=== PATIENT | male | born 1960 | race Caucasian/White ===

== ENCOUNTER → 2017-12-31 10:28 | Outpatient (CLI) | payer MEDICARE, OTHER, SELFPAY ==
--- NOTE | 2017-12-31 10:36 | RAD_ITS ---
STUDY: X-RAY - LEFT FOOT CLINICAL: Male, 57 years old. Pain at the level of the metatarsal bones. TECHNIQUE: 3 view(s) of the foot. COMPARISON: None. FINDINGS: There is an enthesophyte involving the posterior superior calcaneus at the site of insertion of the Achilles tendon. Small plantar spur. Normal visualized subtalar, talonavicular, calcaneocuboid, tarsal and tarsometatarsal articulations. Findings suggestive of a healed fractures at the base of the third and fourth metatarsals. Normal metatarsophalangeal joint of the great toe. Normal tibial and fibular sesamoid bones. Normal interphalangeal joint of the great toe. Normal phalanges of the great toe. Normal second through fifth metatarsophalangeal joints. Normal interphalangeal joints and phalanges of the lesser toes. Soft tissue swelling. RAD/Foot min 3 Views IMPRESSION: Findings suggestive of healed fractures along the base of the third and fourth metatarsals. Mild soft tissue swelling. Electronically Signed: Rober Thomas MD at 12:50 EST Tel [phone], Service support ,
--- NOTE | 2017-12-31 10:44 | RAD_ITS ---
STUDY: X-RAY - LEFT FOOT CLINICAL: Male, 57 years old. Metatarsal pain. TECHNIQUE: 3 weight bearing view(s) of the foot. COMPARISON: December 31, 2017) 1027 hours).. FINDINGS: There is an enthesophyte involving the posterior superior calcaneus at the site of insertion of the Achilles tendon. The talus and tarsal bones are unremarkable. There is arthrosis of the visualized subtalar, talonavicular, calcaneocuboid, tarsal and tarsometatarsal articulations. Normal metatarsi. There is minimal degenerative arthrosis of the metatarsophalangeal joint of the hallux . Normal tibial and fibular sesamoid bones. Normal interphalangeal joint of the great toe. Normal phalanges of the great toe. Normal second through fifth metatarsophalangeal joints. Normal interphalangeal joints and phalanges of the lesser toes. The soft tissue structures are unremarkable. 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 Electronically Signed: Jam Lane DO at 11:21 EST Tel [phone], Service support ,
== END ==
PROVIDERS: Family Provider Family Medicine; PCP Family Medicine; Visit Provider Family Medicine
DX: M89.8X7 Other specified disorders of bone, ankle and foot (principal)
CPT/HCPCS: 73630

== ENCOUNTER → 2018-01-31 07:06 | Outpatient (CLI) | payer MEDICARE, OTHER, SELFPAY ==
--- NOTE | 2018-01-31 07:45 | MRI_ITS ---
STUDY: MRI LEFT MIDFOOT REASON FOR EXAM: Lateral left foot pain for 3 to 4 months, no specific injury. Evaluate for peroneal tendon tear. TECHNIQUE: Standardized fat and water weighted pulse sequences were obtained in all 3 orthogonal planes. COMPARISON: Radiographs 12/31/2017. FINDINGS: Normal talonavicular articulation. Normal calcaneocuboid articulation. There is arthrosis of the navicular-cuneiform articulations with chondral thinning and mild subchondral cystic change/bone edema (inversion recovery sagittal images 12-17). There is arthrosis of the intercuneiform articulations with chondral thinning and mild subchondral cystic change (T2 coronal series 8 image 33). Normal first tarsometatarsal articulation. Normal Lisfranc ligament. There is arthrosis of the second through fifth tarsometatarsal joints with chondral thinning and subchondral cystic change (inversion recovery sagittal images 15-22). There is no metatarsal stress fracture. Normal tibialis anterior tendon. Normal extensor hallucis longus tendon. Normal extensor digitorum longus tendons. There is tendinosis of the peroneus longus tendon plantar to the cuboid with tendon thickening (T2 coronal series 8 images 34-38) without discrete tendon tear. Normal peroneus brevis tendon and distal insertion. There is atrophy with partial fat replacement of the abductor digiti minimi muscle (T1 sagittal images 21-23). Normal visualized plantar fascia. There is mild edema in the dorsal subcutis adipose space. There is a small ganglion cyst dorsal to the second metatarsal base (T2 axial series 6 image 9) measuring 0.6 cm in length. MRI/Lower Ext/No Jt/w/o IMPRESSION: Tendinosis of the distal peroneus longus tendon without demonstrated peroneal tendon tear. 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 Atrophy of the abductor digiti minimi muscle. Small ganglion cyst dorsal to the second metatarsal base. Electronically Signed: Naren Mattson MD at 10:31 EST Tel , Service support ,
== END ==
PROVIDERS: Family Provider Family Medicine; PCP Family Medicine; Visit Provider Podiatrist
DX: S96.812A Strain of other specified muscles and tendons at ankle and foot level, left foot, initial encounter (principal)
CPT/HCPCS: 73718

== ENCOUNTER → 2018-03-22 09:13 | Outpatient (CLI) | payer MEDICARE, OTHER, SELFPAY ==
[2018-03-22 09:27] LABS: Bacteria 0 SEEN /hpf (None Seen); Mucous, Urine 0 SEEN /hpf (<or=2+); Red Blood Cells-Urine 0 SEEN /hpf (0-5); Squamous Epithelial Cells - UA 0 SEEN /hpf (0-5)
[2018-03-22 09:55] LABS: Color, Urine Yellow (Yellow); Glucose, Dipstick 1000 mg/dl (Normal); Ketone-Dipstick Negative (Negative); Leukocyte Esterase-Dipstick Negative /ul (Negative); Nitrite-Dipstick Negative (Negative); Occult Blood-Urine Negative /ul (Negative); Protein-Dipstick Negative (Negative); Urine Bilirubin Dipstick Negative (Negative); Urine Clarity Clear (Clear); Urine Urobilinogen Normal (Normal)
[2018-03-22 10:00] LABS: Absolute Lymphocyte Count 1.82 X10^3/ul (0.83-4.51); Absolute Neutrophil Count 4.8 X10^3/uL (2.0-7.7); Basophil# 0.04 X10^3/uL; Basophil% 0.5 % (0-1); Eosinophil# 0.21 X10^3/uL; Eosinophils% 2.8 % (0-5); Hematocrit 47.6 % (40-54); Hemoglobin 15.1 g/dl (13.0-16.5); Lymphocyte # 1.82 X10^3/ul (4.0); Lymphocyte % 23.9 % (19-41); Mean Corp Hgb Conc 31.7 g/gl (32-36); Mean Corpuscular Hgb 27.9 pg (27.0-32.0); Mean Platelet Vol. 10.5 fl (6.2-12.0); Monocyte# 0.72 X10^3/uL; Monocyte% 9.5 % (0-10); Neutrophil % 63.2 % (47-70); Platelet Count 252 K/mm3 (150-450); RBC Distribution Width CV 14.1 % (11.6-14.6); RBC Distribution Width SD 45.2 fl (35.1-43.9); Red Blood Count 5.41 M/mm3 (4.6-6.2); White Blood Count 7.6 K/mm3 (4.4-11.0)
[2018-03-22 10:02] LABS: Amphetamine Urine VISTA NEGATIVE (<1000 ng/mL); Barbiturate Urine VISTA NEGATIVE (< 200 ng/mL); Benzodiazepine Urine VISTA NEGATIVE (< 200 ng/mL); Cocaine Urine VISTA NEGATIVE (< 300 ng/mL); Ecstacy Urine VISTA NEGATIVE (< 500 ng/mL); Methadone Urine VISTA NEGATIVE (< 300 ng/mL); PCP Urine VISTA NEGATIVE (< 25 ng/mL); THC Urine VISTA NEGATIVE (< 50 ng/mL); Vista UDS pH Range 7
[2018-03-22 10:02] LABS: White Blood Cells 0-5 SEEN /hpf (0-5)
[2018-03-22 10:04] LABS: POSITIVE COUNT NO; POSITIVE DIFFERENTIAL NO; POSITIVE MORPHOLOGY NO
[2018-03-22 10:16] LABS: Microalbumin:Creatinine Ratio 7.7 mg/g CRE (<30 mg/g CRE)
[2018-03-22 10:28] LABS: AST(SGOT) 22 U/L (15-37); Alanine Aminotransfer ALT/SGPT 34 U/L (16-61); Albumin, Serum 3.5 g/dL (3.2-5.0); Alkaline Phosphatase 101 U/L (45-117); Anion Gap 3 (5-15); BUN 10 mg/dL (7-18); BUN/Creat Ratio 10.2 RATIO (10-20); Calcium,Total 8.3 mg/dL (8.5-10.1); Chloride 106 mmol/L (98-107); Creatinine, Serum 0.98 mg/dL (0.70-1.30); EST Glomerular Filtration Rate 83 mL/min (>60); Est Glom Filt Rate - Afr Amer 100 mL/min (>60); Globulin 3.6 g/dL (2.2-4.2); Glucose 140 mg/dL (74-106); Potassium 4.3 mmol/L (3.5-5.1); Protein, Total 7.1 g/dL (6.4-8.2); Sodium Level 140 mmol/L (136-145)
== END ==
PROVIDERS: Family Provider Family Medicine; PCP Family Medicine; Visit Provider Anesthesiology Pain Medicine
DX: F11.20 Opioid dependence, uncomplicated (principal); E11.49 Type 2 diabetes mellitus with other diabetic neurological complication; R39.15 Urgency of urination; J45.909 Unspecified asthma, uncomplicated
CPT/HCPCS: 80053; 80307; 81001; 82043; 82570; 83036; 84443; 85025

== ENCOUNTER 2018-07-22 08:14 | Day surgery (SDC) | payer MEDICARE, OTHER, SELFPAY ==
[2018-07-22 08:30] VITALS: BP 128/78; PULSE 66; RESP 16; TEMP 36.1; O2SAT 98; BMI 50.2
[2018-07-22 09:11] LABS: Bedside Glucose 109 mg/dL (70-110)
--- NOTE | 2018-07-22 09:51 | H&P.OPEN ---
Past Medical/Surgical History - Planned Operation Planned Operative Procedure/s: cscope open access Date of Operative Procedure: 07/22/18 Permit Signed: No S.O.S: No Is This Patient Having a Total Joint: No - Previous Hospitalizations/Surgeries HX Hospitalizations: Yes HX of Surgeries: LEFT SHOULDER 2013. KIDNEY STONES. GALLBLADDER. LEFT TOTAL KNEE. left rtc repair Any Problems With Anesthesia: Yes - SPINAL HEADACHE You/Your Family Experience Fever (Hyperthermia) With Anes: No Cholinesterase deficiency: No - Cardiovascular Hx Chest Pain within Last 2 months: No Hx of Irregular Heartbeat and/or Afib: No Hx Heart Attack: No Hx Congestive Heart Failure: No Hx Rheumatic Fever: No Hx Hypertension: Yes - ON MEDS BP CONTROLLED Hx Internal Defibrillator: No Hx Pacemaker: No Hx Cardiac Catheterization: No Hx Cardiac Surgery/Stents/Etc.: No Hx Stress Test: Yes - STRESS ECHO 2011 HX Edema: Yes - lower legs prn Hx Pain in Legs when Walking/Leg Cramps: Yes - PRN BILAT LEG PAIN - Respiratory Chronic Cough: No HX of Shortness of Breath: Yes - SOB WITH 2 FLights OF STAIRS Hoarseness: No Hx Chronic Obstructive Pulmonary Disease (COPD): Yes Hx Asthma: Yes - INHALERS Hx Emphysema: No Hx Sleep Apnea: No CPAP: No BIPAP: No Hx Oxygen Use at Home: No Hx Respiratory Tract Infection/Cold (presently): No - . Do You Snore Loudly (louder than talking or can be heard): Yes Do You Often Feel Tired/ Fatigued/ Sleepy Dring Daytime?: Yes Has Anyone Observed You Stop Breathing During Sleep?: No Result (for STOP score): Positive Hx Smoking: Yes - QUIT 30 YRS AGO Smoking Status: Former smoker - Gastrointestinal Hx Gastroesophageal Reflux: Yes Controlled With Meds: Yes Hx Gastrointestinal Disorders: No Hx Gastrointestinal Bleed: No Hx Ulcer: No Hx Hiatal Hernia: No Difficulty Chewing/Swallowing: No Recent Onset of Swallowing Problems: No Special diet followed at home: Yes - DIABETIC Hx Unplanned Weight Loss of 20#: No HX Unplanned Weight Gain of 20#: No - Neurological Hx Seizures: No HX Syncope/Blackout Spells/Unconsciousness: No Hx CVA/Stroke: No Hx Transient Ischemic Attacks (TIA): No Hx Multiple Sclerosis: No Hx Parkinson's Disease: No Hx Head/Neck Injury: Yes - DDD CERVICAL Hx Headaches: No Hx Back Injury/Pain: Yes - LOW BACK/DDD/NUMBNESS TINGLING TO RIGHT LEG Recent Onset of Speech Difficulty: No Restless Legs: Yes Does patient have nerve stimulator: No Patient instructed to have device shut off: No Rep notified?: No - Blood Disorder Hx Leukemia: No Bleeding Tendencies: No Hx Deep Vein Thrombosis: Yes - 5-6 YRS AGO AFTER 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 Insulin: No Thyroid Disease: No Hx Steroid Therapy: No - . - Psycho/Social Hx Substance Use: No Hx Alcohol Use: No Hx Anxiety: No Hx Depression: No Mental Illness: No Hx Dementia: No - Miscellaneous Hx Cancer: No Recent Exposure to Contagious Disease: No Active MRSA: No Hx of C-Diff: No Any Loose Teeth: No Allergies Penicillins Allergy (Verified 07/21/18 11:03) Shortness of breath - Discharge Is Pt Admitted From a Senior Living, or a [facility]: No Who Could Help: family Special Equipment Used at Home: cane prn After D/C, Where Do you Plan to Go: Return Home - Physical Exam General: Alert, Oriented x3, Cooperative Lungs: Normal air movement Cardiovascular: Regular rate, Regular Rhythm Abdomen: Soft, Non Tender, Non-Distended, Obese Vital Signs Temp Pulse Resp BP Pulse Ox 97 F L 66 16 128/78 H 98 07/22/18 08:30 07/22/18 08:30 07/22/18 08:30 07/22/18 08:30 07/22/18 08:30 Oxygen Delivery Method Room Air Weight: 370 lb 9.553 oz Body Mass Index (BMI) 50.2 POC Glucose 07/22/18 08:36 POC Glucose 109 Assessment/Plan 58-year-old male for screening colonoscopy 1. Patient reports he has never had a colonoscopy in the past. He has no family history of colon cancer. He has no abdominal pain or blood in his stool. 2. I explained endoscopy in detail to the patient. I explained the risks including but not limited to stroke or heart attack with anesthesia, perforation of the GI tract, bleeding, infection. I explained that any of these could necessitate further emergency surgery. The patient understands and all questions were answered sufficiently. The patient wishes to proceed with procedure. Miguel Casiano MD Pager: [facility] [address] [place] [address] [address] [place] [address] Office: Surgery Risks - Colonoscopy Risks Include but are not Limited To: Risks include but are not limited to: Bleeding, perforation requiring further surgery, inability to complete colonoscopy requiring barium enema.
[2018-07-22 10:16] VITALS: BP 112/59; BP 128/78; PULSE 70; RESP 12; TEMP 36.3; O2SAT 94
[2018-07-22 10:20] VITALS: BP 101/63; BP 128/78; PULSE 62; RESP 16; O2SAT 94
[2018-07-22 10:25] VITALS: BP 102/66; BP 128/78; PULSE 61; RESP 16; O2SAT 93
[2018-07-22 10:31] VITALS: BP 121/77; BP 128/78; PULSE 65; RESP 16; TEMP 36.4; O2SAT 94
--- NOTE | 2018-07-22 10:53 | PCM.OPRPT ---
Problem List (1) Screen for colon cancer Status: Acute Report of Operation Date of Procedure: 07/22/18 Pre-Operative Diagnosis: Screening colonoscopy Post-Operative Diagnosis: Poor prep Surgery/Procedure Performed:: Colonoscopy Specimen's removed: None Description of Procedure: The major risks and benefits associated with the procedure were explained to the patient in detail. The patient verbalized understanding and agreement with the same. The patient was brought to the endoscopy suite. After adequate sedation was achieved, the patient was placed in the left lateral decubitus position and a digital rectal exam was performed. This examination was within normal limits. A well-lubricated colonoscope was then inserted into the rectum and advanced under direct visualization to the level of the cecum. The bowel prep was poor. The cecum was identified by both visual and anatomic landmarks. A photograph was taken of the end of the cecum. The scope was then fully withdrawn while examining the color, texture, anatomy and integrity of the mucosa from the cecum to the anal canal. The colon contained a lot of fluid but also a lot of vegetable matter. The colon that was visible was able to be analyzed but the colon the head liquid covering it was unable to be suctioned due to the particulate food matter. I was not able to identify any large tumors but I was also unable to examine the dependent portion of the colon due to food. Over 6 minutes were taken to examine the colonic mucosa. Upon reaching the rectum the scope was retroflexed to examine the distal rectal vault. The scope was then straightened and was completely retrieved upon exiting the anal canal and the procedure was terminated. The patient was then transferred to the recovery room in stable condition. Recommendations for follow up: After discussing with the patient the patient did not understand the colonoscopy bowel prep instructions and was eating a regular diet up until last night. I will have the patient follow-up in the clinic to [id number] explain the bowel prep instructions and repeat schedule his colonoscopy.
[2018-07-22 11:00] VITALS: BP 128/78
== END 2018-07-22 11:00 | disposition home or self-care (01) ==
LOC: EN 08:14 → AC 08:15
PROVIDERS: Family Provider Family Medicine; PCP Family Medicine; Visit Provider Surgery
PROC: 0DJD8ZZ Inspection of Lower Intestinal Tract, Via Natural or Artificial Opening Endoscopic (ICD-10-PCS; CPT 45378; principal; 2018-07-22 09:10)
DX: Z12.11 Encounter for screening for malignant neoplasm of colon (principal); K21.9 Gastro-esophageal reflux disease without esophagitis; E11.9 Type 2 diabetes mellitus without complications; I10 Essential (primary) hypertension; J45.909 Unspecified asthma, uncomplicated; Z87.891 Personal history of nicotine dependence; Z86.718 Personal history of other venous thrombosis and embolism
CPT/HCPCS: G0121; 82962; J7120

== ENCOUNTER → 2019-04-20 13:59 | Outpatient (CLI) | payer MEDICARE, SELFPAY ==
--- NOTE | 2019-04-20 14:07 | RAD_ITS ---
STUDY: X-RAY - SACROILIAC JOINTS REASON FOR EXAM: Male, 58 years old. Sacral pain TECHNIQUE: 3 view(s) of the sacroiliac joints were obtained. COMPARISON: None. FINDINGS: Normal bilateral sacroiliac joints. Normal visualized sacral ala and sacrum. There is no demonstrated fracture. Normal visualized iliac bones. Normal visualized soft tissue structures. RAD/S-I Jts 3 or More Views IMPRESSION: Normal x-ray examination of the bilateral sacroiliac joints. Electronically Signed: Aroldo Gibson MD at 19:40 EDT , Service support ,
--- NOTE | 2019-04-20 14:07 | RAD_ITS ---
STUDY: X-RAY - LUMBAR SPINE REASON FOR EXAM: Male, 58 years old. Chronic lumbar pain TECHNIQUE: 5 view(s) of the lumbar spine were obtained. COMPARISON: None FINDINGS: Normal lumbar lordosis. There is no substantial scoliosis. 6 mm anterolisthesis of L5 on S1 related to bilateral pars defects. Otherwise normal alignment. There is multilevel endplate spondylosis of the lumbar vertebrae. Moderate narrowing of the L5-S1 disc. Mild loss of disc height at all other levels. Facet joint degenerative disease at L4-L5 and L5-S1. No compression fractures. The soft tissue structures are unremarkable. RAD/L/S Spine Min 4 Views IMPRESSION: No acute abnormality. Malalignment at L5-S1 and moderate degenerative disc disease related to bilateral L5 pars defects. Lesser degree of multilevel degenerative changes. Electronically Signed: Aroldo Gibson MD at 19:39 EDT , Service support ,
[2019-04-20 15:24] LABS: Absolute Lymphocyte Count 2.11 X10^3/ul (0.83-4.51); Absolute Neutrophil Count 4.6 X10^3/uL (2.0-7.7); Basophil# 0.02 X10^3/uL; Basophil% 0.3 % (0-1); Eosinophil# 0.21 X10^3/uL; Eosinophils% 2.7 % (0-5); Hemoglobin 14.3 g/dl (13.0-16.5); Lymphocyte # 2.11 X10^3/ul (4.0); Lymphocyte % 27.6 % (19-41); Mean Corp Hgb Conc 31.8 g/gl (32-36); Mean Corpuscular Hgb 27.8 pg (27.0-32.0); Mean Corpuscular Volume 87.4 fL (80-94); Mean Platelet Vol. 10.8 fl (6.2-12.0); Monocyte% 9.2 % (0-10); Neutrophil # 4.59 X10^3/uL (2.7-7.7); Neutrophil % 60.1 % (47-70); Platelet Count 228 K/mm3 (150-450); RBC Distribution Width CV 13.6 % (11.6-14.6); RBC Distribution Width SD 42.8 fl (35.1-43.9); Red Blood Count 5.15 M/mm3 (4.6-6.2); White Blood Count 7.6 K/mm3 (4.4-11.0)
[2019-04-20 15:33] LABS: POSITIVE COUNT NO; POSITIVE DIFFERENTIAL NO; POSITIVE MORPHOLOGY NO
[2019-04-20 15:36] LABS: AST(SGOT) 21 U/L (15-37); Alanine Aminotransfer ALT/SGPT 36 U/L (16-61); Albumin, Serum 3.5 g/dL (3.2-5.0); Alkaline Phosphatase 88 U/L (45-117); Anion Gap 4 (5-15); BUN 10 mg/dL (7-18); BUN/Creat Ratio 11.1 RATIO (10-20); Calcium,Total 8.7 mg/dL (8.5-10.1); Chloride 109 mmol/L (98-107); EST Glomerular Filtration Rate 91 mL/min (>60); Est Glom Filt Rate - Afr Amer 110 mL/min (>60); Globulin 3.5 g/dL (2.2-4.2); Glucose 102 mg/dL (74-106); Potassium 4.2 mmol/L (3.5-5.1); Sodium Level 144 mmol/L (136-145)
[2019-04-20 15:48] LABS: Hemoglobin A1c 7.3 % (4.2-6.3)
== END ==
PROVIDERS: Family Provider Family Medicine; PCP Family Medicine; Referring Provider Family Medicine; Visit Provider Family Medicine
DX: M53.3 Sacrococcygeal disorders, not elsewhere classified (principal); E11.49 Type 2 diabetes mellitus with other diabetic neurological complication; M54.5 Low back pain
CPT/HCPCS: 36415; 72110; 72202; 80053; 83036; 85025

== ENCOUNTER 2019-07-01 18:08 | Emergency (ER) | payer MEDICARE, SELFPAY ==
[2019-07-01 18:09] VITALS: BP 135/85; PULSE 74; RESP 20; TEMP 36.6; BMI 47.5
--- NOTE | 2019-07-01 18:39 | EKG12_ITS ---
Test Reason : DYSRYTHMIA Blood Pressure : / mmHG Vent. Rate : 064 BPM Atrial Rate : 064 BPM P-R Int : 190 ms QRS Dur : 156 ms QT Int : 472 ms P-R-T Axes : -14 -65 006 degrees QTc Int : 486 ms Normal sinus rhythm Left axis deviation Right bundle branch block Inferior infarct , age undetermined Abnormal ECG Confirmed by DALE MCRAE, JING ([id number]), editor managing newspaper WILLIE BLACKMON ([id number]) on 07/02/2019 1:13:12 PM Referred By: TAMMY Confirmed By:TORO HUNTER MD
--- NOTE | 2019-07-01 18:40 | CT_ITS ---
STUDY: CTA HEAD AND NECK WITH CONTRAST REASON FOR EXAM: Male, 59 years old. Neck pain. Left-sided weakness. Concern for dissection. Headache. RADIATION DOSAGE (If Supplied By Facility): CTDIvol = ( 30.41 ) mGy, DLP = ( 1692.68 ) mGycm TECHNIQUE: CT angiography was performed with a multi-detector CT scanner. Data acquisition was obtained from the skull base through the vertex following intravenous administration of 100ML IV Isovue 370. MIP images were reconstructed from the axial data set. Post-processing of the angiographic images was performed, with multiplanar reformation and 3D reconstruction. Individualized dose optimization techniques were used for this CT. COMPARISON: No relevant priors. FINDINGS: Normal bilateral petrous carotid arteries. Normal right cavernous carotid artery with a normal supraclinoid bifurcation. Normal left cavernous carotid artery with a normal supraclinoid bifurcation. There is hypoplastic development of the right A1 segment of the anterior cerebral arteries with an atretic but intact artery. Normal left A1 segments of the anterior cerebral artery. Normal intact anterior communicating artery (ACOM). Normal bilateral A2 segments of the anterior cerebral arteries. Normal right M1 and M2 segments of the middle cerebral arteries, with a normal M1 bifurcation. Normal left M1 and M2 segments of the middle cerebral arteries, with a normal M1 bifurcation. There is non-visualization of the right posterior communicating artery (PCOM). Normal left posterior communicating artery (PCOM). Normal bilateral vertebral arteries. Normal basilar artery with a normal basilar bifurcation. The visualized bilateral superior cerebellar (SCA) arteries are normal. Normal bilateral P1, P2 and visualized P3 segments of the posterior cerebral arteries. There is no demonstrated aneurysm of the [place] of [place]. There is no demonstrated abnormality of the visualized brain. AORTIC ARCH: Normal visualized aortic arch. Normal origins of the brachiocephalic, left common carotid, and left subclavian arteries. RIGHT CAROTID ARTERIES: Normal right common carotid artery (CCA). Normal right common carotid bulb. Normal origin of the right internal carotid (ICA) artery without a hemodynamically significant stenosis. There is atherosclerotic tortuous elongation of the cervical portion of the right internal carotid artery. Normal origin of the right external carotid artery (ECA). LEFT CAROTID ARTERIES: Normal left common carotid artery (CCA). There is mild atherosclerotic plaque formation with minimal narrowing of the left carotid bulb. Normal origin of the left internal carotid (ICA) artery without a hemodynamically significant stenosis. There is atherosclerotic tortuous elongation of the cervical portion of the left internal carotid artery. Normal origin of the left external carotid artery (ECA). VERTEBRAL ARTERIES: Normal bilateral vertebral arteries. Other: Degenerative changes of the cervical spine with left greater than right foraminal narrowing. Normal visualized brain structures. CT/CTA Head AND Neck W/ Contrast IMPRESSION: No aneurysm or occlusion. No focal dissection. There is slight atherosclerotic plaque. Cervical spondylosis. Electronically Signed: Sabino Nieto MD at 19:48 EDT , Service support ,
--- NOTE | 2019-07-01 18:46 | ED.VISSUMM ---
- ER Visit Summary Date of Service: 07/01/19 Chief Complaint: Normal onset of left neck pain approximately a week ago posteriorly at rest. History of Present Illness: The patient is a 59 M history of hypertension, diabetes, COPD and kidney stones. Patient is never had any neck surgery. Denies any recent neck trauma or neck manipulation. About a week ago he was at home watching TV got sudden onset of left posterior neck pain that is been constant and now he is developed some visual changes today and left-sided weakness. He said he never had any like this before. He is on no blood thinners. He denies any chest pain. Physical Examination: Older male currently no acute distress. Vital signs are stable. He is afebrile. His initial blood pressure is 135/83. He does not look septic or toxic. HEENT exam unremarkable. Neck his left posterior and lateral neck tenderness. Consistent muscle skeletal etiology. Trachea midline. No lymphadenopathy. Lungs clear to auscultation bilaterally. Heart regular rate and rhythm no murmur. Chest wall nontender. Abdomen soft nontender. Extremities 4-5 policy change clerk strength in left 5 out of 5 on the right. Left leg appears slightly weaker than the right with lifting and off the bed. Also weaker dorsi plantarflexion on the left compared to the right. Back left trapezius tenderness. No signs of trauma. Neurologically awake and alert. Left-sided weakness arm and leg NIH of 2. Test Results: Chest x-ray shows chronic changes and atelectasis no acute process read by myself the radiologist. CBC normal. Chemistries unremarkable gap of 4 normal creatinine. EKG sinus rhythm rate of 64 with old right bundle branch block. Old inferior AK but no acute process no change from prior EKG. CTA head neck showed no acute abnormality. No dissection. No bleed. No mass. No stroke. Emergency Department Course and Treatment: Patient has reproducible neck pain which could be musculoskeletal in etiology but I do not like the acute onset of the neck pain a week ago at rest and now all neurological symptoms such as visual change and left-sided weakness. Will be worked up for an acute carotid or other vascular dissection. Repeat exam at 2150 patient is doing well. I went over all test results with he and his family. His children are in the room. After speaking with them at length the patient length he has had chronic leg weakness that he has had evaluated by several different physicians. This is not new today. His policy change clerk strength is back to normal in the left hand and that was more primarily from his neck pain than an acute neurologic event. His repeat neurologic exam now is normal except for weakness in his left leg which family and patient state is chronic and not new. We discussed all his test results and they are comfortable with him being discharged home. The neck pain is consistent with musculoskeletal pain. And the leg weakness is chronic. Treatment Plan: Skelaxin as a muscle relaxant. Motrin for pain. Hot shower warm bath. Massage. Disposition: Discharge Impression: Acute left-sided posterior neck pain secondary to muscle spasm Chronic left leg weakness This note was generated with [employer] dictation software. It may contain incorrect words, spelling, and punctuation that were not noted in review of the chart prior to signing ED Disposition - Plan for ED Patient: Referrals: Mat Barrera MD [Primary Care Provider] -
[2019-07-01] MEDS: 0.9% Normal Saline 1,000 ML 1000 ML IV (18:49)
--- NOTE | 2019-07-01 18:55 | RAD_ITS ---
STUDY: X-RAY CHEST REASON FOR EXAM: Male, 59 years old. Headache TECHNIQUE: Single frontal view of the chest. COMPARISON: December 09, 2017 FINDINGS: The lungs are underexpanded with basilar atelectasis. There is no demonstrated pleural abnormality. There is mild cardiac enlargement. Normal mediastinum and elizabeth. Normal visualized pulmonary arteries. Normal visualized aortic arch and descending thoracic aorta. There are diffuse degenerative changes of the visualized thoracic spine. Normal visualized ribs, clavicles, and shoulders. There is no demonstrated abnormality of the visualized soft tissue structures of the upper abdomen. RAD/Chest 1 View (Portable) IMPRESSION: Lower lung atelectasis Electronically Signed: Sabino Nieto MD at 19:27 EDT , Service support ,
[2019-07-01 18:57] LABS: Absolute Lymphocyte Count 1.78 X10^3/uL (0.83-4.51); Absolute Neutrophil Count 5.9 X10^3/uL (2.0-7.7); Basophil# 0.02 X10^3/uL; Basophil% 0.2 % (0-1); Eosinophil# 0.12 X10^3/uL; Eosinophils% 1.4 % (0-5); Hematocrit 44.5 % (40-54); Hemoglobin 14.6 g/dL (13.0-16.5); Lymphocyte # 1.78 X10^3/ul (4.0); Lymphocyte % 20.7 % (19-41); Mean Corp Hgb Conc 32.8 g/dL (32-36); Mean Corpuscular Volume 88.3 fL (80-94); Mean Platelet Vol. 10.4 fl (6.2-12.0); Monocyte# 0.72 X10^3/uL; Monocyte% 8.4 % (0-10); NRBC Flagged by Analyzer 0 % (0-5); Neutrophil # 5.94 X10^3/uL (2.7-7.7); Neutrophil % 69.1 % (47-70); Platelet Count 221 K/mm3 (150-450); RBC Distribution Width CV 13.9 % (11.6-14.6); RBC Distribution Width SD 44.9 fl (35.1-43.9); Red Blood Count 5.04 M/mm3 (4.6-6.2); White Blood Count 8.6 K/mm3 (4.4-11.0)
[2019-07-01 19:13] LABS: Anion Gap 4 (5-15); BUN 9 mg/dL (7-18); BUN/Creat Ratio 11.4 RATIO (10-20); Chloride 112 mmol/L (98-107); Creatinine, Serum 0.79 mg/dL (0.70-1.30); EST Glomerular Filtration Rate 106 mL/min (>60); Est Glom Filt Rate - Afr Amer 128 mL/min (>60); Estimated Creatinine Clearance 104.58 ml/min; Glucose 75 mg/dL (74-106); Potassium 3.7 mmol/L (3.5-5.1); Sodium Level 142 mmol/L (136-145)
[2019-07-01 20:26] VITALS: BP 138/80; PULSE 64; RESP 18; O2SAT 98
--- NOTE | 2019-07-01 22:00 | ED.DEP ---
ED Disposition - Plan for ED Patient: Disposition: Home or Assisted Living Instructions: NECK SPASM, No Trauma Prescriptions: Metaxalone [Skelaxin] 800 mg PO TID #20 tab Prescription Printed Referrals: Mat Barrera MD [Primary Care Provider] - 3-5 Days if not improving Additional Instructions: Hot shower, warm baths and massage to left posterior neck muscle spasm. Skelaxin as a muscle relaxant. If it is too expensive when you go try to get it filled there is a generic version. Motrin for pain and inflammation. Follow-up with your doctor if not improving.
[2019-07-01] MEDS: Metaxalone 800 MG Tablet PO (22:16)
[2019-07-01 22:17] VITALS: BP 120/79; PULSE 60; RESP 18
== END 2019-07-01 22:18 | disposition home or self-care (01) ==
PROVIDERS: Emergency Provider Emergency Medicine; Family Provider Family Medicine; PCP Family Medicine
DX: M62.838 Other muscle spasm (principal); M54.2 Cervicalgia; I45.10 Unspecified right bundle-branch block; J98.11 Atelectasis; I10 Essential (primary) hypertension; E11.9 Type 2 diabetes mellitus without complications; J44.9 Chronic obstructive pulmonary disease, unspecified; Z87.442 Personal history of urinary calculi
CPT/HCPCS: 70496; 70498; 71045; 80048; 85025; 93005; 96360; 99285; J7030; Q9967; A4216

== ENCOUNTER → 2019-08-04 13:00 | Outpatient (CLI) | payer MEDICARE, SELFPAY ==
--- NOTE | 2019-08-04 13:01 | RAD_ITS ---
STUDY: X-RAY - CERVICAL SPINE REASON FOR EXAM: Male, 59 years old. Neck pain. TECHNIQUE: 6 view(s) of the cervical spine were obtained. COMPARISON: None FINDINGS: Generalized osteopenia. Normal anterior atlantoaxial articulation. Normal odontoid process. Normal cervical lordosis. Normal vertebral bodies and endplates. Intervertebral disc space narrowing at C4-5, C5-6 and C6-7 with osteophyte formation. Anterior bony neural foraminal encroachment at C4-5, C5-6 and C6-7 on the right and the left. Diffuse uncovertebral and facet sclerosis. The soft tissue structures are unremarkable. RAD/Cerv Spine 4 or 5 Views IMPRESSION: Osteopenia with moderate lower cervical spondylosis. Electronically Signed: Kamari Reina MD at 11:25 EDT , Service support ,
--- NOTE | 2019-08-04 13:01 | RAD_ITS ---
STUDY: X-RAY - RIGHT SHOULDER REASON FOR EXAM: Shoulder pain after heavy lifting 3 weeks ago. TECHNIQUE: 4 view(s) of the shoulder. COMPARISON: None. FINDINGS: Normal glenohumeral articulation. There is acromioclavicular arthrosis. There is a subacromial enthesophyte. There is mild cystic change of the greater tuberosity. The soft tissue structures are unremarkable. Normal visualized pulmonary apex. RAD/Shoulder min 2 Views IMPRESSION: Acromioclavicular arthrosis. Subacromial enthesophyte. Electronically Signed: Naren Mattson MD at 15:10 EDT Tel , Service support ,
== END ==
LOC: HPRAD 13:01
PROVIDERS: Family Provider Family Medicine; PCP Family Medicine; Referring Provider Orthopaedic Surgery; Visit Provider Orthopaedic Surgery
DX: M25.519 Pain in unspecified shoulder (principal); M54.2 Cervicalgia
CPT/HCPCS: 72050; 73030

== ENCOUNTER → 2019-08-19 16:33 | Outpatient (CLI) | payer MEDICARE, SELFPAY ==
[2019-08-04 13:07] VITALS: BMI 47.5
--- NOTE | 2019-08-19 16:36 | MRI_ITS ---
STUDY: MRI RIGHT SHOULDER REASON FOR EXAM: Right shoulder pain and limited range of motion. TECHNIQUE: Standardized fat and water weighted pulse sequences were obtained in all 3 orthogonal planes. COMPARISON: Radiographs 08/04/2019 and MRI images 07/24/2013. FINDINGS: There is supraspinatus tendinosis and a full thickness tear of the anterior supraspinatus tendon (T2 coronal images 12, 13) measuring approximately 1.4 x 1.1 cm (length x width). There is infraspinatus tendinosis (T2 coronal image 7) without discrete tendon tear. There is mild subscapularis tendinosis (proton density axial image 14) without discrete tendon tear. Normal teres minor tendon. There is mild atrophy with mild partial fat replacement of the supraspinatus and infraspinatus muscles (T2 sagittal images 16-19). Normal subscapularis muscle. Normal teres minor muscle. There is a small glenohumeral joint effusion. There is mild bone edema in the greater tuberosity. There is a suspected small SLAP lesion (proton density coronal images 10-12). There is mild tendinosis of the intracapsular long biceps tendon (T2 sagittal images 12-14). Normal capsulo- ligamentous complex. There is acromioclavicular arthrosis with hypertrophic changes (T2 sagittal images 14, 15). There is a Type III morphology (anterior hook) (T2 sagittal image 11), with a neutral orientation. There is a small volume of subacromial-subdeltoid bursal fluid. There is thickening of the coracoacromial ligament T2 sagittal image 11). Normal deltoid muscle. Normal trapezius muscle. MRI/Upper Ext Joint Only(Routine) IMPRESSION: Full-thickness tear and tendinosis of the supraspinatus tendon. Infraspinatus and subscapularis tendinosis. Mild atrophy of the supraspinatus and infraspinatus muscles. Suspected small SLAP lesion. Mild tendinosis of the long biceps tendon. Acromioclavicular arthrosis. Thickening of the coracoacromial ligament. Glenohumeral joint fluid communicating with the subacromial-subdeltoid bursa. Electronically Signed: Naren Mattson MD at 15:42 EDT Tel , Service support ,
== END ==
LOC: MRI 16:35
PROVIDERS: Family Provider Family Medicine; PCP Family Medicine; Referring Provider Orthopaedic Surgery; Visit Provider Orthopaedic Surgery
DX: M25.519 Pain in unspecified shoulder (principal)
CPT/HCPCS: 73221

== ENCOUNTER → 2019-09-24 09:54 | Outpatient (CLI) | payer MEDICARE, SELFPAY ==
[2019-09-22 12:52] VITALS: BMI 47.2
[2019-09-24 12:46] LABS: Hematocrit 42.6 % (40-54); Hemoglobin 13.9 g/dL (13.0-16.5); Mean Corp Hgb Conc 32.6 g/dL (32-36); Mean Corpuscular Hgb 28.1 pg (27.0-32.0); Mean Corpuscular Volume 86.2 fL (80-94); Mean Platelet Vol. 10.8 fl (6.2-12.0); Platelet Count 229 K/mm3 (150-450); RBC Distribution Width CV 13.2 % (11.6-14.6); RBC Distribution Width SD 41.5 fl (35.1-43.9); Red Blood Count 4.94 M/mm3 (4.6-6.2); White Blood Count 7.5 K/mm3 (4.4-11.0)
[2019-09-24 13:11] LABS: Microalbumin,Random Urine 10.9 mg/L (NO RANGE EST.); Microalbumin:Creatinine Ratio 5.9 mg/g CRE (<30 mg/g CRE)
[2019-09-24 13:22] LABS: AST(SGOT) 18 U/L (15-37); Alanine Aminotransfer ALT/SGPT 26 U/L (16-61); Albumin, Serum 3.5 g/dL (3.2-5.0); Alkaline Phosphatase 75 U/L (45-117); Anion Gap 5 (5-15); BUN 12 mg/dL (7-18); BUN/Creat Ratio 14.9 RATIO (10-20); Calcium,Total 8.5 mg/dL (8.5-10.1); Chloride 107 mmol/L (98-107); Cholesterol 115 mg/dL (200); Creatinine, Serum 0.81 mg/dL (0.70-1.30); EST Glomerular Filtration Rate 103 mL/min (>60); Est Glom Filt Rate - Afr Amer 125 mL/min (>60); Globulin 3.5 g/dL (2.2-4.2); Glucose 112 mg/dL (74-106); High Density Lipoprotein 45 mg/dL; Potassium 3.9 mmol/L (3.5-5.1); Prealbumin 15.7 mg/dL (20.0-40.0); Sodium Level 138 mmol/L (136-145); Triglycerides 53 mg/dL; Very Low Density Lipoprotein 11 mg/dL (5-40)
[2019-09-24 13:29] LABS: Hemoglobin A1c 6.3 % (4.2-6.3)
== END ==
LOC: MTLAB 10:00
PROVIDERS: Family Provider Family Medicine; PCP Family Medicine; Referring Provider Podiatrist; Visit Provider Podiatrist
DX: E11.622 Type 2 diabetes mellitus with other skin ulcer (principal); M54.5 Low back pain; E11.49 Type 2 diabetes mellitus with other diabetic neurological complication
CPT/HCPCS: 36415; 80053; 80061; 82043; 82570; 83036; 84134; 85027

== ENCOUNTER 2019-09-29 11:30 | Outpatient (RCR) | payer MEDICARE, SELFPAY ==
[2019-08-04 13:07] VITALS: BMI 47.5
[2019-09-22 10:36] VITALS: BP 136/75; PULSE 71; RESP 16; TEMP 37.2; BMI 47.2
--- NOTE | 2019-09-22 12:34 | HP.PCM_ITS ---
(1) Psoriasis Status: Chronic Current Visit: No Code(s): L40.9 - Psoriasis, unspecified (2) Asthma Status: Chronic Current Visit: No Code(s): J45.909 - Unspecified asthma, uncomplicated (3) Bronchitis Status: Chronic Current Visit: No Code(s): J40 - Bronchitis, not specified as acute or chronic (4) COPD (chronic obstructive pulmonary disease) Status: Chronic Current Visit: No Code(s): J44.9 - Chronic obstructive pulmonary disease, unspecified (5) Lumbar disc disease with radiculopathy Status: Chronic Current Visit: No Code(s): M51.16 - Intervertebral disc disorders with radiculopathy, lumbar region (6) Cervical disc disease Status: Chronic Current Visit: No Code(s): M50.90 - Cervical disc disorder, unspecified, unspecified cervical region (7) Leg swelling Status: Chronic Current Visit: Yes Code(s): M79.89 - Other specified soft tissue disorders (8) Leg edema Status: Chronic Current Visit: Yes Code(s): R60.0 - Localized edema (9) Chronic venous insufficiency Status: Chronic Current Visit: Yes Code(s): I87.2 - Venous insufficiency (chronic) (peripheral) (10) History of DVT (deep vein thrombosis) Status: Chronic Current Visit: Yes Code(s): Z86.718 - Personal history of other venous thrombosis and embolism (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 Current Visit: Yes Code(s): I87.009 - Postthrombotic syndrome without complications of unspecified extremity (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: Yes (13) 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 veins Status: Chronic Current Visit: Yes Code(s): L81.9 - Disorder of pigmentation, unspecified; I83.899 - Varicose veins of unspecified lower extremity with other complications (14) Diabetes mellitus Status: Chronic Current Visit: No Qualifiers: Diabetes mellitus type: type 2 Code(s): E11.9 - Type 2 diabetes mellitus without complications (15) Leg wound, right Status: Chronic Current Visit: Yes Qualifiers: Encounter type: initial encounter Qualified Code(s): S81.801A - Unspecified open wound, right lower leg, initial encounter Code(s): S81.801A - Unspecified open wound, right lower leg, initial encounter (16) Chronic ulcer of right leg Status: Chronic Current Visit: Yes Qualifiers: Non-pressure ulcer stage: with fat layer exposed Qualified Code(s): L97.912 - Non-pressure chronic ulcer of unspecified part of right lower leg with fat layer exposed Code(s): L97.919 - Non-pressure chronic ulcer of unspecified part of right lower leg with unspecified severity (17) Shoulder pain Status: Chronic Current Visit: No Qualifiers: Chronicity: chronic Code(s): M25.519 - Pain in unspecified shoulder (18) Neck pain Status: Chronic Current Visit: No Code(s): M54.2 - Cervicalgia (19) Sleep apnea Status: Chronic Current Visit: No Code(s): G47.30 - Sleep apnea, unspecified (20) Morbid obesity Status: Chronic Current Visit: No Code(s): E66.01 - Morbid (severe) obesity due to excess calories (21) Essential hypertension Status: Chronic Current Visit: No Code(s): I10 - Essential (primary) hypertension (22) BPH (benign prostatic hyperplasia) Status: Chronic Current Visit: No (23) Lipodermatosclerosis Status: Acute Current Visit: Yes Qualifiers: Laterality: bilateral Qualified Code(s): I83.11 - Varicose veins of right lower extremity with inflammation; I83.12 - Varicose veins of left lower extremity with inflammation Code(s): I83.10 - Varicose veins of unspecified lower extremity with inflammation History of Present Illness Date of Service: 09/22/19 Chief Complaint: Open wound and ulceration of the distal right lower extremity History of Wound: This is a 59-year-old male with multiple medical problems. The patient presents with a traumatic wound on the medial aspect of his right distal calf, and a more recent spontaneous ulceration of the right anterior tibial surface. Traumatic wound occurred approximately 6 weeks prior to his presentation, the result of trauma. More recently, a spontaneous ulceration occurred on the right anterior tibial surface. He presents with mild erythema near the site of the 2 adjacent open wounds/ulcerations. Hemosiderin staining in the gaiter areas bilaterally. Multiple varicosities are also noted in the lower extremity's bilaterally, as well as lopez phlebectatica at ankle level bilaterally. The patient has been using antibiotic ointment topically with respect to his to open sites, and Silvadene more recently. He is obese. He sleeps on a flat surface at night. He claims to be active. He has a history of left lower extremity deep vein thrombosis. 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 The patient denies a history of myocardial infarction, congestive heart failure, cerebrovascular accident, renal disease, hyperlipidemia, and thyroid disease. Surgical History: total knee arthroplasty - Left, - - Patient is undergone cholecystectomy in the past. He is undergone procedures for removal of kidney stones. He is also undergone left rotator cuff surgery. Allergies/Adverse Reactions: Allergies Penicillins Allergy (Verified 07/21/18 11:03) Shortness of breath Home Medications: Ambulatory Orders Medication Instructions Recorded Losartan Potassium [Cozaar] 100 mg PO DAILY 03/21/15 Montelukast [Singulair] 10 mg PO DAILY 03/21/15 metFORMIN HCl [Glucophage] 500 mg PO BID 03/21/15 Liraglutide [Victoza 3-Bernardino] 1.8 mg SQ DAILY 06/26/16 Potassium Chloride [K-Dur] 20 meq PO DAILY 06/26/16 Tamsulosin HCl [Flomax] 0.4 mg PO DAILY 06/26/16 Albuterol Inhaler [Ventolin Hfa 1 - 2 puff INHALATION Q4H PRN PRN 01/25/17 (SP)] Cod Liver Oil 1 ea PO DAILY 01/25/17 Ergocalciferol [Vitamin D] 50,000 unit PO QWEEK 01/25/17 Omeprazole [Prilosec] 20 mg PO QHS 01/25/17 Umeclidinium Brm/Vilanterol Tr 2 puff IH DAILY 12/09/17 [Anoro Ellipta 62.5-25 Mcg INH] Aspirin E.C. [Ecotrin] 81 mg PO DAILY@0800 07/21/18 oxycodone 10 mg tablet 10 mg PO TID PRN PRN #90 tab 08/04/19 Levocetirizine Dihydrochloride 5 mg PO DAILY 09/22/19 [Xyzal] - Family History Paternal - - Patient's father at the age of 84 with a history of dementia. Patient's mother at the age of 75 with a history of kidney disease. Social History: Patient is . He does not not work, having been declared disabled. He denies use of alcohol and tobacco products. Lives: Spouse/ Significant Other Smoking Status: Never smoker Tobacco Use: Non-smoker Alcohol: None Drugs: None Review of Systems Constitutional: Denies: Chills, Fever, Weight Change Eyes: Denies: Pain, Vision Change HEENT: Denies: Difficulty Hearing, Difficulty Swallowing, Sinus Congestion Cardiovascular: Denies: Chest Pain, Palpitations Respiratory: Denies: Cough, Shortness of Breath Gastrointestinal: Denies: Diarrhea, Nausea, Vomiting Genitourinary: Denies: Dysuria, Hematuria Endocrine: Denies: Heat/ Cold Intolerance, Polydipsia, Polyuria Hematologic/ Lymphatic: Denies: Easy Bruising, Easy Bleeding - Physical Exam Vital Signs Temp Pulse Resp BP 98.9 F 71 16 136/75 H 09/22/19 10:36 09/22/19 10:36 09/22/19 10:36 09/22/19 10:36 General: Alert, Oriented x3, Cooperative, No apparent distress, Well developed, Well nourished, - - Patient is morbidly obese HEENT: Atraumatic, PERRLA, EOMI, Normocephalic Oral: Moist Mucosa Neck: Supple, No JVD, Negative Carotid Bruits, Negative Hepatojugular Reflux, No Nodes, No Nuchal Rigidity, Trachea Midline Lungs: Clear to auscultation, Normal air movement, No rhonchi, No wheeze, No rales, Diminished Cardiovascular: Regular rate, Regular Rhythm, Normal S1, Normal S2, No murmurs Abdomen: Soft, Non Tender, Non-Distended, Obese Extremities: No clubbing, No cyanosis, No Calf Tenderness, - - Mild bilateral lower extremity swelling and edema is noted. Scattered varicosities are noted in the lower extremity's bilaterally. Lopez phlebectatica is noted at ankle level bilaterally. Hemosiderin staining and lipodermatosclerosis is noted in the gaiter areas bilaterally. An open wound is noted on the right medial calf, and an open ulceration is noted on the right anterior tibial surface. These 2 sites are adjacent to one another. Mild erythema is noted in the area of the wound/ulcer. Wound Measurements and Assessment WC - Nurse 1 - General Ulcer Measurement Start: 09/22/19 10:36 Freq: Status: Active Protocol: Activity Type Activity Date Activity User E-Sign Co-Sign Detail Recorded Client Recorded Date Recorded By Document 09/22/19 10:36 [id number] 09/22/19 10:47 ANUP 09/22/19 10:36 Wound Center Nurse 1 [Ulcer Assessment] 2-right anterior horne -Combined with other wound No -Current Size (cm) - Length 0.5 -Current Size (cm) - Width 0.5 -Current Size (cm) - Depth 0.1 -Total Square Cm 0.25 -Photo Taken Yes -Epithelialization None Present -Tunneling No -Undermining/Tunneling No -Circular Undermining No -Classification - Pressure Ulcer Unstageable -Exudate Amt None Present -Wound Margin Flat & Intact -Granulation Amt None Present (0 %) -Slough/Fibrin Yes -Necrosis Amt Large (67-100%) -Necrotic Tissue Type Adherent Slough -Structure Exposed N/A -Texture (Kami-wound Skin Appearance) Assessed, Localized Edema -Moisture (Kami-wound Skin Appearance Assessed,Dry/ ) Scaly -Color (Kami-wound Skin Appearance) Assessed, Erythema -Temperature (Kami-wound Skin No Abnormality Appearance) (Pt Warm) -Tenderness on Palpation (Kami-wound No Skin Appearance) -Ulcer Cleansing Rinsed/ Irrigated with Saline -Foul Odor after Cleansing No -Anesthetic Used 4% Lidocaine Solution 1-right medial leg -Combined with other wound No -Current Size (cm) - Length 0.8 -Current Size (cm) - Width 1.0 -Current Size (cm) - Depth 0.2 -Total Square Cm 0.80 -Photo Taken Yes -Epithelialization Small 1-33% -Tunneling No -Undermining/Tunneling No -Circular Undermining No -Classification - [place] Grading ( Grade 2 Diabetic Ulcer) -Exudate Amt Small -Exudate Type Serosanguineous -Wound Margin Flat & Intact -Granulation Amt Small (1-33%) -Granulation Quality [place] -Slough/Fibrin Yes -Necrosis Amt Medium (34-66%) -Necrotic Tissue Type Adherent Slough -Structure Exposed N/A -Texture (Kami-wound Skin Appearance) Assessed, Localized Edema -Moisture (Kami-wound Skin Appearance Assessed,Dry/ ) Scaly -Color (Kami-wound Skin Appearance) Assessed -Temperature (Kami-wound Skin No Abnormality Appearance) (Pt Warm) -Tenderness on Palpation (Kami-wound No Skin Appearance) -Ulcer Cleansing Rinsed/ Irrigated with Saline -Foul Odor after Cleansing No -Anesthetic Used 4% Lidocaine Solution [Edema Assessment] -Lower Limb Edema Present Yes -Right Calf (cm) 49.0 -Right Ankle (cm) 28.8 -Left Calf (cm) 47.0 -Left Ankle (cm) 29.0 WC - Nurse 2 - General Ulcer CM Notes Start: 09/22/19 10:36 Freq: Status: Active Protocol: Activity Type Activity Date Activity User E-Sign Co-Sign Detail Recorded Client Recorded Date Recorded By Document 09/22/19 11:36 AN [id number] 09/22/19 11:58 AN 09/22/19 11:36 Wound Center Nurse 2 [Procedure/Treatment] 2-right anterior horne -Time 11:40 -Correct Patient Yes -Correct Side, Site, Position Yes -Correct Procedure Yes -Procedure Performed Yes -Type of Procedure Debridement -Clinical Debridement Subcutaneous -Post Debridement Size (cm) - Length 0.6 -Post Debridement Size (cm) - Width 0.6 -Post Debridement Size (cm) - Depth 0.1 -Total Square Cm 0.36 -Wound/Ulcer Outcome Not Healed -Foul Odor after Cleansing No -Bioengineered Tissue No -Bleeding Controlled with Pressure -Offloading No -Treatment Response Procedure Tolerated Well 1-right medial leg -Time 11:40 -Correct Patient Yes -Correct Side, Site, Position Yes -Correct Procedure Yes -Procedure Performed Yes -Type of Procedure Debridement -Clinical Debridement Subcutaneous -Post Debridement Size (cm) - Length 0.9 -Post Debridement Size (cm) - Width 1.1 -Post Debridement Size (cm) - Depth 0.2 -Total Square Cm 0.99 -Wound/Ulcer Outcome Not Healed -Ulcer Cleansing Rinsed/ Irrigated with Saline -Foul Odor after Cleansing No -Bioengineered Tissue No -Bleeding Controlled with Pressure -Offloading No -Treatment Response Procedure Tolerated Well [See Physician Procedure note for Specifics] Pain Scale: 0-10 Numeric [Pain] -Is Patient Pain Free? Yes Musculoskeletal: No Muscle Wasting Neurological: Cranial nerves II-XII grossly intact, Neuro grossly intact Psych/Mental Status: Normal Affect, Appropriate, Alert and oriented to time, place, person, mood and affect Debridement Note Post-Debridement Measurements/Treatment WC - Nurse 2 - General Ulcer CM Notes Start: 09/22/19 10:36 Freq: Status: Active Protocol: Activity Type Activity Date Activity User E-Sign Co-Sign Detail Recorded Client Recorded Date Recorded By Document 09/22/19 11:36 AN [id number] 09/22/19 11:58 AN 09/22/19 11:36 Wound Center Nurse 2 2-right anterior horne -Time 11:40 -Correct Patient Yes -Correct Side, Site, Position Yes -Correct Procedure Yes -Procedure Performed Yes -Type of Procedure Debridement -Clinical Debridement Subcutaneous -Post Debridement Size (cm) - Length 0.6 -Post Debridement Size (cm) - Width 0.6 -Post Debridement Size (cm) - Depth 0.1 -Total Square Cm 0.36 -Wound/Ulcer Outcome Not Healed -Foul Odor after Cleansing No -Bioengineered Tissue No -Bleeding Controlled with Pressure -Offloading No -Treatment Response Procedure Tolerated Well 1-right medial leg -Time 11:40 -Correct Patient Yes -Correct Side, Site, Position Yes -Correct Procedure Yes -Procedure Performed Yes -Type of Procedure Debridement -Clinical Debridement Subcutaneous -Post Debridement Size (cm) - Length 0.9 -Post Debridement Size (cm) - Width 1.1 -Post Debridement Size (cm) - Depth 0.2 -Total Square Cm 0.99 -Wound/Ulcer Outcome Not Healed -Ulcer Cleansing Rinsed/ Irrigated with Saline -Foul Odor after Cleansing No -Bioengineered Tissue No -Bleeding Controlled with Pressure -Offloading No -Treatment Response Procedure Tolerated Well Pain Scale: 0-10 Numeric Is Patient Pain Free? Yes Laterality: Right - Calf Type of Debridement: Excisional debridement Anesthesia Used: 5% Lidocaine Gel Depth: Down to and including healthy tissue, in the subcutaneous layer Percentage of wound debrided: 100 Instrument Used: 5mm curette Tissue Removed: Bioburden and nonviable tissue Severity: Fat Layer Exposed Amount of bleeding with debridement: Mild Bleeding Controlled with: Compression and gauze Patient tolerated procedure well Swab cultures for both aerobic and anaerobic bacterial growth were obtained relative to the wound on the medial aspect of the right calf. 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 He presented with an adjacent wound and ulceration on the distal right lower extremity, which has been present for nearly 6 weeks. By physical examination and history, the patient appears to have long-standing chronic venous insufficiency, postphlebitic syndrome with inflammation, swelling, and edema in his lower extremities. He is also noted to suffer from diabetes mellitus, hypertension, chronic obstructive pulmonary disease, and morbid obesity. Plan: Conservative treatment measures are to be implemented. These measures have been discussed with the patient thoroughly. He is to elevate his lower extremities as much as possible. He is to continue sleeping on a flat mattress at night. Elevation is to be implemented even during daytime hours. His legs are to be elevated to heart level, or higher. Prolonged idle sitting has been discouraged. Activity has been encouraged. Weight loss has been recommended. Patient has voluntarily lost 48 pounds within the last 4 months. We are to implement compression initially by means of a 3M 2 layer compression wrap, which will be applied to each lower extremity twice weekly. We are to use Aquacel silver topically to the wound/ulceration on the right lower extremity. Aquacel silver will be replaced with every change of the compression wrap twice weekly. Swab cultures have been obtained, and results will be awaited for aerobic and anaerobic bacterial growth. We are to obtain a noninvasive lower extremity arterial study and a venous study of each lower extremity. Routine laboratory studies will be obtained, including a CBC, comprehensive metabolic profile, serum prealbumin, and hemoglobin A1c. Patient has been encouraged to consume a healthy and well-balanced diet. Optimization of the patient's blood sugars has been recommended, in collaboration with the patient's primary care physician has been advised. The patient weighs 348 pounds. He stands 6 feet 0 inches tall. His BMI is 47.2, which places him in a category 3 obesity category. Weight loss has been recommended, in collaboration with the patient's primary care physician has been advised. Influenza vaccine was not administered today. The patient is not a smoker.
[2019-09-22 12:52] VITALS: BMI 47.2
[2019-09-22 18:57] LABS: M R Staph aureus DNA By PCR POSITIVE (Negative); Probe Check PASS; Staph aureus DNA By PCR POSITIVE (Negative)
[2019-09-24 11:19] VITALS: BP 120/73; PULSE 59; RESP 16; TEMP 36.6; BMI 47.2
--- NOTE | 2019-09-29 07:57 | VDLE_ITS ---
Reason For Study: LE Edema RIGHT LEFT CFV is compressible, spontaneous, phasic, CFV is compressible, spontaneous, phasic, competent and demonstrates normal competent, and demonstrates normal augmentation. augmentation. FV is compressible, spontaneous, phasic, FV is compressible, spontaneous, phasic, competent and demonstrates normal competent and demonstrates normal augmentation. augmentation. POP V is compressible, spontaneous, phasic, POP V is compressible, spontaneous, phasic, competent and demonstrates normal competent and demonstrates normal augmentation. augmentation. T/P Trunk is compressible. T/P Trunk is compressible. PTV is compressible. PTV is compressible. RT PerV is compressible. LT PerV is compressible. SFJ is INCOMPETENT and measures 0.66 x 0.86 SFJ is competent and measures 0.62 x 0.66 cm. cm. GSV proximal thigh measures 0.63 x 0.68 cm. GSV proximal thigh measures 0.45 x 0.49 cm. GSV at knee measures 0.72 x 0.73 cm. GSV at knee measures 0.62 x 0.63 cm. GSV INCOMPETENT throughout for greater than GSV INCOMPETENT throughout for greater than 0.5 seconds. 0.5 seconds. ASV mid thigh is INCOMPETENT for greater than INCOMPETENT field technical assistant noted 14 cm above 0.5 seconds and measures 0.71 x 0.77 cm. medial malleolus. ASV mid calf is INCOMPETENT for greater than SSV at junction is INCOMPETENT for greater 0.5 seconds and measures 0.31 x 0.34 cm. than 0.5 seconds and measures 0.47 x 0.51 cm. SSV at junction is INCOMPETENT for greater Procedure than 0.5 seconds and measures 0.31 x 0.30 cm. Exam performed in department. A preliminary report was called and/or faxed to . Interpretation Summary Deep veins of the lower extremities are bilaterally patent and compressible segmentally. There is no evidence of deep vein thrombosis on either side. Valvular competence appears intact within the proximal deep venous systems bilaterally. The great saphenous veins appear bilaterally patent and compressible segmentally. The right sapheno-femoral junction is incompetent . The left sapheno- femoral junction is competent . Segmental valvular incompetence is noted within the great saphenous veins bilaterally. Small saphenous veins are patent and incompetent bilaterally. An incompetent field technical assistant vein is noted in the right calf, located 14 centimeters proximal to the right medial malleolus. Incompetent accessory saphenous veins are noted in the left lower extremity, located in the left mid-thigh and left mid-calf. Ordering Physician: Dominic Hernandez Referring Physician: Mat Barrera MD Performed By: Cintia Saenz RVT
--- NOTE | 2019-09-29 08:21 | ART_ITS ---
Reason For Study: LE Edema Procedure A bilateral lower extremity continuous wave Doppler with analog waveform analysis,segmental pressures,and ankle brachial indexes without exercise. Left Segmental Pressures Left brachial= 122mmHg. Left posterior tibial artery = 179mmHg. Left dorsalis pedis artery = 172mmHg. Left digit = 123 mmHg. The left dorsalis pedis waveforms are triphasic. The left posterior tibial artery waveforms are triphasic. Right Segmental Pressures Right brachial= 119mmHg. Right posterior tibial artery = 184mmHg. Right dorsalis pedis artery = 168mmHg. Right digit = 100 mmHg. The right dorsalis pedis waveforms are triphasic. The right posterior tibial artery waveforms are triphasic. Indices The right ankle brachial index by the dorsalis pedis is 1.38. The right ankle brachial index by the posterior tibial artery is 1.51. The right digital-brachial index is 0.82. The left ankle brachial index by the dorsalis pedis is 1.41. The left ankle brachial index by the posterior tibial artery is 1.47. The left digital-brachial index is 1.01. Interpretation Summary Triphasic Doppler waveforms are noted at ankle level bilaterally. Pulse-volume recordings appear satisfactory at all levels bilaterally. Resting ankle-brachial indices are supra-normal bilaterally. Digital-brachial indices are normal bilaterally. There is no evidence of significant arterial occlusive disease in the lower extremities bilaterally. There is evidence of arterial calcification at ankle level bilaterally. Ordering Physician: Dominic Hernandez Referring Physician: Mat Barrera MD Performed By: Cintia Saenz RVT
[2019-09-29 09:30] VITALS: BP 126/80; PULSE 67; RESP 16; TEMP 37.2; BMI 47.2
--- NOTE | 2019-09-29 10:14 | PCM.WC.HP ---
(1) Psoriasis Status: Chronic Current Visit: No Code(s): L40.9 - Psoriasis, unspecified (2) Asthma Status: Chronic Current Visit: No Code(s): J45.909 - Unspecified asthma, uncomplicated (3) Bronchitis Status: Chronic Current Visit: No Code(s): J40 - Bronchitis, not specified as acute or chronic (4) COPD (chronic obstructive pulmonary disease) Status: Chronic Current Visit: No Code(s): J44.9 - Chronic obstructive pulmonary disease, unspecified (5) Lumbar disc disease with radiculopathy Status: Chronic Current Visit: No Code(s): M51.16 - Intervertebral disc disorders with radiculopathy, lumbar region (6) Cervical disc disease Status: Chronic Current Visit: No Code(s): M50.90 - Cervical disc disorder, unspecified, unspecified cervical region (7) Leg swelling Status: Chronic Current Visit: Yes Code(s): M79.89 - Other specified soft tissue disorders (8) Leg edema Status: Chronic Current Visit: Yes Code(s): R60.0 - Localized edema (9) Chronic venous insufficiency Status: Chronic Current Visit: Yes Code(s): I87.2 - Venous insufficiency (chronic) (peripheral) (10) History of DVT (deep vein thrombosis) Status: Chronic Current Visit: Yes Code(s): Z86.718 - Personal history of other venous thrombosis and embolism (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 Current Visit: Yes Code(s): I87.009 - Postthrombotic syndrome without complications of unspecified extremity (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: Yes (13) 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 veins Status: Chronic Current Visit: Yes Code(s): L81.9 - Disorder of pigmentation, unspecified; I83.899 - Varicose veins of unspecified lower extremity with other complications (14) Diabetes mellitus Status: Chronic Current Visit: No Qualifiers: Diabetes mellitus type: type 2 Code(s): E11.9 - Type 2 diabetes mellitus without complications (15) Leg wound, right Status: Chronic Current Visit: Yes Qualifiers: Encounter type: subsequent encounter Qualified Code(s): S81.801D - Unspecified open wound, right lower leg, subsequent encounter Code(s): S81.801A - Unspecified open wound, right lower leg, initial encounter (16) Chronic ulcer of right leg Status: Chronic Current Visit: Yes Qualifiers: Non-pressure ulcer stage: with fat layer exposed Qualified Code(s): L97.912 - Non-pressure chronic ulcer of unspecified part of right lower leg with fat layer exposed Code(s): L97.919 - Non-pressure chronic ulcer of unspecified part of right lower leg with unspecified severity (17) Shoulder pain Status: Chronic Current Visit: No Qualifiers: Chronicity: chronic Code(s): M25.519 - Pain in unspecified shoulder (18) Neck pain Status: Chronic Current Visit: No Code(s): M54.2 - Cervicalgia (19) Sleep apnea Status: Chronic Current Visit: No Code(s): G47.30 - Sleep apnea, unspecified (20) Morbid obesity Status: Chronic Current Visit: No Code(s): E66.01 - Morbid (severe) obesity due to excess calories (21) Essential hypertension Status: Chronic Current Visit: No Code(s): I10 - Essential (primary) hypertension (22) BPH (benign prostatic hyperplasia) Status: Chronic Current Visit: No (23) Lipodermatosclerosis Status: Acute Current Visit: Yes Qualifiers: Laterality: bilateral Qualified Code(s): I83.11 - Varicose veins of right lower extremity with inflammation; I83.12 - Varicose veins of left lower extremity with inflammation Code(s): I83.10 - Varicose veins of unspecified lower extremity with inflammation History of Present Illness Date of Service: 09/29/19 Chief Complaint: Open wound and ulceration of the distal right lower extremity History of Wound: This is a 59-year-old male with multiple medical problems. The patient presents with a traumatic wound on the medial aspect of his right distal calf, and a more recent spontaneous ulceration of the right anterior tibial surface. Traumatic wound occurred approximately 6 weeks prior to his presentation, the result of trauma. More recently, a spontaneous ulceration occurred on the right anterior tibial surface. He presents with mild erythema near the site of the 2 adjacent open wounds/ulcerations. Hemosiderin staining in the gaiter areas bilaterally. Multiple varicosities are also noted in the lower extremity's bilaterally, as well as lopez phlebectatica at ankle level bilaterally. The patient has been using antibiotic ointment topically with respect to his to open sites, and Silvadene more recently. He is obese. He sleeps on a flat surface at night. He claims to be active. He has a history of left lower extremity deep vein thrombosis. 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 (Chronic) Diabetes mellitus (Chronic) Leg wound, right (Chronic) Chronic ulcer of right leg (Chronic) Shoulder pain (Chronic) Neck pain (Chronic) Spondylosis (Chronic) Sleep apnea (Chronic) Morbid obesity (Chronic) Essential hypertension (Chronic) BPH (benign prostatic hyperplasia) (Chronic) Surgical History: total knee arthroplasty Allergies/Adverse Reactions: Allergies Penicillins Allergy (Verified 09/22/19 12:50) Shortness of breath Home Medications: Ambulatory Orders Medication Instructions Recorded Losartan Potassium [Cozaar] 100 mg PO DAILY 03/21/15 Montelukast [Singulair] 10 mg PO DAILY 03/21/15 metFORMIN HCl [Glucophage] 500 mg PO BID 03/21/15 Liraglutide [Victoza 3-Bernardino] 1.8 mg SQ DAILY 06/26/16 Potassium Chloride [K-Dur] 20 meq PO DAILY 06/26/16 Tamsulosin HCl [Flomax] 0.4 mg PO DAILY 06/26/16 Albuterol Inhaler [Ventolin Hfa 1 - 2 puff INHALATION Q4H PRN PRN 01/25/17 (SP)] Cod Liver Oil 1 ea PO DAILY 01/25/17 Ergocalciferol [Vitamin D] 50,000 unit PO QWEEK 01/25/17 Omeprazole [Prilosec] 20 mg PO QHS 01/25/17 Umeclidinium Brm/Vilanterol Tr 2 puff IH DAILY 12/09/17 [Anoro Ellipta 62.5-25 Mcg INH] Aspirin E.C. [Ecotrin] 81 mg PO DAILY@0800 07/21/18 oxycodone 10 mg tablet 10 mg PO TID PRN PRN #90 tab 08/04/19 Levocetirizine Dihydrochloride 5 mg PO DAILY 09/22/19 [Xyzal] - Family History Paternal - - Patient's father at the age of 84 with a history of dementia. Patient's mother at the age of 75 with a history of kidney disease. Lives: Spouse/ Significant Other Smoking Status: Never smoker Tobacco Use: Non-smoker Alcohol: None Drugs: None Review of Systems Constitutional: Denies: Chills, Fever, Weight Change Eyes: Denies: Pain, Vision Change HEENT: Denies: Difficulty Hearing, Difficulty Swallowing, Sinus Congestion Cardiovascular: Denies: Chest Pain, Palpitations Respiratory: Denies: Cough, Shortness of Breath Gastrointestinal: Denies: Diarrhea, Nausea, Vomiting Genitourinary: Denies: Dysuria, Hematuria Endocrine: Denies: Heat/ Cold Intolerance, Polydipsia, Polyuria Hematologic/ Lymphatic: Denies: Easy Bruising, Easy Bleeding - Physical Exam Vital Signs Temp Pulse Resp BP 98.9 F 67 16 126/80 H 09/29/19 09:30 09/29/19 09:30 09/29/19 09:30 09/29/19 09:30 General: Alert, Oriented x3, Cooperative, No apparent distress, Well developed, Well nourished HEENT: Atraumatic, PERRLA, EOMI, Normocephalic Oral: Moist Mucosa Neck: No JVD Lungs: Normal air movement Abdomen: Non-Distended, Obese Extremities: No clubbing, No cyanosis, No Calf Tenderness, - - Slight swelling and edema persist in the patient's lower extremities. Swelling and edema appears to be improved. There are also chronic changes of hemosiderin staining and lipodermatosclerosis bilaterally in the gaiter areas of the lower extremities. The ulcerations on the right anterior tibial surface persists, but appears smaller in size. There is no sign of infection or cellulitis. Wound Measurements and Assessment WC - Nurse 1 - General Ulcer Measurement Start: 09/22/19 10:36 Freq: Status: Active Protocol: Activity Type Activity Date Activity User E-Sign Co-Sign Detail Recorded Client Recorded Date Recorded By Document 09/29/19 09:30 MI [id number] 09/29/19 09:37 MI 09/29/19 09:30 Wound Center Nurse 1 [Ulcer Assessment] 2-right anterior horne -Combined with other wound No -Current Size (cm) - Length 0.3 -Current Size (cm) - Width 0.4 -Current Size (cm) - Depth 0.2 -Total Square Cm 0.12 -Photo Taken No -Epithelialization Small 1-33% -Tunneling No -Undermining/Tunneling No -Circular Undermining No -Exudate Amt Small -Exudate Type Serosanguineous -Wound Margin Distinct, Outline Attached -Granulation Amt None Present (0 %) -Slough/Fibrin Yes -Necrosis Amt Large (67-100%) -Necrotic Tissue Type Adherent Slough -Texture (Kami-wound Skin Appearance) Assessed, Scarring -Moisture (Kami-wound Skin Appearance Assessed,Dry/ ) Scaly -Color (Kami-wound Skin Appearance) Assessed, Erythema, Hemosiderin Staining -Temperature (Kami-wound Skin No Abnormality Appearance) (Pt Warm) -Tenderness on Palpation (Kami-wound Yes Skin Appearance) -Ulcer Cleansing Rinsed/ Irrigated with Saline -Foul Odor after Cleansing No -Anesthetic Used 4% Lidocaine Solution 1-right medial leg -Combined with other wound No -Current Size (cm) - Length 0.7 -Current Size (cm) - Width 1 -Current Size (cm) - Depth 0.1 -Total Square Cm 0.7 -Photo Taken No -Epithelialization Small 1-33% -Tunneling No -Undermining/Tunneling No -Circular Undermining No -Exudate Amt Small -Exudate Type Serosanguineous -Wound Margin Distinct, Outline Attached -Granulation Amt Medium (34-66%) -Granulation Quality Red -Slough/Fibrin Yes -Necrosis Amt Medium (34-66%) -Necrotic Tissue Type Adherent Slough -Texture (Kami-wound Skin Appearance) Assessed, Scarring -Moisture (Kami-wound Skin Appearance Assessed,Dry/ ) Scaly -Color (Kami-wound Skin Appearance) Assessed, Erythema, Hemosiderin Staining -Temperature (Kami-wound Skin No Abnormality Appearance) (Pt Warm) -Tenderness on Palpation (Kami-wound Yes Skin Appearance) -Ulcer Cleansing Rinsed/ Irrigated with Saline -Anesthetic Used 4% Lidocaine Solution [Edema Assessment] -Lower Limb Edema Present Yes -Right Calf (cm) 45 -Right Ankle (cm) 27.5 -Left Calf (cm) 45 -Left Ankle (cm) 28.5 WC - Nurse 2 - General Ulcer CM Notes Start: 09/22/19 10:36 Freq: Status: Active Protocol: Activity Type Activity Date Activity User E-Sign Co-Sign Detail Recorded Client Recorded Date Recorded By Document 09/29/19 09:42 CS [id number] 09/29/19 10:02 CS 09/29/19 09:42 Wound Center Nurse 2 [Procedure/Treatment] 2-right anterior horne -Time 09:44 -Correct Patient Yes -Correct Side, Site, Position Yes -Correct Procedure Yes -Procedure Performed Yes -Type of Procedure Debridement -Clinical Debridement Subcutaneous -Post Debridement Size (cm) - Length 0.3 -Post Debridement Size (cm) - Width 0.4 -Post Debridement Size (cm) - Depth 0.2 -Total Square Cm 0.12 -Wound/Ulcer Outcome Not Healed -Ulcer Cleansing Not Cleansed -Foul Odor after Cleansing No -Bioengineered Tissue No -Bleeding Controlled with NA -Offloading No -Treatment Response Procedure Tolerated Well 1-right medial leg -Time 09:44 -Correct Patient Yes -Correct Side, Site, Position Yes -Correct Procedure Yes -Procedure Performed Yes -Type of Procedure Debridement -Clinical Debridement Subcutaneous -Post Debridement Size (cm) - Length 0.7 -Post Debridement Size (cm) - Width 1 -Post Debridement Size (cm) - Depth 0.1 -Total Square Cm 0.7 -Wound/Ulcer Outcome Not Healed -Ulcer Cleansing Not Cleansed -Foul Odor after Cleansing No -Bioengineered Tissue No -Bleeding Controlled with NA -Offloading No -Treatment Response Procedure Tolerated Well [See Physician Procedure note for Specifics] Pain Scale: 0-10 Numeric [Pain] -Is Patient Pain Free? Yes Musculoskeletal: No Muscle Wasting Neurological: Cranial nerves II-XII grossly intact, Neuro grossly intact Psych/Mental Status: Normal Affect, Appropriate, Alert and oriented to time, place, person, mood and affect Debridement Note Post-Debridement Measurements/Treatment WC - Nurse 2 - General Ulcer CM Notes Start: 09/22/19 10:36 Freq: Status: Active Protocol: Activity Type Activity Date Activity User E-Sign Co-Sign Detail Recorded Client Recorded Date Recorded By Document 09/22/19 11:36 AN [id number] 09/22/19 11:58 AN Document 09/29/19 09:42 [id number] 09/29/19 10:02 CS 09/22/19 09/29/19 11:36 09:42 Wound Center Nurse 2 2-right anterior horne -Time 11:40 09:44 -Correct Patient Yes Yes -Correct Side, Site, Position Yes Yes -Correct Procedure Yes Yes -Procedure Performed Yes Yes -Type of Procedure Debridement Debridement -Clinical Debridement Subcutaneous Subcutaneous -Post Debridement Size (cm) - Length 0.6 0.3 -Post Debridement Size (cm) - Width 0.6 0.4 -Post Debridement Size (cm) - Depth 0.1 0.2 -Total Square Cm 0.36 0.12 -Wound/Ulcer Outcome Not Healed Not Healed -Ulcer Cleansing Not Cleansed -Foul Odor after Cleansing No No -Bioengineered Tissue No No -Bleeding Controlled with Pressure NA -Offloading No No -Treatment Response Procedure Procedure Tolerated Well Tolerated Well 1-right medial leg -Time 11:40 09:44 -Correct Patient Yes Yes -Correct Side, Site, Position Yes Yes -Correct Procedure Yes Yes -Procedure Performed Yes Yes -Type of Procedure Debridement Debridement -Clinical Debridement Subcutaneous Subcutaneous -Post Debridement Size (cm) - Length 0.9 0.7 -Post Debridement Size (cm) - Width 1.1 1 -Post Debridement Size (cm) - Depth 0.2 0.1 -Total Square Cm 0.99 0.7 -Wound/Ulcer Outcome Not Healed Not Healed -Ulcer Cleansing Rinsed/ Not Cleansed Irrigated with Saline -Foul Odor after Cleansing No No -Bioengineered Tissue No No -Bleeding Controlled with Pressure NA -Offloading No No -Treatment Response Procedure Procedure Tolerated Well Tolerated Well Pain Scale: 0-10 Numeric Is Patient Pain Free? Yes Yes Laterality: Right - Anterior tibial surface Type of Debridement: Excisional debridement Anesthesia Used: 5% Lidocaine Gel Depth: Down to and including healthy tissue, in the subcutaneous layer Percentage of wound debrided: 100 Instrument Used: 5mm curette Tissue Removed: Bioburden and nonviable tissue Severity: Fat Layer Exposed Amount of bleeding with debridement: Mild Bleeding Controlled with: Compression and gauze Patient tolerated procedure well Assessment/Plan Active Problems Leg swelling (Chronic) Leg edema (Chronic) Chronic venous insufficiency (Chronic) History of DVT (deep vein thrombosis) (Chronic) 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 He presented with an adjacent wound and ulceration on the distal right lower extremity, which has been present for nearly 6 weeks. By physical examination and history, the patient appears to have long-standing chronic venous insufficiency, postphlebitic syndrome with inflammation, swelling, and edema in his lower extremities. He is also noted to suffer from diabetes mellitus, hypertension, chronic obstructive pulmonary disease, and morbid obesity. A noninvasive lower extremity arterial study was performed earlier today, and reveals triphasic waveforms at ankle level bilaterally, and no evidence of significant arterial occlusive disease. Lab work obtained last week is as follows: White blood count 7.5, hemoglobin 13.9, hematocrit 42.6, platelets 229,000, sodium 138, potassium 3.9, chloride 107, BUN 12, creatinine 0.81, glucose 112, hemoglobin A1c 6.3, calcium 8.5. The patient's recent cultures were positive for methicillin-resistant staph aureus, and the patient has been placed on Bactrim double strength twice daily for 7 days. Plan: Conservative treatment measures are to be continued. These measures have been discussed with the patient thoroughly. He is to elevate his lower extremities as much as possible. He is to continue sleeping on a flat mattress at night. Elevation is to be implemented even during daytime hours. His legs are to be elevated to heart level, or higher. Prolonged idle sitting has been discouraged. Activity has been encouraged. Weight loss has been recommended. Patient has voluntarily lost 48 pounds within the last 4 months. We are to continue compression initially by means of a 3M 2 layer compression wrap, which will be applied to each lower extremity twice weekly. We are to use Aquacel silver topically to the wound/ulceration on the right lower extremity. Aquacel silver will be replaced with every change of the compression wrap twice weekly. Swab cultures have been obtained, and results indicate the presence of MRSA, and the patient has been started on Bactrim double strength twice daily for 7 days. Patient has been encouraged to consume a healthy and well-balanced diet. Optimization of the patient's blood sugars has been recommended, in collaboration with the patient's primary care physician has been advised. The patient weighs 348 pounds. He stands 6 feet 0 inches tall. His BMI is 47.2, which places him in a category 3 obesity category. Weight loss has been recommended, in collaboration with the patient's primary care physician has been advised. Influenza vaccine was not administered today. The patient is not a smoker.
== END 2019-10-01 23:59 ==
LOC: WC 11:30
PROVIDERS: Family Provider Family Medicine; PCP Family Medicine; Referring Provider Surgery; Visit Provider Surgery
DX: I83.212 Varicose veins of right lower extremity with both ulcer of calf and inflammation (principal); L97.212 Non-pressure chronic ulcer of right calf with fat layer exposed; E11.622 Type 2 diabetes mellitus with other skin ulcer; E11.51 Type 2 diabetes mellitus with diabetic peripheral angiopathy without gangrene; R60.0 Localized edema; L40.9 Psoriasis, unspecified; J44.9 Chronic obstructive pulmonary disease, unspecified; M51.16 Intervertebral disc disorders with radiculopathy, lumbar region; M50.90 Cervical disc disorder, unspecified, unspecified cervical region; M79.89 Other specified soft tissue disorders; Z86.718 Personal history of other venous thrombosis and embolism; E66.01 Morbid (severe) obesity due to excess calories; Z68.42 Body mass index [BMI] 45.0-49.9, adult; Z71.3 Dietary counseling and surveillance; I10 Essential (primary) hypertension; I83.12 Varicose veins of left lower extremity with inflammation; N40.0 Benign prostatic hyperplasia without lower urinary tract symptoms; B95.62 Methicillin resistant Staphylococcus aureus infection as the cause of diseases classified elsewhere
CPT/HCPCS: 11042; 29581; 87070; 87075; 87077; 87186; 87205; 87640; 93923; 93970; 99212; 99213; G0463

== ENCOUNTER 2019-10-27 10:00 | Outpatient (RCR) | payer MEDICARE, SELFPAY ==
[2019-10-02 01:28] VITALS: BP 126/80; PULSE 67; RESP 16; TEMP 37.2
[2019-10-02 12:19] VITALS: BP 149/83; PULSE 68; RESP 16; TEMP 37.1; BMI 47.2
[2019-10-06 10:33] VITALS: BP 125/88; PULSE 61; RESP 18; TEMP 36.3; BMI 47.2
--- NOTE | 2019-10-06 10:56 | HP.PCM_ITS ---
(1) Screen for colon cancer Status: Inactive Current Visit: No Code(s): Z12.11 - Encounter for screening for malignant neoplasm of colon (2) Psoriasis Status: Chronic Current Visit: No Code(s): L40.9 - Psoriasis, unspecified (3) Asthma Status: Chronic Current Visit: No Code(s): J45.909 - Unspecified asthma, uncomplicated (4) Bronchitis Status: Chronic Current Visit: No Code(s): J40 - Bronchitis, not specified as acute or chronic (5) COPD (chronic obstructive pulmonary disease) Status: Chronic Current Visit: No Code(s): J44.9 - Chronic obstructive pulmonary disease, unspecified (6) Lumbar disc disease with radiculopathy Status: Chronic Current Visit: No Code(s): M51.16 - Intervertebral disc disorders with radiculopathy, lumbar region (7) Cervical disc disease Status: Chronic Current Visit: No Code(s): M50.90 - Cervical disc disorder, unspecified, unspecified cervical region (8) Leg swelling Status: Chronic Current Visit: Yes Code(s): M79.89 - Other specified soft tissue disorders (9) Leg edema Status: Chronic Current Visit: Yes Code(s): R60.0 - Localized edema (10) Chronic venous insufficiency Status: Chronic Current Visit: Yes Code(s): I87.2 - Venous insufficiency (chronic) (peripheral) (11) History of DVT (deep vein thrombosis) Status: Chronic Current Visit: Yes Code(s): Z86.718 - Personal history of other venous thrombosis and embolism (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 Current Visit: Yes Code(s): I87.009 - Postthrombotic syndrome without complications of unspecified extremity (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 Current Visit: Yes (14) 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 veins Status: Chronic Current Visit: Yes Code(s): L81.9 - Disorder of pigmentation, unspecified; I83.899 - Varicose veins of unspecified lower extremity with other complications (15) Diabetes mellitus Status: Chronic Current Visit: No Qualifiers: Diabetes mellitus type: type 2 Code(s): E11.9 - Type 2 diabetes mellitus without complications (16) Leg wound, right Status: Chronic Current Visit: Yes Qualifiers: Encounter type: subsequent encounter Code(s): S81.801A - Unspecified open wound, right lower leg, initial encounter (17) Chronic ulcer of right leg Status: Chronic Current Visit: Yes Qualifiers: Non-pressure ulcer stage: with fat layer exposed Code(s): L97.919 - Non-pressure chronic ulcer of unspecified part of right lower leg with unspecified severity (18) Lipodermatosclerosis Status: Chronic Current Visit: Yes Qualifiers: Laterality: bilateral Code(s): I83.10 - Varicose veins of unspecified lower extremity with inflammation (19) Shoulder pain Status: Chronic Current Visit: No Code(s): M25.519 - Pain in unspecified shoulder (20) Neck pain Status: Chronic Current Visit: No Code(s): M54.2 - Cervicalgia (21) Spondylosis Status: Chronic Current Visit: No Code(s): M47.9 - Spondylosis, unspecified (22) Sleep apnea Status: Chronic Current Visit: No Code(s): G47.30 - Sleep apnea, unspecified (23) Morbid obesity Status: Chronic Current Visit: Yes Code(s): E66.01 - Morbid (severe) obesity due to excess calories (24) Essential hypertension Status: Chronic Current Visit: No Code(s): I10 - Essential (primary) hypertension (25) BPH (benign prostatic hyperplasia) Status: Chronic Current Visit: No History of Present Illness Date of Service: 10/06/19 Chief Complaint: Open wound and ulceration of the distal right lower extremity History of Wound: This is a 59-year-old male with multiple medical problems. The patient presented with a traumatic wound on the medial aspect of his right distal calf, and a more recent spontaneous ulceration of the right anterior tibial surface. Traumatic wound occurred approximately 6 weeks prior to his presentation, the result of trauma. More recently, a spontaneous ulceration occurred on the right anterior tibial surface. He presents with mild erythema near the site of the 2 adjacent open wounds/ulcerations. Hemosiderin staining in the gaiter areas bilaterally. Multiple varicosities are also noted in the lower extremity's bilaterally, as well as lopez phlebectatica at ankle level bilaterally. The patient has been using antibiotic ointment topically with respect to his to open sites, and Silvadene more recently. He is obese. He sleeps on a flat surface at night. He claims to be active. He has a history of left lower extremity deep vein thrombosis. 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 (Chronic) Diabetes mellitus (Chronic) Leg wound, right (Chronic) Chronic ulcer of right leg (Chronic) Lipodermatosclerosis (Chronic) Shoulder pain (Chronic) Neck pain (Chronic) Spondylosis (Chronic) Sleep apnea (Chronic) Morbid obesity (Chronic) Essential hypertension (Chronic) BPH (benign prostatic hyperplasia) (Chronic) Surgical History: total knee arthroplasty Allergies/Adverse Reactions: Allergies Penicillins Allergy (Verified 09/22/19 12:50) Shortness of breath sulfamethoxazole [From Bactrim] Allergy (Verified 10/02/19 12:21) Rash trimethoprim [From Bactrim] Allergy (Verified 10/02/19 12:21) Rash Home Medications: Ambulatory Orders Medication Instructions Recorded Losartan Potassium [Cozaar] 100 mg PO DAILY 03/21/15 Montelukast [Singulair] 10 mg PO DAILY 03/21/15 metFORMIN HCl [Glucophage] 500 mg PO BID 03/21/15 Liraglutide [Victoza 3-Bernardino] 1.8 mg SQ DAILY 06/26/16 Potassium Chloride [K-Dur] 20 meq PO DAILY 06/26/16 Tamsulosin HCl [Flomax] 0.4 mg PO DAILY 06/26/16 Albuterol Inhaler [Ventolin Hfa 1 - 2 puff INHALATION Q4H PRN PRN 01/25/17 (SP)] Cod Liver Oil 1 ea PO DAILY 01/25/17 Ergocalciferol [Vitamin D] 50,000 unit PO QWEEK 01/25/17 Omeprazole [Prilosec] 20 mg PO QHS 01/25/17 Umeclidinium Brm/Vilanterol Tr 2 puff IH DAILY 12/09/17 [Anoro Ellipta 62.5-25 Mcg INH] Aspirin E.C. [Ecotrin] 81 mg PO DAILY@0800 07/21/18 oxycodone 10 mg tablet 10 mg PO TID PRN PRN #90 tab 08/04/19 Levocetirizine Dihydrochloride 5 mg PO DAILY 09/22/19 [Xyzal] - Family History Paternal - - Patient's father at the age of 84 with a history of dementia. Patient's mother at the age of 75 with a history of kidney disease. Smoking Status: Never smoker Tobacco Use: Non-smoker Review of Systems Constitutional: Denies: Chills, Fever, Weight Change Eyes: Denies: Pain, Vision Change HEENT: Denies: Difficulty Hearing, Difficulty Swallowing, Sinus Congestion Cardiovascular: Denies: Chest Pain, Palpitations Respiratory: Denies: Cough, Shortness of Breath Gastrointestinal: Denies: Diarrhea, Nausea, Vomiting Genitourinary: Denies: Dysuria, Hematuria Endocrine: Denies: Heat/ Cold Intolerance, Polydipsia, Polyuria Hematologic/ Lymphatic: Denies: Easy Bruising, Easy Bleeding - Physical Exam Vital Signs Temp Pulse Resp BP 97.3 F L 61 18 125/88 H 10/06/19 10:33 10/06/19 10:33 10/06/19 10:33 10/06/19 10:33 General: Alert, Oriented x3, Cooperative, No apparent distress, Well developed, Well nourished HEENT: Atraumatic, PERRLA, EOMI, Normocephalic Oral: Moist Mucosa Neck: No JVD Lungs: Normal air movement Abdomen: Non-Distended Extremities: No clubbing, No cyanosis, No Calf Tenderness, - - There is slight s welling and edema in the lower extremities bilaterally. However, it appears to be improving. Chronic skin changes persist, including hyperpigmentation and lipodermatosclerosis in the gaiter areas bilaterally. The wound on the right medial calf and the ulceration of the right anterior tibial surface persists, but each has decreased significantly in size. There is no sign of infection or cellulitis. Dimensions are documented elsewhere. There is a small amount of bioburden at the site of the right medial calf wound. Wound Measurements and Assessment WC - Nurse 1 - General Ulcer Measurement Start: 10/02/19 12:17 Freq: Status: Active Protocol: Activity Type Activity Date Activity User E-Sign Co-Sign Detail Recorded Client Recorded Date Recorded By Document 10/06/19 10:33 RB [id number] 10/06/19 10:39 RB 10/06/19 10:33 Wound Center Nurse 1 [Ulcer Assessment] 2-right anterior horne -Combined with other wound No -Current Size (cm) - Length 0.1 -Current Size (cm) - Width 0.1 -Current Size (cm) - Depth 0.1 -Total Square Cm 0.01 -Tunneling No -Undermining/Tunneling No -Circular Undermining No -Exudate Amt None Present -Wound Margin Distinct, Outline Attached -Granulation Amt Medium (34-66%) -Granulation Quality [place] -Slough/Fibrin Yes -Necrosis Amt Small (1-33%) -Necrotic Tissue Type Adherent Slough -Structure Exposed N/A -Texture (Kami-wound Skin Appearance) Assessed -Moisture (Kami-wound Skin Appearance Assessed ) -Color (Kami-wound Skin Appearance) Assessed -Temperature (Kami-wound Skin No Abnormality Appearance) (Pt Warm) -Tenderness on Palpation (Kami-wound No Skin Appearance) -Ulcer Cleansing Wound Cleanser -Foul Odor after Cleansing No -Anesthetic Used 5% Lidocaine Gel 1-right medial leg -Combined with other wound No -Current Size (cm) - Length 0.8 -Current Size (cm) - Width 0.6 -Current Size (cm) - Depth 0.1 -Total Square Cm 0.48 -Tunneling No -Undermining/Tunneling No -Circular Undermining No -Exudate Amt Small -Exudate Type Serosanguineous -Wound Margin Flat & Intact -Granulation Amt Small (1-33%) -Granulation Quality [place] -Slough/Fibrin Yes -Necrosis Amt Medium (34-66%) -Necrotic Tissue Type Adherent Slough -Structure Exposed N/A -Texture (Kami-wound Skin Appearance) Assessed -Moisture (Kami-wound Skin Appearance Assessed,Dry/ ) Scaly -Color (Kami-wound Skin Appearance) Assessed -Temperature (Kami-wound Skin No Abnormality Appearance) (Pt Warm) -Tenderness on Palpation (Kami-wound No Skin Appearance) -Ulcer Cleansing Wound Cleanser -Foul Odor after Cleansing No -Anesthetic Used 5% Lidocaine Gel [Edema Assessment] -Lower Limb Edema Present Yes -Right Calf (cm) 49 -Right Ankle (cm) 28.5 WC - Nurse 2 - General Ulcer CM Notes Start: 10/02/19 12:17 Freq: Status: Active Protocol: Activity Type Activity Date Activity User E-Sign Co-Sign Detail Recorded Client Recorded Date Recorded By Document 10/06/19 10:50 ANUP [id number] 10/06/19 10:54 ANUP 10/06/19 10:50 Wound Center Nurse 2 [Procedure/Treatment] 2-right anterior horne -Time 10:51 -Correct Patient Yes -Correct Side, Site, Position Yes -Correct Procedure Yes -Procedure Performed Yes -Type of Procedure Debridement -Clinical Debridement Subcutaneous -Post Debridement Size (cm) - Length 0.1 -Post Debridement Size (cm) - Width 0.1 -Post Debridement Size (cm) - Depth 0.1 -Total Square Cm 0.01 -Wound/Ulcer Outcome Not Healed -Bleeding Controlled with Pressure -Offloading No -Treatment Response Procedure Tolerated Well 1-right medial leg -Time 10:51 -Correct Patient Yes -Correct Side, Site, Position Yes -Correct Procedure Yes -Procedure Performed Yes -Type of Procedure Debridement -Clinical Debridement Subcutaneous -Post Debridement Size (cm) - Length 1.0 -Post Debridement Size (cm) - Width 0.7 -Post Debridement Size (cm) - Depth 0.2 -Total Square Cm 0.70 -Wound/Ulcer Outcome Not Healed -Ulcer Cleansing Rinsed/ Irrigated with Saline -Foul Odor after Cleansing No -Bioengineered Tissue No -Bleeding Controlled with Pressure -Offloading No -Treatment Response Procedure Tolerated Well [See Physician Procedure note for Specifics] Pain Scale: 0-10 Numeric [Pain] -Is Patient Pain Free? Yes Musculoskeletal: No Muscle Wasting Neurological: Cranial nerves II-XII grossly intact, Neuro grossly intact Psych/Mental Status: Normal Affect, Appropriate, Alert and oriented to time, place, person, mood and affect Debridement Note Post-Debridement Measurements/Treatment WC - Nurse 2 - General Ulcer CM Notes Start: 10/02/19 12:17 Freq: Status: Active Protocol: Activity Type Activity Date Activity User E-Sign Co-Sign Detail Recorded Client Recorded Date Recorded By Document 10/06/19 10:50 ANUP [id number] 10/06/19 10:54 ANUP 10/06/19 10:50 Wound Center Nurse 2 2-right anterior horne -Time 10:51 -Correct Patient Yes -Correct Side, Site, Position Yes -Correct Procedure Yes -Procedure Performed Yes -Type of Procedure Debridement -Clinical Debridement Subcutaneous -Post Debridement Size (cm) - Length 0.1 -Post Debridement Size (cm) - Width 0.1 -Post Debridement Size (cm) - Depth 0.1 -Total Square Cm 0.01 -Wound/Ulcer Outcome Not Healed -Bleeding Controlled with Pressure -Offloading No -Treatment Response Procedure Tolerated Well 1-right medial leg -Time 10:51 -Correct Patient Yes -Correct Side, Site, Position Yes -Correct Procedure Yes -Procedure Performed Yes -Type of Procedure Debridement -Clinical Debridement Subcutaneous -Post Debridement Size (cm) - Length 1.0 -Post Debridement Size (cm) - Width 0.7 -Post Debridement Size (cm) - Depth 0.2 -Total Square Cm 0.70 -Wound/Ulcer Outcome Not Healed -Ulcer Cleansing Rinsed/ Irrigated with Saline -Foul Odor after Cleansing No -Bioengineered Tissue No -Bleeding Controlled with Pressure -Offloading No -Treatment Response Procedure Tolerated Well Pain Scale: 0-10 Numeric Is Patient Pain Free? Yes Laterality: Right - Medial calf wound Type of Debridement: Excisional debridement Anesthesia Used: 5% Lidocaine Gel Depth: Down to and including healthy tissue, in the subcutaneous layer Percentage of wound debrided: 100 Instrument Used: 3mm curette Tissue Removed: Bioburden and nonviable tissue Severity: Fat Layer Exposed Amount of bleeding with debridement: Mild Bleeding Controlled with: Compression and gauze Patient tolerated procedure well Assessment/Plan Active Problems Leg swelling (Chronic) Leg edema (Chronic) Chronic venous insufficiency (Chronic) History of DVT (deep vein thrombosis) (Chronic) 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 He presented with an adjacent wound and ulceration on the distal right lower extremity, which has been present for nearly 6 weeks. By physical examination and history, the patient appears to have long-standing chronic venous insufficiency, postphlebitic syndrome with inflammation, swelling, and edema in his lower extremities. He is also noted to suffer from diabetes mellitus, hypertension, chronic obstructive pulmonary disease, and morbid obesity. A noninvasive lower extremity arterial study was performed, and reveals triphasic waveforms at ankle level bilaterally, and no evidence of significant arterial occlusive disease. Venous duplex examination was also recently performed, revealing incompetence of the great saphenous veins bilaterally. Small saphenous veins are also bilaterally incompetent. An incompetent electronic pagination system operator vein is located in the right calf, located 14 cm proximal to the right medial malleolus. An incompetent left accessory saphenous vein is also noted. Lab work obtained recently is as follows: White blood count 7.5, hemoglobin 13.9, hematocrit 42.6, platelets 229,000, sodium 138, potassium 3.9, chloride 107, BUN 12, creatinine 0.81, glucose 112, hemoglobin A1c 6.3, calcium 8.5. The patient's recent cultures were positive for methicillin-resistant staph aureus, and the patient was placed on Bactrim double strength twice daily for 7 days. However, after 5 days, the patient developed what appeared to be an allergic reaction, and Bactrim was stopped before completing its course. The patient is now thought to possibly be allergic to Bactrim, or 1 of its co mponents. Plan: Conservative treatment measures are to be continued. These measures have been discussed with the patient thoroughly. He is to elevate his lower extremities as much as possible. He is to continue sleeping on a flat mattress at night. Elevation is to be implemented even during daytime hours. His legs are to be elevated to heart level, or higher. Prolonged idle sitting has been discouraged. Activity has been encouraged. Weight loss has been recommended. Patient has voluntarily lost 48 pounds within the last 4 months. We are to continue compression initially by means of a 3M 2 layer compression wrap, which will be applied to each lower extremity twice weekly. We are to use Aquacel silver topically to the wound/ulceration on the right lower extremity. Aquacel silver will be replaced with every change of the compression wrap twice weekly. Patient has been encouraged to consume a healthy and well-balanced diet. Optimization of the patient's blood sugars has been recommended, in collaboration with the patient's primary care physician has been advised. The patient weighs 348 pounds. He stands 6 feet 0 inches tall. His BMI is 47.2, wh ich places him in a category 3 obesity category. Weight loss has been recommended, in collaboration with the patient's primary care physician has been advised. Influenza vaccine was not administered today. The patient is not a smoker.
[2019-10-09 10:42] VITALS: BP 142/78; PULSE 64; RESP 16; TEMP 37.2; BMI 47.2
[2019-10-13 09:34] VITALS: BP 154/83; PULSE 66; RESP 16; TEMP 36.2; BMI 47.2
--- NOTE | 2019-10-13 10:27 | HP.PCM_ITS ---
(1) Psoriasis Status: Chronic Current Visit: No Code(s): L40.9 - Psoriasis, unspecified (2) Asthma Status: Chronic Current Visit: No Code(s): J45.909 - Unspecified asthma, uncomplicated (3) Bronchitis Status: Chronic Current Visit: No Code(s): J40 - Bronchitis, not specified as acute or chronic (4) COPD (chronic obstructive pulmonary disease) Status: Chronic Current Visit: No Code(s): J44.9 - Chronic obstructive pulmonary disease, unspecified (5) Lumbar disc disease with radiculopathy Status: Chronic Current Visit: No Code(s): M51.16 - Intervertebral disc disorders with radiculopathy, lumbar region (6) Cervical disc disease Status: Chronic Current Visit: No Code(s): M50.90 - Cervical disc disorder, unspecified, unspecified cervical region (7) Leg swelling Status: Chronic Current Visit: Yes Code(s): M79.89 - Other specified soft tissue disorders (8) Leg edema Status: Chronic Current Visit: Yes Code(s): R60.0 - Localized edema (9) Chronic venous insufficiency Status: Chronic Current Visit: Yes Code(s): I87.2 - Venous insufficiency (chronic) (peripheral) (10) History of DVT (deep vein thrombosis) Status: Chronic Current Visit: Yes Code(s): Z86.718 - Personal history of other venous thrombosis and embolism (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 Current Visit: Yes Code(s): I87.009 - Postthrombotic syndrome without complications of unspecified extremity (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: Yes (13) 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 veins Status: Chronic Current Visit: Yes Code(s): L81.9 - Disorder of pigmentation, unspecified; I83.899 - Varicose veins of unspecified lower extremity with other complications (14) Diabetes mellitus Status: Chronic Current Visit: No Qualifiers: Diabetes mellitus type: type 2 Code(s): E11.9 - Type 2 diabetes mellitus without complications (15) Leg wound, right Status: Chronic Current Visit: Yes Qualifiers: Encounter type: subsequent encounter Code(s): S81.801A - Unspecified open wound, right lower leg, initial encounter (16) Chronic ulcer of right leg Status: Chronic Current Visit: Yes Qualifiers: Non-pressure ulcer stage: with fat layer exposed Code(s): L97.919 - Non-pressure chronic ulcer of unspecified part of right lower leg with unspecified severity (17) Lipodermatosclerosis Status: Chronic Current Visit: Yes Qualifiers: Laterality: bilateral Code(s): I83.10 - Varicose veins of unspecified lower extremity with inflammation (18) Shoulder pain Status: Chronic Current Visit: No Code(s): M25.519 - Pain in unspecified shoulder (19) Neck pain Status: Chronic Current Visit: No Code(s): M54.2 - Cervicalgia (20) Spondylosis Status: Chronic Current Visit: No Code(s): M47.9 - Spondylosis, unspecified (21) Sleep apnea Status: Chronic Current Visit: No Code(s): G47.30 - Sleep apnea, unspecified (22) Morbid obesity Status: Chronic Current Visit: Yes Code(s): E66.01 - Morbid (severe) obesity due to excess calories (23) Essential hypertension Status: Chronic Current Visit: No Code(s): I10 - Essential (primary) hypertension (24) BPH (benign prostatic hyperplasia) Status: Chronic Current Visit: No History of Present Illness Date of Service: 10/13/19 Chief Complaint: Open wound and ulceration of the distal right lower extremity History of Wound: This is a 59-year-old male with multiple medical problems. The patient presented with a traumatic wound on the medial aspect of his right distal calf, and a more recent spontaneous ulceration of the right anterior tibial surface. Traumatic wound occurred approximately 6 weeks prior to his presentation, the result of trauma. More recently, a spontaneous ulceration occurred on the right anterior tibial surface. He presents with mild erythema near the site of the 2 adjacent open wounds/ulcerations. Hemosiderin staining in the gaiter areas bilaterally. Multiple varicosities are also noted in the lower extremity's bilaterally, as well as lopez phlebectatica at ankle level bilaterally. The patient has been using antibiotic ointment topically with respect to his to open sites, and Silvadene more recently. He is obese. He sleeps on a flat surface at night. He claims to be active. He has a history of left lower extremity deep vein thrombosis. 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 (Chronic) Diabetes mellitus (Chronic) Leg wound, right (Chronic) Chronic ulcer of right leg (Chronic) Lipodermatosclerosis (Chronic) Shoulder pain (Chronic) Neck pain (Chronic) Spondylosis (Chronic) Sleep apnea (Chronic) Morbid obesity (Chronic) Essential hypertension (Chronic) BPH (benign prostatic hyperplasia) (Chronic) Surgical History: total knee arthroplasty Allergies/Adverse Reactions: Allergies Penicillins Allergy (Verified 09/22/19 12:50) Shortness of breath sulfamethoxazole [From Bactrim] Allergy (Verified 10/02/19 12:21) Rash trimethoprim [From Bactrim] Allergy (Verified 10/02/19 12:21) Rash Home Medications: Ambulatory Orders Medication Instructions Recorded Losartan Potassium [Cozaar] 100 mg PO DAILY 03/21/15 Montelukast [Singulair] 10 mg PO DAILY 03/21/15 metFORMIN HCl [Glucophage] 500 mg PO BID 03/21/15 Liraglutide [Victoza 3-Bernardino] 1.8 mg SQ DAILY 06/26/16 Potassium Chloride [K-Dur] 20 meq PO DAILY 06/26/16 Tamsulosin HCl [Flomax] 0.4 mg PO DAILY 06/26/16 Albuterol Inhaler [Ventolin Hfa 1 - 2 puff INHALATION Q4H PRN PRN 01/25/17 (SP)] Cod Liver Oil 1 ea PO DAILY 01/25/17 Ergocalciferol [Vitamin D] 50,000 unit PO QWEEK 01/25/17 Omeprazole [Prilosec] 20 mg PO QHS 01/25/17 Umeclidinium Brm/Vilanterol Tr 2 puff IH DAILY 12/09/17 [Anoro Ellipta 62.5-25 Mcg INH] Aspirin E.C. [Ecotrin] 81 mg PO DAILY@0800 07/21/18 oxycodone 10 mg tablet 10 mg PO TID PRN PRN #90 tab 08/04/19 Levocetirizine Dihydrochloride 5 mg PO DAILY 09/22/19 [Xyzal] - Family History Paternal - - Patient's father at the age of 84 with a history of dementia. Patient's mother at the age of 75 with a history of kidney disease. Smoking Status: Never smoker Tobacco Use: Non-smoker Review of Systems Constitutional: Denies: Chills, Fever, Weight Change Eyes: Denies: Pain, Vision Change HEENT: Denies: Difficulty Hearing, Difficulty Swallowing, Sinus Congestion Cardiovascular: Denies: Chest Pain, Palpitations Respiratory: Denies: Cough, Shortness of Breath Gastrointestinal: Denies: Diarrhea, Nausea, Vomiting Genitourinary: Denies: Dysuria, Hematuria Endocrine: Denies: Heat/ Cold Intolerance, Polydipsia, Polyuria Hematologic/ Lymphatic: Denies: Easy Bruising, Easy Bleeding - Physical Exam Vital Signs Temp Pulse Resp BP 97.1 F L 66 16 154/83 H 10/13/19 09:34 10/13/19 09:34 10/13/19 09:34 10/13/19 09:34 General: Alert, Oriented x3, Cooperative, No apparent distress, Well developed, Well nourished HEENT: Atraumatic, PERRLA, EOMI, Normocephalic Oral: Moist Mucosa Neck: No JVD Lungs: Normal air movement Abdomen: Non-Distended Extremities: No clubbing, No cyanosis, No Calf Tenderness, - - Slight swelling and edema persist in the patient's lower extremities. Chronic venous changes are noted bilaterally. These changes include lipodermatosclerosis and hyperpigmentation bilaterally in the gaiter areas. Lopez phlebectatica is noted at ankle level bilaterally. Multiple large varicosities are noted in the lower extremities bilaterally. The ulceration on the right medial calf persists, though is smaller in size. There is a mild amount of bioburden. There is no sign of infection or cellulitis. Dimensions are documented elsewhere. It appears as though the ulceration is decreasing in size. Wound Measurements and Assessment WC - Nurse 1 - General Ulcer Measurement Start: 10/02/19 12:17 Freq: Status: Active Protocol: Activity Type Activity Date Activity User E-Sign Co-Sign Detail Recorded Client Recorded Date Recorded By Document 10/13/19 09:34 [facility] [id number] 10/13/19 09:38 [facility] 10/13/19 09:34 Wound Center Nurse 1 [Ulcer Assessment] 2-right anterior horne -Combined with other wound No -Current Size (cm) - Length 0.1 -Current Size (cm) - Width 0.1 -Current Size (cm) - Depth 0.1 -Total Square Cm 0.01 -Epithelialization Large 67-100% -Tunneling No -Undermining/Tunneling No -Circular Undermining No -Exudate Amt None Present -Necrosis Amt Small (1-33%) -Necrotic Tissue Type Adherent Slough -Texture (Kami-wound Skin Appearance) Assessed, Scarring -Moisture (Kami-wound Skin Appearance Assessed,Dry/ ) Scaly -Color (Kami-wound Skin Appearance) Assessed -Temperature (Kami-wound Skin No Abnormality Appearance) (Pt Warm) -Tenderness on Palpation (Kami-wound No Skin Appearance) -Ulcer Cleansing Rinsed/ Irrigated with Saline -Foul Odor after Cleansing No -Anesthetic Used 5% Lidocaine Gel 1-right medial leg -Combined with other wound No -Current Size (cm) - Length 0.8 -Current Size (cm) - Width 0.6 -Current Size (cm) - Depth 0.1 -Total Square Cm 0.48 -Photo Taken No -Epithelialization Small 1-33% -Tunneling No -Undermining/Tunneling No -Circular Undermining No -Exudate Amt None Present -Wound Margin Distinct, Outline Attached -Granulation Amt Small (1-33%) -Granulation Quality Red -Slough/Fibrin Yes -Necrosis Amt Medium (34-66%) -Necrotic Tissue Type Adherent Slough -Texture (Kami-wound Skin Appearance) Assessed, Scarring -Moisture (Kami-wound Skin Appearance Assessed,Dry/ ) Scaly -Color (Kami-wound Skin Appearance) Assessed, Hemosiderin Staining -Temperature (Kami-wound Skin No Abnormality Appearance) (Pt Warm) -Tenderness on Palpation (Kami-wound No Skin Appearance) -Ulcer Cleansing Rinsed/ Irrigated with Saline -Foul Odor after Cleansing No -Anesthetic Used 5% Lidocaine Gel [Edema Assessment] -Lower Limb Edema Present Yes -Right Calf (cm) 45.6 -Right Ankle (cm) 28.7 -Left Calf (cm) 45.5 -Left Ankle (cm) 28 WC - Nurse 2 - General Ulcer CM Notes Start: 10/02/19 12:17 Freq: Status: Active Protocol: Activity Type Activity Date Activity User E-Sign Co-Sign Detail Recorded Client Recorded Date Recorded By Document 10/13/19 10:14 [id number] 10/13/19 10:26 10/13/19 10:14 Wound Center Nurse 2 [Procedure/Treatment] 2-right anterior horne -Time 10:16 -Correct Patient Yes -Correct Side, Site, Position Yes -Correct Procedure Yes -Procedure Performed Yes -Type of Procedure Debridement -Clinical Debridement Subcutaneous -Post Debridement Size (cm) - Length 0.4 -Post Debridement Size (cm) - Width 0.4 -Post Debridement Size (cm) - Depth 0.1 -Total Square Cm 0.16 -Wound/Ulcer Outcome Not Healed -Ulcer Cleansing Not Cleansed -Foul Odor after Cleansing No -Bioengineered Tissue No -Bleeding Controlled with Pressure -Offloading No -Treatment Response Procedure Tolerated Well 1-right medial leg -Time 10:20 -Correct Patient Yes -Correct Side, Site, Position Yes -Correct Procedure Yes -Procedure Performed No -Post Debridement Size (cm) - Length 0 -Post Debridement Size (cm) - Width 0 -Post Debridement Size (cm) - Depth 0 -Total Square Cm 0 -Wound/Ulcer Outcome Healed- Epithelialized [See Physician Procedure note for Specifics] Pain Scale: 0-10 Numeric [Pain] -Is Patient Pain Free? Yes Musculoskeletal: No Muscle Wasting Neurological: Cranial nerves II-XII grossly intact, Neuro grossly intact Psych/Mental Status: Normal Affect, Appropriate, Alert and oriented to time, place, person, mood and affect Debridement Note Post-Debridement Measurements/Treatment WC - Nurse 2 - General Ulcer CM Notes Start: 10/02/19 12:17 Freq: Status: Active Protocol: Activity Type Activity Date Activity User E-Sign Co-Sign Detail Recorded Client Recorded Date Recorded By Document 10/06/19 10:50 ANUP [id number] 10/06/19 10:54 ANUP Document 10/13/19 10:14 [id number] 10/13/19 10:26 10/06/19 10/13/19 10:50 10:14 Wound Center Nurse 2 2-right anterior horne -Time 10:51 10:16 -Correct Patient Yes Yes -Correct Side, Site, Position Yes Yes -Correct Procedure Yes Yes -Procedure Performed Yes Yes -Type of Procedure Debridement Debridement -Clinical Debridement Subcutaneous Subcutaneous -Post Debridement Size (cm) - Length 0.1 0.4 -Post Debridement Size (cm) - Width 0.1 0.4 -Post Debridement Size (cm) - Depth 0.1 0.1 -Total Square Cm 0.01 0.16 -Wound/Ulcer Outcome Not Healed Not Healed -Ulcer Cleansing Not Cleansed -Foul Odor after Cleansing No -Bioengineered Tissue No -Bleeding Controlled with Pressure Pressure -Offloading No No -Treatment Response Procedure Procedure Tolerated Well Tolerated Well 1-right medial leg -Time 10:51 10:20 -Correct Patient Yes Yes -Correct Side, Site, Position Yes Yes -Correct Procedure Yes Yes -Procedure Performed Yes No -Type of Procedure Debridement -Clinical Debridement Subcutaneous -Post Debridement Size (cm) - Length 1.0 0 -Post Debridement Size (cm) - Width 0.7 0 -Post Debridement Size (cm) - Depth 0.2 0 -Total Square Cm 0.70 0 -Wound/Ulcer Outcome Not Healed Healed- Epithelialized -Ulcer Cleansing Rinsed/ Irrigated with Saline -Foul Odor after Cleansing No -Bioengineered Tissue No -Bleeding Controlled with Pressure -Offloading No -Treatment Response Procedure Tolerated Well Pain Scale: 0-10 Numeric Is Patient Pain Free? Yes Yes Laterality: Right - Medial calf Type of Debridement: Excisional debridement Anesthesia Used: 5% Lidocaine Gel Depth: Down to and including healthy tissue, in the subcutaneous layer Percentage of wound debrided: 100 Instrument Used: 5mm curette Tissue Removed: [place] and nonviable tissue Severity: Fat Layer Exposed Amount of bleeding with debridement: Mild Bleeding Controlled with: Compression and gauze Patient tolerated procedure well Assessment/Plan Active Problems Leg swelling (Chronic) Leg edema (Chronic) Chronic venous insufficiency (Chronic) History of DVT (deep vein thrombosis) (Chronic) 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 He presented with an adjacent wound and ulceration on the distal right lower extremity, which had been present for nearly 6 weeks. By physical examination and history, the patient appears to have long-standing chronic venous insufficiency, postphlebitic syndrome with inflammation, swelling, and edema in his lower extremities. He is also noted to suffer from diabetes mellitus, hypertension, chronic obstructive pulmonary disease, and morbid obesity. A noninvasive lower extremity arterial study was performed, and reveals triphasic waveforms at ankle level bilaterally, and no evidence of significant arterial occlusive disease. Venous duplex examination was also recently performed, revealing incompetence of the great saphenous veins bilaterally. Small saphenous veins are also bilaterally incompetent. An incompetent sanitary landfill operator vein is located in the right calf, located 14 cm proximal to the right medial malleolus. An incompetent left accessory saphenous vein is also noted. Lab work obtained recently is as follows: White blood count 7.5, hemoglobin 13.9, hematocrit 42.6, platelets 229,000, sodium 138, potassium 3.9, chloride 107, BUN 12, creatinine 0.81, glucose 112, hemoglobin A1c 6.3, calcium 8.5. The patient's recent cultures were positive for methicillin-resistant staph aureus, and the patient was placed on Bactrim double strength twice daily for 7 days. However, after 5 days, the patient developed what appeared to be an allergic reaction, and Bactrim was stopped before completing its course. The patient is now thought to possibly be allergic to Bactrim, or 1 of its components. Plan: Conservative treatment measures are to be continued. These measures have been discussed with the patient thoroughly. He is to elevate his lower extremities as much as possible. He is to continue sleeping on a flat mattress at night. Elevation is to be implemented even during daytime hours. His legs are to be elevated to heart level, or higher. Prolonged idle sitting has been discouraged. Activity has been encouraged. Weight loss has been recommended. Patient has voluntarily lost 48 pounds within the last 4 months. We are to continue compression initially by means of a 3M 2 layer compression wrap, which will be applied to each lower extremity twice weekly. We are to use Aquacel silver topically to the ulceration on the right lower extremity. Aquacel silver will be replaced with every change of the compression wrap twice weekly. Patient has been encouraged to consume a healthy and well-balanced diet. Optimization of the patient's blood sugars has been recommended, in collaboration with the patient's primary care physician has been advised. We have discussed the option of transitioning to the use of graduated compression stockings of at least 20 to 30 mmHg compression, or Velcro compression garment (CircAid's). There is likely that these will be prescribed at the patient's next visit. The patient is to return in 1 week for reevaluation. We have also discussed the role of endovenous ablation of the incompetent superficial veins in the lower extremities. The indications and risks of endovenous laser ablation have been discussed with the patient in detail. The procedure has been described and discussed in detail. This is likely to be an intervention that will benefit the patient, and will be considered in further detail at subsequent visits. For now, we will continue with conservative treatment measures. The patient weighs 348 pounds. He stands 6 feet 0 inches tall. His BMI is 47.2, w [facility] places him in a category 3 obesity category. Weight loss has been recommended, in collaboration with the patient's primary care physician has been advised. Influenza vaccine was not administered today. The patient is not a smoker.
[2019-10-16 13:03] VITALS: BP 127/62; PULSE 61; RESP 18; TEMP 37.3; BMI 47.2
[2019-10-20 09:43] VITALS: BP 130/76; PULSE 67; RESP 18; TEMP 37.2; BMI 47.2
--- NOTE | 2019-10-20 09:57 | HP.PCM_ITS ---
(1) Psoriasis Status: Chronic Current Visit: No Code(s): L40.9 - Psoriasis, unspecified (2) Asthma Status: Chronic Current Visit: No Code(s): J45.909 - Unspecified asthma, uncomplicated (3) Bronchitis Status: Chronic Current Visit: No Code(s): J40 - Bronchitis, not specified as acute or chronic (4) COPD (chronic obstructive pulmonary disease) Status: Chronic Current Visit: No Code(s): J44.9 - Chronic obstructive pulmonary disease, unspecified (5) Lumbar disc disease with radiculopathy Status: Chronic Current Visit: No Code(s): M51.16 - Intervertebral disc disorders with radiculopathy, lumbar region (6) Cervical disc disease Status: Chronic Current Visit: No Code(s): M50.90 - Cervical disc disorder, unspecified, unspecified cervical region (7) Leg swelling Status: Chronic Current Visit: Yes Code(s): M79.89 - Other specified soft tissue disorders (8) Leg edema Status: Chronic Current Visit: Yes Code(s): R60.0 - Localized edema (9) Chronic venous insufficiency Status: Chronic Current Visit: Yes Code(s): I87.2 - Venous insufficiency (chronic) (peripheral) (10) History of DVT (deep vein thrombosis) Status: Chronic Current Visit: Yes Code(s): Z86.718 - Personal history of other venous thrombosis and embolism (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 Current Visit: Yes Code(s): I87.009 - Postthrombotic syndrome without complications of unspecified extremity (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: Yes (13) 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 veins Status: Chronic Current Visit: Yes Code(s): L81.9 - Disorder of pigmentation, unspecified; I83.899 - Varicose veins of unspecified lower extremity with other complications (14) Diabetes mellitus Status: Chronic Current Visit: No Qualifiers: Diabetes mellitus type: type 2 Code(s): E11.9 - Type 2 diabetes mellitus without complications (15) Leg wound, right Status: Chronic Current Visit: Yes Qualifiers: Encounter type: subsequent encounter Code(s): S81.801A - Unspecified open wound, right lower leg, initial encounter (16) Chronic ulcer of right leg Status: Chronic Current Visit: Yes Qualifiers: Non-pressure ulcer stage: with fat layer exposed Code(s): L97.919 - Non-pressure chronic ulcer of unspecified part of right lower leg with unspecified severity (17) Lipodermatosclerosis Status: Chronic Current Visit: Yes Qualifiers: Laterality: bilateral Code(s): I83.10 - Varicose veins of unspecified lower extremity with inflammation (18) Shoulder pain Status: Chronic Current Visit: No Code(s): M25.519 - Pain in unspecified shoulder (19) Neck pain Status: Chronic Current Visit: No Code(s): M54.2 - Cervicalgia (20) Spondylosis Status: Chronic Current Visit: No Code(s): M47.9 - Spondylosis, unspecified (21) Sleep apnea Status: Chronic Current Visit: No Code(s): G47.30 - Sleep apnea, unspecified (22) Morbid obesity Status: Chronic Current Visit: Yes Code(s): E66.01 - Morbid (severe) obesity due to excess calories (23) Essential hypertension Status: Chronic Current Visit: No Code(s): I10 - Essential (primary) hypertension (24) BPH (benign prostatic hyperplasia) Status: Chronic Current Visit: No (25) Varicose veins with ulcer and inflammation Status: Chronic Current Visit: Yes Code(s): I83.209 - Varicose veins of unspecified lower extremity with both ulcer of unspecified site and inflammation; L97.909 - Non-pressure chronic ulcer of unspecified part of unspecified lower leg with unspecified severity (26) Venous hypertension, chronic, with ulcer and inflammation Status: Chronic Current Visit: Yes Qualifiers: Laterality: right Qualified Code(s): I87.331 - Chronic venous hypertension (idiopathic) with ulcer and inflammation of right lower extremity; L97.919 - Non-pressure chronic ulcer of unspecified part of right lower leg with unspecified severity Code(s): I87.339 - Chronic venous hypertension (idiopathic) with ulcer and inflammation of unspecified lower extremity; L97.909 - Non-pressure chronic ulcer of unspecified part of unspecified lower leg with unspecified severity History of Present Illness Date of Service: 10/20/19 Chief Complaint: Open wound and ulceration of the distal right lower extremity History of Wound: This is a 59-year-old male with multiple medical problems. The patient presented with a traumatic wound on the medial aspect of his right distal calf, and a more recent spontaneous ulceration of the right anterior tibial surface. Traumatic wound occurred approximately 6 weeks prior to his presentation, the result of trauma. More recently, a spontaneous ulceration occurred on the right anterior tibial surface. He presents with mild erythema near the site of the 2 adjacent open wounds/ulcerations. Hemosiderin staining in the gaiter areas bilaterally. Multiple varicosities are also noted in the lower extremity's bilaterally, as well as lopez phlebectatica at ankle level bilaterally. The patient has been using antibiotic ointment topically with respect to his to open sites, and Silvadene more recently. He is obese. He sleeps on a flat surface at night. He claims to be active. He has a history of left lower extremity deep vein thrombosis. 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 (Chronic) Diabetes mellitus (Chronic) Leg wound, right (Chronic) Chronic ulcer of right leg (Chronic) Lipodermatosclerosis (Chronic) Varicose veins with ulcer and inflammation (Chronic) Venous hypertension, chronic, with ulcer and inflammation (Chronic) Shoulder pain (Chronic) Neck pain (Chronic) Spondylosis (Chronic) Sleep apnea (Chronic) Morbid obesity (Chronic) Essential hypertension (Chronic) BPH (benign prostatic hyperplasia) (Chronic) Surgical History: total knee arthroplasty Allergies/Adverse Reactions: Allergies Penicillins Allergy (Verified 09/22/19 12:50) Shortness of breath sulfamethoxazole [From Bactrim] Allergy (Verified 10/02/19 12:21) Rash trimethoprim [From Bactrim] Allergy (Verified 10/02/19 12:21) Rash Home Medications: Ambulatory Orders Medication Instructions Recorded Losartan Potassium [Cozaar] 100 mg PO DAILY 03/21/15 Montelukast [Singulair] 10 mg PO DAILY 03/21/15 metFORMIN HCl [Glucophage] 500 mg PO BID 03/21/15 Liraglutide [Victoza 3-Bernardino] 1.8 mg SQ DAILY 06/26/16 Potassium Chloride [K-Dur] 20 meq PO DAILY 06/26/16 Tamsulosin HCl [Flomax] 0.4 mg PO DAILY 06/26/16 Albuterol Inhaler [Ventolin Hfa 1 - 2 puff INHALATION Q4H PRN PRN 01/25/17 (SP)] Cod Liver Oil 1 ea PO DAILY 01/25/17 Ergocalciferol [Vitamin D] 50,000 unit PO QWEEK 01/25/17 Omeprazole [Prilosec] 20 mg PO QHS 01/25/17 Umeclidinium Brm/Vilanterol Tr 2 puff IH DAILY 12/09/17 [Anoro Ellipta 62.5-25 Mcg INH] Aspirin E.C. [Ecotrin] 81 mg PO DAILY@0800 07/21/18 oxycodone 10 mg tablet 10 mg PO TID PRN PRN #90 tab 08/04/19 Levocetirizine Dihydrochloride 5 mg PO DAILY 09/22/19 [Xyzal] - Family History Paternal - - Patient's father at the age of 84 with a history of dementia. Patient's mother at the age of 75 with a history of kidney disease. Smoking Status: Never smoker Tobacco Use: Non-smoker Review of Systems Constitutional: Denies: Chills, Fever, Weight Change Eyes: Denies: Pain, Vision Change HEENT: Denies: Difficulty Hearing, Difficulty Swallowing, Sinus Congestion Cardiovascular: Denies: Chest Pain, Palpitations Respiratory: Denies: Cough, Shortness of Breath Gastrointestinal: Denies: Diarrhea, Nausea, Vomiting Genitourinary: Denies: Dysuria, Hematuria Endocrine: Denies: Heat/ Cold Intolerance, Polydipsia, Polyuria Hematologic/ Lymphatic: Denies: Easy Bruising, Easy Bleeding - Physical Exam Vital Signs Temp Pulse Resp BP 98.9 F 67 18 130/76 H 10/20/19 09:43 10/20/19 09:43 10/20/19 09:43 10/20/19 09:43 General: Alert, Oriented x3, Cooperative, No apparent distress, Well developed, Well nourished HEENT: Atraumatic, PERRLA, EOMI, Normocephalic Oral: Moist Mucosa Neck: No JVD Lungs: Normal air movement Abdomen: Non-Distended Extremities: No clubbing, No cyanosis, No Calf Tenderness, - - Slight swelling and edema persist in the patient's lower extremities. Chronic venous changes persist as well. These include hyperpigmentation and lipodermatosclerosis bilaterally in the gaiter areas. There are multiple large varicose veins bilaterally. An ulcer persists on the right anterior tibial surface, though smaller in size than noted previously. Of infection or cellulitis. Dimensions are documented elsewhere. There is a moderate amount of bioburden. Wound Measurements and Assessment WC - Nurse 1 - General Ulcer Measurement Start: 10/02/19 12:17 Freq: Status: Active Protocol: Activity Type Activity Date Activity User E-Sign Co-Sign Detail Recorded Client Recorded Date Recorded By Document 10/20/19 09:43 ANUP [id number] 10/20/19 09:46 ANUP 10/20/19 09:43 Wound Center Nurse 1 [Ulcer Assessment] 2-right anterior horne -Combined with other wound No -Current Size (cm) - Length 0 -Current Size (cm) - Width 0 -Current Size (cm) - Depth 0 -Total Square Cm 0 -Photo Taken Yes -Epithelialization Large 67-100% 1-right medial leg -Combined with other wound No -Current Size (cm) - Length 0.8 -Current Size (cm) - Width 0.6 -Current Size (cm) - Depth 0.1 -Total Square Cm 0.48 -Photo Taken No -Epithelialization Medium 34-66% -Tunneling No -Undermining/Tunneling No -Circular Undermining No -Exudate Amt Medium -Exudate Type Serosanguineous -Wound Margin Flat & Intact -Granulation Amt Medium (34-66%) -Granulation Quality Red -Slough/Fibrin Yes -Necrosis Amt Medium (34-66%) -Necrotic Tissue Type Adherent Slough -Structure Exposed N/A -Texture (Kami-wound Skin Appearance) Assessed, Localized Edema -Moisture (Kami-wound Skin Appearance Assessed,Dry/ ) Scaly -Color (Kami-wound Skin Appearance) Assessed, Hemosiderin Staining -Temperature (Kami-wound Skin No Abnormality Appearance) (Pt Warm) -Tenderness on Palpation (Kami-wound No Skin Appearance) -Ulcer Cleansing Rinsed/ Irrigated with Saline -Foul Odor after Cleansing No -Anesthetic Used 5% Lidocaine Gel [Edema Assessment] -Lower Limb Edema Present Yes -Right Calf (cm) 46 -Right Ankle (cm) 28.4 -Left Calf (cm) 46.5 -Left Ankle (cm) 28.5 Musculoskeletal: No Muscle Wasting Neurological: Cranial nerves II-XII grossly intact, Neuro grossly intact Psych/Mental Status: Normal Affect, Appropriate, Alert and oriented to time, place, person, mood and affect Debridement Note Post-Debridement Measurements/Treatment WC - Nurse 2 - General Ulcer CM Notes Start: 10/02/19 12:17 Freq: Status: Active Protocol: Activity Type Activity Date Activity User E-Sign Co-Sign Detail Recorded Client Recorded Date Recorded By Document 10/06/19 10:50 ANUP [id number] 10/06/19 10:54 ANUP Document 10/13/19 10:14 [id number] 10/13/19 10:26 10/06/19 10/13/19 10:50 10:14 Wound Center Nurse 2 2-right anterior horne -Time 10:51 10:16 -Correct Patient Yes Yes -Correct Side, Site, Position Yes Yes -Correct Procedure Yes Yes -Procedure Performed Yes Yes -Type of Procedure Debridement Debridement -Clinical Debridement Subcutaneous Subcutaneous -Post Debridement Size (cm) - Length 0.1 0.4 -Post Debridement Size (cm) - Width 0.1 0.4 -Post Debridement Size (cm) - Depth 0.1 0.1 -Total Square Cm 0.01 0.16 -Wound/Ulcer Outcome Not Healed Not Healed -Ulcer Cleansing Not Cleansed -Foul Odor after Cleansing No -Bioengineered Tissue No -Bleeding Controlled with Pressure Pressure -Offloading No No -Treatment Response Procedure Procedure Tolerated Well Tolerated Well 1-right medial leg -Time 10:51 10:20 -Correct Patient Yes Yes -Correct Side, Site, Position Yes Yes -Correct Procedure Yes Yes -Procedure Performed Yes No -Type of Procedure Debridement -Clinical Debridement Subcutaneous -Post Debridement Size (cm) - Length 1.0 0 -Post Debridement Size (cm) - Width 0.7 0 -Post Debridement Size (cm) - Depth 0.2 0 -Total Square Cm 0.70 0 -Wound/Ulcer Outcome Not Healed Healed- Epithelialized -Ulcer Cleansing Rinsed/ Irrigated with Saline -Foul Odor after Cleansing No -Bioengineered Tissue No -Bleeding Controlled with Pressure -Offloading No -Treatment Response Procedure Tolerated Well Pain Scale: 0-10 Numeric Is Patient Pain Free? Yes Yes Laterality: Right - Anterior tibial surface Type of Debridement: Excisional debridement Anesthesia Used: 5% Lidocaine Gel Depth: Down to and including healthy tissue, in the subcutaneous layer Percentage of wound debrided: 100 Instrument Used: 5mm curette Tissue Removed: Bioburden and nonviable tissue Severity: Fat Layer Exposed Amount of bleeding with debridement: Mild Bleeding Controlled with: Compression and gauze Patient tolerated procedure well Assessment/Plan Active Problems Leg swelling (Chronic) Leg edema (Chronic) Chronic venous insufficiency (Chronic) History of DVT (deep vein thrombosis) (Chronic) 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 He presented with an adjacent wound and ulceration on the distal right lower extremity, which had been present for nearly 6 weeks. By physical examination and history, the patient appears to have long-standing chronic venous insufficiency, postphlebitic syndrome with inflammation, swelling, and edema in his lower extremities. He is also noted to suffer from diabetes mellitus, hypertension, chronic obstructive pulmonary disease, and morbid obesity. A noninvasive lower extremity arterial study was performed, and reveals triphasic waveforms at ankle level bilaterally, and no evidence of significant arterial occlusive disease. Venous duplex examination was also recently performed, revealing incompetence of the great saphenous veins bilaterally. Small saphenous veins are also bilaterally incompetent. An incompetent chemistry associate vein is located in the right calf, located 14 cm proximal to the right medial malleolus. An incompetent left accessory saphenous vein is also noted. Lab work obtained recently is as follows: White blood count 7.5, hemoglobin 13.9, hematocrit 42.6, platelets 229,000, sodium 138, potassium 3.9, chloride 107, BUN 12, creatinine 0.81, glucose 112, hemoglobin A1c 6.3, calcium 8.5. The patient's recent cultures were positive for methicillin-resistant staph aureus, and the patient was placed on Bactrim double strength twice daily for 7 days. However, after 5 days, the patient developed what appeared to be an allergic reaction, and Bactrim was stopped before completing its course. The patient is now thought to possibly be allergic to Bactrim, or 1 of its components. Plan: Conservative treatment measures are to be continued. These measures have been discussed with the patient thoroughly. He is to elevate his lower extremities as much as possible. He is to continue sleeping on a flat mattress at night. Elevation is to be implemented even during daytime hours. His legs are to be elevated to heart level, or higher. Prolonged idle sitting has been discouraged. Activity has been encouraged. Weight loss has been recommended. Patient has voluntarily lost 48 pounds within the last 4 months. We are to continue compression initially by means of a 3M 2 layer compression wrap, which will be applied to each lower extremity twice weekly. We are to use Aquacel silver topically to the ulceration on the right lower extremity. Aquacel silver will be replaced with every change of the compression wrap twice weekly. Patient has been encouraged to consume a healthy and well-balanced diet. Optimization of the patient's blood sugars has been recommended, in collaboration with the patient's primary care physician has been advised. We have discussed the option of transitioning to the use of graduated compression stockings of at least 20 to 30 mmHg compression, or Velcro compression garment (CircAid's). Patient prefers CircAid's, which are to be prescribed and efforts made to obtain. The patient is to return in 1 week for reevaluation. We have also discussed the role of endovenous ablation of the incompetent superficial veins in the lower extremities. The indications and risks of endovenous laser ablation have been discussed with the patient in detail. The procedure has been described and discussed in detail. This is likely to be an intervention that will benefit the patient, and will be considered in further detail at subsequent visits. For now, we will continue with conservative treatment measures. The patient also mentions that he is anticipating left shoulder surgery in the near future, which is awaiting complete healing of his lower extremity wound. The patient weighs 348 pounds. He stands 6 feet 0 inches tall. His BMI is 47.2, which places him in a category 3 obesity category. Weight loss has been recommended, in collaboration with the patient's primary care physician has been advised. Influenza vaccine was not administered today. The patient is not a smoker.
[2019-10-27 10:02] VITALS: BP 142/82; PULSE 82; RESP 18; TEMP 36.6; BMI 47.2
== END 2019-10-31 23:59 ==
LOC: WC 10:00
PROVIDERS: Family Provider Family Medicine; PCP Family Medicine; Referring Provider Surgery; Visit Provider Surgery
DX: I83.212 Varicose veins of right lower extremity with both ulcer of calf and inflammation (principal); L97.212 Non-pressure chronic ulcer of right calf with fat layer exposed; E11.622 Type 2 diabetes mellitus with other skin ulcer; L40.9 Psoriasis, unspecified; J44.9 Chronic obstructive pulmonary disease, unspecified; M51.16 Intervertebral disc disorders with radiculopathy, lumbar region; M50.90 Cervical disc disorder, unspecified, unspecified cervical region; M79.89 Other specified soft tissue disorders; R60.0 Localized edema; E66.01 Morbid (severe) obesity due to excess calories; I10 Essential (primary) hypertension; N40.0 Benign prostatic hyperplasia without lower urinary tract symptoms; Z86.718 Personal history of other venous thrombosis and embolism; Z79.899 Other long term (current) drug therapy; Z79.84 Long term (current) use of oral hypoglycemic drugs; Z79.82 Long term (current) use of aspirin; Z68.42 Body mass index [BMI] 45.0-49.9, adult
CPT/HCPCS: 11042; 29581; 99212; 99213; G0463

== ENCOUNTER 2019-11-17 09:30 | Outpatient (RCR) | payer MEDICARE, SELFPAY ==
[2019-11-01 01:03] VITALS: BP 142/82; PULSE 82; RESP 18; TEMP 36.6
[2019-11-02 13:13] VITALS: BP 138/77; PULSE 72; RESP 20; TEMP 36.4; BMI 47.2
--- NOTE | 2019-11-02 13:52 | HP.PCM_ITS ---
(1) Psoriasis Status: Chronic Current Visit: No Code(s): L40.9 - Psoriasis, unspecified (2) Asthma Status: Chronic Current Visit: No Code(s): J45.909 - Unspecified asthma, uncomplicated (3) COPD (chronic obstructive pulmonary disease) Status: Chronic Current Visit: No Code(s): J44.9 - Chronic obstructive pulmonary disease, unspecified (4) Lumbar disc disease with radiculopathy Status: Chronic Current Visit: No Code(s): M51.16 - Intervertebral disc disorders with radiculopathy, lumbar region (5) Cervical disc disease Status: Chronic Current Visit: No Code(s): M50.90 - Cervical disc disorder, unspecified, unspecified cervical region (6) Leg swelling Status: Chronic Current Visit: Yes Code(s): M79.89 - Other specified soft tissue disorders (7) Leg edema Status: Chronic Current Visit: Yes Code(s): R60.0 - Localized edema (8) Chronic venous insufficiency Status: Chronic Current Visit: Yes Code(s): I87.2 - Venous insufficiency (chronic) (peripheral) (9) History of DVT (deep vein thrombosis) Status: Chronic Current Visit: Yes Code(s): Z86.718 - Personal history of other venous thrombosis and embolism (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 Current Visit: Yes Code(s): I87.009 - Postthrombotic syndrome without complications of unspecified extremity (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 Current Visit: Yes (12) 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 veins Status: Chronic Current Visit: Yes Code(s): L81.9 - Disorder of pigme ntation, unspecified; I83.899 - Varicose veins of unspecified lower extremity with other complications (13) Diabetes mellitus Status: Chronic Current Visit: No Code(s): E11.9 - Type 2 diabetes mellitus without complications (14) Leg wound, right Status: Chronic Current Visit: Yes Qualifiers: Encounter type: subsequent encounter Code(s): S81.801A - Unspecified open wound, right lower leg, initial encounter (15) Chronic ulcer of right leg Status: Chronic Current Visit: Yes Qualifiers: Non-pressure ulcer stage: with fat layer exposed Code(s): L97.919 - Non-pressure chronic ulcer of unspecified part of right lower leg with unspecified severity (16) Lipodermatosclerosis Status: Chronic Current Visit: Yes Qualifiers: Laterality: bilateral Code(s): I83.10 - Varicose veins of unspecified lower extremity with inflammation (17) Varicose veins with ulcer and inflammation Status: Chronic Current Visit: Yes Code(s): I83.209 - Varicose veins of unspecified lower extremity with both ulcer of unspecified site and inflammation; L97.909 - Non-pressure chronic ulcer of unspecified part of unspecified lower leg with unspecified severity (18) Venous hypertension, chronic, with ulcer and inflammation Status: Chronic Current Visit: Yes Qualifiers: Laterality: right Code(s): I87.339 - Chronic venous hypertension (idiopathic) with ulcer and inflammation of unspecified lower extremity; L97.909 - Non-pressure chronic ulcer of unspecified part of unspecified lower leg with unspecified severity (19) Shoulder pain Status: Chronic Current Visit: Yes Code(s): M25.519 - Pain in unspecified shoulder (20) Sleep apnea Status: Chronic Current Visit: No Code(s): G47.30 - Sleep apnea, unspecified (21) Morbid obesity Status: Chronic Current Visit: Yes Code(s): E66.01 - Morbid (severe) obesity due to excess calories (22) Essential hypertension Status: Chronic Current Visit: No Code(s): I10 - Essential (primary) hypertension (23) BPH (benign prostatic hyperplasia) Status: Chronic Current Visit: No History of Present Illness Date of Service: 11/02/19 Chief Complaint: Open wound and ulceration of the distal right lower extremity History of Wound: This is a 59-year-old male with multiple medical problems. The patient presented with a traumatic wound on the medial aspect of his right distal calf, and a more recent spontaneous ulceration of the right anterior tibial surface. Traumatic wound occurred approximately 6 weeks prior to his presentation, the result of trauma. More recently, a spontaneous ulceration occurred on the right anterior tibial surface. He presents with mild erythema near the site of the 2 adjacent open wounds/ulcerations. Hemosiderin staining in the gaiter areas bilaterally. Multiple varicosities are also noted in the lower extremity's bilaterally, as well as lopez phlebectatica at ankle level bilaterally. The patient has been using antibiotic ointment topically with respect to his to open sites, and Silvadene more recently. He is obese. He sleeps on a flat surface at night. He claims to be active. He has a history of left lower extremity deep vein thrombosis. 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 (Chronic) Diabetes mellitus (Chronic) Leg wound, right (Chronic) Chronic ulcer of right leg (Chronic) Lipodermatosclerosis (Chronic) Varicose veins with ulcer and inflammation (Chronic) Venous hypertension, chronic, with ulcer and inflammation (Chronic) Shoulder pain (Chronic) Neck pain (Chronic) Spondylosis (Chronic) Sleep apnea (Chronic) Morbid obesity (Chronic) Essential hypertension (Chronic) BPH (benign prostatic hyperplasia) (Chronic) Surgical History: total knee arthroplasty Allergies/Adverse Reactions: Allergies Penicillins Allergy (Verified 09/22/19 12:50) Shortness of breath sulfamethoxazole [From Bactrim] Allergy (Verified 10/02/19 12:21) Rash trimethoprim [From Bactrim] Allergy (Verified 10/02/19 12:21) Rash Home Medications: Ambulatory Orders Medication Instructions Recorded Losartan Potassium [Cozaar] 100 mg PO DAILY 03/21/15 Montelukast [Singulair] 10 mg PO DAILY 03/21/15 metFORMIN HCl [Glucophage] 500 mg PO BID 03/21/15 Liraglutide [Victoza 3-Bernardino] 1.8 mg SQ DAILY 06/26/16 Potassium Chloride [K-Dur] 20 meq PO DAILY 06/26/16 Tamsulosin HCl [Flomax] 0.4 mg PO DAILY 06/26/16 Albuterol Inhaler [Ventolin Hfa 1 - 2 puff INHALATION Q4H PRN PRN 01/25/17 (SP)] Cod Liver Oil 1 ea PO DAILY 01/25/17 Ergocalciferol [Vitamin D] 50,000 unit PO QWEEK 01/25/17 Omeprazole [Prilosec] 20 mg PO QHS 01/25/17 Umeclidinium Brm/Vilanterol Tr 2 puff IH DAILY 12/09/17 [Anoro Ellipta 62.5-25 Mcg INH] Aspirin E.C. [Ecotrin] 81 mg PO DAILY@0800 07/21/18 oxycodone 10 mg tablet 10 mg PO TID PRN PRN #90 tab 08/04/19 Levocetirizine Dihydrochloride 5 mg PO DAILY 09/22/19 [Xyzal] - Family History Paternal - - Patient's father at the age of 84 with a history of dementia. Patient's mother at the age of 75 with a history of kidney disease. Smoking Status: Never smoker Tobacco Use: Non-smoker Review of Systems Constitutional: Denies: Chills, Fever, Weight Change Eyes: Denies: Pain, Vision Change HEENT: Denies: Difficulty Hearing, Difficulty Swallowing, Sinus Congestion Cardiovascular: Denies: Chest Pain, Palpitations Respiratory: Denies: Cough, Shortness of Breath Gastrointestinal: Denies: Diarrhea, Nausea, Vomiting Genitourinary: Denies: Dysuria, Hematuria Endocrine: Denies: Heat/ Cold Intolerance, Polydipsia, Polyuria Hematologic/ Lymphatic: Denies: Easy Bruising, Easy Bleeding - Physical Exam Vital Signs Temp Pulse Resp BP 97.5 F L 72 20 H 138/77 H 11/02/19 13:13 11/02/19 13:13 11/02/19 13:13 11/02/19 13:13 General: Alert, Oriented x3, Cooperative, No apparent distress, Well developed, Well nourished, - - The patient is morbidly obese. HEENT: Atraumatic, PERRLA, EOMI, Normocephalic Oral: Moist Mucosa Neck: No JVD Lungs: Normal air movement Abdomen: Soft, Non Tender, Non-Distended, Obese Extremities: No clubbing, No cyanosis, No Calf Tenderness, - - Bilateral lower extremity swelling and edema is noted. It is moderate in nature. The wounds of the right lower extremity are now completely healed and epithelialized. There are no open wounds or ulcerations on either lower extremity. There are chronic venous changes noted bilaterally. These include coronal sleep ectatic at ankle level bilaterally, bilateral lipodermatosclerosis, bilateral hyperpigmentation in the medial gaiter areas, and scattered varicosities bilaterally, some of which are rather large in size. Lower extremity circumferences are documented elsewhere. Skin: No breakdown Wound Measurements and Assessment WC - Nurse 1 - General Ulcer Measurement Start: 11/02/19 13:13 Freq: Status: Active Protocol: Activity Type Activity Date Activity User E-Sign Co-Sign Detail Recorded Client Recorded Date Recorded By Document 11/02/19 13:13 DL [id number] 11/02/19 13:18 DL 11/02/19 13:13 Wound Center Nurse 1 [Ulcer Assessment] 2-right anterior horne -Current Size (cm) - Length 0 -Current Size (cm) - Width 0 -Current Size (cm) - Depth 0 -Total Square Cm 0 -Photo Taken Yes -Exudate Amt None Present -Wound Margin Flat & Intact -Granulation Amt Large (67-100%) -Granulation Quality [place] -Necrosis Amt None Present (0 %) -Structure Exposed N/A -Texture (Kami-wound Skin Appearance) Scarring -Moisture (Kami-wound Skin Appearance Dry/Scaly ) -Color (Kami-wound Skin Appearance) Hemosiderin Staining -Temperature (Kami-wound Skin No Abnormality Appearance) (Pt Warm) -Tenderness on Palpation (Kami-wound No Skin Appearance) -Ulcer Cleansing Rinsed/ Irrigated with Saline -Foul Odor after Cleansing No [Edema Assessment] -Right Calf (cm) 48.6 -Right Ankle (cm) 30.5 -Left Calf (cm) 48 -Left Ankle (cm) 29.4 Musculoskeletal: No Muscle Wasting Neurological: Cranial nerves II-XII grossly intact, Neuro grossly intact Psych/Mental Status: Normal Affect, Appropriate, Alert and oriented to time, place, person, mood and affect Debridement Note No debridement was completed today - There are no open wounds or ulcerations Assessment/Plan Active Problems Leg swelling (Chronic) Leg edema (Chronic) Chronic venous insufficiency (Chronic) History of DVT (deep vein thrombosis) (Chronic) 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 He presented with an adjacent wound and ulceration on the distal right lower extremity, which had been present for nearly 6 weeks. By physical examination and history, the patient appears to have long-standing chronic venous insufficiency, postphlebitic syndrome with inflammation, swelling, and edema in his lower extremities. He is also noted to suffer from diabetes mellitus, hypertension, chronic obstructive pulmonary disease, and morbid obesity. A noninvasive lower extremity arterial study was performed, and reveals triphasic waveforms at ankle level bilaterally, and no evidence of significant arterial occlusive disease. Venous duplex examination was also recently performed, revealing incompetence of the great saphenous veins bilaterally. Small saphenous veins are also bilaterally incompetent. An incompetent or first assist registered nurse vein is located in the right calf, located 14 cm proximal to the right medial malleolus. An incompetent left accessory saphenous vein is also noted. Lab work obtained recently is as follows: White blood count 7.5, hemoglobin 13.9, hematocrit 42.6, platelets 229,000, sodium 138, potassium 3.9, chloride 107, BUN 12, creatinine 0.81, glucose 112, hemoglobin A1c 6.3, calcium 8.5. The patient's recent cultures were positive for methicillin-resistant staph aureus, and the patient was placed on Bactrim double strength twice daily for 7 days. However, after 5 days, the patient developed what appeared to be an allergic reaction, and Bactrim was stopped before completing its course. The patient is now thought to possibly be allergic to Bactrim, or 1 of its components. Plan: The wound/ulcer in the right lower extremity are now completely healed. Conservative treatment measures are to be continued. These measures have been discussed with the patient thoroughly. He is to elevate his lower extremities as much as possible. He is to continue sleeping on a flat mattress at night. Elevation is to be implemented even during daytime hours. His legs are to be elevated to heart level, or higher. Prolonged idle sitting has been discouraged. Activity has been encouraged. Weight loss has been recommended. Patient has voluntarily lost 48 pounds within the last 4 months. We are to continue compression by means of a 3M 2 layer compression wrap, which will be applied to each lower extremity twice weekly. Moisturizing skin lotion is to be applied to the skin with each application of his 3M 2 layer compression wraps. Patient has been encouraged to consume a healthy and well-balanced diet. Optimization of the patient's blood sugars has been recommended, in c ollaboration with the patient's primary care physician has been advised. We have discussed the option of transitioning to the use of Velcro compression garments (CircAid's). Efforts are underway to obtain the CircAid compression garments through a DME provider, and it is anticipated that these will be received within the next week or so. Once obtained, they are to be warranted bilaterally on a daily basis. The patient is to return in 2 weeks for reevaluation. We have also discussed the role of endovenous ablation of the incompetent superficial veins in the lower extremities. The indications and risks of endovenous laser ablation have been discussed with the patient in detail. The procedure has been described and discussed in detail. This is likely to be an intervention that will benefit the patient, and will be considered in further detail at subsequent visits. For now, we will continue with conservative treatment measures. The patient also mentions that he is anticipating shoulder surgery in the near future, which has awaited complete healing of his lower extremity wound. It is anticipated that the patient will undergo his shoulder surgery in the near future. The patient weighs 348 pounds. He stands 6 feet 0 inches tall. His BMI is 47.2, which places him in a category 3 obesity category. Weight loss has been recommended, in collaboration with the patient's primary care physician has been advised. Influenza vaccine was not administered today. The patient is not a smoker.
[2019-11-06 09:48] VITALS: BP 134/96; PULSE 69; RESP 16; TEMP 36.7; BMI 47.2
[2019-11-10 09:46] VITALS: BP 143/79; PULSE 70; RESP 16; TEMP 36.8; BMI 47.2
[2019-11-17 09:45] VITALS: BP 137/57; PULSE 68; RESP 20; TEMP 36.4; BMI 47.2
--- NOTE | 2019-11-17 10:09 | PCM.WC.HP ---
(1) Psoriasis Status: Chronic Current Visit: No Code(s): L40.9 - Psoriasis, unspecified (2) Asthma Status: Chronic Current Visit: No Code(s): J45.909 - Unspecified asthma, uncomplicated (3) COPD (chronic obstructive pulmonary disease) Status: Chronic Current Visit: No Code(s): J44.9 - Chronic obstructive pulmonary disease, unspecified (4) Lumbar disc disease with radiculopathy Status: Chronic Current Visit: No Code(s): M51.16 - Intervertebral disc disorders with radiculopathy, lumbar region (5) Cervical disc disease Status: Chronic Current Visit: No Code(s): M50.90 - Cervical disc disorder, unspecified, unspecified cervical region (6) Leg swelling Status: Chronic Current Visit: Yes Code(s): M79.89 - Other specified soft tissue disorders (7) Leg edema Status: Chronic Current Visit: Yes Code(s): R60.0 - Localized edema (8) Chronic venous insufficiency Status: Chronic Current Visit: Yes Code(s): I87.2 - Venous insufficiency (chronic) (peripheral) (9) History of DVT (deep vein thrombosis) Status: Chronic Current Visit: Yes Code(s): Z86.718 - Personal history of other venous thrombosis and embolism (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 Current Visit: Yes Code(s): I87.009 - Postthrombotic syndrome without complications of unspecified extremity (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 Current Visit: Yes (12) 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 veins Status: Chronic Current Visit: Yes Code(s): L81.9 - Disorder of pigmentation, unspecified; I83.899 - Varicose veins of unspecified lower extremity with other complications (13) Diabetes mellitus Status: Chronic Current Visit: No Code(s): E11.9 - Type 2 diabetes mellitus without complications (14) Leg wound, right Status: Chronic Current Visit: Yes Qualifiers: Encounter type: subsequent encounter Code(s): S81.801A - Unspecified open wound, right lower leg, initial encounter (15) Chronic ulcer of right leg Status: Chronic Current Visit: Yes Qualifiers: Non-pressure ulcer stage: with fat layer exposed Code(s): L97.919 - Non-pressure chronic ulcer of unspecified part of right lower leg with unspecified severity (16) Lipodermatosclerosis Status: Chronic Current Visit: Yes Qualifiers: Laterality: bilateral Code(s): I83.10 - Varicose veins of unspecified lower extremity with inflammation (17) Varicose veins with ulcer and inflammation Status: Chronic Current Visit: Yes Code(s): I83.209 - Varicose veins of unspecified lower extremity with both ulcer of unspecified site and inflammation; L97.909 - Non-pressure chronic ulcer of unspecified part of unspecified lower leg with unspecified severity (18) Venous hypertension, chronic, with ulcer and inflammation Status: Chronic Current Visit: Yes Qualifiers: Laterality: right Code(s): I87.339 - Chronic venous hypertension (idiopathic) with ulcer and inflammation of unspecified lower extremity; L97.909 - Non-pressure chronic ulcer of unspecified part of unspecified lower leg with unspecified severity (19) Shoulder pain Status: Chronic Current Visit: Yes Code(s): M25.519 - Pain in unspecified shoulder (20) Sleep apnea Status: Chronic Current Visit: No Code(s): G47.30 - Sleep apnea, unspecified (21) Morbid obesity Status: Chronic Current Visit: Yes Code(s): E66.01 - Morbid (severe) obesity due to excess calories (22) Essential hypertension Status: Chronic Current Visit: No Code(s): I10 - Essential (primary) hypertension (23) BPH (benign prostatic hyperplasia) Status: Chronic Current Visit: No History of Present Illness Date of Service: 11/17/19 Chief Complaint: Open wound and ulceration of the distal right lower extremity History of Wound: This is a 59-year-old male with multiple medical problems. The patient presented with a traumatic wound on the medial aspect of his right distal calf, and a more recent spontaneous ulceration of the right anterior tibial surface. Traumatic wound occurred approximately 6 weeks prior to his presentation, the result of trauma. More recently, a spontaneous ulceration occurred on the right anterior tibial surface. He presents with mild erythema near the site of the 2 adjacent open wounds/ulcerations. Hemosiderin staining in the gaiter areas bilaterally. Multiple varicosities are also noted in the lower extremity's bilaterally, as well as lopez phlebectatica at ankle level bilaterally. The patient has been using antibiotic ointment topically with respect to his to open sites, and Silvadene more recently. He is obese. He sleeps on a flat surface at night. He claims to be active. He has a history of left lower extremity deep vein thrombosis. 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 (Chronic) Diabetes mellitus (Chronic) Leg wound, right (Chronic) Chronic ulcer of right leg (Chronic) Lipodermatosclerosis (Chronic) Varicose veins with ulcer and inflammation (Chronic) Venous hypertension, chronic, with ulcer and inflammation (Chronic) Shoulder pain (Chronic) Neck pain (Chronic) Spondylosis (Chronic) Sleep apnea (Chronic) Morbid obesity (Chronic) Essential hypertension (Chronic) BPH (benign prostatic hyperplasia) (Chronic) Surgical History: total knee arthroplasty Allergies/Adverse Reactions: Allergies Penicillins Allergy (Verified 09/22/19 12:50) Shortness of breath sulfamethoxazole [From Bactrim] Allergy (Verified 10/02/19 12:21) Rash trimethoprim [From Bactrim] Allergy (Verified 10/02/19 12:21) Rash Home Medications: Ambulatory Orders Medication Instructions Recorded Losartan Potassium [Cozaar] 100 mg PO DAILY 03/21/15 Montelukast [Singulair] 10 mg PO DAILY 03/21/15 metFORMIN HCl [Glucophage] 500 mg PO BID 03/21/15 Liraglutide [Victoza 3-Bernardino] 1.8 mg SQ DAILY 06/26/16 Potassium Chloride [K-Dur] 20 meq PO DAILY 06/26/16 Tamsulosin HCl [Flomax] 0.4 mg PO DAILY 06/26/16 Albuterol Inhaler [Ventolin Hfa 1 - 2 puff INHALATION Q4H PRN PRN 01/25/17 (SP)] Cod Liver Oil 1 ea PO DAILY 01/25/17 Ergocalciferol [Vitamin D] 50,000 unit PO QWEEK 01/25/17 Omeprazole [Prilosec] 20 mg PO QHS 01/25/17 Umeclidinium Brm/Vilanterol Tr 2 puff IH DAILY 12/09/17 [Anoro Ellipta 62.5-25 Mcg INH] Aspirin E.C. [Ecotrin] 81 mg PO DAILY@0800 07/21/18 oxycodone 10 mg tablet 10 mg PO TID PRN PRN #90 tab 08/04/19 Levocetirizine Dihydrochloride 5 mg PO DAILY 09/22/19 [Xyzal] - Family History Paternal - - Patient's father at the age of 84 with a history of dementia. Patient's mother at the age of 75 with a history of kidney disease. Smoking Status: Never smoker Tobacco Use: Non-smoker Review of Systems Constitutional: Denies: Chills, Fever, Weight Change Eyes: Denies: Pain, Vision Change HEENT: Denies: Difficulty Hearing, Difficulty Swallowing, Sinus Congestion Cardiovascular: Denies: Chest Pain, Palpitations Respiratory: Denies: Cough, Shortness of Breath Gastrointestinal: Denies: Diarrhea, Nausea, Vomiting Genitourinary: Denies: Dysuria, Hematuria Endocrine: Denies: Heat/ Cold Intolerance, Polydipsia, Polyuria Hematologic/ Lymphatic: Denies: Easy Bruising, Easy Bleeding - Physical Exam Vital Signs Temp Pulse Resp BP 97.5 F L 68 20 H 137/57 H 11/17/19 09:45 11/17/19 09:45 11/17/19 09:45 11/17/19 09:45 General: Alert, Oriented x3, Cooperative, No apparent distress, Well developed, Well nourished, - - Patient is morbidly obese HEENT: Atraumatic, PERRLA, EOMI, Normocephalic Oral: Moist Mucosa Neck: No JVD Lungs: Normal air movement Abdomen: Non-Distended, Obese Extremities: No clubbing, No cyanosis, No Calf Tenderness, - - Mild swelling and edema persist in the lower extremities bilaterally. There are no open wounds or ulcerations in either lower extremity. There are chronic venous changes in both lower extremities, including hyperpigmentation, lipodermatosclerosis, and scattered varicosities of various sizes. Lopez phlebectatica at ankle level bilaterally. Circumference measurements are documented elsewhere. Wound Measurements and Assessment WC - Nurse 1 - General Ulcer Measurement Start: 11/02/19 13:13 Freq: Status: Active Protocol: Activity Type Activity Date Activity User E-Sign Co-Sign Detail Recorded Client Recorded Date Recorded By Document 11/17/19 09:45 DL [id number] 11/17/19 09:50 DL 11/17/19 09:45 Wound Center Nurse 1 [Edema Assessment] -Right Calf (cm) 46.5 -Right Ankle (cm) 29 -Left Calf (cm) 46 -Left Ankle (cm) 28 Musculoskeletal: No Muscle Wasting Neurological: Cranial nerves II-XII grossly intact, Neuro grossly intact Psych/Mental Status: Normal Affect, Appropriate, Alert and oriented to time, place, person, mood and affect Debridement Note Post-Debridement Measurements/Treatment WC - Nurse 2 - General Ulcer CM Notes Start: 11/02/19 13:13 Freq: Status: Active Protocol: Activity Type Activity Date Activity User E-Sign Co-Sign Detail Recorded Client Recorded Date Recorded By Document 11/02/19 13:47 DV [id number] 11/02/19 13:52 DV 11/02/19 13:47 Wound Center Nurse 2 2-right anterior horne -Time 13:49 -Correct Patient Yes -Correct Side, Site, Position Yes -Correct Procedure No -Procedure Performed No -Post Debridement Size (cm) - Length 0 -Post Debridement Size (cm) - Width 0 -Post Debridement Size (cm) - Depth 0 -Total Square Cm 0 -Wound/Ulcer Outcome Healed- Epithelialized Pain Scale: 0-10 Numeric Is Patient Pain Free? Yes No debridement was completed today - There are no open wounds or ulcerations. 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 He presented with an adjacent wound and ulceration on the distal right lower extremity, which had been present for nearly 6 weeks. By physical examination and history, the patient appears to have long-standing chronic venous insufficiency, postphlebitic syndrome with inflammation, swelling, and edema in his lower extremities. He is also noted to suffer from diabetes mellitus, hypertension, chronic obstructive pulmonary disease, and morbid obesity. A noninvasive lower extremity arterial study was performed, and reveals triphasic waveforms at ankle level bilaterally, and no evidence of significant arterial occlusive disease. Venous duplex examination was also recently performed, revealing incompetence of the great saphenous veins bilaterally. Small saphenous veins are also bilaterally incompetent. An incompetent certified juvenile probation officer vein is located in the right calf, located 14 cm proximal to the right medial malleolus. An incompetent left accessory saphenous vein is also noted. Lab work obtained recently is as follows: White blood count 7.5, hemoglobin 13.9, hematocrit 42.6, platelets 229,000, sodium 138, potassium 3.9, chloride 107, BUN 12, creatinine 0.81, glucose 112, hemoglobin A1c 6.3, calcium 8.5. The patient's cultures were positive for methicillin-resistant staph aureus, and the patient was placed on Bactrim double strength twice daily for 7 days. However, after 5 days, the patient developed what appeared to be an allergic reaction, and Bactrim was stopped before completing its course. The patient is now thought to possibly be allergic to Bactrim, or 1 of its components. He has, however gone on to respond to conservative treatment measures, and has subsequently healed the ulcerations located on the right lower extremity. Plan: The wounds/ulcers in the right lower extremity are now completely healed. Conservative treatment measures are to be continued. These measures have been discussed with the patient thoroughly. He is to elevate his lower extremities as much as possible. He is to continue sleeping on a flat mattress at night. Elevation is to be implemented even during daytime hours. His legs are to be elevated to heart level, or higher. Prolonged idle sitting has been discouraged. Activity has been encouraged. Weight loss has been recommended. Patient has voluntarily lost 48 pounds within the last several months. Compression is to be continued as well, and we have provided the patient the appropriate resources for Velcro CircAid compression garments for his lower extremities. However, over the course of several weeks, the patient has failed to make the appropriate efforts to procure these compression garments. He has done well with 3M 2 layer compression wraps which have been applied twice weekly. At this juncture, with ulcerations/wounds completely healed, and swelling and edema in the lower extremities reasonably well controlled, we are to discharge the patient. All appropriate arrangements have been made for the patient to procure his CircAid Velcro garments, and the patient understands these are to be worn on a daily basis. However, despite our pleas to him to obtain these garments, he has not yet done so. Upon discharge, he is to be wrapped with SurePress, with instructions as to the appropriate means of applying the SurePress wraps on a daily basis. He is also provided with a prescription for graduated compression stockings, knee-high length, of 20 to 30 mmHg compression. Upon discharge, he is urged to continue implementing all recommended conservative treatment measures, including compression to his lower extremities on a daily basis. The means by which this is achieved is at the patient's discretion, the patient having been given prescriptions and resources to obtain either graduated compression stockings, or CircAid Velcro garments. The patient will be discharged, and is to follow-up henceforth in January 2020 as an outpatient, for reevaluation and consideration as to the possible role for endothermal venous ablation as a definitive measure in treating the patient's chronic and longstanding venous disease. Patient has been advised to provide documentation at that time that he has obtained the CircAid compression garments or graduated compression stockings, and has been wearing them as advised. Patient has been encouraged to consume a healthy and well-balanced diet. Optimization of the patient's blood sugars has been recommended, in collaboration with the patient's primary care physician has been advised. We have discussed the role of endovenous ablation of the incompetent superficial veins in the lower extremities. The indications and risks of endovenous laser ablation have been discussed with the patient in detail. The procedure has been described and discussed in detail. This is likely to be an intervention that will benefit the patient, and will be considered in further detail at the patient's subsequent visits. The patient also mentions that he is anticipating shoulder surgery in the near future, which has awaited complete healing of his lower extremity wound. It is anticipated that the patient will undergo his shoulder surgery in the near future. The patient weighs 348 pounds. He stands 6 feet 0 inches tall. His BMI is 47.2, which places him in a category 3 obesity category. Weight loss has been recommended, in collaboration with the patient's primary care physician has been advised. Influenza vaccine was not administered today. The patient is not a smoker.
== END 2019-12-01 23:59 ==
LOC: WC 09:30
PROVIDERS: Family Provider Family Medicine; PCP Family Medicine; Referring Provider Surgery; Visit Provider Surgery
DX: I83.212 Varicose veins of right lower extremity with both ulcer of calf and inflammation (principal); L97.212 Non-pressure chronic ulcer of right calf with fat layer exposed; L40.9 Psoriasis, unspecified; J44.9 Chronic obstructive pulmonary disease, unspecified; M51.16 Intervertebral disc disorders with radiculopathy, lumbar region; M50.90 Cervical disc disorder, unspecified, unspecified cervical region; M79.89 Other specified soft tissue disorders; R60.0 Localized edema; E66.01 Morbid (severe) obesity due to excess calories; I10 Essential (primary) hypertension; N40.0 Benign prostatic hyperplasia without lower urinary tract symptoms; G47.30 Sleep apnea, unspecified; Z86.718 Personal history of other venous thrombosis and embolism; Z79.899 Other long term (current) drug therapy; Z79.84 Long term (current) use of oral hypoglycemic drugs; Z68.42 Body mass index [BMI] 45.0-49.9, adult; Z71.3 Dietary counseling and surveillance; Z79.82 Long term (current) use of aspirin; G89.29 Other chronic pain
CPT/HCPCS: 29581; 99212; 99213; G0463

== ENCOUNTER → 2020-06-13 13:51 | Outpatient (CLI) | payer MEDICARE, SELFPAY ==
--- NOTE | 2020-06-13 13:55 | RAD_ITS ---
STUDY: X-RAY - ABDOMEN/PELVIS REASON FOR EXAM: Male, 60 years old. Painless gross hematuria. TECHNIQUE: 3 COMPARISON: None. FINDINGS: Normal visualized lung bases. There is a nonspecific bowel gas pattern. Air seen in the colon as well as in mildly dilated small bowel loops scattered in the mid abdomen. There is no demonstrated free abdominal air. The visualized liver, spleen and kidneys are grossly normal in size and morphology. Normal soft tissue structures. There are diffuse degenerative changes of the visualized lumbar spine. RAD/Abdomen Single View IMPRESSION: Nonspecific bowel gas pattern. There is no obvious obstruction. Electronically Signed: Jam Lane DO at 23:53 EDT Tel [phone], Service support ,
[2020-06-13 15:19] LABS: Absolute Lymphocyte Count 1.89 X10^3/uL (0.83-4.51); Absolute Neutrophil Count 4.7 X10^3/uL (2.0-7.7); Basophil# 0.04 X10^3/uL; Basophil% 0.5 % (0-1); Eosinophil# 0.25 X10^3/uL; Eosinophils% 3.3 % (0-5); Hematocrit 44.1 % (40-54); Hemoglobin 13.9 g/dL (13.0-16.5); Lymphocyte # 1.89 X10^3/ul (4.0); Lymphocyte % 24.8 % (19-41); Mean Corp Hgb Conc 31.5 g/dL (32-36); Mean Corpuscular Hgb 28.3 pg (27.0-32.0); Mean Corpuscular Volume 89.8 fL (80-94); Mean Platelet Vol. 10.4 fl (6.2-12.0); Monocyte# 0.74 X10^3/uL; Monocyte% 9.7 % (0-10); NRBC Flagged by Analyzer 0 % (0-5); Neutrophil # 4.67 X10^3/uL (2.7-7.7); Neutrophil % 61.4 % (47-70); Platelet Count 208 K/mm3 (150-450); RBC Distribution Width CV 12.9 % (11.6-14.6); RBC Distribution Width SD 42.2 fl (35.1-43.9); Red Blood Count 4.91 M/mm3 (4.6-6.2); White Blood Count 7.6 K/mm3 (4.4-11.0)
[2020-06-13 15:38] LABS: Anion Gap 7 (5-15); BUN 13 mg/dL (7-18); BUN/Creat Ratio 13.4 RATIO (10-20); Calcium,Total 8.7 mg/dL (8.5-10.1); Chloride 102 mmol/L (98-107); Creatinine, Serum 0.97 mg/dL (0.70-1.30); EST Glomerular Filtration Rate 83 mL/min (>60); Est Glom Filt Rate - Afr Amer 101 mL/min (>60); Glucose 224 mg/dL (74-106); Sodium Level 138 mmol/L (136-145)
[2020-06-13 15:47] LABS: Bacteria 0 SEEN /hpf (None Seen); Mucous, Urine 0 SEEN /hpf (<or=2+); Red Blood Cells-Urine 0 SEEN /hpf (0-5); White Blood Cells 0 SEEN /hpf (0-5)
[2020-06-13 18:26] LABS: Color, Urine Amber (Yellow); Glucose, Dipstick 50 mg/dl (Normal); Ketone-Dipstick Negative (Negative); Leukocyte Esterase-Dipstick Negative /ul (Negative); Nitrite-Dipstick Negative (Negative); Occult Blood-Urine Negative /ul (Negative); Protein-Dipstick Negative (Negative); Urine Bilirubin Dipstick Negative (Negative); Urine Clarity Sl. Cloudy (Clear); Urine Urobilinogen Normal (Normal)
[2020-06-13 18:32] LABS: Squamous Epithelial Cells - UA 0-5 SEEN /hpf (0-5)
== END ==
PROVIDERS: PCP Family Medicine; Referring Provider Family Medicine; Visit Provider Family Medicine
DX: R31.0 Gross hematuria (principal)
CPT/HCPCS: 36415; 74018; 80048; 81001; 85025; 87077; 87086; 87088

== ENCOUNTER → 2021-01-30 15:56 | Outpatient (CLI) | payer MEDICARE, SELFPAY ==
[2021-01-30 17:51] LABS: Absolute Lymphocyte Count 2.28 X10^3/uL (0.83-4.51); Basophil# 0.04 X10^3/uL; Basophil% 0.5 % (0-1); Eosinophil# 0.18 X10^3/uL; Eosinophils% 2.2 % (0-5); Hematocrit 40.7 % (40-54); Hemoglobin 14.1 g/dL (13.0-16.5); Lymphocyte # 2.28 X10^3/ul (4.0); Mean Corp Hgb Conc 34.6 g/dL (32-36); Mean Corpuscular Hgb 31.8 pg (27.0-32.0); Mean Corpuscular Volume 91.7 fL (80-94); Mean Platelet Vol. 11.4 fl (6.2-12.0); Monocyte# 0.65 X10^3/uL; NRBC Flagged by Analyzer 0 % (0-5); Neutrophil # 4.95 X10^3/uL (2.7-7.7); Neutrophil % 60.8 % (47-70); Platelet Count 170 K/mm3 (150-450); RBC Distribution Width CV 14.6 % (11.6-14.6); RBC Distribution Width SD 43.7 fl (35.1-43.9); Red Blood Count 4.44 M/mm3 (4.6-6.2); White Blood Count 8.1 K/mm3 (4.4-11.0)
[2021-01-30 18:20] LABS: ALB/GLOB Ratio 1.2 RATIO (0.9-2.4); AST(SGOT) 23 U/L (15-37); Alanine Aminotransfer ALT/SGPT 38 U/L (16-61); Albumin, Serum 3.7 g/dL (3.2-5.0); Alkaline Phosphatase 134 U/L (45-117); Anion Gap 9 (5-15); BUN 13 mg/dL (7-18); BUN/Creat Ratio 13.8 RATIO (10-20); Calcium,Total 8.9 mg/dL (8.5-10.1); Chloride 100 mmol/L (98-107); Creatinine, Serum 0.94 mg/dL (0.70-1.30); EST Glomerular Filtration Rate 86 mL/min (>60); Est Glom Filt Rate - Afr Amer 105 mL/min (>60); Glucose 348 mg/dL (74-106); Potassium 4.2 mmol/L (3.5-5.1); Protein, Total 6.7 g/dL (6.4-8.2); Sodium Level 137 mmol/L (136-145)
== END ==
LOC: MFPLAB 15:59
PROVIDERS: PCP Family Medicine; Referring Provider Family Medicine; Visit Provider Family Medicine
DX: E11.49 Type 2 diabetes mellitus with other diabetic neurological complication (principal); I73.9 Peripheral vascular disease, unspecified
CPT/HCPCS: 36415; 80053; 85025

== ENCOUNTER 2021-02-21 09:23 | Outpatient (RCR) | payer MEDICARE, SELFPAY ==
--- NOTE | 2021-02-21 14:53 | HP.OTEVAL ---
Patient's Visit Information BRY HERRERA Jr. is a 60 year old M, referred to Occupational Therapy by Dr. Mat Barrera MD, with a diagnosis of PVD with skin changes, mild lymphedema. Date of Evaluation: 02/21/21 Occupational Therapist: Mariam Calvo, SHENR/Jose Rafael, CHT - Subjective This 60 year old male was seen for OT eval with dx of PVD with skin changes and mild lymphedema. pt has been struggling with getting compression socks on due to the arthritis pain in his wrist and his hands. pt would like to get zipper closure compression socks to help control his LE swelling. - Pain BLE 2 Pain Intensity Range: 0, 4 - Lymphedema (Circumferential Measure) Mid-foot: right 37cm left 27cm Ankle: right 31 left 31 Lower calf: right 36 left 36 Largest calf: right 50 left 49 Below knee: right 44 left 44 - Lower Limb Functional Index Lower Extremity Functional Score: 35 - Goals Demonstrate adequate knowledge of self-massage by 2nd week: Yes Demonstrate adequate knowledge skin care/prec by 2nd week: Yes Demonstrate adequate knowledge therapeutic exercises by d/c: Yes Select approp compression garment w/donning/care/wear by d/c: Yes Voice need to replace compression garment every 4-6mo by dc: Yes - Rehabilitation General Assessment: pt demo with a need of custom compression garments 20-30mmHg with zippers to increase ind. with donning/doffing of compression socks. This pt has been seen in past and demo understanding of skin care and need of compression socks- pts last custom pair was about 7 years ago. Therapist ed. pt need to have compression socks replaced every 4-6 months. Pt demo understanding. Information for order was faxed to [facility] as [facility] is not a DME provider. pt demo understanding Rehabilitation Potential: Good - Visit Plan TEXT: Thank you for the opportunity to evaluate your patient. For Medicare and Medicare HMO plans, please review the plan of care and approve it. It will need to be FAXED BACK to us at [phone] for Medicare purposes. Please let me know if there are questions or concerns regarding this plan of care. Physician Signature: Date:
== END 2021-02-21 19:00 | disposition home or self-care (01) ==
LOC: OT 09:23
PROVIDERS: PCP Family Medicine; Referring Provider Family Medicine; Visit Provider Family Medicine
DX: I73.9 Peripheral vascular disease, unspecified (principal)
CPT/HCPCS: 97166

== ENCOUNTER 2021-08-07 13:42 | Emergency (ER) | payer MEDICARE, SELFPAY ==
[2021-08-07 13:42] VITALS: BP 153/91; PULSE 82; RESP 18; TEMP 36.4; O2SAT 92; BMI 52.6
--- NOTE | 2021-08-07 14:15 | ED.RN ---
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
== END 2021-08-07 14:10 ==
LOC: ED 14:20
PROVIDERS: PCP Family Medicine
DX: S49.90XA Unspecified injury of shoulder and upper arm, unspecified arm, initial encounter (principal)

== ENCOUNTER → 2021-08-28 08:04 | Outpatient (CLI) | payer MEDICARE, SELFPAY ==
--- NOTE | 2021-08-28 08:11 | MRI_ITS ---
STUDY: MRI RIGHT SHOULDER REASON FOR EXAM: Right shoulder pain for about 4 years status post right shoulder injury. TECHNIQUE: Standardized fat and water weighted pulse sequences were obtained in all 3 orthogonal planes. COMPARISON: Radiographs 08/14/2021 and MRI images 08/19/2019. FINDINGS: There is increase in size of the full-thickness tear of the supraspinatus tendon (T2 coronal images 14-17) measuring approximately 2.8 x 2.0 cm (length x width). There is mild infraspinatus tendinosis (T2 sagittal image 11) without discrete tendon tear. There is mild subscapularis tendinosis (T2 axial images 12-14) without discrete tendon tear. Normal teres minor tendon. There is mild atrophy with mild partial fat replacement of the supraspinatus muscle (T2 axial image 7). There is mild atrophy with mild partial fat replacement of the infraspinatus muscle (T2 sagittal images 19-22). Normal subscapularis muscle. Normal teres minor muscle. There is a small glenohumeral joint effusion. Normal humeral head and visualized proximal humerus. There is a tear of the long biceps tendon with an empty bicipital groove (proton-density axial images 11-19). There is degeneration of the superior labrum (proton-density coronal images 11-13). Normal capsulo- ligamentous complex. There is acromioclavicular arthrosis with hypertrophic changes (T2 sagittal image 19). There is a Type III morphology (anterior hook), with a mild posterior downsloping orientation. There is subacromial-subdeltoid bursal fluid. There is thickening of the coracoacromial ligament (T2 sagittal image 14). Normal deltoid muscle. Normal trapezius muscle. MRI/Upper Ext Joint Only(Routine) IMPRESSION: Full-thickness tear of the supraspinatus tendon, increased in size since the prior study. Mild infraspinatus and subscapularis tendinosis. Mild atrophy of the supraspinatus and infraspinatus muscles. Tear of the long biceps tendon. Degeneration of the superior labrum. Acromioclavicular arthrosis. Thickening of the coracoacromial ligament. Glenohumeral joint fluid communicating with the subacromial-subdeltoid bursa. Electronically Signed: Naren Mattson MD at 10:16 EDT Tel , Service support ,
== END ==
PROVIDERS: PCP Family Medicine; Referring Provider Physician Assistant; Visit Provider Physician Assistant
DX: M75.101 Unspecified rotator cuff tear or rupture of right shoulder, not specified as traumatic (principal)
CPT/HCPCS: 73221

== ENCOUNTER 2022-01-05 10:50 | Outpatient (CLI) | payer MEDICARE, SELFPAY ==
[2022-01-05 12:17] LABS: Absolute Lymphocyte Count 1.86 X10^3/uL (0.83-4.51); Basophil# 0.03 X10^3/uL; Basophil% 0.4 % (0-1); Eosinophil# 0.17 X10^3/uL; Eosinophils% 2.2 % (0-5); Hematocrit 43.5 % (40-54); Hemoglobin 13.3 g/dL (13.0-16.5); Lymphocyte # 1.86 X10^3/ul (0.83-4.51); Lymphocyte % 24.2 % (19-41); Mean Corp Hgb Conc 30.6 g/dL (32-36); Mean Corpuscular Hgb 27.4 pg (27.0-32.0); Mean Corpuscular Volume 89.5 fL (80-94); Monocyte# 0.58 X10^3/uL; Monocyte% 7.5 % (0-10); NRBC Flagged by Analyzer 0 % (0-5); Neutrophil # 5.02 X10^3/uL (2.7-7.7); Neutrophil % 65.3 % (47-70); Platelet Count 213 K/mm3 (150-450); RBC Distribution Width CV 12.9 % (11.6-14.6); RBC Distribution Width SD 42.4 fl (35.1-43.9); Red Blood Count 4.86 M/mm3 (4.6-6.2); White Blood Count 7.7 K/mm3 (4.4-11.0)
[2022-01-05 12:32] LABS: Hemoglobin A1c 9.5 % (3.8-5.6)
[2022-01-05 12:44] LABS: AST(SGOT) 16 U/L (15-37); Alanine Aminotransfer ALT/SGPT 32 U/L (16-61); Albumin, Serum 3.5 g/dL (3.2-5.0); Alkaline Phosphatase 100 U/L (45-117); Anion Gap 4 (5-15); BUN 12 mg/dL (7-18); BUN/Creat Ratio 14.9 RATIO (10-20); Calcium,Total 8.6 mg/dL (8.5-10.1); Chloride 105 mmol/L (98-107); Cholesterol 85 mg/dL (200); Creatinine, Serum 0.81 mg/dL (0.70-1.30); EST Glomerular Filtration Rate 102 mL/min (>60); Est Glom Filt Rate - Afr Amer 124 mL/min (>60); Globulin 3.4 g/dL (2.2-4.2); Glucose 264 mg/dL (74-106); High Density Lipoprotein 47 mg/dL; Potassium 4.1 mmol/L (3.5-5.1); Protein, Total 6.9 g/dL (6.4-8.2); Sodium Level 137 mmol/L (136-145); Thyroid Stim Hormone (TSH) 1.99 uIU/mL (0.358-3.74); Triglycerides 65 mg/dL; Very Low Density Lipoprotein 13 mg/dL (5-40)
[2022-01-05 12:45] LABS: Microalbumin:Creatinine Ratio 17.6 mg/g CRE (<30 mg/g CRE)
== END 2022-01-05 23:59 | disposition short-term general hospital (02) ==
LOC: MFPLAB 10:51
PROVIDERS: PCP Family Medicine; Referring Provider Family Medicine; Visit Provider Family Medicine
DX: E11.49 Type 2 diabetes mellitus with other diabetic neurological complication (principal); G62.9 Polyneuropathy, unspecified; M54.50 Low back pain, unspecified
CPT/HCPCS: 36415; 80053; 80061; 82043; 82570; 83036; 84443; 85025

== ENCOUNTER 2022-02-15 17:25 | Outpatient (CLI) | payer MEDICARE, SELFPAY ==
[2022-02-15 17:44] LABS: Absolute Lymphocyte Count 2.06 X10^3/uL (0.83-4.51); Basophil# 0.03 X10^3/uL; Basophil% 0.4 % (0-1); Eosinophil# 0.16 X10^3/uL; Hematocrit 41.4 % (40-54); Hemoglobin 13.1 g/dL (13.0-16.5); Lymphocyte # 2.06 X10^3/ul (0.83-4.51); Lymphocyte % 25.9 % (19-41); Mean Corp Hgb Conc 31.6 g/dL (32-36); Mean Corpuscular Hgb 27.3 pg (27.0-32.0); Mean Corpuscular Volume 86.4 fL (80-94); Mean Platelet Vol. 10.3 fl (6.2-12.0); Monocyte# 0.71 X10^3/uL; Monocyte% 8.9 % (0-10); NRBC Flagged by Analyzer 0 % (0-5); Neutrophil # 4.97 X10^3/uL (2.7-7.7); Neutrophil % 62.5 % (47-70); Platelet Count 223 K/mm3 (150-450); RBC Distribution Width CV 13.2 % (11.6-14.6); RBC Distribution Width SD 41.3 fl (35.1-43.9); Red Blood Count 4.79 M/mm3 (4.6-6.2)
[2022-02-15 19:18] LABS: ALB/GLOB Ratio 1.1 RATIO (0.9-2.4); AST(SGOT) 23 U/L (15-37); Alanine Aminotransfer ALT/SGPT 37 U/L (16-61); Albumin, Serum 3.7 g/dL (3.2-5.0); Alkaline Phosphatase 93 U/L (45-117); Anion Gap 3 (5-15); BUN 10 mg/dL (7-18); BUN/Creat Ratio 12.6 RATIO (10-20); Calcium,Total 8.8 mg/dL (8.5-10.1); Chloride 105 mmol/L (98-107); EST Glomerular Filtration Rate 104 mL/min (>60); Est Glom Filt Rate - Afr Amer 126 mL/min (>60); Globulin 3.5 g/dL (2.2-4.2); Glucose 135 mg/dL (74-106); Potassium 4.2 mmol/L (3.5-5.1); Protein, Total 7.2 g/dL (6.4-8.2); Sodium Level 138 mmol/L (136-145)
== END 2022-02-15 23:59 | disposition home or self-care (01) ==
PROVIDERS: PCP Family Medicine; Visit Provider Family Medicine
DX: R10.9 Unspecified abdominal pain (principal)
CPT/HCPCS: 36415; 80053; 85025

== ENCOUNTER 2022-03-06 15:32 | Outpatient (CLI) | payer MEDICARE, SELFPAY ==
--- NOTE | 2022-03-06 15:43 | CT_ITS ---
STUDY: CT ABDOMEN AND PELVIS WITHOUT CONTRAST REASON FOR EXAM: Male, 61 years old. Right Flank Pain RADIATION DOSAGE (If Supplied By Facility): CTDIvol = ( 34.45 ) mGy, DLP = ( 1850.67 ) mGycm TECHNIQUE: Transaxial images were obtained from the dome of the diaphragm to the symphysis pubis without oral contrast, and without intravenous contrast. Sagittal and coronal images were reconstructed. Individualized dose optimization techniques were used for this CT. COMPARISON: None. FINDINGS: The visualized lung bases are unremarkable. The visualized portions of the heart are within normal limits. Normal liver. Normal spleen. Normal pancreas. Normal bilateral adrenal glands. 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 Normal visualized stomach. Normal small intestine. Normal colon. The appendix is not well visualized. Normal abdominal aorta. Normal inferior vena cava. Normal retroperitoneum. Normal urinary bladder. Normal abdominal wall. Normal osseous structures. 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 Electronically Signed: Paul Fan MD at 6:26 EDT ,
== END 2022-03-06 23:59 | disposition home or self-care (01) ==
LOC: CT 15:33
PROVIDERS: PCP Family Medicine; Visit Provider Family Medicine
DX: Q63.1 Lobulated, fused and horseshoe kidney (principal)
CPT/HCPCS: 74176

== ENCOUNTER → 2023-02-08 | Outpatient (CLI) | payer MEDICARE, SELFPAY ==
[2023-02-08 17:55] LABS: Absolute Neutrophil Count 4.3 X10^3/uL (2.0-7.7); Basophil# 0.04 X10^3/uL; Basophil% 0.5 % (0-1); Eosinophil# 0.15 X10^3/uL; Hemoglobin 13.7 g/dL (13.0-16.5); Lymphocyte % 29.6 % (19-41); Mean Corp Hgb Conc 31.1 g/dL (32-36); Mean Corpuscular Volume 86.8 fL (80-94); Mean Platelet Vol. 11.3 fl (6.2-12.0); Monocyte# 0.68 X10^3/uL; Monocyte% 9.2 % (0-10); NRBC Flagged by Analyzer 0 % (0-5); Neutrophil # 4.32 X10^3/uL (2.7-7.7); Neutrophil % 58.3 % (47-70); Platelet Count 230 K/mm3 (150-450); RBC Distribution Width CV 13.5 % (11.6-14.6); RBC Distribution Width SD 42.2 fl (35.1-43.9); Red Blood Count 5.07 M/mm3 (4.6-6.2); White Blood Count 7.4 K/mm3 (4.4-11.0)
[2023-02-08 18:07] LABS: Microalbumin,Random Urine 11.5 mg/L (NO RANGE EST.); Microalbumin:Creatinine Ratio 9.8 mg/g CRE (<30 mg/g CRE)
[2023-02-08 18:10] LABS: ALB/GLOB Ratio 1.1 RATIO (0.9-2.4); AST(SGOT) 23 U/L (15-37); Alanine Aminotransfer ALT/SGPT 33 U/L (16-61); Albumin, Serum 3.8 g/dL (3.2-5.0); Alkaline Phosphatase 95 U/L (45-117); Anion Gap 4 (5-15); BUN 10 mg/dL (7-18); BUN/Creat Ratio 11.8 RATIO (10-20); Calcium,Total 9.6 mg/dL (8.5-10.1); Chloride 103 mmol/L (98-107); Creatinine, Serum 0.85 mg/dL (0.70-1.30); EST Glomerular Filtration Rate 97 mL/min (>60); Est Glom Filt Rate - Afr Amer 117 mL/min (>60); Globulin 3.4 g/dL (2.2-4.2); Glucose 188 mg/dL (74-106); Hemoglobin A1c 10.2 % (3.8-5.6); Potassium 4.1 mmol/L (3.5-5.1); Protein, Total 7.2 g/dL (6.4-8.2); Sodium Level 139 mmol/L (136-145)
[2023-02-08 18:19] LABS: Amphetamine Urine VISTA NEGATIVE (<1000 ng/mL); Barbiturate Urine VISTA NEGATIVE (< 200 ng/mL); Benzodiazepine Urine VISTA NEGATIVE (< 200 ng/mL); Cocaine Urine VISTA NEGATIVE (< 300 ng/mL); Ecstacy Urine VISTA NEGATIVE (< 500 ng/mL); Methadone Urine VISTA NEGATIVE (< 300 ng/mL); PCP Urine VISTA NEGATIVE (< 25 ng/mL); THC Urine VISTA NEGATIVE (< 50 ng/mL); Vista UDS pH Range 5
== END | disposition home or self-care (01) ==
LOC: MTLAB 16:10
PROVIDERS: PCP Family Medicine; Referring Provider Family Medicine; Visit Provider Family Medicine
DX: G89.4 Chronic pain syndrome (principal); E11.49 Type 2 diabetes mellitus with other diabetic neurological complication; J45.909 Unspecified asthma, uncomplicated
CPT/HCPCS: 36415; 80053; 80307; 82043; 82570; 83036; 85025

== ENCOUNTER → 2023-07-03 | Outpatient (CLI) | payer MEDICARE, SELFPAY | END | disposition home or self-care (01) | PROVIDERS: PCP Family Medicine; Referring Provider Family Medicine; Visit Provider Family Medicine | DX: R31.9 Hematuria, unspecified (principal) | CPT/HCPCS: 87086 ==

== ENCOUNTER → 2023-07-22 | Outpatient (CLI) | payer MEDICARE, SELFPAY ==
--- NOTE | 2023-07-22 07:38 | CT_ITS ---
EXAM: CT ABDOMEN AND PELVIS WITHOUT AND WITH INTRAVENOUS CONTRAST CLINICAL INDICATION: acute flank pain TECHNIQUE: Helically acquired images were obtained of the abdomen and pelvis without and with intravenous contrast. This CT exam was performed using one or more of the following dose reduction techniques: automated exposure control, adjustment of the mA and/or kV according to patient size, and/or use of iterative reconstruction technique. CONTRAST: IV 100mL Isovue-300 COMPARISON: CT Abdomen Pelvis dated 03/06/2022 FINDINGS: LOWER THORAX: Normal. Lung bases are clear. No cardiomegaly. No pericardial effusion. ABDOMEN: LIVER: Normal. Homogeneous. No focal mass. GALLBLADDER AND BILE DUCTS: Gallbladder is absent. PANCREAS: Normal. No focal cystic or solid mass. SPLEEN: Normal. Normal size without focal cystic or solid mass. ADRENALS: Normal. No nodules. 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 There is mild pyelocaliectasis noted bilaterally. However, the ureters are normal in caliber and without evidence of ureteral stone. 3 cm left renal cyst. STOMACH AND BOWEL: Diverticulosis of the colon noted without evidence of acute diverticulitis. PELVIS: APPENDIX: Appendix is visualized and normal in appearance. BLADDER: Normal. REPRODUCTIVE: Unremarkable as visualized. No mass. ABDOMEN and PELVIS: INTRAPERITONEAL SPACE: Normal. No ascites or other fluid collection. No free air. BONES/JOINTS: No suspicious lytic or blastic abnormality. SOFT TISSUES: Normal. No discrete abdominal or pelvic wall hernia. VASCULATURE: Normal. Abdominal aorta is non-dilated. LYMPH NODES: Normal. No enlarged lymph nodes. CT/CT Abd/Pelvis W/WO Contrast IMPRESSION: 1. Horseshoe kidney demonstrating mild pyelocaliectasis with normal appearing ureters. 2. Bilateral nephrolithiasis. 3. Diverticulosis coli. Electronically Signed: Otis Chanel MD at 10:50 EDT ,
[2023-07-22 08:02] LABS: CREATININE FINGERSTICK < 0.9 mg/dL (0.70-1.30); EGFR FINGERSTICK > 60.0000 mL/min (>60)
== END | disposition home or self-care (01) ==
PROVIDERS: PCP Family Medicine; Referring Provider Family Medicine; Visit Provider Family Medicine
DX: R10.9 Unspecified abdominal pain (principal)
CPT/HCPCS: 74178; Q9967

== ENCOUNTER → 2023-09-27 | Outpatient (CLI) | payer MEDICARE, SELFPAY ==
--- NOTE | 2023-09-27 11:20 | RAD_ITS ---
STUDY: X-RAY - ABDOMEN/PELVIS REASON FOR EXAM: Male, 63 years old. KIDNEY STONES TECHNIQUE: Single AP view of the abdomen / pelvis. COMPARISON: None. FINDINGS: Normal visualized lung bases. There is an unremarkable bowel gas pattern. The visualized liver, spleen and kidneys are grossly normal in size and morphology. 8 mm calcific opacity overlying the lower pole left kidney may represent left renal stone. No definite ureteral stone. Normal soft tissue structures. Normal visualized osseous structures. RAD/Abdomen Single View IMPRESSION: Suspect left renal stone. No definite ureteral stone. Electronically Signed: Liang Newton MD at 18:27 EDT ,
[2023-09-27 16:07] LABS: PSA,Total- Diagnostic 0.61 ng/mL (0.0-4.0)
== END | disposition home or self-care (01) ==
LOC: MTLAB 11:16
PROVIDERS: PCP Family Medicine; Referring Provider Urology; Visit Provider Urology
DX: N20.0 Calculus of kidney (principal); R35.1 Nocturia
CPT/HCPCS: 36415; 74018; 84153

== ENCOUNTER → 2023-10-01 | Outpatient (CLI) | payer MEDICARE, SELFPAY ==
[2023-10-01 15:29] LABS: Absolute Lymphocyte Count 1.94 X10^3/uL (0.83-4.51); Absolute Neutrophil Count 5.5 X10^3/uL (2.0-7.7); Basophil# 0.03 X10^3/uL; Basophil% 0.4 % (0-1); Eosinophil# 0.17 X10^3/uL; Eosinophils% 2.1 % (0-5); Hematocrit 45.4 % (40-54); Hemoglobin 14.2 g/dL (13.0-16.5); Lymphocyte # 1.94 X10^3/ul (0.83-4.51); Lymphocyte % 23.7 % (19-41); Mean Corp Hgb Conc 31.3 g/dL (32-36); Mean Corpuscular Hgb 26.9 pg (27.0-32.0); Mean Platelet Vol. 11.3 fl (6.2-12.0); Monocyte# 0.57 X10^3/uL; NRBC Flagged by Analyzer 0 % (0-5); Neutrophil # 5.47 X10^3/uL (2.7-7.7); Neutrophil % 66.6 % (47-70); Platelet Count 216 K/mm3 (150-450); RBC Distribution Width CV 13.5 % (11.6-14.6); RBC Distribution Width SD 42.3 fl (35.1-43.9); Red Blood Count 5.28 M/mm3 (4.6-6.2); White Blood Count 8.2 K/mm3 (4.4-11.0)
[2023-10-01 15:43] LABS: AST(SGOT) 17 U/L (15-37); Alanine Aminotransfer ALT/SGPT 32 U/L (16-61); Albumin, Serum 3.6 g/dL (3.2-5.0); Alkaline Phosphatase 100 U/L (45-117); Anion Gap 2 (5-15); BUN 10 mg/dL (7-18); BUN/Creat Ratio 12.2 RATIO (10-20); Calcium,Total 8.9 mg/dL (8.5-10.1); Chloride 108 mmol/L (98-107); Creatinine, Serum 0.82 mg/dL (0.70-1.30); EST Glomerular Filtration Rate 100 mL/min (>60); Est Glom Filt Rate - Afr Amer 121 mL/min (>60); Globulin 3.7 g/dL (2.2-4.2); Glucose 177 mg/dL (74-106); Protein, Total 7.3 g/dL (6.4-8.2); Sodium Level 137 mmol/L (136-145)
[2023-10-01 15:59] LABS: Hemoglobin A1c 7.9 % (3.8-5.6)
[2023-10-01 16:05] LABS: Microalbumin,Random Urine 5.9 mg/L (NO RANGE EST.); Microalbumin:Creatinine Ratio 18.5 mg/g CRE (<30 mg/g CRE)
== END | disposition home or self-care (01) ==
LOC: MTLAB 12:38
PROVIDERS: PCP Family Medicine; Referring Provider Family Medicine; Visit Provider Family Medicine
DX: J45.901 Unspecified asthma with (acute) exacerbation (principal); E11.49 Type 2 diabetes mellitus with other diabetic neurological complication
CPT/HCPCS: 36415; 80053; 82043; 82570; 83036; 85025

== ENCOUNTER 2023-10-15 07:06 | Day surgery (SDC) | payer MEDICARE, SELFPAY ==
[2023-10-15] VITALS (7 sets, daily range): BP systolic 131–176; BP diastolic 71–92; PULSE 61–80; RESP 16–18; TEMP 36.3–36.8; O2SAT 93–97; BMI 50.8
[2023-10-15] MEDS: Lactated Ringers 1,000 ML 15 ML IV (07:25)
[2023-10-15 07:45] LABS: Bedside Glucose 167 mg/dL (74-106)
--- NOTE | 2023-10-15 08:00 | COLBX_PTH ---
PATIENT: BRY HERRERA Jr. LOC: EN U#:[id number] AGE/SX: 63/M ROOM: RE10/15/[address]: Dr. Miguel Casiano MD : 1960 BED: DIS: 10/15/2023 SPEC #: [id number] RECD: 10/15/23 11:11 STATUS: FRANCIS REErik #: [id number] JORGE: 10/15/23 08:[address]: Miguel Casiano DEPT: SURGICAL PATHOLOGY RECD BY: Iliana Comer ENTERED: 10/15/23 12:53 SP TYPE: COLON BX OTHR DR: Dr. Mat Barrera MD Tissues: Descending colon Procedures: Surgery Specimen Level IV HEADER OPERATION: Colonoscopy, polypectomy PRE-OP DIAGNOSIS: Screening TISSUE SUBMITTED: Descending polyp MICROSCOPIC DIAGNOSIS Descending colon polyp, biopsy: Inflammatory polyp. AM:ron 10/16/2023 MICROSCOPIC DESCRIPTION Slides are reviewed. GROSS DESCRIPTION Received in fixative is one container labeled with the patient's name and designated descending colon polyp. The specimen consists of one irregular fragment of light scott soft tissue that measures 0.5 x 0.5 x 0.2 cm. The specimen is totally submitted in one cassette. / AM:ron 10/15/2023 TC:5 CPT: 16847
--- NOTE | 2023-10-15 08:00 | HP.PCM_ITS ---
History and Physical Date of Admission: 10/15/23 Intake Vital Signs 08/07/2113:42 09/09/2309:28 Height 6 ft 6 ft Weight: 394 lb 4 oz BMI 53.4 BP 134/83 H Blood Pressure Location Rt brachial Position Sitting Respiration 18 Intake Visit Reasons: COLONOSCOPY Chief Complaint: c-scope Senior Trainer Required: No Is patient in pain?: No Allergies levocetirizine [From Xyzal] Allergy (Verified 09/09/23 09:29) extreme fatiguePenicillins Allergy (Verified 09/09/23 09:29) Shortness of breathsulfamethoxazole [From Bactrim] Allergy (Verified 09/09/23 09:29) Rashtrimethoprim [From Bactrim] Allergy (Verified 09/09/23 09:29) Rash Medications metformin 500 mg tablet 500 mg PO BID 03/21/15 [History Confirmed 12/31/19] montelukast 10 mg tablet 10 mg PO DAILY 03/21/15 [History Confirmed 09/09/23] tamsulosin 0.4 mg capsule 0.4 mg PO DAILY 06/26/16 [History Confirmed 09/09/23] albuterol sulfate 90 mcg/actuation aerosol inhaler 1 - 2 puff inhalation Q4H PRN PRN Asthma 01/25/17 [History Confirmed 09/09/23] cod liver oil 1 ea PO DAILY 01/25/17 [History Confirmed 09/09/23] ergocalciferol (vitamin D2) 1,250 mcg (50,000 unit) capsule 50,000 unit PO QWEEK 01/25/17 [History Confirmed 09/09/23] umeclidinium 62.5 mcg-vilanterol 25 mcg/actuation powdr for inhalation 2 puff IH DAILY 12/09/17 [History Confirmed 09/09/23] aspirin 81 mg tablet,delayed release 81 mg PO DAILY@0800 07/21/18 [History Confirmed 12/31/19] oxycodone 10 mg tablet 10 mg PO TID PRN PRN Pain/Inflammation #90 tabs 08/04/19 [History Confirmed 09/09/23] fluticasone propionate 50 mcg/actuation nasal spray,suspension 2 spray intranasal DAILY 12/30/19 [History Confirmed 09/09/23] insulin aspart (niacinamide)(U-100) 100 unit/mL(3 mL) subcutaneous pen (Fiasp FlexTouch U-100 Insulin) 8 unit subcut 09/09/23 [History Confirmed 09/09/23] insulin glargine U-300 conc 300 unit/mL (1.5 mL) subcutaneous pen (Toujeo SoloStar U-300 Insulin) unit subcut 09/09/23 [History Confirmed 09/09/23] losartan 100 mg tablet (Cozaar) 100 mg PO DAILY 09/09/23 [History Confirmed 09/09/23] potassium citrate 10 mEq (1,080 mg) tablet,extended release meq PO 09/09/23 [History Confirmed 09/09/23] rosuvastatin 10 mg tablet mg PO 09/09/23 [History Confirmed 09/09/23] PFSH Medical History (Updated 09/09/23 @ 09:27 by Karen Garcia) Asthma Bronchitis Cervical disc disease Chronic ulcer of right leg Chronic venous insufficiency COPD (chronic obstructive pulmonary disease) Lopez phlebectatica Diabetes mellitus 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 veins History of DVT (deep vein thrombosis) History of nephrolithotomy with removal of calculi Leg edema Leg swelling Leg wound, right Lipodermatosclerosis Lumbar disc disease with radiculopathy Post-phlebitic syndrome Psoriasis Right rotator cuff tear Right shoulder injury Screen for colon cancer Varicose veins with ulcer and inflammation Venous hypertension, chronic, with ulcer and inflammation Surgical History (Updated 09/09/23 @ 09:27 by Karen Garcia) S/P knee surgery S/P laparoscopic cholecystectomy Family History (Updated 09/09/23 @ 09:28 by Karen Garcia) Father Cancer bladder DiabetesMother Hypertension Kidney disease Social History (Updated 09/09/23 @ 09:28 by Karen Garcia) Smoking Status: Former smoker alcohol intake: never HPI HPI HPI: The patient is a 63-year-old male here for screening colonoscopy. He had attempted colonoscopy in 2018 but he had a lot of vegetable matter and stool in his colon and was recommended to repeat in 1 year but never did. Currently he is denying any abdominal pain or blood in the stool. ROS General General: Yes fatigue; No weight change, appetite, colon cancer, breast cancer or weakness HEENT HEENT: No difficulty swallowing, eye injury, eye surgery, swollen glands or hoarseness Endo Endocrine: Yes diabetes mellitus; No thyroid disease, thyroid cancer, Hair loss, heat intolerance or cold intolerance Skin Skin: No rash or changing moles Breast Breast: No left breast lump, right breast lump, nipple discharge, breast pain, abnormal mammogram, abnormal US or breast enlargement Musc Musculoskeletal: Yes back problems and arthritis; No rheumatoid arthritis, gout or joint pain Cardio Cardiovascular: Yes high blood pressure; No murmur, pacemaker, heart disease, atrial fibrillation, heart attack, heart stent, palpitations, shortness of breat with exertion or chest pain Psych Psychiatric: No depression, anxiety or hearing voices Resp Respiratory: No shortness of breath, No sleep apnea, No cough, Yes COPD, Yes asthma, No emphysema and No wheezing Gastro Gastrointestinal: No abdominal pain, No nausea or vomiting, No diarrhea, No constipation, No blood in stool, No acid reflux, No hemorrhoids, No ulcers, No gallbladder problem and No black,tarry stools Doug Hematologic: Yes blood thinners, No blood disorders, No bleeding, No anemia and No blood clots Neuro Neurologic: No system reviewed and no additional complaints, except as documented, No as per HPI, No abnormal gait, No abnormal hearing, No abnormal movements, No abnormal speech, No behavioral changes, No burning sensations, No confusion, No convulsions, No disequilibrium, No dizziness, No localized weakn ess, No frequent falls, No headache(s), No lack of coordination, No loss of vision, No memory loss, No numbness, No other visual disturbances, No radicular pain, No restless legs, No sensory deficit, No syncope, No tingling, No tremor(s), No weakness and No other Exam Const General: cooperative Orientation: alert and oriented x3 HENMT Head: normal to inspection Neck Neck: normal visual inspection and full ROM Chest Chest palpation & inspection: normal inspection of the chest Resp Effort & Inspection: normal respiratory effort Auscultation: clear to auscultation bilaterally Cardio Rate: regular rate Rhythm: regular rhythm GI Inspection: non-distended Palpation: soft and nontender Skin General: no rashes or lesions noted Neuro General: patient alert and patient oriented x3 Extrem General: full ROM Psych Appearance: grossly normal Mental Status: mental status grossly normal Assessment and Plan Assessment and Plan (1) Screen for colon cancer: Status: Inactive Plan: The patient had attempted colonoscopy in 2018 and was recommended to repeat but never came back. He is here to repeat colonoscopy for screening purposes. I explained endoscopy in detail to the patient. I explained the risks including but not limited to stroke or heart attack with anesthesia, perforation of the GI tract, bleeding, infection. I explained that any of these could necessitate further emergency surgery. The patient understands and all questions were answered sufficiently. The patient wishes to proceed with procedure. Miguel Casiano MD Pager: [facility] [address] [place] [address] [address] [place] [address] Office: I have examined the patient and the H&P has been reviewed. There are no clinical changes since date of exam.
--- NOTE | 2023-10-15 08:31 | OP.COLON_ITS ---
Patient Name: Trever Zaragoza Procedure Date: 10/15/2023 8:01 AM Date of : 1960 Age: 63 Procedure: Colonoscopy Indications: Screening for colorectal malignant neoplasm Providers: Miguel Casiano MD Medicines: Monitored Anesthesia Care Patient Profile: This is a 63 year old male. Refer to note in patient chart for documentation of history and physical. Last Colonoscopy: none. The patient's first colonoscopy is today. Complications: No immediate complications. Procedure: Pre-Anesthesia Assessment: - Prior to the procedure, a History and Physical was performed, and patient medications and allergies were reviewed. The patient's tolerance of previous anesthesia was also reviewed. The risks and benefits of the procedure and the sedation options and risks were discussed with the patient. All questions were answered, and informed consent was obtained. Prior Anticoagulants: The patient has taken no anticoagulant or antiplatelet agents. After reviewing the risks and benefits, the patient was deemed in satisfactory condition to undergo the procedure. After I obtained informed consent, the scope was passed under direct vision. Throughout the procedure, the patient's blood pressure, pulse, and oxygen saturations were monitored continuously. The Colonoscope was introduced through the anus and advanced to the cecum, identified by appendiceal orifice and ileocecal valve. The colonoscopy was performed without difficulty. The patient tolerated the procedure well. The quality of the bowel preparation was good. The ileocecal valve, appendiceal orifice, and rectum were photographed. Scope In: 8:13:19 AM Scope Withdrawal Time 0 hours 7 minutes 34 seconds Scope Out: 8:24:25 AM Total Procedure Duration Time 0 hours 11 minutes 6 seconds Findings: A small polyp was found in the descending colon. The polyp was removed with a hot snare. Resection and retrieval were complete. The exam was otherwise without abnormality on direct and retroflexion views. Impression: - One small polyp in the descending colon, removed with a hot snare. Resected and retrieved. - The examination was otherwise normal on direct and retroflexion views. Recommendation: - Discharge patient to home. - Resume previous diet. - Continue present medications. - Await pathology results. - Repeat colonoscopy in 5 years for surveillance based on pathology results. Procedure Code(s): --- Professional --- 49745, Colonoscopy, flexible; with removal of tumor(s), polyp(s), or other lesion(s) by snare technique Diagnosis Code(s): --- Professional --- Z12.11, Encounter for screening for malignant neoplasm of colon D12.4, Benign neoplasm of descending colon CPT copyright 2021 [employer]. All rights reserved. The codes documented in this report are preliminary and upon tape coater review may be revised to meet current compliance requirements. Miguel Casiano MD 10/15/2023 8:31:32 AM This report has been signed electronically. Number of Addenda: 0 Note Initiated On: 10/15/2023 8:01 AM
--- NOTE | 2023-10-15 08:32 | OP.CCLET_ITS ---
10/15/2023 Mat Barrera [address] [place] [address] Re : Colonoscopy procedure for Trever Zaragoza Dear Dr. Barrera This procedure was performed on Sunday, October 15, 2023. My impressions and recommendations are as follows: Impressions : - One small polyp in the descending colon, removed with a hot snare. Resected and retrieved. - The examination was otherwise normal on direct and retroflexion views. Recommendations : - Discharge patient to home. - Resume previous diet. - Continue present medications. - Await pathology results. - Repeat colonoscopy in 5 years for surveillance based on pathology results. My findings are described in the full procedure note, which is enclosed. If I can be of further assistance, please feel free to contact me at Doctor phone number(s): , Work: . Sincerely, Miguel Casiano MD 10/15/2023 8:31:32 AM This report has been signed electronically.
== END 2023-10-15 09:05 | disposition home or self-care (01) ==
LOC: EN 07:06 → AC 07:08
PROVIDERS: PCP Family Medicine; Referring Provider Family Medicine; Visit Provider Surgery
PROC: 0DJD8ZZ Inspection of Lower Intestinal Tract, Via Natural or Artificial Opening Endoscopic (ICD-10-PCS; CPT 45378; principal; 2023-10-15 07:55)
DX: Z12.11 Encounter for screening for malignant neoplasm of colon (principal); J44.9 Chronic obstructive pulmonary disease, unspecified; E11.9 Type 2 diabetes mellitus without complications; Z79.4 Long term (current) use of insulin; Z87.891 Personal history of nicotine dependence; K63.5 Polyp of colon; Z79.899 Other long term (current) drug therapy; Z79.82 Long term (current) use of aspirin; Z79.51 Long term (current) use of inhaled steroids; Z90.49 Acquired absence of other specified parts of digestive tract
CPT/HCPCS: 45385; 82962; 88305; J7120; J2405

== ENCOUNTER → 2024-03-12 | Outpatient (CLI) | payer MEDICARE, SELFPAY ==
[2024-03-12 12:07] LABS: Absolute Lymphocyte Count 1.79 X10^3/uL (0.83-4.51); Absolute Neutrophil Count 5.2 X10^3/uL (2.0-7.7); Basophil# 0.03 X10^3/uL; Basophil% 0.4 % (0-1); Eosinophil# 0.22 X10^3/uL; Eosinophils% 2.8 % (0-5); Hematocrit 43.2 % (40-54); Hemoglobin 13.6 g/dL (13.0-16.5); Lymphocyte # 1.79 X10^3/ul (0.83-4.51); Lymphocyte % 23.1 % (19-41); Mean Corp Hgb Conc 31.5 g/dL (32-36); Mean Corpuscular Hgb 27.8 pg (27.0-32.0); Mean Corpuscular Volume 88.3 fL (80-94); Monocyte# 0.56 X10^3/uL; Monocyte% 7.2 % (0-10); NRBC Flagged by Analyzer 0 % (0-5); Neutrophil # 5.15 X10^3/uL (2.7-7.7); Neutrophil % 66.4 % (47-70); Platelet Count 218 K/mm3 (150-450); RBC Distribution Width CV 13.2 % (11.6-14.6); RBC Distribution Width SD 42.6 fl (35.1-43.9); Red Blood Count 4.89 M/mm3 (4.6-6.2); White Blood Count 7.8 K/mm3 (4.4-11.0)
[2024-03-12 12:34] LABS: AST(SGOT) 20 U/L (15-37); Alanine Aminotransfer ALT/SGPT 26 U/L (16-61); Albumin, Serum 3.5 g/dL (3.2-5.0); Alkaline Phosphatase 81 U/L (45-117); Anion Gap 3 (5-15); BUN 14 mg/dL (7-18); BUN/Creat Ratio 16.9 RATIO (10-20); Calcium,Total 8.8 mg/dL (8.5-10.1); Chloride 106 mmol/L (98-107); Creatinine, Serum 0.83 mg/dL (0.70-1.30); EST Glomerular Filtration Rate 99 mL/min (>60); Est Glom Filt Rate - Afr Amer 120 mL/min (>60); Globulin 3.4 g/dL (2.2-4.2); Glucose 154 mg/dL (74-106); Potassium 3.8 mmol/L (3.5-5.1); Protein, Total 6.9 g/dL (6.4-8.2); Sodium Level 138 mmol/L (136-145)
[2024-03-12 14:57] LABS: Amphetamine Urine VISTA NEGATIVE (<1000 ng/mL); Barbiturate Urine VISTA NEGATIVE (< 200 ng/mL); Benzodiazepine Urine VISTA NEGATIVE (< 200 ng/mL); Cocaine Urine VISTA NEGATIVE (< 300 ng/mL); Ecstacy Urine VISTA NEGATIVE (< 500 ng/mL); Methadone Urine VISTA NEGATIVE (< 300 ng/mL); PCP Urine VISTA NEGATIVE (< 25 ng/mL); THC Urine VISTA NEGATIVE (< 50 ng/mL); Vista UDS pH Range 6
== END | disposition home or self-care (01) ==
LOC: MFPLAB 10:31
PROVIDERS: PCP Family Medicine; Visit Provider Family Medicine
DX: M54.50 Low back pain, unspecified (principal)
CPT/HCPCS: 36415; 80053; 80307; 85025

== ENCOUNTER 2024-05-27 22:40 | Inpatient (IN) | payer MEDICARE, SELFPAY ==
[2024-05-27 22:41] VITALS: BP 123/72; PULSE 97; RESP 22; TEMP 35.8; O2SAT 96; BMI 51.0
[2024-05-27 22:46] VITALS: BP 123/72; PULSE 96; RESP 22; TEMP 35.8; O2SAT 96
--- NOTE | 2024-05-27 22:59 | EDS_ITS ---
HPI History of Present Illness Chief Complaint: Cellulitis Informant: patient Onset/Context/Timing Onset: Yesterday Narrative Narrative: Patient present secondary to cellulitis. He noted some redness and a wound over his right lower horne yesterday. He was seen by his PCP and placed on Keflex. He also received an injection in the office but he does not know what that was. Patient presents stating the redness has gotten worse in his leg has become more painful. He has not noted a fever at home. 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 Lipodermatosclerosis Chronic ulcer of right leg Leg wound, right Diabetes mellitus 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 veins Lopez phlebectatica Post-phlebitic syndrome History of DVT (deep vein thrombosis) Chronic venous insufficiency Leg edema Leg swelling Cervical disc disease Lumbar disc disease with radiculopathy COPD (chronic obstructive pulmonary disease) Bronchitis Asthma Psoriasis Screen for colon cancer Home Medications ?Medication ?Instructions ?Recorded ?Last Taken ?Type montelukast 10 mg tablet 10 mg PO QHS 03/21/15 Unknown History tamsulosin 0.4 mg capsule 0.8 mg PO DAILY 06/26/16 Unknown History albuterol sulfate 90 mcg/actuation 1 - 2 puff inhalation Q4H PRN PRN 01/25/17 Unknown History aerosol inhaler Asthma cod liver oil 1 ea PO DAILY 01/25/17 Unknown History ergocalciferol (vitamin D2) 1,250 50,000 unit PO MO 01/25/17 05/25/24 History mcg (50,000 unit) capsule umeclidinium 62.5 mcg-vilanterol 2 puff IH DAILY 12/09/17 Unknown History 25 mcg/actuation powdr for inhalation aspirin 81 mg tablet,delayed 81 mg PO DAILY@0800 07/21/18 10/13/23 History release oxycodone 10 mg tablet 10 mg PO TID PRN PRN 08/04/19 Unknown History Pain/Inflammation #90 tabs losartan 100 mg tablet (Cozaar) 100 mg PO DAILY 09/09/23 Unknown History potassium citrate 10 mEq (1,080 10 meq PO DAILY 09/09/23 Unknown History mg) tablet,extended release rosuvastatin 10 mg tablet 10 mg PO QHS 09/09/23 Unknown History ascorbate calcium (vitamin C) 500 500 mg PO DAILY 01/01/24 Unknown History mg tablet budesonide-formoterol HFA 160 2 inh inhalation BID 01/01/24 Unknown History mcg-4.5 mcg/actuation aerosol inhaler (Symbicort) duloxetine 30 mg capsule,delayed 30 mg PO DAILY 01/01/24 Unknown History release esomeprazole magnesium 40 mg 40 mg PO DAILY 01/01/24 Unknown History capsule,delayed release (Nexium) fexofenadine 180 mg tablet 180 mg PO DAILY 01/01/24 Unknown History (Allergy Relief (fexofenadine)) furosemide 40 mg tablet 20 mg PO DAILY 01/01/24 Unknown History hydroxyzine HCl 50 mg tablet See Rx Instructions PO Q8H PRN 01/01/24 Unknown History insulin aspart 10 unit subcut USEASDIRECTD 01/01/24 Unknown History (niacinamide)(U-100) 100 unit/mL(3 mL) subcutaneous pen (Fiasp FlexTouch U-100 Insulin) insulin glargine U-300 conc 300 31 unit subcut DAILY 01/01/24 Unknown History unit/mL (1.5 mL) subcutaneous pen (Toujeo SoloStar U-300 Insulin) ketoconazole 2 % topical cream applic topical 01/01/24 Unknown History levocetirizine 5 mg tablet 5 mg PO DAILY 01/01/24 Unknown History metformin 500 mg tablet 1,000 mg PO BID 01/01/24 Unknown History nortriptyline 25 mg capsule 25 mg PO QHS 01/01/24 Unknown History tirzepatide 2.5 mg/0.5 mL 2.5 mg subcut FR 05/27/24 Unknown History subcutaneous pen injector (Mounjaro) Allergy/AdvReac Type Severity Reaction Status Date / Time levocetirizine (From Xyzal) Allergy extreme Verified 05/27/24 22:41 fatigue Penicillins Allergy Shortness Verified 05/27/24 22:41 of breath sulfamethoxazole (From Allergy Rash Verified 05/27/24 22:41 Bactrim) trimethoprim (From Bactrim) Allergy Rash Verified 05/27/24 22:41 Family History Father Cancer bladder Diabetes Mother Hypertension Kidney disease Surgical History S/P knee surgery S/P laparoscopic cholecystectomy Social History Smoking Status: Former smoker alcohol intake: never ROS ROS ED Constitutional Constitutional ED: Denies chills or fever(s) Eyes Eyes: Denies discharge from eye(s) ENT ENT ED: Denies discharge from eye(s), rhinorrhea or sore throat Cardiovascular Cardiovascular: Denies chest pain Respiratory/Chest Respiratory/Chest: Denies cough or dyspnea Gastrointestinal Gastrointestinal: Denies abdominal pain, nausea or vomiting Musculoskeletal Musculoskeletal: Reports extremity pain; Denies back pain Integumentary Reports rash; Denies Abrasions Neurologic Neurologic: Denies headache(s) or weakness Psychiatric Psychiatric: Denies anxiety or depression Allergic/Immunologic Allergic/Immunologic ED: Denies lip swelling or urticaria EXAM Physical Exam Const Vital Signs: 05/27/24 22:41 05/27/24 22:46 05/27/24 23:50 Temperature 96.4 F L 96.4 F L 98.3 F Temperature Source Temporal Temporal Oral Pulse Rate 97 96 106 H Respiratory Rate 22 H 22 H 18 Blood Pressure 123/72 H 123/72 H 105/79 Blood Pressure Mean 89 89 87 Pulse Ox 96 96 91 Oxygen Delivery Method Room Air Room Air Room Air Oxygen Flow Rate (L/min) 05/28/24 00:00 Temperature 98.2 F Temperature Source Oral Pulse Rate 117 H Respiratory Rate 22 H Blood Pressure 112/64 Blood Pressure Mean 80 Pulse Ox 93 Oxygen Delivery Method Nasal Cannula Oxygen Flow Rate (L/min) 2 Positive obese Nutritional Appearance: obese HEENT Reports moist mucous membranes Eyes EOMs intact bilaterally Chest Wall inspection of chest normal and palpation of chest normal Resp normal respiratory effort and clear to auscultation bilaterally Cardio regular rate and regular rhythm GI non-tender Palpation: soft Extremity Extremity Narrative: Chronic venous skin changes to the lower portion of the right lower leg with an open wound over the right horne. He has overlying and surrounding cellulitis up to the knee. Neuro oriented x3 and no sensory deficits noted Motor Exam: strength 5/5 throughout Psych mental status grossly normal Skin no rashes or lesions noted MDM MDM MDM Narrative Medical decision making narrative: IV line established. Blood cultures drawn. Labwork obtained to evaluate for leukocytosis, anemia, and electrolyte derangement. Venous ultrasound of the right lower extremity obtained to evaluate for potential DVT as patient does have a history of DVT and is not currently on anticoagulation. History & Record Review Discussion w/independent historian: Patient Lab Data Attestation: I reviewed the patient's lab results. Labs: Laboratory Results - last 24 hr 05/27/24 23:45 WBC 7.5 RBC 5.00 Hgb 13.5 Hct 42.8 MCV 85.6 MCH 27.0 MCHC 31.5 L RDW Std Deviation 41.4 RDW Coeff of Eloise 13.3 Plt Count 222 MPV 10.5 Immature Gran % (Auto) 1.100 H Neut % (Auto) 61.8 Lymph % (Auto) 24.1 Long % (Auto) 10.8 H Eos % (Auto) 1.9 Baso % (Auto) 0.3 Absolute Neuts (auto) 4.7 Absolute Lymphs (auto) 1.81 Nucleated RBC % 0 Sodium 139 Potassium 3.4 L Chloride 105 Carbon Dioxide 29.0 Anion Gap 5 BUN 15 Creatinine 1.07 Estim Creat Clear Calc 110.27 Est GFR (MDRD) Af Amer 89 Est GFR (MDRD) Non-Af 74 BUN/Creatinine Ratio 14.0 Glucose 68 L Calcium 9.2 Radiography Diagnostic Testing: Clinical Impression(s) from Imaging Studies Venous Duplex 05/27/24 23:01 IMPRESSION: Negative for DVT. Electronically Signed: Devin Vyas MD at 0:41 EDT , Treatment and Re-Evaluation :: Venous ultrasound of the right lower extremity reveals no evidence of DVT. Varicosities are noted medially. CBC reveals a white count of 7.5 with 61% neutrophils. Hemoglobin is 13.5. Chemistry studies significant for potassium of 3.4. Renal function unremarkable. Glucose is 68. On repeat evaluation patient is on library monitor. Nursing staff noted that his heart rate was irregular. He appears to be in A-fib with rates in the 90s to 120s. EKG is obtained and does confirm atrial fibrillation with a ventricular rate of 97 bpm. Patient denies any known history of A-fib. Right bundle shirley block is noted. Patient's O2 sats dropping into the mid 80s while he was sitting at rest. When I went into the room to talk with him he would go back up into the low 90s. He was placed on 2 L nasal cannula. Portable chest x-ray was obtained and per my interpretation reveals chronic changes with no evidence of infiltrate. Patient has been on Keflex and despite this has worsening cellulitis. He has an allergy to Bactrim and penicillins. I will give him a dose of vancomycin at this time. I will speak with hospitalist regarding admission. Discharge Plan Triage Chief Complaint: Cellulitis ED Provider: Anjelica Quiñones Dx/Rx/DC Orders Clinical Impression: Cellulitis, New onset a-fib Prescriptions: No Action oxycodone 10 mg tablet 10 mg PO TID PRN PRN (Reason: Pain/Inflammation) Qty: 90 Patient Comments: TAKE 1 TABLET EVERY 8 HOURS NEEDED FOR PAIN potassium citrate 10 mEq (1,080 mg) tablet extended release 10 meq PO DAILY Patient Comments: TAKE 1 TABLET BY MOUTH DAILY to prevent kidney stones and two TABLETS DAILY if taking extra water pill losartan [Cozaar] 100 mg tablet 100 mg PO DAILY rosuvastatin 10 mg tablet 10 mg PO QHS Patient Comments: TAKE 1 TABLET BY MOUTH DAILY Fiasp FlexTouch U-100 Insulin 100 unit/mL (3 mL) insulin pen 10 unit subcut USEASDIRECTD Patient Comments: inject 10 units SUBCUTANEOUSLY with each meal and 2 (TWO) units with snack; max daily dose (20 units) insulin glargine U-300 conc [Toujeo SoloStar U-300 Insulin] 300 unit/mL (1.5 mL) insulin pen 31 unit subcut DAILY Patient Comments: INJECT 24 units under the skin daily budesonide-formoterol [Symbicort] 160-4.5 mcg/actuation HFA aerosol inhaler 2 inh inhalation BID furosemide 40 mg tablet 20 mg PO DAILY Patient Comments: TAKE 1/2 (ONE-HALF) OF A TABLET BY MOUTH with lunch DAILY hydroxyzine HCl 50 mg tablet See Rx Instructions PO Q8H PRN Rx Instructions: 1/2 - 2 tab orally every 8 hours PRN; fexofenadine [Allergy Relief (fexofenadine)] 180 mg tablet 180 mg PO DAILY nortriptyline 25 mg capsule 25 mg PO QHS Rx Instructions: 1-2 caps QHS esomeprazole magnesium [Nexium] 40 mg capsule,delayed release(DR/EC) 40 mg PO DAILY ascorbate calcium (vitamin C) 500 mg tablet 500 mg PO DAILY ketoconazole 2 % cream topical Patient Comments: apply cream between toes and soles of feet twice daily as directed duloxetine 30 mg capsule,delayed release(DR/EC) 30 mg PO DAILY levocetirizine 5 mg tablet 5 mg PO DAILY Patient Comments: TAKE 1 TABLET BY MOUTH EVERY DAY for allergies or FOR ASTHMA from allergies montelukast 10 MG tablet 10 mg PO QHS metformin 500 mg tablet 1,000 mg PO BID tamsulosin 0.4 MG capsule 0.8 mg PO DAILY umeclidinium-vilanterol 1 EACH blister with device 2 puff IH DAILY Patient Comments: INHALE 2 PUFFS BY MOUTH EVERY DAY aspirin 81 MG tablet 81 mg PO DAILY@0800 Mounjaro 2.5 mg/0.5 mL pen injector 2.5 mg subcut FR albuterol sulfate 1 INHALER inhaler 1 - 2 puff inhalation Q4H PRN PRN (Reason: Asthma) cod liver oil 1 EACH capsule 1 ea PO DAILY ergocalciferol (vitamin D2) 50,000 UNIT capsule 50,000 unit PO MO Primary Care Provider: Mat Barrera Referrals: Mat Barrera MD [Primary Care Provider] - Print Language: [place] Disposition Disposition: Acute Care Hospital [facility]
--- NOTE | 2024-05-27 23:01 | US_ITS ---
EXAM: US DUPLEX RIGHT LOWER EXTREMITY VEINS CLINICAL INDICATION: RT LEG PAIN / REDNESS TECHNIQUE: Real-time duplex ultrasound scan of the right lower extremity veins integrating B-mode two-dimensional vascular structure, Doppler spectral analysis, color flow Doppler imaging and compression. COMPARISON: No relevant prior studies available. FINDINGS: DEEP VEINS: Unremarkable. No DVT in the visualized right common femoral, femoral, popliteal, posterior tibial or peroneal veins. The veins demonstrate normal color flow, are normally compressible, with normal phasic flow and/or augmentation response. The left common femoral vein was also evaluated and is patent, with normal Doppler flow. SUPERFICIAL VEINS: Unremarkable. No thrombus in the visualized great saphenous vein. Patent varicosities are incidentally noted within the medial aspect of the right leg. SOFT TISSUES: No acute findings. No popliteal cyst. US/Venous Duplex Imag/Limited/Uni IMPRESSION: Negative for DVT. Electronically Signed: Devin Vyas MD at 0:41 EDT ,
[2024-05-27] MEDS: Morphine 4 MG/ML Syringe IV (23:47)
[2024-05-27] MEDS: Ondansetron 4 MG/2 ML Vial IV (23:48)
[2024-05-27] MEDS: 0.9% Normal Saline (1000mL) 1,000 ML 150 ML IV (23:48)
[2024-05-27 23:50] VITALS: BP 105/79; PULSE 106; RESP 18; TEMP 36.8; O2SAT 91
[2024-05-28] VITALS (16 sets, daily range): BP systolic 96–120; BP diastolic 64–81; PULSE 77–117; RESP 12–22; TEMP 36.1–37.2; O2SAT 93–100; BMI 50.9
--- NOTE | 2024-05-28 00:29 | RAD_ITS ---
EXAM: XR CHEST, 1 VIEW CLINICAL INDICATION: SOB TECHNIQUE: Frontal view of the chest. COMPARISON: Previous chest radiographs of 07/01/2019 and 12/09/2017. FINDINGS: LUNGS AND PLEURAL SPACES: Interval development of discoid atelectasis within the left mid to upper lung. No patchy airspace disease. No interstitial thickening. No pneumothorax. No effusion. HEART: Heart size remains within normal limits with normal pulmonary vasculature. MEDIASTINUM: Thoracic aorta remains minimally elongated. No mediastinal widening. BONES/JOINTS: Thoracic degenerative spurring. No acute fracture. SOFT TISSUES: Unremarkable. RAD/Chest 1 View (Portable) IMPRESSION: Interval development of discoid atelectasis within the left mid to upper lung. Otherwise stable. No pneumonia or pulmonary edema. Electronically Signed: eDvin Vyas MD at 1:15 EDT ,
--- NOTE | 2024-05-28 00:29 | EKG12_ITS ---
Test Reason : DYSRHYTHMIA Blood Pressure : / mmHG Vent. Rate : 097 BPM Atrial Rate : 000 BPM P-R Int : 000 ms QRS Dur : 156 ms QT Int : 390 ms P-R-T Axes : 000 -76 005 degrees QTc Int : 495 ms Atrial fibrillation Left axis deviation Right bundle branch block Inferior infarct , age undetermined Abnormal ECG Confirmed by Matthew Mckeon ([id number]), business editor WILLIE BLACKMON ([id number]) on 05/30/2024 7:39:12 AM Referred By: Confirmed By:Matthew Mckeon
[2024-05-28 00:41] LABS: Absolute Lymphocyte Count 1.81 X10^3/uL (0.83-4.51); Absolute Neutrophil Count 4.7 X10^3/uL (2.0-7.7); Basophil# 0.02 X10^3/uL; Basophil% 0.3 % (0-1); Eosinophil# 0.14 X10^3/uL; Eosinophils% 1.9 % (0-5); Hematocrit 42.8 % (40-54); Hemoglobin 13.5 g/dL (13.0-16.5); Lymphocyte # 1.81 X10^3/ul (0.83-4.51); Lymphocyte % 24.1 % (19-41); Mean Corp Hgb Conc 31.5 g/dL (32-36); Mean Corpuscular Volume 85.6 fL (80-94); Mean Platelet Vol. 10.5 fl (6.2-12.0); Monocyte# 0.81 X10^3/uL; Monocyte% 10.8 % (0-10); NRBC Flagged by Analyzer 0 % (0-5); Neutrophil # 4.66 X10^3/uL (2.7-7.7); Neutrophil % 61.8 % (47-70); Platelet Count 222 K/mm3 (150-450); RBC Distribution Width CV 13.3 % (11.6-14.6); RBC Distribution Width SD 41.4 fl (35.1-43.9); White Blood Count 7.5 K/mm3 (4.4-11.0)
[2024-05-28 00:43] LABS: Anion Gap 5 (5-15); BUN 15 mg/dL (7-18); Calcium,Total 9.2 mg/dL (8.5-10.1); Chloride 105 mmol/L (98-107); Creatinine, Serum 1.07 mg/dL (0.70-1.30); EST Glomerular Filtration Rate 74 mL/min (>60); Est Glom Filt Rate - Afr Amer 89 mL/min (>60); Estimated Creatinine Clearance 110.27 ml/min; Glucose 68 mg/dL (74-106); Potassium 3.4 mmol/L (3.5-5.1); Sodium Level 139 mmol/L (136-145)
--- NOTE | 2024-05-28 01:28 | PCM.HP.STD ---
HPI - General General Date of Admission: 05/28/24 Date of Service: 05/28/24 Chief Complaint: Worsening RLE wound/erythema despite recent PCP abx start. HPI Narrative The patient is a 64 y/o M w/ PMHx: SALBADOR on CPAP, HTN, HLD, Morbid Obesity, Asthma/COPD, Former tobacco use, GERD, BPH, Allergic rhinitis, Anxiety and Depression, Diabetes mellitus type II, PVD/chronic venous stasis who presents to the [facility] ED on 05/28/24 with history of wound over his right lower horne which occurred on 05/06/2024 following unfortunately hitting his leg on the edge of his bed on the metal which originally was stable and slowly healing however he notes that the week prior to current presentation he did go camping and unfortunately did not cover his wound with onset over the last 2 days periwound erythema, mild purulent drainage with PCP evaluation and initiation on Keflex in addition to unclear injection in the office however the redness has worsened and his legs become more painful with no fevers or chills but given this presentation and underlying diabetic history prompted ED evaluation. He denies any palpitations, chest pain or dyspnea. He denies any recent URI type symptoms. He currently notes the discomfort to his distal right lower extremity 5 out of 10 in severity, aching throbbing causing him to constantly move his leg in the ED as he notes he cannot get comfortable. He notes the leg around this region does feel generally swollen. Workup in the ED included T96.7, heart rate 97, BP 123/72, respiratory rate 22, 96% on room air with most recent repeat vitals T98.2, heart rate 117, BP 112/64, respiratory rate 22, 93% on 2 L nasal cannula, CBC with WBC 7.5, hemoglobin 13.5, platelets 222 with increased immature granulocytes, BMP with potassium 3.4, glucose 68 otherwise not marked appearing, right lower extremity DVT ultrasound negative, EKG with atrial fibrillation rate controlled with right bundle branch block. In the ED patient administered maintenance IV fluids, morphine 4 mg IV x 1, Zofran 4 mg IV x 1 as well as IV vancomycin. [facility] Medical History (Updated 05/28/24 @ 01:[address] Padmini Alfaro MD) SALBADOR on CPAP Wears glasses History of steroid therapy Arthritis DVT (deep venous thrombosis) High cholesterol GERD (gastroesophageal reflux disease) Former smoker Shortness of breath on exertion Leg cramps History of edema History of stress test History of nephrolithotomy with removal of calculi Right rotator cuff tear Right shoulder injury Venous hypertension, chronic, with ulcer and inflammation Varicose veins with ulcer and inflammation Lipodermatosclerosis Chronic ulcer of right leg Leg wound, right Diabetes mellitus 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 veins Lopez phlebectatica Post-phlebitic syndrome History of DVT (deep vein thrombosis) Chronic venous insufficiency Leg edema Leg swelling Cervical disc disease Lumbar disc disease with radiculopathy COPD (chronic obstructive pulmonary disease) Bronchitis Asthma Psoriasis Screen for colon cancer Home Medications ?Medication ?Instructions ?Recorded ?Last Taken ?Type montelukast 10 mg tablet 10 mg PO QHS 03/21/15 Unknown History tamsulosin 0.4 mg capsule 0.8 mg PO DAILY 06/26/16 Unknown History albuterol sulfate 90 mcg/actuation 1 - 2 puff inhalation Q4H PRN PRN 01/25/17 Unknown History aerosol inhaler Asthma cod liver oil 1 ea PO DAILY 01/25/17 Unknown History ergocalciferol (vitamin D2) 1,250 50,000 unit PO MO 01/25/17 05/25/24 History mcg (50,000 unit) capsule umeclidinium 62.5 mcg-vilanterol 2 puff IH DAILY 12/09/17 Unknown History 25 mcg/actuation powdr for inhalation aspirin 81 mg tablet,delayed 81 mg PO DAILY@0800 07/21/18 10/13/23 History release oxycodone 10 mg tablet 10 mg PO TID PRN PRN 08/04/19 Unknown History Pain/Inflammation #90 tabs losartan 100 mg tablet (Cozaar) 100 mg PO DAILY 09/09/23 Unknown History potassium citrate 10 mEq (1,080 10 meq PO DAILY 09/09/23 Unknown History mg) tablet,extended release rosuvastatin 10 mg tablet 10 mg PO QHS 09/09/23 Unknown History ascorbate calcium (vitamin C) 500 500 mg PO DAILY 01/01/24 Unknown History mg tablet budesonide-formoterol HFA 160 2 inh inhalation BID 01/01/24 Unknown History mcg-4.5 mcg/actuation aerosol inhaler (Symbicort) duloxetine 30 mg capsule,delayed 30 mg PO DAILY 01/01/24 Unknown History release esomeprazole magnesium 40 mg 40 mg PO DAILY 01/01/24 Unknown History capsule,delayed release (Nexium) fexofenadine 180 mg tablet 180 mg PO DAILY 01/01/24 Unknown History (Allergy Relief (fexofenadine)) furosemide 40 mg tablet 20 mg PO DAILY 01/01/24 Unknown History hydroxyzine HCl 50 mg tablet See Rx Instructions PO Q8H PRN 01/01/24 Unknown History insulin aspart 10 unit subcut USEASDIRECTD 01/01/24 Unknown History (niacinamide)(U-100) 100 unit/mL(3 mL) subcutaneous pen (Fiasp FlexTouch U-100 Insulin) insulin glargine U-300 conc 300 31 unit subcut DAILY 01/01/24 Unknown History unit/mL (1.5 mL) subcutaneous pen (Toujeo SoloStar U-300 Insulin) ketoconazole 2 % topical cream applic topical 01/01/24 Unknown History levocetirizine 5 mg tablet 5 mg PO DAILY 01/01/24 Unknown History metformin 500 mg tablet 1,000 mg PO BID 01/01/24 Unknown History nortriptyline 25 mg capsule 25 mg PO QHS 01/01/24 Unknown History tirzepatide 2.5 mg/0.5 mL 2.5 mg subcut FR 05/27/24 Unknown History subcutaneous pen injector (Mounjaro) Allergy/AdvReac Type Severity Reaction Status Date / Time levocetirizine (From Xyzal) Allergy extreme Verified 05/27/24 22:41 fatigue Penicillins Allergy Shortness Verified 05/27/24 22:41 of breath sulfamethoxazole (From Allergy Rash Verified 05/27/24 22:41 Bactrim) trimethoprim (From Bactrim) Allergy Rash Verified 05/27/24 22:41 Family History Father Cancer bladder Diabetes Mother Hypertension Kidney disease Surgical History S/P knee surgery S/P laparoscopic cholecystectomy Social History household members: spouse Smoking Status: Former smoker alcohol intake: never substance use type: does not use ROS ROS Narrative Admission Review of Systems: CONSTITUTIONAL: No weight loss, fever, chills, + weakness or fatigue. HEENT: Eyes: No visual loss, blurred vision, double vision or yellow sclerae. Ears, Nose, Throat: No hearing loss, sneezing, congestion, runny nose or sore throat. SKIN: + Bilateral lower extremity chronic venous stasis skin changes as well as recent right lower extremity wound, worsened. CARDIOVASCULAR: No chest pain, chest pressure or chest discomfort, palpitations, edema, orthopnea, syncopal events. RESPIRATORY: No shortness of breath, cough or sputum, wheezing, hemoptysis. GASTROINTESTINAL: No anorexia, nausea, vomiting or diarrhea, abdominal pain, melena, BRBPR. GENITOURINARY: No dysuria, frequency, urgency or retention. NEUROLOGICAL: No headache, dizziness, syncope, paralysis, ataxia, numbness or tingling in the extremities, focal weakness, change in bowel or bladder control, seizure. MUSCULOSKELETAL: + muscle, back pain, joint pain or stiffness. HEMATOLOGIC: No anemia, bleeding or bruising. LYMPHATICS: No enlarged nodes. No history of splenectomy. PSYCHIATRIC: + History of anxiety and depression. ENDOCRINOLOGIC: No reports of sweating, cold or heat intolerance. No polyuria or polydipsia. ALLERGIES: + History of asthma and allergic rhinitis. Vital Signs Vital Signs Vital Signs: 05/27/24 22:41 05/27/24 22:46 05/27/24 23:50 Temperature 96.4 F L 96.4 F L 98.3 F Temperature Source Temporal Temporal Oral Pulse Rate 97 96 106 H Respiratory Rate 22 H 22 H 18 Blood Pressure 123/72 H 123/72 H 105/79 Blood Pressure Mean 89 89 87 Pulse Ox 96 96 91 Oxygen Delivery Method Room Air Room Air Room Air Oxygen Flow Rate (L/min) 05/28/24 00:00 Temperature 98.2 F Temperature Source Oral Pulse Rate 117 H Respiratory Rate 22 H Blood Pressure 112/64 Blood Pressure Mean 80 Pulse Ox 93 Oxygen Delivery Method Nasal Cannula Oxygen Flow Rate (L/min) 2 Weight Weight: 376 lb 1.6 oz Body Mass Index (BMI) 51.0 Physical Exam Narrative Physical Examination: General: Awake, alert, oriented x 3 and cooperative, seated upright in bed in no apparent distress. Skin: Normal color, normal turgor, no icterus, no cyanosis except noted bilateral lower extremity significant venous stasis skin changes, right lower extremity with medial mid anterior horne wound with serosanguineous drainage with periwound erythema, increased warmth to the region as well as swelling. HEENT: AT/NC, EOMI, PERRLA, mildly dry; however, very thickened neck makes evaluation difficult MM, no carotid bruits or JVD noted. Lungs: Diminished, greater bilateral bases, proper effort, no rales, ronchi or wheezing. Heart: Irregular irregular; no gallop, rub audible. Abdomen: Soft, morbidly obese, NTTP, distant normal BS, difficult to appreciate distention and HSM given habitus. Extremities: No cyanosis, no clubbing, see skin. Neurological: Patient awake, alert, oriented as noted, cognitive function intact; pupils equally reactive to light and accommodation, cranial nerves grossly normal, moving all 4 extremities, no focal deficits, strength moderately globally decreased secondary to acute presentation. Psychiatric: Affect appears fatigued, mildly uncomfortable, frequently moving right lower extremity secondary to discomfort, no acute evidence of depressive or anxiety feelings but does have underlying history. Results Lab / Micro Data 05/27/24 23:45 05/27/24 23:45 Labs: Laboratory Results - last 24 hr 05/27/24 23:45: WBC 7.5, RBC 5.00, Hgb 13.5, Hct 42.8, MCV 85.6, MCH 27.0, MCHC 31.5 L, RDW Std Deviation 41.4, RDW Coeff of Eloise 13.3, Plt Count 222, MPV 10.5, Immature Gran % (Auto) 1.100 H, Neut % (Auto) 61.8, Lymph % (Auto) 24.1, [place] % (Auto) 10.8 H, Eos % (Auto) 1.9, Baso % (Auto) 0.3, Absolute Neuts (auto) 4.7, Absolute Lymphs (auto) 1.81, Nucleated RBC % 0, Sodium 139, Potassium 3.4 L, Chloride 105, Carbon Dioxide 29.0, Anion Gap 5, BUN 15, Creatinine 1.07, Estim Creat Clear Calc 110.27, Est GFR (MDRD) Af Amer 89, Est GFR (MDRD) Non-Af 74, BUN/Creatinine Ratio 14.0, Glucose 68 L, Calcium 9.2 Imaging Radiology Impression Venous Duplex 05/27/24 23:01 IMPRESSION: Negative for DVT. Electronically Signed: Devin Vyas MD at 0:41 EDT , Chest X-Ray 05/28/24 00:29 IMPRESSION: Interval development of discoid atelectasis within the left mid to upper lung. Otherwise stable. No pneumonia or pulmonary edema. Electronically Signed: Devin Vyas MD at 1:15 EDT , Assessment & Plan Assessment/Plan (1) Cellulitis: PLAN: Plan The patient is a 64 y/o M w/ PMHx: SALBADOR on CPAP, HTN, HLD, Morbid Obesity, Asthma/COPD, Former tobacco use, GERD, BPH, Allergic rhinitis, Anxiety and Depression, Diabetes mellitus type II, PVD/chronic venous stasis who presents to the [facility] ED on 05/28/24 with history of wound over his right lower horne which occurred on 05/06/2024 following unfortunately hitting his leg on the edge of his bed on the metal which originally was stable and slowly healing however he notes that the week prior to current presentation he did go camping and unfortunately did not cover his wound with onset over the last 2 days periwound erythema, mild purulent drainage with PCP evaluation and initiation on Keflex in addition to unclear injection in the office however the redness has worsened and his legs become more painful with no fevers or chills but given this presentation and underlying diabetic history prompted ED evaluation. #1. RL Extremity Cellulitis, failed outpatient antibiotic therapy complicated by underlying significant bilateral lower extremity chronic venous stasis disease: Will admit to [facility], maintain on IV vancomycin pending Wound Cx, will obtain Wound MRSA PCR, plan repeat CBC in AM, continue affected extremity elevation above heart when seated and in bed, monitor erythema outline with VS checks. DVT ultrasound obtained in the ED with no evidence of any acute DVT present. Wound RN consulted. #2. New Onset paroxysmal atrial fibrillation: EKG in ED w/ atrial fibrillation with rate in the 90s in the emergency room. Will maintain on telemetry, obtain cardiac enzyme serial set, obtain magnesium level, obtain ECHO, obtain TSH level. CHADs scoring appropriate for anticoagulation initiation with start of Eliquis upon floor transition. Will add moderate dose metoprolol and continue to monitor. #3. Diabetes mellitus type II with hyperglycemia: Certainly could be in part secondary to acute presentation with infection as noted, will however in the interim hold oral home regimen, given presentation glucose 68 will temporarily hold home long-acting glargine regimen and continue to closely monitor in addition to holding short acting scheduled, maintained on ADA diet, accu checks w/ ISS only at moderate dose, hemoglobin A1c requested, nutrition consultation for education and teaching. If repeat blood sugar assessments continue to demonstrate hyperglycemia we will add dextrose to patient IV fluids. #4. Hypoxia, suspected likely underlying hypoventilation syndrome as well as SALBADOR: In the ED patient with mild hypoxia, chest x-ray with no overt findings, no recent respiratory symptoms, does have underlying asthma and COPD with plan to ATC budesonide therapy as well as as needed albuterol, will continue oxygen supplementation with wean as tolerated to room air until transition floor with CPAP nightly initiated. #5. Hypokalemia: Admission K+ 3.4, magnesium level requested, supplementation given, repeat level in AM. #6. Mild acute renal insufficiency: Likely secondary to acute presentation as noted above, admission BUN/creatinine 15/1.07, GFR 74, baseline creatinine primarily 0.8 and GFR usually greater than 80. Who presents to the [facility] ED on #7. Chronic COPD asthma/ with allergic rhinitis: Will maintain on oxygen with wean as tolerated to room air, temporally hold home inhalers in the interim transition to ATC budesonide therapy, PRN albuterol, HOB, IS parameters. Will continue patient home levocetirizine as well as montelukast home regimen. #8. Hypertension: Continue home regimen including Lasix, losartan, PRN hydralazine. #9. Hyperlipidemia: We will continue patient on statin therapy. #10. Morbid Obesity: Weight loss and lifestyle changes encouraged, nutrition consulted. #11. Allergic rhinitis: We will continue patient on fexofenadine hydrochloride #12. Anxiety and depression: We will continue patient home duloxetine, nortriptyline and as needed hydroxyzine home regimen. #13. History VTE: Patient with previous history, not currently chronically anticoagulated upon presentation. #14. Former tobacco use: Encourage continued tobacco cessation. #15. GERD: We will continue patient home PPI. #16. BPH: We will continue patient home Flomax regimen. #17. SALBADOR: CPAP nightly. #18. DVT prophylaxis: As noted above given new onset A-fib with high Chan scoring will initiate Eliquis therapy. #19. CODE status: Patient HCPOA is his daughter initial and secondary he notes and living will is currently in place. Discussed CODE status at length including difference between FULL code, DNR-CCA and DNR-CC status. Following discussions about the differences in these status, requested Full Code. Charges/Coding Visit Charges Inpatient E&M: 61556 Init Hosp L3
[2024-05-28] MEDS: Vancomycin HCl 2,000 MG in 0.9% Normal Saline (500mL Bag) 500 ML 250 MG IV (01:51)
[2024-05-28 02:02] LABS: Magnesium 1.9 mg/dL (1.6-2.6)
--- NOTE | 2024-05-28 02:46 | ECHOCS_ITS ---
Reason For Study: ATRIAL FIBRILLATION/FLUTTER Procedure This was a 2D Doppler, Color Flow transthoracic echocardiogram. The study was technically difficult. Due to body habitus, COPD. Contrast injection was performed. Left Ventricle Normal LV size. Diastolic function is indeterminate. The estimated ejection fraction is 55 %. Right Ventricle Normal RV size. Normal systolic function. Atria There is severe biatrial dilatation. Mitral Valve The mitral valve is structurally normal. No prolapse or stenosis seen. Trivial mitral valve insufficiency. Tricuspid Valve Normal tricuspid valve. Unable to estimate RV systolic pressure due to insufficient tricuspid regurgitant envelope. Aortic Valve The aortic valve is not well visualized in the short axis view. There is no aortic stenosis. Pulmonic Valve The pulmonic valve is not well visualized. Great Vessels Normal aortic root. Pericardium/Pleural No pericardial effusion. Medication Diluted definity 4.0ml given slow IV push to enhance endocardial definition. MMode/2D Measurements & Calculations LVIDd: 5.4 cm IVSd: 1.1 cm Ao root diam: 3.9 cm LVIDs: 3.7 cm LVPWd: 1.1 cm FS: 31.0 % LAV(MOD-bp): 96.7 ml LVAd ap4: 30.5 cm2 SV(MOD-sp4): 56.4 ml LAV(MOD-bp) Indexed: 34.7 ml/m2 LVLd ap4: 8.3 cm LAV(MOD-sp2): 96.7 ml EDV(MOD-sp4): 92.5 ml LAV(MOD-sp4): 96.1 ml EDV(sp4-el): 94.8 ml LVAs ap4: 17.6 cm2 LVLs ap4: 7.3 cm ESV(MOD-sp4): 36.1 ml ESV(sp4-el): 36.3 ml EF(MOD-sp4): 61.0 % EF(sp4-el): 61.7 % SV(sp4-el): 58.5 ml LA A4 area: 28.6 cm2 LA dimension(2D): 4.9 cm TAPSE: 2.1 cm Doppler Measurements & Calculations MV E max christiano: 91.1 cm/sec Lat Peak E' Christiano: 16.7 cm/sec Med Peak E' Christiano: 15.5 cm/sec E/E' lat: 5.5 E/E' med: 5.9 Ao V2 max: 140.0 cm/sec LV V1 max: 76.2 cm/sec PA V2 max: 69.8 cm/sec Ao max P.8 mmHg LV V1 max P.3 mmHg PA V2 mean: 55.7 cm/sec Ao V2 mean: 113.7 cm/sec LV V1 mean P.5 mmHg Ao mean P.4 mmHg LV V1 mean: 59.1 cm/sec Ao V2 VTI: 28.1 cm LV V1 VTI: 16.3 cm AV (velocity ratio): 0.58 ECHO/Echo Complete W/ Contrast Interpretation Summary The estimated ejection fraction is 55 %. Diastolic function is indeterminate. There is severe biatrial dilatation. The study was technically difficult. Contrast injection was performed. Ordering Physician: Padmini Alfaro Referring Physician: Mat Barrera Performed By: Leila Sotelo, ERIN, RVT
[2024-05-28] MEDS: Metoprolol Tartrate 25 MG Tablet PO ×2 (03:31→21:56)
[2024-05-28] MEDS: 0.9% Normal Saline (1000mL) 1,000 ML 100 ML IV (03:31)
[2024-05-28] MEDS: Potassium Chloride Oral Tablet 20 MEQ 40 MEQ PO (03:31)
[2024-05-28 03:34] LABS: Bedside Glucose 64 mg/dL (74-106)
--- NOTE | 2024-05-28 03:39 | PCM.RX.CS ---
Consult Antibiotic Management Pharmacy has been consulted to manage selected antibiotic: Vancomycin Type of Intervention Type of Consult: New start Labs Labs: Sodium 139 mmol/L (136-145) 05/27/24 23:45 Potassium 3.4 mmol/L (3.5-5.1) L 05/27/24 23:45 Chloride 105 mmol/L (98-107) 05/27/24 23:45 Carbon Dioxide 29.0 mmol/L (21.0-32.0) 05/27/24 23:45 Anion Gap 5 (5-15) 05/27/24 23:45 BUN 15 mg/dL (7-18) 05/27/24 23:45 Creatinine 1.07 mg/dL (0.70-1.30) 05/27/24 23:45 Est GFR (MDRD) Af Amer 89 mL/min (>60) 05/27/24 23:45 Est GFR (MDRD) Non-Af 74 mL/min (>60) 05/27/24 23:45 BUN/Creatinine Ratio 14.0 RATIO (10-20) 05/27/24 23:45 Glucose 68 mg/dL (74-106) L 05/27/24 23:45 Dosing Weight Weight used for dosin.6 kg Estimated Creatinine Clearance Estimated Creatinine Clearance: 110.3 Goal Trough Goal Trough: 10-15 mcg/mL Pharmacy Plan for Drug Dosing Pharmacy Plan for Drug Dosing: Pharmacy Service will continue to monitor and adjust dosing as required. 2000MG IN ER, 1750 Q12H AND FOLLOW UP TROUGH PRIOR TO 4TH DOSE Follow-Up Labs Follow-Up Labs: Trough: Vancomycin Date/Time Labs Ordered Labs to be done on [date and time ordered]: 05/29 @ 3157
[2024-05-28 03:49] LABS: Absolute Lymphocyte Count 2.02 X10^3/uL (0.83-4.51); Absolute Neutrophil Count 4.8 X10^3/uL (2.0-7.7); Basophil# 0.03 X10^3/uL; Basophil% 0.4 % (0-1); Eosinophil# 0.13 X10^3/uL; Eosinophils% 1.7 % (0-5); Hematocrit 40.9 % (40-54); Hemoglobin 12.8 g/dL (13.0-16.5); Lymphocyte # 2.02 X10^3/ul (0.83-4.51); Lymphocyte % 25.9 % (19-41); Mean Corp Hgb Conc 31.3 g/dL (32-36); Mean Corpuscular Hgb 27.4 pg (27.0-32.0); Mean Corpuscular Volume 87.4 fL (80-94); Mean Platelet Vol. 10.3 fl (6.2-12.0); Monocyte# 0.77 X10^3/uL; Monocyte% 9.9 % (0-10); NRBC Flagged by Analyzer 0 % (0-5); Neutrophil # 4.84 X10^3/uL (2.7-7.7); Neutrophil % 61.8 % (47-70); Platelet Count 199 K/mm3 (150-450); RBC Distribution Width CV 13.4 % (11.6-14.6); RBC Distribution Width SD 43.2 fl (35.1-43.9); Red Blood Count 4.68 M/mm3 (4.6-6.2); White Blood Count 7.8 K/mm3 (4.4-11.0)
[2024-05-28] MEDS: oxyCODONE 5 MG Tablet 10 MG PO ×2 (04:00→18:36)
[2024-05-28] MEDS: APIXABAN 5 MG TABLET PO ×3 (04:01→21:56)
[2024-05-28 04:12] LABS: Troponin-I HS 6 pg/mL (3.0-78.0)
[2024-05-28 04:29] LABS: AST(SGOT) 26 U/L (15-37); Alanine Aminotransfer ALT/SGPT 26 U/L (16-61); Albumin, Serum 3.2 g/dL (3.2-5.0); Alkaline Phosphatase 63 U/L (45-117); Anion Gap 7 (5-15); BUN 16 mg/dL (7-18); BUN/Creat Ratio 17.7 RATIO (10-20); Calcium,Total 8.5 mg/dL (8.5-10.1); Chloride 107 mmol/L (98-107); Cholesterol 75 mg/dL (200); EST Glomerular Filtration Rate 89 mL/min (>60); Est Glom Filt Rate - Afr Amer 108 mL/min (>60); Estimated Creatinine Clearance 130.97 ml/min; Globulin 3.3 g/dL (2.2-4.2); Glucose 79 mg/dL (74-106); High Density Lipoprotein 36 mg/dL; Potassium 3.7 mmol/L (3.5-5.1); Protein, Total 6.5 g/dL (6.4-8.2); Sodium Level 140 mmol/L (136-145); Thyroid Stim Hormone (TSH) 2.68 uIU/mL (0.358-3.74); Triglycerides 52 mg/dL; Very Low Density Lipoprotein 10 mg/dL (5-40)
[2024-05-28 04:31] LABS: Bedside Glucose 82 mg/dL (74-106)
[2024-05-28 06:42] LABS: Bedside Glucose 106 mg/dL (74-106)
[2024-05-28 06:50] LABS: Troponin-I HS 6 pg/mL (3.0-78.0)
[2024-05-28] MEDS: Budesonide Respules 0.5 MG/2 ML AMPUL.NEB. INHALATION ×2 (07:17→21:17)
--- NOTE | 2024-05-28 07:51 | PN.HOSP_ITS ---
Reason for Visit Reason for Visit: Diagnoses Cellulitis, unspecified (05/28/24) Subjective Subjective Still with pain and swelling in his right lower extremity. Objective Data Objective Data Vital Signs: Vital Signs Temp Pulse Resp BP Pulse Ox O2 Del Method O2 Flow Rate 36.7 C 85 18 116/75 97 Room Air 2 05/28/24 02:46 05/28/24 07:17 05/28/24 07:17 05/28/24 03:31 05/28/24 07:17 05/28/24 07:17 05/28/24 01:00 FiO2 40 05/28/24 04:39 Oxygen Flow Rate (L/min) 2 Oxygen Delivery Method Room Air Weight: 170.324 kg Body Mass Index (BMI) 50.9 Intake & Output: Intake and Output for Last 24 Hours 05/26/24 05/27/24 05/28/24 23:59 23:59 23:59 Intake Total 1097.5 / 1097.5 Balance 1097.5 / 1097.5 Lab / Micro Data 05/28/24 03:38 05/28/24 03:38 Labs: Laboratory Results - last 24 hr 05/27/24 23:45: WBC 7.5, RBC 5.00, Hgb 13.5, Hct 42.8, MCV 85.6, MCH 27.0, MCHC 31.5 L, RDW Std Deviation 41.4, RDW Coeff of Eloise 13.3, Plt Count 222, MPV 10.5, Immature Gran % (Auto) 1.100 H, Neut % (Auto) 61.8, Lymph % (Auto) 24.1, [place]rell % (Auto) 10.8 H, Eos % (Auto) 1.9, Baso % (Auto) 0.3, Absolute Neuts (auto) 4.7, Absolute Lymphs (auto) 1.81, Nucleated RBC % 0, Sodium 139, Potassium 3.4 L, Chloride 105, Carbon Dioxide 29.0, Anion Gap 5, BUN 15, Creatinine 1.07, Estim Creat Clear Calc 110.27, Est GFR (MDRD) Af Amer 89, Est GFR (MDRD) Non-Af 74, BUN/Creatinine Ratio 14.0, Glucose 68 L, Calcium 9.2, Magnesium 1.9 05/28/24 03:16: POC Glucose 64 L 05/28/24 03:38: WBC 7.8, RBC 4.68, Hgb 12.8 L, Hct 40.9, MCV 87.4, MCH 27.4, M CHC 31.3 L, RDW Std Deviation 43.2, RDW Coeff of Eloise 13.4, Plt Count 199, MPV 10.3, Immature Gran % (Auto) 0.300, Neut % (Auto) 61.8, Lymph % (Auto) 25.9, Terrell % (Auto) 9.9, Eos % (Auto) 1.7, Baso % (Auto) 0.4, Absolute Neuts (auto) 4.8, Absolute Lymphs (auto) 2.02, Nucleated RBC % 0, Sodium 140, Potassium 3.7, Chloride 107, Carbon Dioxide 26.0, Anion Gap 7, BUN 16, Creatinine 0.90, Estim Creat Clear Calc 130.97, Est GFR (MDRD) Af Amer 108, Est GFR (MDRD) Non-Af 89, BUN/Creatinine Ratio 17.7, Glucose 79, Calcium 8.5, Total Bilirubin 1.10 H, AST 26, ALT 26, Alkaline Phosphatase 63, Troponin I High Sens 6, Total Protein 6.5, Albumin 3.2, Globulin 3.3, Albumin/Globulin Ratio 1.0, Triglycerides 52, Cholesterol 75, LDL Cholesterol 29, VLDL Cholesterol 10, HDL Cholesterol 36 L, TSH 2.68 05/28/24 04:05: POC Glucose 82 05/28/24 06:18: Troponin I High Sens 6 05/28/24 06:19: POC Glucose 106 Radiography Diagnostic Testing: Radiology Impression Venous Duplex 05/27/24 23:01 IMPRESSION: Negative for DVT. Electronically Signed: Devin Vyas MD at 0:41 EDT , Chest X-Ray 05/28/24 00:29 IMPRESSION: Interval development of discoid atelectasis within the left mid to upper lung. Otherwise stable. No pneumonia or pulmonary edema. Electronically Signed: Devin Vyas MD at 1:15 EDT , Physical Exam Const alert Resp normal respiratory effort and no retractions Extremity Extremity Narrative: Right lower extremity was bandaged and wrapped, took that down and patient had a superficial lesion on his right anterior horne. Diffuse erythema but slightly withdrawn within the lines of demarcation. Is diffusely tender and swollen. No crepitus noted. Assessment & Plan Assessment/Plan (1) Cellulitis: PLAN: Plan RLE Cellulitis * failed outpatient antibiotic therapy complicated by underlying significant bilateral lower extremity chronic venous stasis disease * Abx with IV vancomycin * Positive Staph aureus PCR and MRSA PCR. * Wound RN consulted. New Onset paroxysmal atrial fibrillation: * EKG in ED w/ atrial fibrillation with rate in the 90s in the emergency room. * TSH within normal limits. Echocardiogram with an EF of 55%. Severe biatrial dilation. * Follow-up with cardiology as outpatient. Diabetes mellitus type II * low glucose. glargine and metformin held for now. SSI Chronic conditions: * Chronic COPD asthma/ with allergic rhinitis: continue patient home levocetirizine as well as montelukast home regimen. * Hypertension: Continue home regimen including Lasix, losartan, PRN hydralazine. * Hyperlipidemia: We will continue patient on statin therapy. * Obesity Class III: complicates care and recovery * Anxiety and depression: We will continue patient home duloxetine, nortriptyline and as needed hydroxyzine * History VTE: Patient with previous history, not currently chronically anticoagulated upon presentation. * GERD: We will continue patient home PPI. * BPH: tamsulosin * SALBADOR: CPAP nightly. VTE prophylaxis: enoxaparin. CODE status: full Charges/Coding Procedures Hospitalists Procedures: Other Procedure - See Report (Nonbillable rounding as patient was admitted after midnight.)
[2024-05-28 08:34] LABS: Hemoglobin A1c 6.9 % (3.8-5.6)
[2024-05-28] MEDS: Pantoprazole Sodium 40 MG Tablet PO (09:15)
[2024-05-28] MEDS: Acetaminophen 325 MG Tablet 650 MG PO (09:15)
[2024-05-28] MEDS: Furosemide 20 MG Tablet PO (09:16)
[2024-05-28] MEDS: Aspirin E.C. 81 MG Tablet PO (09:16)
[2024-05-28] MEDS: Loratadine 10 MG Tablet PO (09:16)
[2024-05-28] MEDS: Tamsulosin HCl 0.4 MG Capsule 0.8 MG PO (09:16)
[2024-05-28] MEDS: Ascorbic Acid 500 MG Tablet PO (09:16)
[2024-05-28 09:49] LABS: Troponin-I HS 5 pg/mL (3.0-78.0)
--- NOTE | 2024-05-28 11:10 | CASEMGMT ---
RN CM Face to Face with patient for initial transition planning/care coordination assessment. RN CM introduced self and role at [facility]. Patient lying in bed, alert and oriented. Patient willing to participate in assessment and is able to answer all questions appropriately. Care providers, pharmacy, and demographics verified. PCP: Bruce Specialists: none Preferred Pharmacy: [facility] Insurance: [employer] [facility] Prescription Benefit: yes Living Will/HPOA: none LNOK: Living Arrangements: Patient lives with in a single story home with ramp to enter. Patient is independent at home. Transportation: self, DME/HHC: Shower chair, raised toilet, cane, walker, nebulizer, pulse ox, glucometer at home. No previous HHC or SNF. Will monitor for home oxygen at discharge, prefers [employer] Patient wishes to discharge home, denies need for home health at this time. Patient states he has no further needs or concerns at this time. CM to follow for discharge planning needs that may arise. Disposition Plan: Patient to discharge home with family support and follow-up plans in place. Will monitor for home oxygen. Cintia BERG, RN, CM
[2024-05-28 12:06] LABS: Bedside Glucose 109 mg/dL (74-106)
[2024-05-28] MEDS: Vancomycin HCl 1,750 MG in 0.9% Normal Saline (500mL Bag) 500 ML 250 MG IV (14:02)
--- NOTE | 2024-05-28 14:45 | WOUNDNOTE ---
wound photo: right lower leg
[2024-05-28 17:19] LABS: Bedside Glucose 80 mg/dL (74-106)
[2024-05-28] MEDS: Montelukast 10 MG Tablet PO (21:56)
[2024-05-28] MEDS: Nortriptyline 25 MG Capsule PO (21:56)
[2024-05-28] MEDS: Atorvastatin Calcium 20 MG Tablet PO (21:56)
[2024-05-28 23:01] LABS: Bedside Glucose 113 mg/dL (74-106)
[2024-05-29] VITALS (9 sets, daily range): BP systolic 110–129; BP diastolic 71–84; PULSE 81–95; RESP 16–18; TEMP 36.1–36.8; O2SAT 92–99; BMI 52.3
[2024-05-29] MEDS: Vancomycin HCl 1,750 MG in 0.9% Normal Saline (500mL Bag) 500 ML 250 MG IV ×2 (03:48→15:57)
[2024-05-29] MEDS: oxyCODONE 5 MG Tablet 10 MG PO ×3 (03:52→22:56)
--- NOTE | 2024-05-29 05:20 | CPS ---
Pt does not wear bipap at home, he's not used to it and unable to sleep with it on.
[2024-05-29 05:29] LABS: Absolute Lymphocyte Count 1.85 X10^3/uL (0.83-4.51); Absolute Neutrophil Count 4.4 X10^3/uL (2.0-7.7); Basophil# 0.02 X10^3/uL; Basophil% 0.3 % (0-1); Eosinophil# 0.16 X10^3/uL; Eosinophils% 2.3 % (0-5); Hematocrit 40.2 % (40-54); Hemoglobin 12.3 g/dL (13.0-16.5); Lymphocyte # 1.85 X10^3/ul (0.83-4.51); Lymphocyte % 26.1 % (19-41); Mean Corp Hgb Conc 30.6 g/dL (32-36); Mean Corpuscular Hgb 26.7 pg (27.0-32.0); Mean Corpuscular Volume 87.4 fL (80-94); Mean Platelet Vol. 10.2 fl (6.2-12.0); Monocyte# 0.64 X10^3/uL; NRBC Flagged by Analyzer 0 % (0-5); Platelet Count 225 K/mm3 (150-450); RBC Distribution Width CV 13.3 % (11.6-14.6); RBC Distribution Width SD 42.7 fl (35.1-43.9); White Blood Count 7.1 K/mm3 (4.4-11.0)
[2024-05-29 06:09] LABS: Anion Gap 6 (5-15); BUN 13 mg/dL (7-18); BUN/Creat Ratio 15.6 RATIO (10-20); Calcium,Total 8.4 mg/dL (8.5-10.1); Chloride 104 mmol/L (98-107); Creatinine, Serum 0.83 mg/dL (0.70-1.30); EST Glomerular Filtration Rate 98 mL/min (>60); Est Glom Filt Rate - Afr Amer 119 mL/min (>60); Estimated Creatinine Clearance 142.02 ml/min; Glucose 113 mg/dL (74-106); Potassium 3.9 mmol/L (3.5-5.1); Sodium Level 137 mmol/L (136-145)
[2024-05-29 06:43] LABS: Bedside Glucose 101 mg/dL (74-106)
[2024-05-29] MEDS: Budesonide Respules 0.5 MG/2 ML AMPUL.NEB. INHALATION ×2 (07:39→22:03)
--- NOTE | 2024-05-29 07:56 | PN.HOSP_ITS ---
Reason for Visit Reason for Visit: Diagnoses Cellulitis, unspecified (05/28/24) Subjective Subjective Still with pain and redness in RLE. Objective Data Objective Data Vital Signs: Vital Signs Temp Pulse Resp BP Pulse Ox O2 Del Method O2 Flow Rate 36.6 C 95 18 116/75 95 Room Air 2 05/29/24 07:38 05/29/24 07:38 05/29/24 07:38 05/29/24 07:38 05/29/24 07:38 05/29/24 07:38 05/29/24 07:33 FiO2 40 05/28/24 04:39 Oxygen Flow Rate (L/min) 2 Oxygen Delivery Method Room Air Weight: 175.359 kg Body Mass Index (BMI) 52.3 Intake & Output: Intake and Output for Last 24 Hours 05/27/24 05/28/24 05/29/24 23:59 23:59 23:59 Intake Total 3472.5 / 3972.5 1035 / 1035 Balance 3472.5 / 3972.5 1035 / 1035 Lab / Micro Data 05/29/24 04:40 05/29/24 04:40 Labs: Laboratory Results - last 24 hr 05/28/24 03:38: Hemoglobin A1c 6.9 H 05/28/24 09:16: Troponin I High Sens 5 05/28/24 11:31: POC Glucose 109 H 05/28/24 16:48: POC Glucose 80 05/28/24 21:54: POC Glucose 113 H 05/29/24 04:40: WBC 7.1, RBC 4.60, Hgb 12.3 L, Hct 40.2, MCV 87.4, MCH 26.7 L, M CHC 30.6 L, RDW Std Deviation 42.7, RDW Coeff of Eloise 13.3, Plt Count 225, MPV 10.2, Immature Gran % (Auto) 0.300, Neut % (Auto) 62.0, Lymph % (Auto) 26.1, [place] % (Auto) 9.0, Eos % (Auto) 2.3, Baso % (Auto) 0.3, Absolute Neuts (auto) 4.4, Absolute Lymphs (auto) 1.85, Nucleated RBC % 0, Sodium 137, Potassium 3.9, Chloride 104, Carbon Dioxide 27.0, Anion Gap 6, BUN 13, Creatinine 0.83, Estim Creat Clear Calc 142.02, Est GFR (MDRD) Af Amer 119, Est GFR (MDRD) Non-Af 98, BUN/Creatinine Ratio 15.6, Glucose 113 H, Calcium 8.4 L 05/29/24 06:24: POC Glucose 101 Micro: Microbiology 05/28/24 03:02 Wound - Leg, Right Gram Stain - Final Radiography Diagnostic Testing: Radiology Impression Echocardiogram 05/28/24 02:46 Interpretation Summary The estimated ejection fraction is 55 %. Diastolic function is indeterminate. There is severe biatrial dilatation. The study was technically difficult. Contrast injection was performed. Ordering Physician: Padmini Alfaro Referring Physician: Mat Barrera Performed By: Leila Sotelo, ERIN, RVT Physical Exam Const alert and no apparent distress HEENT head/scalp atraumatic and moist oral mucous membranes Resp normal respiratory effort and no retractions Cardio regular rate Extremity Extremity Narrative: lymphedematous changes to LE. Improving erythema of RLE. Neuro Sensorium / Orientation: awake and alert Assessment & Plan Assessment/Plan (1) Cellulitis: PLAN: Plan RLE Cellulitis * failed outpatient antibiotic therapy complicated by underlying significant bilateral lower extremity chronic venous stasis disease * Abx with IV vancomycin * Correction: Staph aureus PCR and MRSA PCR not positive, but pending. * Wound RN consulted. New Onset paroxysmal atrial fibrillation: * EKG in ED w/ atrial fibrillation with rate in the 90s in the emergency room. * TSH within normal limits. Echocardiogram with an EF of 55%. Severe biatrial dilation. * Follow-up with cardiology as outpatient. Diabetes mellitus type II * low glucose. glargine and metformin held for now. SSI Chronic conditions: * Chronic COPD asthma/ with allergic rhinitis: continue patient home levocetirizine as well as montelukast home regimen. * Hypertension: Continue home regimen including Lasix, losartan, PRN hydralazine. * Hyperlipidemia: We will continue patient on statin therapy. * Obesity Class III: complicates care and recovery * Anxiety and depression: We will continue patient home duloxetine, nortriptyline and as needed hydroxyzine * History VTE: Patient with previous history, not currently chronically anticoagulated upon presentation. * GERD: We will continue patient home PPI. * BPH: tamsulosin * SALBADOR: CPAP nightly. VTE prophylaxis: enoxaparin. CODE status: full Charges/Coding Visit Charges Inpatient E&M: 91906 Subs Hosp L2
[2024-05-29] MEDS: Aspirin E.C. 81 MG Tablet PO (09:07)
[2024-05-29] MEDS: Pantoprazole Sodium 40 MG Tablet PO (09:07)
[2024-05-29] MEDS: POTASSIUM CITRATE 10 MEQ TABLET.ER PO (09:07)
[2024-05-29] MEDS: Tamsulosin HCl 0.4 MG Capsule 0.8 MG PO (09:07)
[2024-05-29] MEDS: APIXABAN 5 MG TABLET PO ×2 (09:07→21:21)
[2024-05-29] MEDS: Metoprolol Tartrate 25 MG Tablet PO ×2 (09:07→21:21)
[2024-05-29] MEDS: Furosemide 20 MG Tablet PO (09:07)
[2024-05-29] MEDS: Ascorbic Acid 500 MG Tablet PO (09:07)
[2024-05-29] MEDS: Losartan Potassium 100 MG Tablet PO (09:07)
[2024-05-29] MEDS: Loratadine 10 MG Tablet PO (09:08)
[2024-05-29 11:33] LABS: Bedside Glucose 110 mg/dL (74-106)
[2024-05-29 14:31] LABS: Vancomycin, Trough Level 11.6 ug/mL (5.0-15.0)
--- NOTE | 2024-05-29 14:52 | PCM.RX.CS ---
Consult Antibiotic Management Pharmacy has been consulted to manage selected antibiotic: Vancomycin Type of Intervention Type of Consult: Follow-up Suspected Infection Suspected Infection: Skin/Soft tissue Prior Doses of Antibiotics Prior Doses of Antibiotics Received/Current Regimen: current dose is 1750mg IV q12h Labs Labs: Sodium 137 mmol/L (136-145) 05/29/24 04:40 Potassium 3.9 mmol/L (3.5-5.1) 05/29/24 04:40 Chloride 104 mmol/L (98-107) 05/29/24 04:40 Carbon Dioxide 27.0 mmol/L (21.0-32.0) 05/29/24 04:40 Anion Gap 6 (5-15) 05/29/24 04:40 BUN 13 mg/dL (7-18) 05/29/24 04:40 Creatinine 0.83 mg/dL (0.70-1.30) 05/29/24 04:40 Est GFR (MDRD) Af Amer 119 mL/min (>60) 05/29/24 04:40 Est GFR (MDRD) Non-Af 98 mL/min (>60) 05/29/24 04:40 BUN/Creatinine Ratio 15.6 RATIO (10-20) 05/29/24 04:40 Glucose 113 mg/dL (74-106) H 05/29/24 04:40 Vancomycin Trough 11.6 ug/mL (5.0-15.0) 05/29/24 13:30 Microbiology Microbiology: Microbiology 05/28/24 03:02 Wound - Leg, Right Gram Stain - Final 05/28/24 03:02 Wound - Leg, Right Wound Culture - Preliminary Gram positive organism Gram negative janet Dosing Weight Weight used for dosin kg Estimated Creatinine Clearance Estimated Creatinine Clearance: >100ml/min Goal Trough Goal Trough: 10-15 mcg/mL Pharmacy Plan for Drug Dosing Pharmacy Plan for Drug Dosing: The vanc trough drawn at 13:30 today (approx 10 hrs post-dose) was 11.6. It most likely would have been slightly lower if drawn closer to the desired 11.5 hr claudine but still within goal range so will leave dose as is for now. Will check another trough in 2 days per protocol. Pharmacy Service will continue to monitor and adjust dosing as required. Follow-Up Labs Follow-Up Labs: Trough: Vancomycin Date/Time Labs Ordered Labs to be done on [date and time ordered]: 6/30/24 13:30
[2024-05-29 16:25] LABS: Bedside Glucose 127 mg/dL (74-106)
[2024-05-29] MEDS: Atorvastatin Calcium 20 MG Tablet PO (21:21)
[2024-05-29] MEDS: Nortriptyline 25 MG Capsule PO (21:22)
[2024-05-29] MEDS: Montelukast 10 MG Tablet PO (21:23)
[2024-05-29 22:09] LABS: Bedside Glucose 113 mg/dL (74-106)
[2024-05-30] VITALS (9 sets, daily range): BP systolic 109–121; BP diastolic 66–86; PULSE 78–90; RESP 18; TEMP 36.4–36.9; O2SAT 92–96; BMI 51.9
[2024-05-30] MEDS: Vancomycin HCl 1,750 MG in 0.9% Normal Saline (500mL Bag) 500 ML 250 MG IV ×2 (01:35→14:06)
[2024-05-30 06:56] LABS: Anion Gap 2 (5-15); BUN 10 mg/dL (7-18); BUN/Creat Ratio 11.3 RATIO (10-20); Calcium,Total 8.6 mg/dL (8.5-10.1); Chloride 106 mmol/L (98-107); Creatinine, Serum 0.89 mg/dL (0.70-1.30); EST Glomerular Filtration Rate 91 mL/min (>60); Est Glom Filt Rate - Afr Amer 110 mL/min (>60); Estimated Creatinine Clearance 134.05 ml/min; Glucose 105 mg/dL (74-106); Potassium 3.6 mmol/L (3.5-5.1); Sodium Level 138 mmol/L (136-145)
[2024-05-30 07:03] LABS: Bedside Glucose 95 mg/dL (74-106)
[2024-05-30] MEDS: Aspirin E.C. 81 MG Tablet PO (08:03)
--- NOTE | 2024-05-30 08:10 | PN.HOSP_ITS ---
Reason for Visit Reason for Visit: Diagnoses Cellulitis, unspecified (05/28/24) Subjective Subjective Still with pain in RLE. Objective Data Objective Data Vital Signs: Vital Signs Temp Pulse Resp BP Pulse Ox O2 Del Method O2 Flow Rate 36.6 C 85 18 109/66 95 Room Air 2 05/30/24 03:08 05/30/24 03:08 05/30/24 03:08 05/30/24 03:08 05/30/24 07:47 05/30/24 07:47 05/29/24 15:02 FiO2 40 05/28/24 04:39 Oxygen Flow Rate (L/min) 2 Oxygen Delivery Method Room Air Weight: 173.8 kg Body Mass Index (BMI) 51.9 Intake & Output: Intake and Output for Last 24 Hours 05/28/24 05/29/24 05/30/24 23:59 23:59 23:59 Intake Total 3472.5 / 3972.5 2530 / 2530 535 / 535 Balance 3472.5 / 3972.5 2530 / 2530 535 / 535 Lab / Micro Data 05/29/24 04:40 05/30/24 05:56 Labs: Laboratory Results - last 24 hr 05/29/24 11:09: POC Glucose 110 H 05/29/24 13:30: Vancomycin Trough 11.6 05/29/24 16:06: POC Glucose 127 H 05/29/24 21:19: POC Glucose 113 H 05/30/24 05:56: Sodium 138, Potassium 3.6, Chloride 106, Carbon Dioxide 30.0, A nion Gap 2 L, BUN 10, Creatinine 0.89, Estim Creat Clear Calc 134.05, Est GFR (MDRD) Af Amer 110, Est GFR (MDRD) Non-Af 91, BUN/Creatinine Ratio 11.3, Glucose 105, Calcium 8.6 05/30/24 06:43: POC Glucose 95 Micro: Microbiology 05/28/24 03:02 Wound - Leg, Right Gram Stain - Final 05/28/24 03:02 Wound - Leg, Right Wound Culture - Preliminary Gram positive organism Gram negative janet Physical Exam Const alert and no apparent distress Extremity Extremity Narrative: resolving erythema in RLE. still TTP. Assessment & Plan Assessment/Plan (1) Cellulitis: PLAN: Plan RLE Cellulitis * failed outpatient antibiotic therapy complicated by underlying significant bilateral lower extremity chronic venous stasis disease * Abx with IV vancomycin * Correction: Staph aureus PCR and MRSA PCR not positive, but pending. Discussed microbiology, appears to be diphtheroids as well as coag negative staph but also concerning for Pseudomonas based on the smell. Further identification and sensitivity should be performed and completed by the . * Wound RN consulted. New Onset paroxysmal atrial fibrillation: * EKG in ED w/ atrial fibrillation with rate in the 90s in the emergency room. * TSH within normal limits. Echocardiogram with an EF of 55%. Severe biatrial dilation. * Follow-up with cardiology as outpatient. Diabetes mellitus type II * low glucose. glargine and metformin held for now. SSI Chronic conditions: * Chronic COPD asthma/ with allergic rhinitis: continue patient home levocetirizine as well as montelukast home regimen. * Hypertension: Continue home regimen including Lasix, losartan, PRN hydralazine. * Hyperlipidemia: We will continue patient on statin therapy. * Obesity Class III: complicates care and recovery * Anxiety and depression: We will continue patient home duloxetine, nortriptyline and as needed hydroxyzine * History VTE: Patient with previous history, not currently chronically anticoagulated upon presentation. * GERD: We will continue patient home PPI. * BPH: tamsulosin * SALBADOR: CPAP nightly. VTE prophylaxis: enoxaparin. CODE status: full Disposition: Pending final culture results. If all comes back sensitive to oral medications, would anticipate being able to be discharged on the . Greater than 35 minutes of which greater than 50% of time was constipation and bedside, discussing the improvements of his cellulitis. Also discussing with microbiology and the developing culture results. Charges/Coding Visit Charges Inpatient E&M: 60055 Subs Hosp L2
[2024-05-30] MEDS: Loratadine 10 MG Tablet PO (08:54)
[2024-05-30] MEDS: Losartan Potassium 100 MG Tablet PO (08:54)
[2024-05-30] MEDS: Ascorbic Acid 500 MG Tablet PO (08:54)
[2024-05-30] MEDS: Pantoprazole Sodium 40 MG Tablet PO (08:54)
[2024-05-30] MEDS: POTASSIUM CITRATE 10 MEQ TABLET.ER PO (08:55)
[2024-05-30] MEDS: Metoprolol Tartrate 25 MG Tablet PO ×2 (08:55→21:48)
[2024-05-30] MEDS: Tamsulosin HCl 0.4 MG Capsule 0.8 MG PO (08:55)
[2024-05-30] MEDS: APIXABAN 5 MG TABLET PO ×2 (08:55→21:48)
[2024-05-30] MEDS: Furosemide 20 MG Tablet PO (08:55)
[2024-05-30] MEDS: Insulin Lispro 100 UNIT/ML INSULN.PEN SC (12:00)
[2024-05-30] MEDS: oxyCODONE 5 MG Tablet 10 MG PO (12:07)
[2024-05-30 12:12] LABS: Bedside Glucose 177 mg/dL (74-106)
[2024-05-30] MEDS: 0.9% Saline Lock 10 ML Syringe IV ×2 (14:08→16:30)
[2024-05-30] MEDS: Acetaminophen 325 MG Tablet 650 MG PO (15:21)
[2024-05-30 19:12] LABS: Bedside Glucose 104 mg/dL (74-106)
[2024-05-30] MEDS: Nortriptyline 25 MG Capsule PO (21:48)
[2024-05-30] MEDS: Montelukast 10 MG Tablet PO (21:48)
[2024-05-30] MEDS: Atorvastatin Calcium 20 MG Tablet PO (21:48)
[2024-05-30 22:28] LABS: Bedside Glucose 93 mg/dL (74-106)
[2024-05-31] VITALS (7 sets, daily range): BP systolic 118–133; BP diastolic 82–86; PULSE 83–89; RESP 18; TEMP 36.5–36.7; O2SAT 94–100; BMI 52.2
[2024-05-31] MEDS: Vancomycin HCl 1,750 MG in 0.9% Normal Saline (500mL Bag) 500 ML 250 MG IV (01:40)
[2024-05-31] MEDS: oxyCODONE 5 MG Tablet 10 MG PO (01:40)
[2024-05-31 06:55] LABS: Bedside Glucose 123 mg/dL (74-106)
[2024-05-31] MEDS: Tamsulosin HCl 0.4 MG Capsule 0.8 MG PO (09:19)
[2024-05-31] MEDS: POTASSIUM CITRATE 10 MEQ TABLET.ER PO (09:19)
[2024-05-31] MEDS: Ascorbic Acid 500 MG Tablet PO (09:19)
[2024-05-31] MEDS: Metoprolol Tartrate 25 MG Tablet PO ×2 (09:19→22:17)
[2024-05-31] MEDS: Loratadine 10 MG Tablet PO (09:20)
[2024-05-31] MEDS: Furosemide 20 MG Tablet PO (09:20)
[2024-05-31] MEDS: APIXABAN 5 MG TABLET PO ×2 (09:20→22:17)
[2024-05-31] MEDS: Aspirin E.C. 81 MG Tablet PO (09:20)
[2024-05-31] MEDS: Losartan Potassium 100 MG Tablet PO (09:20)
[2024-05-31] MEDS: Pantoprazole Sodium 40 MG Tablet PO (09:21)
[2024-05-31 11:35] LABS: Bedside Glucose 103 mg/dL (74-106)
--- NOTE | 2024-05-31 13:02 | PN.HOSP_ITS ---
Reason for Visit Reason for Visit: Diagnoses Cellulitis, unspecified (05/28/24) Subjective Subjective Still with pain in his right lower extremity but overall feels better. Objective Data Objective Data Vital Signs: Vital Signs Temp Pulse Resp BP Pulse Ox O2 Del Method O2 Flow Rate 36.6 C 89 18 126/83 H 97 Room Air 2 05/31/24 09:18 05/31/24 09:19 05/31/24 09:18 05/31/24 09:18 05/31/24 09:18 05/31/24 09:18 05/29/24 15:02 FiO2 40 05/28/24 04:39 Oxygen Flow Rate (L/min) 2 Oxygen Delivery Method Room Air Weight: 174.9 kg Body Mass Index (BMI) 52.2 Intake & Output: Intake and Output for Last 24 Hours 05/29/24 05/30/24 05/31/24 23:59 23:59 23:59 Intake Total 2530 / 2530 1920 / 1920 1035 / 1035 Balance 2530 / 2530 1920 / 1920 1035 / 1035 Lab / Micro Data 05/29/24 04:40 05/30/24 05:56 Labs: Laboratory Results - last 24 hr 05/30/24 17:26: POC Glucose 104 05/30/24 21:52: POC Glucose 93 05/31/24 06:22: POC Glucose 123 H 05/31/24 11:17: POC Glucose 103 Micro: Microbiology 05/28/24 00:15 Blood Culture (Wb) - Right Wrist Blood Culture - Preliminary No growth in 48 hours. 05/27/24 23:45 Blood Culture (Wb) - Anticubital Left Blood Culture - Preliminary No growth in 48 hours. 05/28/24 03:02 Wound - Leg, Right Gram Stain - Final 05/28/24 03:02 Wound - Leg, Right Wound Culture - Preliminary Coag Negative Staph Gram positive janet GNR Poss Pseudomonas sp 05/28/24 03:02 Wound - Leg, Right Skin and Soft Tissue MRSA/MSSA (PCR - Final Physical Exam Const alert and no apparent distress HEENT head/scalp atraumatic and moist oral mucous membranes Extremity Extremity Narrative: Resolving erythema at the more proximal part of his cellulitis. Had Fausto wrap's and Kerlix, did not take down all the way. Assessment & Plan Assessment/Plan (1) Cellulitis: PLAN: Plan RLE Cellulitis * failed outpatient antibiotic therapy complicated by underlying significant bilateral lower extremity chronic venous stasis disease * Abx with IV vancomycin * Staph aureus PCR and MRSA PCR negative. Discussed microbiology, appears to be diphtheroids as well as coag negative staph but also concerning for Pseudomonas based on the smell. * Wound RN consulted. * Discussed with microbiology on the . He said appear to be Pseudomonas. They told me that they would analyze and have results today. When I called today, they told me that for some reason, the sample was not run and so they would not have any sensitivity results until the June 01. Informed the patient expressed understanding. * Since the Staph aureus and MRSA are negative and patient has Pseudomonas and coag negative staph, will discontinue the vancomycin. paroxysmal atrial fibrillation: * New diagnosis but likely not new onset. * EKG in ED w/ atrial fibrillation with rate in the 90s in the emergency room. * TSH within normal limits. Echocardiogram with an EF of 55%. Severe biatrial dilation. * Follow-up with cardiology as outpatient. Diabetes mellitus type II * low glucose. glargine and metformin held for now. SSI Chronic conditions: * Chronic COPD asthma/ with allergic rhinitis: continue patient home levocetirizine as well as montelukast home regimen. * Hypertension: Continue home regimen including Lasix, losartan, PRN hydralazine. * Hyperlipidemia: We will continue patient on statin therapy. * Obesity Class III: complicates care and recovery * Anxiety and depression: We will continue patient home duloxetine, nortriptyline and as needed hydroxyzine * History VTE: Patient with previous history, not currently chronically anticoagulated upon presentation. * GERD: We will continue patient home PPI. * BPH: tamsulosin * SALBADOR: CPAP nightly. VTE prophylaxis: enoxaparin. CODE status: full Disposition: Pending final culture results. If all comes back sensitive to oral medications, would anticipate being able to be discharged on the . Greater than 35 minutes of which greater than 50% of time was discussing with microbiology and reviewing culture results which unfortunately not back today but also discussing with the patient about the issue with the microbiology and the need that he stay another day. He expressed understanding. Charges/Coding Visit Charges Inpatient E&M: 91108 Subs Hosp L2
[2024-05-31 13:34] LABS: Vancomycin, Trough Level 16.2 ug/mL (5.0-15.0)
[2024-05-31] MEDS: 0.9% Saline Lock 10 ML Syringe IV (14:11)
[2024-05-31] MEDS: Cefepime HCl 2 GM in 0.9% NS 100 ML Minibag Q8 IV ×2 (14:11→22:18)
[2024-05-31 16:44] LABS: Bedside Glucose 114 mg/dL (74-106)
[2024-05-31] MEDS: Atorvastatin Calcium 20 MG Tablet PO (22:17)
[2024-05-31] MEDS: Montelukast 10 MG Tablet PO (22:18)
[2024-05-31] MEDS: Nortriptyline 25 MG Capsule PO (22:18)
[2024-05-31 22:41] LABS: Bedside Glucose 86 mg/dL (74-106)
[2024-06-01] VITALS (7 sets, daily range): BP systolic 122–130; BP diastolic 78–87; PULSE 84–92; RESP 16–18; TEMP 36–36.9; O2SAT 92–96; BMI 52.0
[2024-06-01] MEDS: Cefepime HCl 2 GM in 0.9% NS 100 ML Minibag Q8 IV ×3 (05:38→22:46)
[2024-06-01 07:01] LABS: Bedside Glucose 122 mg/dL (74-106)
[2024-06-01] MEDS: Aspirin E.C. 81 MG Tablet PO (08:30)
--- NOTE | 2024-06-01 08:43 | PN.HOSP_ITS ---
Reason for Visit Reason for Visit: Diagnoses Cellulitis, unspecified (05/28/24) Subjective Subjective Patient is a 64-year-old gentleman who presented with right lower extremity erythema and warmth. He had apparently been diagnosed with cellulitis as outpatient he however failed outpatient antibiotic therapy necessitating patient being admitted for inpatient treatment Objective Data Objective Data Vital Signs: Vital Signs Temp Pulse Resp BP Pulse Ox O2 Del Method O2 Flow Rate 98.4 F 84 18 128/78 H 92 Room Air 2 06/01/24 03:56 06/01/24 03:56 06/01/24 03:56 06/01/24 03:56 06/01/24 07:05 06/01/24 08:34 05/29/24 15:02 FiO2 40 05/28/24 04:39 Oxygen Flow Rate (L/min) 2 Oxygen Delivery Method Room Air Weight: 174.3 kg Body Mass Index (BMI) 52.0 Intake & Output: Intake and Output for Last 24 Hours 05/30/24 05/31/24 06/01/24 23:59 23:59 23:59 Intake Total 1919 / 1884 100 / 100 Balance 1919 100 / 100 Lab / Micro Data 05/29/24 04:40 05/30/24 05:56 Labs: Laboratory Results - last 24 hr 05/31/24 11:17: POC Glucose 103 05/31/24 13:03: Vancomycin Trough 16.2 H 05/31/24 16:26: POC Glucose 114 H 05/31/24 22:16: POC Glucose 86 06/01/24 06:32: POC Glucose 122 H Micro: Microbiology 05/28/24 03:02 Wound - Leg, Right Gram Stain - Final 05/28/24 03:02 Wound - Leg, Right Wound Culture - Final Coag Negative Staph Gram positive janet Pseudomonas aeruginosa 05/28/24 03:02 Wound - Leg, Right Skin and Soft Tissue MRSA/MSSA (PCR - Final 05/28/24 00:15 Blood Culture (Wb) - Right Wrist Blood Culture - Preliminary No growth in 48 hours. 05/27/24 23:45 Blood Culture (Wb) - Anticubital Left Blood Culture - Preliminary No growth in 48 hours. Physical Exam Narrative GENERAL: cooperative HEENT: Atraumatic; normocephalic EYES; Anicteric, Normal Conjunctiva NECK; supple, normal thyroid, RESPIRATORY: Diminished to auscultation CARDIOVASCULAR: Regular S1 S2, GI: soft, normoactive bowel sounds, : No Renal angle tenderness; EXTREMITIES: Swelling and erythema involving the right lower extremity MUSCULOSKELETAL: no muscle wasting NEURO: Awake; no lateralizing signs. SKIN: As described above PSYCH; Flat affect Assessment & Plan Assessment/Plan (1) Cellulitis: PLAN: Plan Patient is a 64-year-old gentleman who presented with right lower extremity erythema and warmth. He had apparently been diagnosed with cellulitis as outpatient he however failed outpatient antibiotic therapy necessitating patient being admitted for inpatient treatment 1. Right lower extremity cellulitis ? Patient did fail antibiotic therapy as outpatient. Admitted for inpatient management cultures so far positive for coagulase-negative staph, gram-positive rods and Pseudomonas.Patient remains on cefepime pending final identification sensitivity. Consult placed to ID 2. Newly diagnosed paroxysmal A-fib ? Echo demonstrated EF of 55% with severe biatrial dilatation. Managed with beta-kenia systemic anticoagulation with apixaban plan for patient to follow- up with cardiology as outpatient 3. Diabetes mellitus type II -patient's oral hypoglycemics held. Placed on long acting insulin, Accu-Cheks a.c. and at bedtime and covered with sliding scale insulin 4. COPD ? Currently not in exacerbation bronchodilator treatment as needed 5. Allergic rhinitis ? Patient is on montelukast as well as levocetirizine with continued home regimen 6. Hypertension - Blood pressure controlled, home medications continued with dose adjustment as needed 7. Class III obesity with BMI of 52.1 ? Complicating care weight loss advised 8. Dyslipidemia -Patient is on statin therapy, continued at home dose 9. BPH with lower urinary obstructive symptoms - Patient treated with tamsulosin 10. Obstructive sleep apnea ? CPAP at night 11. History of VTE ? Patient was not anticoagulated on admission however has been started on systemic anticoagulation with apixaban 12. Depression with anxiety -Did continue patient's home duloxetine, nortriptyline and as needed hydroxyzine Charges/Coding Visit Charges Inpatient E&M: 30618 Subs Hosp L2
[2024-06-01] MEDS: Metoprolol Tartrate 25 MG Tablet PO ×2 (09:24→22:45)
[2024-06-01] MEDS: Losartan Potassium 100 MG Tablet PO (09:24)
[2024-06-01] MEDS: Loratadine 10 MG Tablet PO (09:24)
[2024-06-01] MEDS: Tamsulosin HCl 0.4 MG Capsule 0.8 MG PO (09:24)
[2024-06-01] MEDS: Furosemide 20 MG Tablet PO (09:25)
[2024-06-01] MEDS: Ascorbic Acid 500 MG Tablet PO (09:25)
[2024-06-01] MEDS: Pantoprazole Sodium 40 MG Tablet PO (09:25)
[2024-06-01] MEDS: POTASSIUM CITRATE 10 MEQ TABLET.ER PO (09:25)
[2024-06-01] MEDS: APIXABAN 5 MG TABLET PO ×2 (09:25→22:44)
[2024-06-01 10:32] LABS: Hematocrit 39.3 % (40-54); Hemoglobin 12.5 g/dL (13.0-16.5); Mean Corp Hgb Conc 31.8 g/dL (32-36); Mean Corpuscular Hgb 26.9 pg (27.0-32.0); Mean Corpuscular Volume 84.7 fL (80-94); Mean Platelet Vol. 9.6 fl (6.2-12.0); Platelet Count 234 K/mm3 (150-450); RBC Distribution Width CV 13.2 % (11.6-14.6); RBC Distribution Width SD 40.9 fl (35.1-43.9); Red Blood Count 4.64 M/mm3 (4.6-6.2); White Blood Count 6.7 K/mm3 (4.4-11.0)
[2024-06-01 11:08] LABS: ALB/GLOB Ratio 0.8 RATIO (0.9-2.4); AST(SGOT) 17 U/L (15-37); Alanine Aminotransfer ALT/SGPT 25 U/L (16-61); Alkaline Phosphatase 80 U/L (45-117); Anion Gap 4 (5-15); BUN 10 mg/dL (7-18); BUN/Creat Ratio 12.6 RATIO (10-20); Calcium,Total 8.7 mg/dL (8.5-10.1); Chloride 108 mmol/L (98-107); EST Glomerular Filtration Rate 103 mL/min (>60); Est Glom Filt Rate - Afr Amer 125 mL/min (>60); Estimated Creatinine Clearance 149.39 ml/min; Globulin 3.7 g/dL (2.2-4.2); Glucose 182 mg/dL (74-106); Potassium 3.6 mmol/L (3.5-5.1); Protein, Total 6.7 g/dL (6.4-8.2); Sodium Level 140 mmol/L (136-145)
--- NOTE | 2024-06-01 11:53 | WOUNDNOTE ---
wound photo: right medial lower leg
[2024-06-01 11:56] LABS: Bedside Glucose 147 mg/dL (74-106)
[2024-06-01] MEDS: Insulin Lispro 100 UNIT/ML INSULN.PEN 10 UNIT SC (12:43)
--- NOTE | 2024-06-01 14:36 | PCM.CONS.GEN ---
Assessment & Plan Assessment/Plan (1) Cellulitis: PLAN: At this time we will continue cefepime and follow clinical response. HPI Consult Data Date of Consult: 06/01/24 HPI Narrative Reason for Consultation: Right leg cellulitis HPI Narrative: BRY HERRERA, is a 64 M who presents past medical history of diabetes mellitus, COPD, obesity who had trauma to the right leg on May 06 and developed a skin tear on the right leg. More recently developed increasing erythema and pain in the right leg. Patient was socially admitted and placed on cefepime. Wound culture data reviewed. No history of skin or soft tissue infection. No cardiopulmonary distress. No active gastrointestinal issues. [facility], [facility] Medical History (Updated 05/28/24 @ 01:[address] Padmini Alfaro MD) [place] on CPAP Wears glasses History of steroid therapy Arthritis DVT (deep venous thrombosis) High cholesterol GERD (gastroesophageal reflux disease) Former smoker Shortness of breath on exertion Leg cramps History of edema History of stress test History of nephrolithotomy with removal of calculi Right rotator cuff tear Right shoulder injury Venous hypertension, chronic, with ulcer and inflammation Varicose veins with ulcer and inflammation Lipodermatosclerosis Chronic ulcer of right leg Leg wound, right Diabetes mellitus 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 veins Lopez phlebectatica Post-phlebitic syndrome History of DVT (deep vein thrombosis) Chronic venous insufficiency Leg edema Leg swelling Cervical disc disease Lumbar disc disease with radiculopathy COPD (chronic obstructive pulmonary disease) Bronchitis Asthma Psoriasis Screen for colon cancer Home Medications ?Medication ?Instructions ?Recorded ?Last Taken ?Type montelukast 10 mg tablet 10 mg PO QHS allergy 03/21/15 05/27/24 History tamsulosin 0.4 mg capsule 0.8 mg PO DAILY kidneys 06/26/16 05/27/24 History albuterol sulfate 90 mcg/actuation 1 - 2 puff inhalation Q4H PRN PRN 01/25/17 Unknown History aerosol inhaler Asthma cod liver oil 1 ea PO DAILY supplement 01/25/17 05/27/24 History ergocalciferol (vitamin D2) 1,250 50,000 unit PO MO 01/25/17 05/25/24 History mcg (50,000 unit) capsule umeclidinium 62.5 mcg-vilanterol 2 puff IH DAILY asthma 12/09/17 Unknown History 25 mcg/actuation powdr for inhalation aspirin 81 mg tablet,delayed 81 mg PO DAILY@0800 blood thinner 07/21/18 05/27/24 History release oxycodone 10 mg tablet 10 mg PO TID PRN PRN 08/04/19 05/25/24 History Pain/Inflammation #90 tabs losartan 100 mg tablet (Cozaar) 100 mg PO DAILY heart 09/09/23 05/27/24 History potassium citrate 10 mEq (1,080 10 meq PO DAILY supplement 09/09/23 05/27/24 History mg) tablet,extended release rosuvastatin 10 mg tablet 10 mg PO QHS cholesterol 09/09/23 Unknown History ascorbate calcium (vitamin C) 500 500 mg PO DAILY supplement 01/01/24 05/27/24 History mg tablet budesonide-formoterol HFA 160 2 inh inhalation BID 01/01/24 Unknown History mcg-4.5 mcg/actuation aerosol inhaler (Symbicort) duloxetine 30 mg capsule,delayed 30 mg PO DAILY mood 01/01/24 Unknown History release esomeprazole magnesium 40 mg 40 mg PO DAILY gerd 01/01/24 05/27/24 History capsule,delayed release (Nexium) fexofenadine 180 mg tablet 180 mg PO DAILY allergy 01/01/24 05/27/24 History (Allergy Relief (fexofenadine)) furosemide 40 mg tablet 20 mg PO DAILY water pill 01/01/24 05/27/24 History hydroxyzine HCl 50 mg tablet See Rx Instructions PO Q8H PRN 01/01/24 Unknown History itching insulin aspart 10 unit subcut USEASDIRECTD dm 01/01/24 Unknown History (niacinamide)(U-100) 100 unit/mL(3 mL) subcutaneous pen (Fiasp FlexTouch U-100 Insulin) insulin glargine U-300 conc 300 31 unit subcut DAILY dm 01/01/24 Unknown History unit/mL (1.5 mL) subcutaneous pen (Toujeo SoloStar U-300 Insulin) levocetirizine 5 mg tablet 5 mg PO DAILY allergy 01/01/24 05/27/24 History metformin 500 mg tablet 1,000 mg PO BID dm 01/01/24 05/27/24 History nortriptyline 25 mg capsule 25 mg PO QHS sleep 01/01/24 Unknown History tirzepatide 2.5 mg/0.5 mL 2.5 mg subcut FR dm 05/27/24 Unknown History subcutaneous pen injector (Mounjaro) Allergy/AdvReac Type Severity Reaction Status Date / Time levocetirizine (From Xyzal) Allergy extreme Verified 05/27/24 22:41 fatigue Penicillins Allergy Shortness Verified 05/27/24 22:41 of breath sulfamethoxazole (From Allergy Rash Verified 05/27/24 22:41 Bactrim) trimethoprim (From Bactrim) Allergy Rash Verified 05/27/24 22:41 Family History Father Cancer bladder Diabetes Mother Hypertension Kidney disease Surgical History S/P knee surgery S/P laparoscopic cholecystectomy Social History household members: spouse Smoking Status: Former smoker alcohol intake: never substance use type: does not use ROS ROS Narrative As stated in history of present illness otherwise negative Physical Exam Narrative Alert responsive does not appear toxic lungs are clear heart exam S1-S2 abdomen obese but soft. Left leg looks benign with chronic discoloration. Right leg there is a small skin ulcer that does not look infected superior to the lesion there is erythema and tenderness. No crepitus or signs of deep infection. Lab / Micro Data 06/01/24 10:24 06/01/24 10:24 Labs: Laboratory Results - last 24 hr 05/31/24 16:26: POC Glucose 114 H 05/31/24 22:16: POC Glucose 86 06/01/24 06:32: POC Glucose 122 H 06/01/24 10:24: WBC 6.7, RBC 4.64, Hgb 12.5 L, Hct 39.3 L, MCV 84.7, MCH 26.9 L, MCHC 31.8 L, RDW Std Deviation 40.9, RDW Coeff of Eloise 13.2, Plt Count 234, MPV 9.6, Sodium 140, Potassium 3.6, Chloride 108 H, Carbon Dioxide 28.0, Anion Gap 4 L, BUN 10, Creatinine 0.80, Estim Creat Clear Calc 149.39, Est GFR (MDRD) Af Amer 125, Est GFR (MDRD) Non-Af 103, BUN/Creatinine Ratio 12.6, Glucose 182 H, Calcium 8.7, Phosphorus 3.0, Magnesium 2.0, Total Bilirubin 1.10 H, AST 17, ALT 25, Alkaline Phosphatase 80, Total Protein 6.7, Albumin 3.0 L, Globulin 3.7, Albumin/Globulin Ratio 0.8 L 06/01/24 11:38: POC Glucose 147 H Micro: Microbiology 05/28/24 03:02 Wound - Leg, Right Gram Stain - Final 05/28/24 03:02 Wound - Leg, Right Wound Culture - Final Coag Negative Staph Gram positive janet Pseudomonas aeruginosa 05/28/24 03:02 Wound - Leg, Right Skin and Soft Tissue MRSA/MSSA (PCR - Final
[2024-06-01] MEDS: 0.9% Saline Lock 10 ML Syringe IV (14:42)
[2024-06-01] MEDS: Acetaminophen 325 MG Tablet 650 MG PO (14:43)
[2024-06-01] MEDS: oxyCODONE 5 MG Tablet 10 MG PO (14:44)
[2024-06-01 16:32] LABS: Bedside Glucose 102 mg/dL (74-106)
[2024-06-01] MEDS: Atorvastatin Calcium 20 MG Tablet PO (22:44)
[2024-06-01] MEDS: Nortriptyline 25 MG Capsule PO (22:44)
[2024-06-01] MEDS: Montelukast 10 MG Tablet PO (22:45)
[2024-06-01 23:10] LABS: Bedside Glucose 120 mg/dL (74-106)
[2024-06-02] MEDS: oxyCODONE 5 MG Tablet 10 MG PO (00:10)
[2024-06-02 03:21] VITALS: BMI 51.5
[2024-06-02 03:57] VITALS: BP 109/72; PULSE 86; RESP 18; TEMP 36.6; O2SAT 94
[2024-06-02] MEDS: Cefepime HCl 2 GM in 0.9% NS 100 ML Minibag Q8 IV (05:01)
[2024-06-02 06:46] LABS: Absolute Lymphocyte Count 1.31 X10^3/uL (0.83-4.51); Absolute Neutrophil Count 4.6 X10^3/uL (2.0-7.7); Basophil# 0.02 X10^3/uL; Basophil% 0.3 % (0-1); Eosinophil# 0.19 X10^3/uL; Eosinophils% 2.8 % (0-5); Hematocrit 39.2 % (40-54); Hemoglobin 12.2 g/dL (13.0-16.5); Lymphocyte # 1.31 X10^3/ul (0.83-4.51); Lymphocyte % 19.1 % (19-41); Mean Corp Hgb Conc 31.1 g/dL (32-36); Mean Corpuscular Hgb 26.6 pg (27.0-32.0); Mean Corpuscular Volume 85.4 fL (80-94); Mean Platelet Vol. 9.8 fl (6.2-12.0); Monocyte# 0.67 X10^3/uL; Monocyte% 9.8 % (0-10); NRBC Flagged by Analyzer 0 % (0-5); Neutrophil # 4.62 X10^3/uL (2.7-7.7); Neutrophil % 67.4 % (47-70); Platelet Count 239 K/mm3 (150-450); RBC Distribution Width CV 13.3 % (11.6-14.6); RBC Distribution Width SD 41.1 fl (35.1-43.9); Red Blood Count 4.59 M/mm3 (4.6-6.2); White Blood Count 6.9 K/mm3 (4.4-11.0)
[2024-06-02 06:52] LABS: Bedside Glucose 130 mg/dL (74-106)
[2024-06-02 07:46] LABS: Anion Gap 4 (5-15); BUN 10 mg/dL (7-18); BUN/Creat Ratio 12.5 RATIO (10-20); Calcium,Total 8.7 mg/dL (8.5-10.1); Chloride 107 mmol/L (98-107); EST Glomerular Filtration Rate 103 mL/min (>60); Est Glom Filt Rate - Afr Amer 125 mL/min (>60); Estimated Creatinine Clearance 148.41 ml/min; Glucose 132 mg/dL (74-106); Potassium 3.6 mmol/L (3.5-5.1); Sodium Level 139 mmol/L (136-145)
[2024-06-02] MEDS: Insulin Lispro 100 UNIT/ML INSULN.PEN 10 UNIT SC (08:01)
[2024-06-02] MEDS: Insulin Glargine-YFGN 100 UNIT/ML Pen 31 UNIT SC (08:03)
--- NOTE | 2024-06-02 08:41 | PCM.DC.SUM ---
Providers Date of Admission: 05/28/24 Date of Discharge: 06/02/24 Primary Care Physician: Dr. Mat Barrera MD Consultations 05/28/24 02:46 Consult: Onc/Wound/investment broker Routine Comment: Reason for Consult:: RLE wound, Diabetic patient 06/01/24 08:48 Consult: Infectious Disease Routine Consulting Provider: Kirill Pelayo Reason for Consult: RLE cellulitis EMERGENT Consult: No MD Notified: Yes Date Notified: 06/01/24 Time Notified: 09:28 Method of Notification: Answering Service Reason For Visit: CELLULITIS NEW ONSET PAF Diagnosis Discharge Diagnosis (1) Cellulitis: Status: Acute Code(s): L03.90 - Cellulitis, unspecified Plan Patient is a 64-year-old gentleman who presented with right lower extremity erythema and warmth. He had apparently been diagnosed with cellulitis as outpatient he however failed outpatient antibiotic therapy necessitating patient being admitted for inpatient treatment 1. Right lower extremity cellulitis ? Patient did fail antibiotic therapy as outpatient. Admitted for inpatient management cultures so far positive for coagulase-negative staph, gram-positive rods and Pseudomonas.Patient remains on cefepime pending final identification sensitivity. Consult placed to ID -06/02/2024. Case was discussed with Dr. Kirill Pelayo was reviewed with patient Pseudomonas was possibly contaminant and no clinically significant he subsequently recommended for patient to be discharged on Keflex 500 mg 4 times daily for 7 days. 2. Newly diagnosed paroxysmal A-fib ? Echo demonstrated EF of 55% with severe biatrial dilatation. Managed with beta-kenia systemic anticoagulation with apixaban plan for patient to follow-up with cardiology as outpatient ? Patient discharged home on apixaban and metoprolol. Patient to follow-up with primary care physician to be referred to cardiology as outpatient 3. Diabetes mellitus type II -patient's oral hypoglycemics held. Placed on long acting insulin, Accu-Cheks a.c. and at bedtime and covered with sliding scale insulin 4. COPD ? Currently not in exacerbation bronchodilator treatment as needed 5. Allergic rhinitis ? Patient is on montelukast as well as levocetirizine with continued home regimen 6. Hypertension - Blood pressure controlled, home medications continued with dose adjustment as needed 7. Class III obesity with BMI of 52.1 ? Complicating care weight loss advised 8. Dyslipidemia -Patient is on statin therapy, continued at home dose 9. BPH with lower urinary obstructive symptoms - Patient treated with tamsulosin 10. Obstructive sleep apnea ? CPAP at night 11. History of VTE ? Patient was not anticoagulated on admission however has been started on systemic anticoagulation with apixaban 12. Depression with anxiety -Did continue patient's home duloxetine, nortriptyline and as needed hydroxyzine Medications at Discharge Home Medications montelukast 10 mg tablet 10 mg PO QHS allergy 03/21/15 tamsulosin 0.4 mg capsule 0.8 mg PO DAILY kidneys 06/26/16 albuterol sulfate 90 mcg/actuation aerosol inhaler 1 - 2 puff inhalation Q4H PRN PRN Asthma 01/25/17 cod liver oil 1 ea PO DAILY supplement 01/25/17 ergocalciferol (vitamin D2) 1,250 mcg (50,000 unit) capsule 50,000 unit PO MO 01/25/17 umeclidinium 62.5 mcg-vilanterol 25 mcg/actuation powdr for inhalation 2 puff IH DAILY asthma 12/09/17 aspirin 81 mg tablet,delayed release 81 mg PO DAILY@0800 blood thinner 07/21/18 oxycodone 10 mg tablet 10 mg PO TID PRN PRN Pain/Inflammation #90 tabs 08/04/19 losartan 100 mg tablet (Cozaar) 100 mg PO DAILY heart 09/09/23 potassium citrate 10 mEq (1,080 mg) tablet,extended release 10 meq PO DAILY supplement 09/09/23 rosuvastatin 10 mg tablet 10 mg PO QHS cholesterol 09/09/23 ascorbate calcium (vitamin C) 500 mg tablet 500 mg PO DAILY supplement 01/01/24 budesonide-formoterol HFA 160 mcg-4.5 mcg/actuation aerosol inhaler (Symbicort) 2 inh inhalation BID 01/01/24 duloxetine 30 mg capsule,delayed release 30 mg PO DAILY mood 01/01/24 esomeprazole magnesium 40 mg capsule,delayed release (Nexium) 40 mg PO DAILY gerd 01/01/24 fexofenadine 180 mg tablet (Allergy Relief (fexofenadine)) 180 mg PO DAILY allergy 01/01/24 furosemide 40 mg tablet 20 mg PO DAILY water pill 01/01/24 hydroxyzine HCl 50 mg tablet See Rx Instructions PO Q8H PRN itching 01/01/24 insulin aspart (niacinamide)(U-100) 100 unit/mL(3 mL) subcutaneous pen (Fiasp FlexTouch U-100 Insulin) 10 unit subcut USEASDIRECTD dm 01/01/24 insulin glargine U-300 conc 300 unit/mL (1.5 mL) subcutaneous pen (Toujeo SoloStar U-300 Insulin) 31 unit subcut DAILY dm 01/01/24 levocetirizine 5 mg tablet 5 mg PO DAILY allergy 01/01/24 metformin 500 mg tablet 1,000 mg PO BID dm 01/01/24 nortriptyline 25 mg capsule 25 mg PO QHS sleep 01/01/24 tirzepatide 2.5 mg/0.5 mL subcutaneous pen injector (Mounjaro) 2.5 mg subcut FR dm 05/27/24 apixaban 5 mg tablet (Eliquis) 5 mg PO BID 60 days #120 tabs 06/02/24 cephalexin 500 mg capsule 500 mg PO Q6H 7 days #28 caps 06/02/24 metoprolol tartrate 25 mg tablet 25 mg PO BID #120 tabs 06/02/24 Hospital Course Summary of Care Provided Minutes Spent on Discharge: 32 Physical Exam Narrative GENERAL: cooperative HEENT: Atraumatic; normocephalic EYES; Anicteric, Normal Conjunctiva NECK; supple, normal thyroid, RESPIRATORY: Diminished to auscultation CARDIOVASCULAR: Regular S1 S2, GI: soft, normoactive bowel sounds, : No Renal angle tenderness; EXTREMITIES: Swelling and erythema involving the right lower extremity MUSCULOSKELETAL: no muscle wasting NEURO: Awake; no lateralizing signs. SKIN: As described above PSYCH; Flat affect Weight / BMI Weight Weight: 172.4 kg Body Mass Index (BMI) 51.5 ABG / Lab / Microbiology Data 06/02/24 06:04 06/02/24 06:04 Laboratory: Laboratory Results - last 24 hr 06/01/24 10:24: WBC 6.7, RBC 4.64, Hgb 12.5 L, Hct 39.3 L, MCV 84.7, MCH 26.9 L, MCHC 31.8 L, RDW Std Deviation 40.9, RDW Coeff of Eloise 13.2, Plt Count 234, MPV 9.6, Sodium 140, Potassium 3.6, Chloride 108 H, Carbon Dioxide 28.0, Anion Gap 4 L, BUN 10, Creatinine 0.80, Estim Creat Clear Calc 149.39, Est GFR (MDRD) Af Amer 125, Est GFR (MDRD) Non-Af 103, BUN/Creatinine Ratio 12.6, Glucose 182 H, Calcium 8.7, Phosphorus 3.0, Magnesium 2.0, Total Bilirubin 1.10 H, AST 17, ALT 25, Alkaline Phosphatase 80, Total Protein 6.7, Albumin 3.0 L, Globulin 3.7, Albumin/Globulin Ratio 0.8 L 06/01/24 11:38: POC Glucose 147 H 06/01/24 15:46: POC Glucose 102 06/01/24 22:49: POC Glucose 120 H 06/02/24 06:04: WBC 6.9, RBC 4.59 L, Hgb 12.2 L, Hct 39.2 L, MCV 85.4, MCH 26.6 L, MCHC 31.1 L, RDW Std Deviation 41.1, RDW Coeff of Eloise 13.3, Plt Count 239, MPV 9.8, Immature Gran % (Auto) 0.600, Neut % (Auto) 67.4, Lymph % (Auto) 19.1, [place] % (Auto) 9.8, Eos % (Auto) 2.8, Baso % (Auto) 0.3, Absolute Neuts (auto) 4.6, Absolute Lymphs (auto) 1.31, Nucleated RBC % 0, Sodium 139, Potassium 3.6, Chloride 107, Carbon Dioxide 28.0, Anion Gap 4 L, BUN 10, Creatinine 0.80, Estim Creat Clear Calc 148.41, Est GFR (MDRD) Af Amer 125, Est GFR (MDRD) Non-Af 103, BUN/Creatinine Ratio 12.5, Glucose 132 H, Calcium 8.7 06/02/24 06:16: POC Glucose 130 H Microbiology: Microbiology 05/27/24 23:45 Blood Culture (Wb) - Anticubital Left Blood Culture - Final No growth in 5 days. 05/28/24 00:15 Blood Culture (Wb) - Right Wrist Blood Culture - Final No growth in 5 days. 05/28/24 03:02 Wound - Leg, Right Gram Stain - Final 05/28/24 03:02 Wound - Leg, Right Wound Culture - Final Coag Negative Staph Gram positive janet Pseudomonas aeruginosa 05/28/24 03:02 Wound - Leg, Right Skin and Soft Tissue MRSA/MSSA (PCR - Final D/C Instructions Discharge Diet: 1800 Calorie Control Diet Discharge Activity: Return to Normal Activity Call your doctor if you observe: Fever of 101 or Higher, Shortness of breath, Fainting spells and Chest pain Meaningful Use Info Meaningful Use Meaningful Use Diagnoses (Choose all that apply): None applicable Ischemic Stroke Statin Dosing Therapy Reference: STATIN DOSE THERAPY REFERENCE: * Patients > 75 years receive moderate or high dose statin therapy. * Patients 75 years or YOUNGER should receive HIGH intensity statin dose unless contraindicated. You will be required to document reason for non-treatment if statin daily dose does not meet guidelines. HIGH DOSE STATIN THERAPY DAILY Atorvastatin > than or = to 40 mg Rosuvastatin > than or = to 20 mg Amlodipine + Atorvastatin > than or = to 2.5/40 mg Ezetimibe + Simvastatin 10/80 mg Simvastatin 80mg Discharge Plan Admission Admit Date/Time: 05/28/24 01:29 Attending Provider: Pankaj Gonzalez Primary Care Provider: Mat Barrera Consulting Providers: Padmini Alfaro; Mat Hatfield; Kirill Pelayo Discharge Orders/Prescriptions Prescriptions: New metoprolol tartrate 25 mg Tablet 25 mg PO BID Qty: 120 0RF Eliquis 5 mg Tablet 5 mg PO BID 60 Days Qty: 120 0RF cephalexin 500 mg capsule 500 mg PO Q6H 7 Days Qty: 28 0RF Continued oxycodone 10 mg tablet 10 mg PO TID PRN PRN (Reason: Pain/Inflammation) Qty: 90 Patient Comments: TAKE 1 TABLET EVERY 8 HOURS NEEDED FOR PAIN potassium citrate 10 mEq (1,080 mg) tablet extended release 10 meq PO DAILY Patient Comments: TAKE 1 TABLET BY MOUTH DAILY to prevent kidney stones and two TABLETS DAILY if taking extra water pill losartan [Cozaar] 100 mg tablet 100 mg PO DAILY rosuvastatin 10 mg tablet 10 mg PO QHS Patient Comments: TAKE 1 TABLET BY MOUTH DAILY Fiasp FlexTouch U-100 Insulin 100 unit/mL (3 mL) insulin pen 10 unit subcut USEASDIRECTD Patient Comments: inject 10 units SUBCUTANEOUSLY with each meal and 2 (TWO) units with snack; max daily dose (20 units) insulin glargine U-300 conc [Toujeo SoloStar U-300 Insulin] 300 unit/mL (1.5 mL) insulin pen 31 unit subcut DAILY Patient Comments: INJECT 24 units under the skin daily budesonide-formoterol [Symbicort] 160-4.5 mcg/actuation HFA aerosol inhaler 2 inh inhalation BID furosemide 40 mg tablet 20 mg PO DAILY Patient Comments: TAKE 1/2 (ONE-HALF) OF A TABLET BY MOUTH with lunch DAILY hydroxyzine HCl 50 mg tablet See Rx Instructions PO Q8H PRN (Reason: itching) Rx Instructions: 1/2 - 2 tab orally every 8 hours PRN; fexofenadine [Allergy Relief (fexofenadine)] 180 mg tablet 180 mg PO DAILY nortriptyline 25 mg capsule 25 mg PO QHS Rx Instructions: 1-2 caps QHS esomeprazole magnesium [Nexium] 40 mg capsule,delayed release(DR/EC) 40 mg PO DAILY ascorbate calcium (vitamin C) 500 mg tablet 500 mg PO DAILY duloxetine 30 mg capsule,delayed release(DR/EC) 30 mg PO DAILY levocetirizine 5 mg tablet 5 mg PO DAILY Patient Comments: TAKE 1 TABLET BY MOUTH EVERY DAY for allergies or FOR ASTHMA from allergies montelukast 10 MG tablet 10 mg PO QHS metformin 500 mg tablet 1,000 mg PO BID tamsulosin 0.4 MG capsule 0.8 mg PO DAILY umeclidinium-vilanterol 1 EACH blister with device 2 puff IH DAILY Patient Comments: INHALE 2 PUFFS BY MOUTH EVERY DAY aspirin 81 MG tablet 81 mg PO DAILY@0800 Mounjaro 2.5 mg/0.5 mL pen injector 2.5 mg subcut FR albuterol sulfate 1 INHALER inhaler 1 - 2 puff inhalation Q4H PRN PRN (Reason: Asthma) cod liver oil 1 EACH capsule 1 ea PO DAILY ergocalciferol (vitamin D2) 50,000 UNIT capsule 50,000 unit PO MO Referrals / Follow Up: Mat Barrera MD [Primary Care Provider] - Within 1 Week Disposition Disposition (needs filled in before D/C Order can be placed): Home, Self Care Charges/Coding Visit Charges Inpatient E&M: 12631 Subs Hosp L2
[2024-06-02 09:00] VITALS: BP 128/86; PULSE 84; RESP 18; TEMP 36.6; O2SAT 93
[2024-06-02] MEDS: Ascorbic Acid 500 MG Tablet PO (09:00)
[2024-06-02] MEDS: Loratadine 10 MG Tablet PO (09:00)
[2024-06-02] MEDS: APIXABAN 5 MG TABLET PO (09:00)
[2024-06-02] MEDS: Metoprolol Tartrate 25 MG Tablet PO (09:00)
[2024-06-02] MEDS: Furosemide 20 MG Tablet PO (09:01)
[2024-06-02] MEDS: Losartan Potassium 100 MG Tablet PO (09:01)
[2024-06-02] MEDS: Tamsulosin HCl 0.4 MG Capsule 0.8 MG PO (09:01)
[2024-06-02] MEDS: POTASSIUM CITRATE 10 MEQ TABLET.ER PO (09:01)
[2024-06-02] MEDS: Aspirin E.C. 81 MG Tablet PO (09:01)
[2024-06-02] MEDS: Pantoprazole Sodium 40 MG Tablet PO (09:01)
--- NOTE | 2024-06-02 09:59 | CASEMGMT ---
Patient has order for discharge. Patient discharging on Eliquis, ELA CM called [facility] retail, copay is $137, savings card applied. RN CM in to discuss needs at discharge. Patient denies needs or help at discharge. RN CM updated regarding Eliquis cost and savings card. Patient had no further questions or concerns.
[2024-06-02 11:18] LABS: Bedside Glucose 94 mg/dL (74-106)
== END 2024-06-02 11:46 | disposition home or self-care (01) | DRG 638 ==
LOC: ED 05-28 01:12 → PCU 05-28 02:12
PROVIDERS: Admitting Provider Family Medicine; Emergency Provider Emergency Medicine; PCP Family Medicine; Visit Provider Internal Medicine
DX: E11.628 Type 2 diabetes mellitus with other skin complications (principal); L03.115 Cellulitis of right lower limb; Z68.43 Body mass index [BMI] 50.0-59.9, adult; L97.911 Non-pressure chronic ulcer of unspecified part of right lower leg limited to breakdown of skin; E11.51 Type 2 diabetes mellitus with diabetic peripheral angiopathy without gangrene; B96.5 Pseudomonas (aeruginosa) (mallei) (pseudomallei) as the cause of diseases classified elsewhere; B95.62 Methicillin resistant Staphylococcus aureus infection as the cause of diseases classified elsewhere; J44.9 Chronic obstructive pulmonary disease, unspecified; E11.65 Type 2 diabetes mellitus with hyperglycemia; I48.0 Paroxysmal atrial fibrillation; E66.01 Morbid (severe) obesity due to excess calories; I10 Essential (primary) hypertension; F32.A Depression, unspecified; I87.8 Other specified disorders of veins; E78.5 Hyperlipidemia, unspecified; G47.33 Obstructive sleep apnea (adult) (pediatric); K21.9 Gastro-esophageal reflux disease without esophagitis; E87.6 Hypokalemia; J30.9 Allergic rhinitis, unspecified; F41.8 Other specified anxiety disorders; Z79.84 Long term (current) use of oral hypoglycemic drugs; Z79.82 Long term (current) use of aspirin; Z79.85 Long-term (current) use of injectable non-insulin antidiabetic drugs; Z79.51 Long term (current) use of inhaled steroids; Z51.5 Encounter for palliative care; Z87.891 Personal history of nicotine dependence; R09.02 Hypoxemia; Z66 Do not resuscitate; N40.0 Benign prostatic hyperplasia without lower urinary tract symptoms
CPT/HCPCS: 36415; 71045; 80048; 80053; 80061; 80202; 82962; 83036; 83735; 84100; 84443; 84484; 85025; 85027; 87040; 87070; 87077; 87186; 87205; 87640; 93005; 93306; 93971; 94002; 94640; 94668; 94762; 97802; 99284; J7030; J7040; Q9957; A4216; C8929; J2405

== ENCOUNTER 2024-07-23 13:30 | Outpatient (RCR) | payer MEDICARE, SELFPAY ==
[2024-07-02 14:19] VITALS: BP 106/66; PULSE 90; RESP 18; TEMP 36.5; BMI 49.2
--- NOTE | 2024-07-02 15:03 | PCM.WC.HP ---
History of Present Illness Date of Service: 07/02/24 Chief Complaint: R medial ankle wound History of Wound: Mr. Trever Zaragoza is a 64-year-old male who presents today for evaluation management of a right lower extremity venous ulceration as referred from [facility] dermatology. He has had longstanding venous stasis dermatitis. He reports that at the beginning of May he developed this right lower extremity ulceration following minor trauma to the area. He was admitted to [facility] from 05/28/2024 to 06/02/2024 for management of right lower extremity cellulitis associated with this wound at which time infectious disease was consulted. Cultures from his right leg wound at that time grew coag negative staph and gram-positive janet and Pseudomonas. ID felt the Pseudomonas was likely contaminant. He was treated with IV vancomycin and cefepime for a few days prior to transitioning to sensitivity directed oral cephalexin at discharge. He did complete these outpatient oral antibiotics. At present a superficial open venous ulceration remains at the right medial ankle. Wound pictures from his hospital stay were reviewed. The ulceration does appear slightly improved in size. At that time, he did have erythema extending proximally which is not present on exam today. He reports that over the last day or so the area around the wound has become a bit more tender. He denies any new drainage, foul-smelling odor, new edema, nausea, vomiting, fever, or chills. He did recently obtain compression stockings. His PCP measured his legs and provided him with the measurements when he went online and ordered zippered compression stockings. He did attempt to use this over the last couple of days but the zipper does seem to lie directly over the wound that seems to irritate it. He is diabetic, he reports improved control recently due to medication adjustments with last A1c ~6.7. 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 Lipodermatosclerosis Chronic ulcer of right leg Diabetes mellitus 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 veins Lopez phlebectatica Post-phlebitic syndrome History of DVT (deep vein thrombosis) Chronic venous insufficiency Leg edema Cervical disc disease Lumbar disc disease with radiculopathy COPD (chronic obstructive pulmonary disease) Asthma Psoriasis Home Medications ?Medication ?Instructions ?Recorded ?Last Taken ?Type montelukast 10 mg tablet 10 mg PO QHS allergy 03/21/15 05/27/24 History tamsulosin 0.4 mg capsule 0.8 mg PO DAILY kidneys 06/26/16 05/27/24 History albuterol sulfate 90 mcg/actuation 1 - 2 puff inhalation Q4H PRN PRN 01/25/17 Unknown History aerosol inhaler Asthma cod liver oil 1 ea PO DAILY supplement 01/25/17 05/27/24 History ergocalciferol (vitamin D2) 1,250 50,000 unit PO MO vitamin 01/25/17 05/25/24 History mcg (50,000 unit) capsule umeclidinium 62.5 mcg-vilanterol 2 puff IH DAILY asthma 12/09/17 Unknown History 25 mcg/actuation powdr for inhalation aspirin 81 mg tablet,delayed 81 mg PO DAILY@0800 blood thinner 07/21/18 05/27/24 History release oxycodone 10 mg tablet 10 mg PO TID PRN PRN 08/04/19 05/25/24 History Pain/Inflammation #90 tabs losartan 100 mg tablet (Cozaar) 100 mg PO DAILY heart 09/09/23 05/27/24 History potassium citrate 10 mEq (1,080 10 meq PO DAILY supplement 09/09/23 05/27/24 History mg) tablet,extended release rosuvastatin 10 mg tablet 10 mg PO QHS cholesterol 09/09/23 Unknown History ascorbate calcium (vitamin C) 500 500 mg PO DAILY supplement 01/01/24 05/27/24 History mg tablet budesonide-formoterol HFA 160 2 inh inhalation BID 01/01/24 Unknown History mcg-4.5 mcg/actuation aerosol inhaler (Symbicort) duloxetine 30 mg capsule,delayed 30 mg PO DAILY mood 01/01/24 Unknown History release esomeprazole magnesium 40 mg 40 mg PO DAILY gerd 01/01/24 05/27/24 History capsule,delayed release (Nexium) fexofenadine 180 mg tablet 180 mg PO DAILY allergy 01/01/24 05/27/24 History (Allergy Relief (fexofenadine)) furosemide 40 mg tablet 20 mg PO DAILY water pill 01/01/24 05/27/24 History hydroxyzine HCl 50 mg tablet See Rx Instructions PO Q8H PRN 01/01/24 Unknown History itching insulin aspart 10 unit subcut USEASDIRECTD dm 01/01/24 Unknown History (niacinamide)(U-100) 100 unit/mL(3 mL) subcutaneous pen (Fiasp FlexTouch U-100 Insulin) levocetirizine 5 mg tablet 5 mg PO DAILY allergy 01/01/24 05/27/24 History metformin 500 mg tablet 1,000 mg PO BID dm 01/01/24 05/27/24 History nortriptyline 25 mg capsule 25 mg PO QHS sleep 01/01/24 Unknown History tirzepatide 2.5 mg/0.5 mL 2.5 mg subcut FR dm 05/27/24 Unknown History subcutaneous pen injector (Mounjaro) apixaban 5 mg tablet (Eliquis) 5 mg PO BID 60 days #120 tabs 06/02/24 Unknown Rx metoprolol tartrate 25 mg tablet 25 mg PO BID #120 tabs 06/02/24 Unknown Rx dexamethasone 6 mg tablet 6 mg PO 06/26/24 Unknown History insulin glargine U-300 conc 300 32 unit subcut DAILY dm 06/26/24 Unknown History unit/mL (1.5 mL) subcutaneous pen (Toujeo SoloStar U-300 Insulin) Allergy/AdvReac Type Severity Reaction Status Date / Time levocetirizine (From Xyzal) Allergy extreme Verified 07/02/24 14:10 fatigue Penicillins Allergy Shortness Verified 07/02/24 14:10 of breath sulfamethoxazole (From Allergy Rash Verified 07/02/24 14:10 Bactrim) trimethoprim (From Bactrim) Allergy Rash Verified 07/02/24 14:10 Family History Father Cancer bladder Diabetes Mother Hypertension Kidney disease Surgical History S/P knee surgery S/P laparoscopic cholecystectomy Social History (Updated 06/26/24 @ 15:02 by Mirna Chiu RN) household members: spouse Smoking Status: Former smoker alcohol intake: current alcohol intake frequency: a few times a month Alcohol type: beer substance use type: does not use Vital Signs Vital Signs Vital Signs: 07/02/24 14:19 Temperature 97.7 F L Temperature Source Temporal Pulse Rate 90 Respiratory Rate 18 Blood Pressure 106/66 Blood Pressure Mean 79 Blood Pressure Source Monitor Blood Pressure Position Semi-Fowlers Blood Pressure Location Left Arm Oxygen Delivery Method Room Air Weight Weight: 363 lb Body Mass Index (BMI) 49.2 Physical Exam Const alert, oriented x3 and no apparent distress General Appearance: cooperative and comfortable HEENT normocephalic, head/scalp atraumatic, hearing grossly normal bilaterally, external ears normal and external nose normal Eyes EOMs intact bilaterally General Eye: normal appearance of both eyes Neck General: normal visual inspection and trachea midline Resp normal respiratory effort Effort and Inspection: able to speak in complete sentences Cardio regular rate and regular rhythm Extremity Extremity Narrative: Bilateral lower extremity edema 1-2+. Skin Skin Narrative: Bilateral lower leg venous stasis chronic skin changes with lipodermatosclerosis and significant hemosiderin deposition Wounds: wounds noted Wound Narrative: On the right medial ankle, there is a small superficial venous ulceration with minimal slough in the wound bed. There is no significant surrounding erythema, focal edema, foul odor. Small amount of serosanguineous drainage appreciated. Patient is tender to palpation of the area around the wound. No crepitus, fluctuance. Neuro oriented x3, CN's II-XII intact bilaterally, moves all extremities, no focal motor deficits and no sensory deficits noted Psych mental status grossly normal Appearance: grossly normal Attitude: calm and engaged Activity / Motor Behavior: appropriate eye contact Speech: normal speech Debridement Note Debridement Note No debridement was completed: No debridement was completed today Post-Debridement Measurements and Additional Note: Post-Debridement Measurements/Treatment WC - Nurse 1 - General Ulcer Assessment Start: 07/02/24 14:06 Freq: Status: Active Protocol: PRASAD Activity Type Activity Date Activity User E-sign Co-sign Detail Recorded Client Recorded Date Recorded By Document 07/02/24 14:19 KW formerly [facility] 07/02/24 14:36 KW 07/02/24 14:19 - Today's Visit Information Type of service Initial Visit Arrival Mode Ambulatory Patient Identification Verified (Name & Yes ) Height and Weight Height 6 ft Weight 363 lb Weight in Pounds 363.0 lbs Weight Measurement Method Estimated by Patient Body Mass Index (BMI) 49.2 BMI Classification Obese BSA - Nidhi 2.74 Vital Signs Temperature (97.8 F-99.1 F) 97.7 F L Temperature Source Temporal Pulse Rate (60-100) 90 Pulse Location Monitor Respiratory Rate (12-18) 18 Respiratory rate source Observation Oxygen Delivery Method Room Air Blood Pressure (90/60-120/80) 106/66 Blood Pressure Mean 79 Source Monitor Position Semi-Fowlers Blood Pressure Location Left Arm Pain Scale: 0-10 Numeric Is Patient Pain Free? Yes RLE -Description Burning -Alleviating Factors/Interventions Medication Lower Extremity Assessment/ Foot Assessment/ Toe Nail Assessment Left -Extremity Color Hemosiderin -Hair Growth on Legs No -Hair Growth on Toes No -Temperature of Extremity Cool -Capillary Refill Less than 3 Seconds -Thick No -Discolored No -Deformed No -Improper Length & Hygeine No Right -Extremity Color Hemosiderin -Hair Growth on Legs No -Hair Growth on Toes No -Temperature of Extremity Cool -Capillary Refill Less than 3 Seconds -Thick No -Discolored No -Deformed No -Improper Length & Hygeine No Communication Assessment Preferred language Japanese Able to Read Yes Able to Write Yes Communication Tools None Caregiver Communication Skills Unable To Read Impairment Right Hearing Abillity Normal Left Hearing Abillity Normal Visual Assistive Devices Glasses Teaching Assessment Preferences Verbal,Written, Demonstration Barriers to Learning None Readiness To Learn Excellent Willingness to Engage in Self Management High Activies Readiness to Engage in Self Management High Activities Anxiety Level Calm Cooperation Cooperative Perception Coherent Interest in Health Problem Asks Questions Education Importance Acknowledges Need Does Patient Smoke tobacco or other No substances Smoking Status Former smoker Is Patient Diabetic Yes Functional Assessment Recent Decline in Ability to Perform Denies Any Declines Culture/Mosque/Assistant Operator Cultural/Mosque Needs that may affect No Treatment Plan Would you allow our hospital assistant store manager to No meet you for the purpose of spiritual/ emotional support? Assistant Operator to contact place of voodoo No WC - Nurse 1 - General Ulcer Measurement Start: 07/02/24 14:06 Freq: Status: Active Protocol: Activity Type Activity Date Activity User E-sign Co-sign Detail Recorded Client Recorded Date Recorded By Document 07/02/24 14:19 KW formerly [facility] 07/02/24 14:36 KW 07/02/24 14:19 Wound Center Nurse 1 #3 RT MED ANKLE -Current Size (cm) - Length 2 -Current Size (cm) - Width 0.2 -Current Size (cm) - Depth 0.1 -Total Square Cm 0.4 -Date of Last Picture (Recall this 07/02/24 field) -Exudate Amt Small -Exudate Type Serosanguineous -Wound Margin Distinct, Outline Attached -Granulation Amt Large (67-100%) -Granulation Quality Red -Texture (Kami-wound Skin Appearance) Assessed -Moisture (Kami-wound Skin Appearance) Assessed -Color (Kami-wound Skin Appearance) Assessed, Hemosiderin Staining -Temperature (Kami-wound Skin No Abnormality Appearance) (Pt Warm) -Tenderness on Palpation (Kami-wound Yes Skin Appearance) -Ulcer Cleansing Rinsed/ Irrigated with Saline -Foul Odor after Cleansing No -Anesthetic Used 5% Lidocaine Gel Right Calf (cm) 50.5 Right Ankle (cm) 29.3 Left Calf (cm) 47.2 Left Ankle (cm) 29.5 WC - Nurse 2 - General Ulcer CM Notes Start: 07/02/24 14:06 Freq: Status: Active Protocol: Activity Type Activity Date Activity User E-sign Co-sign Detail Recorded Client Recorded Date Recorded By Document 07/02/24 14:44 [facility] 10.10.25.7 07/02/24 14:56 [facility] 07/02/24 14:44 Wound Center Nurse 2 #3 RT MED ANKLE -Time 14:48 -Post Debridement (cm) - Length 2 -Post Debridement (cm) - Width 1.4 -Post Debridement (cm) - Depth 0.1 -Total Square (Post) (cm) 2.8 -Area of Debridement (cm) - Length 2 -Area of Debridement (cm) - Width 1.4 -Total Square (Area) (cm) 2.8 -Tunneling No -Undermining/Tunneling No -Circular Undermining No -Wound/Ulcer Outcome Not Healed -Ulcer Cleansing Rinsed/ Irrigated with Saline -Foul Odor after Cleansing No -Bioengineered Tissue No -Bleeding Controlled with NA Pain Scale: 0-10 Numeric Is Patient Pain Free? Yes Charges/Coding Visit Charges Office Visits / Consults: [id number] OV L3 New 30min Assessment/Plan Assessment/Plan (1) Venous hypertension, chronic, with ulcer and inflammation: CODE(S): I87.339 - Chronic venous hypertension (idiopathic) with ulcer and inflammation of unspecified lower extremity; L97.909 - Non-pressure chronic ulcer of unspecified part of unspecified lower leg with unspecified severity QUALIFIERS: Laterality: right Qualified Code(s): L97.919 - Non-pressure chronic ulcer of unspecified part of right lower leg with unspecified severity (2) Venous stasis ulcer of right ankle limited to breakdown of skin: CODE(S): I83.013 - Varicose veins of right lower extremity with ulcer of ankle; L97.311 - Non-pressure chronic ulcer of right ankle limited to breakdown of skin PLAN: Plan Due to patient's tenderness and minimal slough/devitalized tissue, no debridement was performed today. I did obtain wound cultures due to his tenderness. No overt signs of infection otherwise so will prescribe antibiotics if indicated by culture and as directed by sensitivity. Will obtain venous reflux study to further assess apparent underlying venous insufficiency. For wound care, will apply Aquacel silver to the wound bed and cover with Pride SAP. Advise changing his dressing daily or more often as needed to keep the area clean and dry. With dressing changes, wash the area gently with antibacterial soap and water and pat to dry before applying new dressings. Will apply high-strength Tubigrip's for compression and advise he use this over his compression stockings for now. Advise elevation of his legs at all times of rest. I advised implementing a regular exercise regimen with daily walking as tolerated and/or calf pumps. I advise ensuring tight glycemic control and increased protein in his diet.
--- NOTE | 2024-07-03 09:56 | WC ---
PHOTO RIGHT MEDIAL ANKLE 07/02/24
--- NOTE | 2024-07-03 12:47 | VDLE_ITS ---
Reason For Study: Edema RIGHT LEFT CFV is compressible, spontaneous, phasic, CFV is compressible, spontaneous, phasic, competent and demonstrates normal competent, and demonstrates normal augmentation. augmentation. FV is compressible, spontaneous, phasic, FV is compressible, spontaneous, phasic, competent and demonstrates normal competent and demonstrates normal augmentation. augmentation. POP V is compressible, spontaneous, phasic, POP V is compressible, spontaneous, phasic, competent and demonstrates normal competent and demonstrates normal augmentation. augmentation. T/P Trunk is compressible. T/P Trunk is compressible. PTV is compressible. PTV is compressible. RT PerV is compressible. LT PerV is compressible. SFJ is INCOMPETENT and measures 0.81 cm. SFJ is INCOMPETENT and measures 0.93 cm. GSV proximal thigh measures 0.59 x 0.61 cm. GSV proximal thigh measures 0.70 x 0.78 cm. GSV at knee measures 0.63 x 0.62 cm. GSV at knee measures 0.77 x 0.85 cm. GSV INCOMPETENT throughout for greater than GSV INCOMPETENT throughout for greater than 0.5 seconds. 0.5 seconds. ASV proximal thigh is INCOMPETENT for greater ASV proximal thigh is INCOMPETENT for than 0.5 seconds and measures 0.59 x 0.51 cm. greater than 0.5 seconds and measures 0.65 x SSV at junction is INCOMPETENT for greater 0.73 cm. than 0.5 seconds and measures 0.48 x 0.57 cm. ASV mid calf is INCOMPETENT for greater than [employer] INCOMPETENTfor greater than 0.5 0.5 seconds and measures 0.40 x 0.48 cm. seconds noted approximately 10 cm above SSV proximal calf is INCOMPETENT for greater medial malleolus. than 0.5 seconds and measures 0.31 x 0.34 Multiple tortuous branches noted off GSV at cm. mid thigh ad mid calf. Procedure This is a venous duplex using B-mode, color flow and spectral Doppler. Exam performed in department. The study was technically difficult. VL/Venous Duplex US - Manolo Extrem Interpretation Summary Deep veins of the bilateral lower extremities are patent and compressible segme ntally. There is no evidence of bilateral lower extremity deep vein thrombosis. The bilateral great saphenous veins appear patent and compressible segmentally. Positive for reflux in the right saphenofemoral junction, great saphenous vein throughout, small saphenous vein, and calf sprinkling system installer. Positive for reflux in the left saphenofemoral junction, great saphenous vein t hroughout, accessory saphenous veins in thigh and calf , small saphenous vein Ordering Physician: Meseret Cooper Referring Physician: Mat Barrera MD Performed By: Balta Chaparro RVT and Student
[2024-07-09 13:18] VITALS: BP 104/70; PULSE 74; RESP 18; TEMP 35.7; BMI 49.2
--- NOTE | 2024-07-09 16:00 | PCM.WC.PN ---
History of Present Illness Date of Service: 07/09/24 Chief Complaint: R medial ankle wound History of Wound: Mr. Trever Zaragoza is a 64-year-old male who presents today for evaluation management of a right lower extremity venous ulceration as referred from [facility] dermatology. He has had longstanding venous stasis dermatitis. He reports that at the beginning of May he developed this right lower extremity ulceration following minor trauma to the area. He was admitted to [facility] from 05/28/2024 to 06/02/2024 for management of right lower extremity cellulitis associated with this wound at which time infectious disease was consulted. Cultures from his right leg wound at that time grew coag negative staph and gram-positive janet and Pseudomonas. ID felt the Pseudomonas was likely contaminant. He was treated with IV vancomycin and cefepime for a few days prior to transitioning to sensitivity directed oral cephalexin at discharge. He did complete these outpatient oral antibiotics. At present a superficial open venous ulceration remains at the right medial ankle. Wound pictures from his hospital stay were reviewed. The ulceration does appear slightly improved in size. At that time, he did have erythema extending proximally which is not present on exam today. He reports that over the last day or so the area around the wound has become a bit more tender. He denies any new drainage, foul-smelling odor, new edema, nausea, vomiting, fever, or chills. He did recently obtain compression stockings. His PCP measured his legs and provided him with the measurements when he went online and ordered zippered compression stockings. He did attempt to use this over the last couple of days but the zipper does seem to lie directly over the wound that seems to irritate it. He is diabetic, he reports improved control recently due to medication adjustments with last A1c ~6.7. Subjective Subjective Trever has been doing well overall this past week. He does report that the Aquacel silver seemed to stick to his skin and he thinks it peeled some skin off when he tried to remove it one day. He did forget to soak it before he removed it. He otherwise has done well with dressing changes. He did receive his supplies. He has done well with the Tubigrips for compression. He did complete a venous reflux study. Objective Data Objective Data Vital Signs: Vital Signs Temp Pulse Resp BP O2 Del Method 96.2 F L 74 18 104/70 Room Air 07/09/24 13:18 07/09/24 13:18 07/09/24 13:18 07/09/24 13:18 07/02/24 14:19 Oxygen Delivery Method Room Air Weight: 363 lb Body Mass Index (BMI) 49.2 Lab / Micro Data Micro: Microbiology 07/02/24 14:45 Wound - Right Foot Gram Stain - Final 07/02/24 14:45 Wound - Right Foot Wound Culture - Final Klebsiella aerogenes Pseudomonas aeruginosa Staphylococcus warneri 07/02/24 14:45 Wound - Right Foot Anaerobic Culture - Final No anaerobic bacteria isolated. Charges/Coding Visit Charges Office Visits / Consults: [id number] OV L3 Est 20min Physical Exam Const alert, oriented x3 and no apparent distress General Appearance: cooperative and comfortable HEENT normocephalic, head/scalp atraumatic, hearing grossly normal bilaterally, external ears normal and external nose normal Eyes EOMs intact bilaterally General Eye: normal appearance of both eyes Neck General: normal visual inspection and trachea midline Resp normal respiratory effort Effort and Inspection: able to speak in complete sentences Cardio regular rate and regular rhythm Extremity Extremity Narrative: Bilateral lower extremity edema 1-2+. Skin Skin Narrative: Bilateral lower leg venous stasis chronic skin changes with lipodermatosclerosis and significant hemosiderin deposition Wounds: wounds noted Wound Narrative: On the right medial ankle, there is a small superficial venous ulceration with minimal slough in the wound bed. There is no significant surrounding erythema, focal edema, foul odor. Small amount of serosanguineous drainage appreciated. Patient is tender to palpation of the area around the wound. No crepitus, fluctuance. Neuro oriented x3, CN's II-XII intact bilaterally, moves all extremities, no focal motor deficits and no sensory deficits noted Psych mental status grossly normal Appearance: grossly normal Attitude: calm and engaged Activity / Motor Behavior: appropriate eye contact Speech: normal speech Debridement Note Debridement Note No debridement was completed: No debridement was completed today Post-Debridement Measurements and Additional Note: Post-Debridement Measurements/Treatment WC - Nurse 1 - General Ulcer Assessment Start: 07/02/24 14:06 Freq: Status: Active Protocol: PRASAD Activity Type Activity Date Activity User E-sign Co-sign Detail Recorded Client Recorded Date Recorded By Document 07/02/24 14:19 KW f 07/02/24 14:36 KW Document 07/09/24 13:18 KW xfh 07/09/24 13:21 KW 07/02/24 07/09/24 14:19 13:18 WC - Today's Visit Information Type of service Initial Visit Follow-up Visit (Physician/PATENT SOLICITOR ) Arrival Mode Ambulatory Ambulatory Transfer Assistance None Patient Identification Verified (Name & Yes Yes ) Patient Requires Transmission-Based No Precautions Height and Weight Height 6 ft Weight 363 lb Weight in Pounds 363.0 lbs Weight Measurement Method Estimated by Patient Body Mass Index (BMI) 49.2 49.2 BMI Classification Obese Obese BSA - Nidhi 2.74 Vital Signs Temperature (97.8 F-99.1 F) 97.7 F L 96.2 F L Temperature Source Temporal Temporal Pulse Rate (60-100) 90 74 Pulse Location Monitor Monitor Respiratory Rate (12-18) 18 18 Respiratory rate source Observation Oxygen Delivery Method Room Air Blood Pressure (90/60-120/80) 106/66 104/70 Blood Pressure Mean (mm Hg) 79 81 Source Monitor Monitor Position Semi-Fowlers Blood Pressure Location Left Arm History Since Last Visit- (Skip if this is Patient's initial visit) Have you changed medications since your No last visit? Any new allergies or adverse reactions No Had a fall/change in ADL's that may No increase risk of falls Signs or symptoms of abuse and/or No neglect since last visit Have you been in the hospital since your No last visit? Has dressing in place as prescribed Yes Has compression in place as prescribed Yes Has offloadiing in place as prescribed N/A Experienced any changes in pain level or No management Pain Scale: 0-10 Numeric Is Patient Pain Free? Yes Yes RLE -Description Burning -Alleviating Factors/Interventions Medication Lower Extremity Assessment/ Foot Assessment/ Toe Nail Assessment Left -Extremity Color Hemosiderin -Hair Growth on Legs No -Hair Growth on Toes No -Temperature of Extremity Cool -Capillary Refill Less than 3 Seconds -Thick No -Discolored No -Deformed No -Improper Length & Hygeine No Right -Extremity Color Hemosiderin -Hair Growth on Legs No -Hair Growth on Toes No -Temperature of Extremity Cool -Capillary Refill Less than 3 Seconds -Thick No -Discolored No -Deformed No -Improper Length & Hygeine No Communication Assessment Preferred language Burmese Able to Read Yes Able to Write Yes Communication Tools None Caregiver Communication Skills Unable To Read Impairment Right Hearing Abillity Normal Left Hearing Abillity Normal Visual Assistive Devices Glasses Teaching Assessment Preferences Verbal,Written, Demonstration Barriers to Learning None Readiness To Learn Excellent Willingness to Engage in Self Management High Activies Readiness to Engage in Self Management High Activities Anxiety Level Calm Cooperation Cooperative Perception Coherent Interest in Health Problem Asks Questions Education Importance Acknowledges Need Does Patient Smoke tobacco or other No substances Smoking Status Former smoker Is Patient Diabetic Yes Functional Assessment Recent Decline in Ability to Perform Denies Any Declines Culture/Zoroastrian/Encoding Clerk Cultural/Zoroastrian Needs that may affect No Treatment Plan Would you allow our hospital pbx installer to No meet you for the purpose of spiritual/ emotional support? Encoding Clerk to contact place of amish No WC - Nurse 1 - General Ulcer Measurement Start: 07/02/24 14:06 Freq: Status: Active Protocol: Activity Type Activity Date Activity User E-sign Co-sign Detail Recorded Client Recorded Date Recorded By Document 07/02/24 14:19 KW dhf 07/02/24 14:36 KW Document 07/09/24 13:18 KW xfh 07/09/24 13:21 KW 07/02/24 07/09/24 14:19 13:18 Wound Center Nurse 1 #3 RT MED ANKLE -Current Size (cm) - Length 2 3 -Current Size (cm) - Width 0.2 1 -Current Size (cm) - Depth 0.1 0.1 -Total Square Cm 0.4 3 -Date of Last Picture (Recall this 07/02/24 field) -Exudate Amt Small Medium -Exudate Type Serosanguineous Serosanguineous -Wound Margin Distinct, Distinct, Outline Outline Attached Attached -Granulation Amt Large (67-100%) Medium (34-66%) -Granulation Quality Red [place] -Necrosis Amt Medium (34-66%) -Necrotic Tissue Type Adherent Slough -Structure Exposed N/A -Texture (Kami-wound Skin Appearance) Assessed Rash -Moisture (Kami-wound Skin Appearance) Assessed Maceration -Color (Kami-wound Skin Appearance) Assessed, Hemosiderin Hemosiderin Staining Staining -Temperature (Kami-wound Skin No Abnormality No Abnormality Appearance) (Pt Warm) (Pt Warm) -Tenderness on Palpation (Kami-wound Yes No Skin Appearance) -Ulcer Cleansing Rinsed/ Soap and Water Irrigated with Saline -Foul Odor after Cleansing No No -Anesthetic Used 5% Lidocaine 5% Lidocaine Gel Gel Right Calf (cm) 50.5 49.5 Right Ankle (cm) 29.3 31 Left Calf (cm) 47.2 Left Ankle (cm) 29.5 - Nurse 2 - General Ulcer CM Notes Start: 07/02/24 14:06 Freq: Status: Active Protocol: Activity Type Activity Date Activity User E-sign Co-sign Detail Recorded Client Recorded Date Recorded By Document 07/02/24 14:44 [facility] [id number] 07/02/24 14:56 [facility] Document 07/09/24 13:44 [facility] 07/09/24 13:50 07/02/24 07/09/24 14:44 13:44 Wound Center Nurse 2 #3 RT MED ANKLE -Time 14:48 13:44 -Correct Patient Yes -Correct Side, Site, Position Yes -Post Debridement (cm) - Length 2 -Post Debridement (cm) - Width 1.4 -Post Debridement (cm) - Depth 0.1 -Total Square (Post) (cm) 2.8 -Area of Debridement (cm) - Length 2 -Area of Debridement (cm) - Width 1.4 -Total Square (Area) (cm) 2.8 -Tunneling No -Undermining/Tunneling No -Circular Undermining No -Wound/Ulcer Outcome Not Healed Not Healed -Ulcer Cleansing Rinsed/ Irrigated with Saline -Foul Odor after Cleansing No -Bioengineered Tissue No -Bleeding Controlled with NA -Wound Comment(s) Wound Measurement 2.6 x 1.1 x 0.1 Pain Scale: 0-10 Numeric Is Patient Pain Free? Yes Yes - Nurse 3 - General Ulcer D/C NN Start: 07/02/24 14:06 Freq: Status: Active Protocol: Activity Type Activity Date Activity User E-sign Co-sign Detail Recorded Client Recorded Date Recorded By Document 07/02/24 15:22 CP 07/02/24 15:23 CP Document 07/09/24 14:04 KW xfh 07/09/24 14:05 KW 07/02/24 07/09/24 15:22 14:04 Wound Care Center Nurse 3 #3 RT MED ANKLE -Ulcer Cleansing Rinsed/ Irrigated with Saline -Primary Dressing Applied Aquacel AG 4x4 Aquacel AG 4x4, Mepilex Border, NonAdherent Contact Layer -Aquacel AG 4x4 1 1 -Mepilex Border 1 1 Right -Tubular Bandage Single Layer Single Layer -Size of Tubigrip Used Size E Size E -Size E ($) 1 1 Left -Tubular Bandage Single Layer Single Layer -Size of Tubigrip Used Size E Size E -Size E ($) 1 1 Treatment Response Procedure Tolerated Well Pain Scale: 0-10 Numeric Is Patient Pain Free? Yes Yes WC - Visit Discharge Discharge Condition Stable Ambulatory Status Ambulatory Clinical Summary of Care Provided Yes Assessment/Plan Assessment/Plan (1) Venous hypertension, chronic, with ulcer and inflammation: CODE(S): I87.339 - Chronic venous hypertension (idiopathic) with ulcer and inflammation of unspecified lower extremity; L97.909 - Non-pressure chronic ulcer of unspecified part of unspecified lower leg with unspecified severity QUALIFIERS: Laterality: right Qualified Code(s): L97.919 - Non-pressure chronic ulcer of unspecified part of right lower leg with unspecified severity (2) Venous stasis ulcer of right ankle limited to breakdown of skin: CODE(S): I83.013 - Varicose veins of right lower extremity with ulcer of ankle; L97.311 - Non-pressure chronic ulcer of right ankle limited to breakdown of skin PLAN: Plan Due to patient's tenderness and minimal slough/devitalized tissue, no debridement was performed today. Wound culture grew Klebsiella and Pseudomonas. Will treat with a course of cipro. Venous reflux study showed R SFJ, GSV, ASV, and director of radio services reflux. Will refer to Dr. Gr for consideration for venous ablation given his recurrent venous ulcerations. For wound care, will continue to apply Aquacel silver and cover with [place] SAP. Will have him try either Adaptic over the wound bed followed by Aquacel OR ensuring he soaks the Aquacel prior to removing it to help prevent skin tearing with dressing changes. Advise changing his dressing daily or more often as needed to keep the area clean and dry. With dressing changes, wash the area gently with antibacterial soap and water and pat to dry before applying new dressings. Will apply high-strength Tubigrip's for compression and advise he use this instead of his zippered compression stockings for now. Will also measure for Circaids and submit to his insurance for this as I feel this would be a better option than the zippered stockings. Advise elevation of his legs at all times of rest. I advised implementing a regular exercise regimen with daily walking as tolerated and/or calf pumps. I advise ensuring tight glycemic control and increased protein in his diet.
[2024-07-23 13:21] VITALS: BP 105/69; PULSE 93; RESP 16; TEMP 36.1; BMI 49.2
--- NOTE | 2024-07-23 13:51 | WC ---
circaid measurements calf 48.6 cm, ankle 29.4 cm, heel to knee crease 47 cm
--- NOTE | 2024-07-23 14:44 | PCM.WC.PN ---
History of Present Illness Date of Service: 07/23/24 Chief Complaint: R medial ankle wound History of Wound: Mr. Trever Zaragoza is a 64-year-old male who presents today for evaluation management of a right lower extremity venous ulceration as referred from [facility] dermatology. He has had longstanding venous stasis dermatitis. He reports that at the beginning of May he developed this right lower extremity ulceration following minor trauma to the area. He was admitted to [facility] [place] from 05/28/2024 to 06/02/2024 for management of right lower extremity cellulitis associated with this wound at which time infectious disease was consulted. Cultures from his right leg wound at that time grew coag negative staph and gram-positive janet and Pseudomonas. ID felt the Pseudomonas was likely contaminant. He was treated with IV vancomycin and cefepime for a few days prior to transitioning to sensitivity directed oral cephalexin at discharge. He did complete these outpatient oral antibiotics. At present a superficial open venous ulceration remains at the right medial ankle. Wound pictures from his hospital stay were reviewed. The ulceration does appear slightly improved in size. At that time, he did have erythema extending proximally which is not present on exam today. He reports that over the last day or so the area around the wound has become a bit more tender. He denies any new drainage, foul-smelling odor, new edema, nausea, vomiting, fever, or chills. He did recently obtain compression stockings. His PCP measured his legs and provided him with the measurements when he went online and ordered zippered compression stockings. He did attempt to use this over the last couple of days but the zipper does seem to lie directly over the wound that seems to irritate it. He is diabetic, he reports improved control recently due to medication adjustments with last A1c ~6.7. Subjective Subjective Trever is doing much better this week. He completed the antibiotics as prescribed. He has been doing well with dressing changes. He reports the wound looks much improved. Objective Data Objective Data Vital Signs: Vital Signs Temp Pulse Resp BP O2 Del Method 96.9 F L 93 16 105/69 Room Air 07/23/24 13:21 07/23/24 13:21 07/23/24 13:21 07/23/24 13:21 07/23/24 13:21 Oxygen Delivery Method Room Air Weight: 363 lb Body Mass Index (BMI) 49.2 Lab / Micro Data Micro: Microbiology 07/02/24 14:45 Wound - Right Foot Gram Stain - Final 07/02/24 14:45 Wound - Right Foot Wound Culture - Final Klebsiella aerogenes Pseudomonas aeruginosa Staphylococcus warneri 07/02/24 14:45 Wound - Right Foot Anaerobic Culture - Final No anaerobic bacteria isolated. Charges/Coding Visit Charges Office Visits / Consults: 42938 OV L3 Est 20min Physical Exam Const alert, oriented x3 and no apparent distress General Appearance: cooperative and comfortable HEENT normocephalic, head/scalp atraumatic, hearing grossly normal bilaterally, external ears normal and external nose normal Eyes EOMs intact bilaterally General Eye: normal appearance of both eyes Neck General: normal visual inspection and trachea midline Resp normal respiratory effort Effort and Inspection: able to speak in complete sentences Cardio regular rate and regular rhythm Extremity Extremity Narrative: Bilateral lower extremity edema 1-2+. Skin Skin Narrative: Bilateral lower leg venous stasis chronic skin changes with lipodermatosclerosis and significant hemosiderin deposition Wounds: wounds noted Wound Narrative: Right medial ankle wound is epithelialized today. Neuro oriented x3, CN's II-XII intact bilaterally, moves all extremities, no focal motor deficits and no sensory deficits noted Psych mental status grossly normal Appearance: grossly normal Attitude: calm and engaged Activity / Motor Behavior: appropriate eye contact Speech: normal speech Debridement Note Debridement Note No debridement was completed: No debridement was completed today Post-Debridement Measurements and Additional Note: Post-Debridement Measurements/Treatment WC - Nurse 1 - General Ulcer Assessment Start: 07/02/24 14:06 Freq: Status: Active Protocol: PRASAD Activity Type Activity Date Activity User E-sign Co-sign Detail Recorded Client Recorded Date Recorded By Document 07/02/24 14:19 KW counts include 234 beds at the [facility] 07/02/24 14:36 KW Document 07/09/24 13:18 KW [facility] 07/09/24 13:21 KW Document 07/23/24 13:21 [facility] [id number] 07/23/24 13:28 [facility] 07/02/24 07/09/24 07/23/24 14:19 13:18 13:21 - Today's Visit Information Type of service Initial Visit Follow-up Visit Follow-up Visit (Physician/PBX REPAIRER (Physician/PBX REPAIRER ) ) Arrival Mode Ambulatory Ambulatory Ambulatory Transfer Assistance None Patient Identification Verified (Name & Yes Yes Yes ) Patient Requires Transmission-Based No No Precautions Height and Weight Height 6 ft Weight 363 lb Weight in Pounds 363.0 lbs Weight Measurement Method Estimated by Patient Body Mass Index (BMI) 49.2 49.2 49.2 BMI Classification Obese Obese Obese BSA - Nidhi 2.74 Vital Signs Temperature (97.8 F-99.1 F) 97.7 F L 96.2 F L 96.9 F L Temperature Source Temporal Temporal Temporal Pulse Rate (60-100) 90 74 93 Pulse Location Monitor Monitor Monitor Respiratory Rate (12-18) 18 18 16 Respiratory rate source Observation Observation Oxygen Delivery Method Room Air Room Air Blood Pressure (90/60-120/80) 106/66 104/70 105/69 Blood Pressure Mean (mm Hg) 79 81 81 Source Monitor Monitor Monitor Position Semi-Fowlers Semi-Fowlers Blood Pressure Location Left Arm Left Arm History Since Last Visit- (Skip if this is Patient's initial visit) Have you changed medications since your No No last visit? Any new allergies or adverse reactions No No Had a fall/change in ADL's that may No No increase risk of falls Signs or symptoms of abuse and/or No No neglect since last visit Have you been in the hospital since your No last visit? Has dressing in place as prescribed Yes Yes Has compression in place as prescribed Yes Yes Has offloadiing in place as prescribed N/A N/A Experienced any changes in pain level or No No management Left Footwear Regular Shoe Right Footwear Regular Shoe Pain Scale: 0-10 Numeric Is Patient Pain Free? Yes Yes Yes RLE -Description Burning -Alleviating Factors/Interventions Medication Lower Extremity Assessment/ Foot Assessment/ Toe Nail Assessment Left -Extremity Color Hemosiderin -Hair Growth on Legs No -Hair Growth on Toes No -Temperature of Extremity Cool -Capillary Refill Less than 3 Seconds -Thick No -Discolored No -Deformed No -Improper Length & Hygeine No Right -Extremity Color Hemosiderin -Hair Growth on Legs No -Hair Growth on Toes No -Temperature of Extremity Cool -Capillary Refill Less than 3 Seconds -Thick No -Discolored No -Deformed No -Improper Length & Hygeine No Communication Assessment Preferred language Palestinian Able to Read Yes Able to Write Yes Communication Tools None Caregiver Communication Skills Unable To Read Impairment Right Hearing Abillity Normal Left Hearing Abillity Normal Visual Assistive Devices Glasses Teaching Assessment Preferences Verbal,Written, Demonstration Barriers to Learning None Readiness To Learn Excellent Willingness to Engage in Self Management High Activies Readiness to Engage in Self Management High Activities Anxiety Level Calm Cooperation Cooperative Perception Coherent Interest in Health Problem Asks Questions Education Importance Acknowledges Need Does Patient Smoke tobacco or other No substances Smoking Status Former smoker Is Patient Diabetic Yes Functional Assessment Recent Decline in Ability to Perform Denies Any Declines Culture/Mandaen/Lpn Or Medical Assistant Cultural/Mandaen Needs that may affect No Treatment Plan Would you allow our hospital cell stripper to No meet you for the purpose of spiritual/ emotional support? Lpn Or Medical Assistant to contact place of rastafari No WC - Nurse 1 - General Ulcer Measurement Start: 07/02/24 14:06 Freq: Status: Active Protocol: Activity Type Activity Date Activity User E-sign Co-sign Detail Recorded Client Recorded Date Recorded By Document 07/02/24 14:19 KW dhf 07/02/24 14:36 KW Document 07/09/24 13:18 KW xfh 07/09/24 13:21 KW Document 07/23/24 13:21 BMF [id number] 07/23/24 13:28 BMF Edit Result 07/23/24 13:21 BMF (1) [id number] 07/23/24 13:51 BMF (1) Right Calf (cm) 48.4 => 48.6 07/02/24 07/09/24 07/23/24 14:19 13:18 13:21 Wound Center Nurse 1 #3 RT MED ANKLE -Combined with other wound No -Current Size (cm) - Length 2 3 0.1 -Current Size (cm) - Width 0.2 1 0.1 -Current Size (cm) - Depth 0.1 0.1 0.1 -Total Square Cm 0.4 3 0.01 -Date of Last Picture (Recall this 07/02/24 07/23/24 field) -Photo Taken Yes -Epithelialization Large 67-100% -Tunneling No -Undermining/Tunneling No -Exudate Amt Small Medium None Present -Exudate Type Serosanguineous Serosanguineous -Wound Margin Distinct, Distinct, Outline Outline Attached Attached -Granulation Amt Large (67-100%) Medium (34-66%) -Granulation Quality Red [place] -Necrosis Amt Medium (34-66%) -Necrotic Tissue Type Adherent Slough -Structure Exposed N/A -Texture (Kami-wound Skin Appearance) Assessed Rash Assessed, Scarring -Moisture (Kami-wound Skin Appearance) Assessed Maceration Assessed -Color (Kami-wound Skin Appearance) Assessed, Hemosiderin Assessed Hemosiderin Staining Staining -Temperature (Kami-wound Skin No Abnormality No Abnormality No Abnormality Appearance) (Pt Warm) (Pt Warm) (Pt Warm) -Tenderness on Palpation (Kami-wound Yes No No Skin Appearance) -Ulcer Cleansing Rinsed/ Soap and Water Rinsed/ Irrigated with Irrigated with Saline Saline -Foul Odor after Cleansing No No -Anesthetic Used 5% Lidocaine 5% Lidocaine 5% Lidocaine Gel Gel Gel Lower Limb Edema Present Yes Right Calf (cm) 50.5 49.5 48.6 Right Ankle (cm) 29.3 31 29.4 Left Calf (cm) 47.2 Left Ankle (cm) 29.5 WC - Nurse 2 - General Ulcer CM Notes Start: 07/02/24 14:06 Freq: Status: Active Protocol: Activity Type Activity Date Activity User E-sign Co-sign Detail Recorded Client Recorded Date Recorded By Document 07/02/24 14:44 BMF [id number] 07/02/24 14:56 BMF Document 07/09/24 13:44 [facility] 07/09/24 13:50 Document 07/23/24 13:42 [id number] 07/23/24 13:43 07/02/24 07/09/24 07/23/24 14:44 13:44 13:42 Wound Center Nurse 2 #3 RT MED ANKLE -Time 14:48 13:44 13:42 -Correct Patient Yes Yes -Correct Side, Site, Position Yes Yes -Post Debridement (cm) - Length 2 -Post Debridement (cm) - Width 1.4 -Post Debridement (cm) - Depth 0.1 -Total Square (Post) (cm) 2.8 -Area of Debridement (cm) - Length 2 -Area of Debridement (cm) - Width 1.4 -Total Square (Area) (cm) 2.8 -Tunneling No -Undermining/Tunneling No -Circular Undermining No -Wound/Ulcer Outcome Not Healed Not Healed Healed- Epithelialized -Ulcer Cleansing Rinsed/ Irrigated with Saline -Foul Odor after Cleansing No -Bioengineered Tissue No -Bleeding Controlled with NA -Wound Comment(s) Wound Measurement 2.6 x 1.1 x 0.1 Pain Scale: 0-10 Numeric Is Patient Pain Free? Yes Yes Yes WC - Nurse 3 - General Ulcer D/C NN Start: 07/02/24 14:06 Freq: Status: Active Protocol: Activity Type Activity Date Activity User E-sign Co-sign Detail Recorded Client Recorded Date Recorded By Document 07/02/24 15:22 CP 07/02/24 15:23 CP Document 07/09/24 14:04 KW xfh 07/09/24 14:05 KW 07/02/24 07/09/24 15:22 14:04 Wound Care Center Nurse 3 #3 RT MED ANKLE -Ulcer Cleansing Rinsed/ Irrigated with Saline -Primary Dressing Applied Aquacel AG 4x4 Aquacel AG 4x4, Mepilex Border, NonAdherent Contact Layer -Aquacel AG 4x4 1 1 -Mepilex Border 1 1 Right -Tubular Bandage Single Layer Single Layer -Size of Tubigrip Used Size E Size E -Size E ($) 1 1 Left -Tubular Bandage Single Layer Single Layer -Size of Tubigrip Used Size E Size E -Size E ($) 1 1 Treatment Response Procedure Tolerated Well Pain Scale: 0-10 Numeric Is Patient Pain Free? Yes Yes WC - Visit Discharge Discharge Condition Stable Ambulatory Status Ambulatory Clinical Summary of Care Provided Yes Assessment/Plan Assessment/Plan (1) Venous hypertension, chronic, with ulcer and inflammation: CODE(S): I87.339 - Chronic venous hypertension (idiopathic) with ulcer and inflammation of unspecified lower extremity; L97.909 - Non-pressure chronic ulcer of unspecified part of unspecified lower leg with unspecified severity QUALIFIERS: Laterality: right Qualified Code(s): L97.919 - Non-pressure chronic ulcer of unspecified part of right lower leg with unspecified severity (2) Venous stasis ulcer of right ankle limited to breakdown of skin: CODE(S): I83.013 - Varicose veins of right lower extremity with ulcer of ankle; L97.311 - Non-pressure chronic ulcer of right ankle limited to breakdown of skin PLAN: Plan He wound is healed today. He is instructed to continue to pad and protect the area for an additional 7-10 days as the newly healed skin is delicate. Venous reflux study showed R SFJ, GSV, ASV, and silk screen printing racker reflux. He has an appointment with Dr. Gr to discuss potential ablation in the next few weeks. I feel he would get greater benefit from Circaids over his zippered compression stockings. He was measured for circaids and order placed today. I advised that the company will reach out to him to discuss cost to him after insurance and coordinate delivery. For now, he will continue to use high-strength Tubigrips. Continue elevation of his legs at all times of rest. I advised implementing a regular exercise regimen with daily walking as tolerated and/or calf pumps. I advise ensuring tight glycemic control and increased protein in his diet. He will return in 3 weeks for a wound check and he is also instructed to bring the Circaids with him to this appointment so we can show him how to use them, assuming he receives them in time.
--- NOTE | 2024-07-27 08:48 | WC ---
PHOTO 07/23/24 RIGHT MEDIAL ANKLE
== END 2024-08-01 23:59 | disposition home or self-care (01) ==
LOC: WC 13:30
PROVIDERS: PCP Family Medicine; Referring Provider Dermatology Pediatric Dermatology; Visit Provider Physician Assistant
DX: I83.013 Varicose veins of right lower extremity with ulcer of ankle (principal); L97.311 Non-pressure chronic ulcer of right ankle limited to breakdown of skin; E11.59 Type 2 diabetes mellitus with other circulatory complications; I87.2 Venous insufficiency (chronic) (peripheral); Z87.891 Personal history of nicotine dependence
CPT/HCPCS: 87070; 87075; 87077; 87186; 87205; 93970; 99213; G0463

== ENCOUNTER 2024-08-31 15:30 | Outpatient (RCR) | payer MEDICARE, SELFPAY ==
[2024-08-02 00:38] VITALS: BP 105/69; PULSE 93; RESP 16; TEMP 36.1; BMI 49.2
[2024-08-20 14:24] VITALS: BP 111/70; PULSE 85; RESP 18; TEMP 36.2; BMI 49.2
--- NOTE | 2024-08-20 17:09 | PCM.WC.PN ---
History of Present Illness Date of Service: 08/20/24 Chief Complaint: R medial ankle wound History of Wound: Mr. Trever Zaragoza is a 64-year-old male who presents today for evaluation management of a right lower extremity venous ulceration as referred from [facility] dermatology. He has had longstanding venous stasis dermatitis. He reports that at the beginning of May he developed this right lower extremity ulceration following minor trauma to the area. He was admitted to [facility] from 05/28/2024 to 06/02/2024 for management of right lower extremity cellulitis associated with this wound at which time infectious disease was consulted. Cultures from his right leg wound at that time grew coag negative staph and gram-positive janet and Pseudomonas. ID felt the Pseudomonas was likely contaminant. He was treated with IV vancomycin and cefepime for a few days prior to transitioning to sensitivity directed oral cephalexin at discharge. He did complete these outpatient oral antibiotics. At present a superficial open venous ulceration remains at the right medial ankle. Wound pictures from his hospital stay were reviewed. The ulceration does appear slightly improved in size. At that time, he did have erythema extending proximally which is not present on exam today. He reports that over the last day or so the area around the wound has become a bit more tender. He denies any new drainage, foul-smelling odor, new edema, nausea, vomiting, fever, or chills. He did recently obtain compression stockings. His PCP measured his legs and provided him with the measurements when he went online and ordered zippered compression stockings. He did attempt to use this over the last couple of days but the zipper does seem to lie directly over the wound that seems to irritate it. He is diabetic, he reports improved control recently due to medication adjustments with last A1c ~6.7. Subjective Subjective He has been remains healed. Unfortunately he did not receive the CircAid's as apparently he was 1 cm too large so they were not sending them. Our plan is to have him receive his CircAid's and then we will apply compression wraps to try to further decrease his swelling is that these will fit and then he can maintain these results. He is agreeable to this plan. He did also see Dr. Gr today and plan is for chemical venous ablation. Objective Data Objective Data Vital Signs: Vital Signs Temp Pulse Resp BP O2 Del Method 97.1 F L 85 18 111/70 Room Air 09/19/24 14:24 08/20/24 14:24 08/20/24 14:24 08/20/24 14:24 08/20/24 14:24 Oxygen Delivery Method Room Air Weight: 363 lb Body Mass Index (BMI) 49.2 Charges/Coding Visit Charges Office Visits / Consults: 36706 OV L3 Est 20min Physical Exam Const alert, oriented x3 and no apparent distress General Appearance: cooperative and comfortable HEENT normocephalic, head/scalp atraumatic, hearing grossly normal bilaterally, external ears normal and external nose normal Eyes EOMs intact bilaterally General Eye: normal appearance of both eyes Neck General: normal visual inspection and trachea midline Resp normal respiratory effort Effort and Inspection: able to speak in complete sentences Cardio regular rate and regular rhythm Extremity Extremity Narrative: Bilateral lower extremity edema 1-2+. Skin Skin Narrative: Bilateral lower leg venous stasis chronic skin changes with lipodermatosclerosis and significant hemosiderin deposition Wounds: wounds noted Wound Narrative: Right medial ankle wound remains healed. Neuro oriented x3, CN's II-XII intact bilaterally, moves all extremities, no focal motor deficits and no sensory deficits noted Psych mental status grossly normal Appearance: grossly normal Attitude: calm and engaged Activity / Motor Behavior: appropriate eye contact Speech: normal speech Debridement Note Debridement Note No debridement was completed: No debridement was completed today Post-Debridement Measurements and Additional Note: Post-Debridement Measurements/Treatment [facility] Nurse 1 - General Ulcer Assessment Start: 08/20/24 14:24 Freq: Status: Active Protocol: .LOWFABIANO Activity Type Activity Date Activity User E-sign Co-sign Detail Recorded Client Recorded Date Recorded By Document 08/20/24 14:24 [id number] 08/20/24 14:37 08/20/24 14:24 - Today's Visit Information Type of service Follow-up Visit (Physician/HOUSING GRANT ANALYST ) Arrival Mode Ambulatory Patient Identification Verified (Name & Yes ) Height and Weight Body Mass Index (BMI) 49.2 BMI Classification Obese Vital Signs Temperature (97.8 F-99.1 F) 97.1 F L Temperature Source Temporal Pulse Rate (60-100) 85 Pulse Location Monitor Respiratory Rate (12-18) 18 Respiratory rate source Observation Oxygen Delivery Method Room Air Blood Pressure (90/60-120/80) 111/70 Blood Pressure Mean (mm Hg) 83 Source Monitor Position Sitting Blood Pressure Location Left Arm History Since Last Visit- (Skip if this is Patient's initial visit) Have you changed medications since your No last visit? Any new allergies or adverse reactions No Had a fall/change in ADL's that may No increase risk of falls Signs or symptoms of abuse and/or No neglect since last visit Have you been in the hospital since your No last visit? Has dressing in place as prescribed Yes Has compression in place as prescribed Yes Has offloadiing in place as prescribed N/A Experienced any changes in pain level or No management Left Footwear Regular Shoe Right Footwear Regular Shoe Pain Scale: 0-10 Numeric Is Patient Pain Free? Yes WC - Nurse 1 - General Ulcer Measurement Start: 08/20/24 14:24 Freq: Status: Active Protocol: Activity Type Activity Date Activity User E-sign Co-sign Detail Recorded Client Recorded Date Recorded By Document 08/20/24 14:24 KW [id number] 08/20/24 14:37 08/20/24 14:24 Wound Center Nurse 1 #3 RT MED ANKLE -Current Size (cm) - Length 0 -Current Size (cm) - Width 0 -Current Size (cm) - Depth 0 -Total Square Cm 0 -Date of Last Picture (Recall this 08/20/24 field) Right Calf (cm) 48 Right Ankle (cm) 29 Left Calf (cm) 47.5 Left Ankle (cm) 29.5 - Nurse 2 - General Ulcer CM Notes Start: 08/20/24 14:24 Freq: Status: Active Protocol: Activity Type Activity Date Activity User E-sign Co-sign Detail Recorded Client Recorded Date Recorded By Document 08/20/24 14:51 [id number] 08/20/24 14:52 08/20/24 14:51 Pain Scale: 0-10 Numeric Is Patient Pain Free? Yes - Nurse 3 - General Ulcer D/C NN Start: 08/20/24 14:24 Freq: Status: Active Protocol: Activity Type Activity Date Activity User E-sign Co-sign Detail Recorded Client Recorded Date Recorded By Document 08/20/24 14:59 DL [id number] 08/20/24 15:00 DL 08/20/24 14:59 Wound Care Center Nurse 3 CLINT -Multi-Layered Wrap Application Multi-Layer Comp - Bilat ($ ) Pain Scale: 0-10 Numeric Is Patient Pain Free? Yes WC - Visit Discharge Discharge Condition Stable Ambulatory Status Ambulatory Transportation Private Auto Notes: Dressing applied per Araceli Soares today. Assessment/Plan Assessment/Plan (1) Chronic venous insufficiency: CODE(S): I87.2 - Venous insufficiency (chronic) (peripheral) (2) Leg edema: CODE(S): R60.0 - Localized edema PLAN: Plan Will apply 3M wraps for compression. We discussed the importance of keeping these clean and dry at all times. He will return custodial through the week to have the wraps changed. We discussed that it is okay for him to remove the wraps at home shower and then present for rewrapping if he prefers. He is also advised to elevate his legs at all times of rest and participate in regular walking regimen to further optimize conservative management of his swelling. When he receives CircAid's, he is advised to bring them in for his appointment. He will return on Saturday or Saturday for wrap change and 1 week on to see me.
--- NOTE | 2024-08-21 08:47 | WC ---
PHOTO 08/20/24 RIGHT [facility] ANKLE
[2024-08-25 13:16] VITALS: BP 116/78; PULSE 81; RESP 18; TEMP 35.5; BMI 49.2
[2024-08-27 14:03] VITALS: BP 125/84; PULSE 89; RESP 20; TEMP 36.3; BMI 49.2
--- NOTE | 2024-08-27 16:16 | PN.PCM_ITS ---
History of Present Illness Date of Service: 08/27/24 Chief Complaint: R medial ankle wound History of Wound: Mr. Trever Zaragoza is a 64-year-old male who presents today for evaluation management of a right lower extremity venous ulceration as referred from [facility] dermatology. He has had longstanding venous stasis dermatitis. He reports that at the beginning of May he developed this right lower extremity ulceration following minor trauma to the area. He was admitted to [facility] from 05/28/2024 to 06/02/2024 for management of right lower extremity cellulitis associated with this wound at which time infectious disease was consulted. Cultures from his right leg wound at that time grew coag negative staph and gram-positive janet and Pseudomonas. ID felt the Pseudomonas was likely contaminant. He was treated with IV vancomycin and cefepime for a few days prior to transitioning to sensitivity directed oral cephalexin at discharge. He did complete these outpatient oral antibiotics. At present a superficial open venous ulceration remains at the right medial ankle. Wound pictures from his hospital stay were reviewed. The ulceration does appear slightly improved in size. At that time, he did have erythema extending proximally which is not present on exam today. He reports that over the last day or so the area around the wound has become a bit more tender. He denies any new drainage, foul-smelling odor, new edema, nausea, vomiting, fever, or chills. He did recently obtain compression stockings. His PCP measured his legs and provided him with the measurements when he went online and ordered zippered compression stockings. He did attempt to use this over the last couple of days but the zipper does seem to lie directly over the wound that seems to irritate it. He is diabetic, he reports improved control recently due to medication adjustments with last A1c ~6.7. Subjective Subjective Mr. Zaragoza returns today for management of his lower extremity edema. His prior right lower extremity venous ulceration remains healed. Last week we initiated compression with 3M wraps and he tolerated this well. Objective Data Objective Data Vital Signs: Vital Signs Temp Pulse Resp BP O2 Del Method 97.3 F L 89 20 H 125/84 H Room Air 08/27/24 14:03 08/27/24 14:03 08/27/24 14:03 08/27/24 14:03 08/20/24 14:24 Oxygen Delivery Method Room Air Weight: 363 lb Body Mass Index (BMI) 49.2 Charges/Coding Visit Charges Office Visits / Consults: 70149 OV L3 Est 20min Physical Exam Const alert, oriented x3 and no apparent distress General Appearance: cooperative and comfortable HEENT normocephalic, head/scalp atraumatic, hearing grossly normal bilaterally, exte rnal ears normal and external nose normal Eyes EOMs intact bilaterally General Eye: normal appearance of both eyes Neck General: normal visual inspection and trachea midline Resp normal respiratory effort Effort and Inspection: able to speak in complete sentences Cardio regular rate and regular rhythm Extremity Extremity Narrative: Bilateral lower extremity edema 1-2+. Skin Skin Narrative: Bilateral lower leg venous stasis chronic skin changes with lipodermatosclerosis and significant hemosiderin deposition Wounds: wounds noted Wound Narrative: Right medial ankle wound remains healed. Neuro oriented x3, CN's II-XII intact bilaterally, moves all extremities, no focal motor deficits and no sensory deficits noted Psych mental status grossly normal Appearance: grossly normal Attitude: calm and engaged Activity / Motor Behavior: appropriate eye contact Speech: normal speech Debridement Note Debridement Note Post-Debridement Measurements and Additional Note: Post-Debridement Measurements/Treatment - Nurse 1 - General Ulcer Assessment Start: 08/20/24 14:24 Freq: Status: Active Protocol: .CHASE Activity Type Activity Date Activity User E-sign Co-sign Detail Recorded Client Recorded Date Recorded By Document 08/20/24 14:24 KW [id number] 08/20/24 14:37 KW Document 08/25/24 13:16 KW [id number] 08/25/24 13:19 KW Document 08/27/24 14:03 DL [id number] 08/27/24 14:10 DL 08/20/24 08/25/24 08/27/24 14:24 13:16 14:03 - Today's Visit Information Type of service Follow-up Visit Nurse-only Follow-up Visit (Physician/EXPORT SALES ASSISTANT Visit (Physician/EXPORT SALES ASSISTANT ) ) Arrival Mode Ambulatory Ambulatory Ambulatory Transfer Assistance None None Patient Identification Verified (Name & Yes Yes Yes ) Patient Requires Transmission-Based No No Precautions Height and Weight Body Mass Index (BMI) 49.2 49.2 49.2 BMI Classification Obese Obese Obese Vital Signs Temperature (97.8 F-99.1 F) 97.1 F L 96 F L 97.3 F L Temperature Source Temporal Temporal Temporal Pulse Rate (60-100) 85 81 89 Pulse Location Monitor Monitor Monitor Respiratory Rate (12-18) 18 18 20 H Respiratory rate source Observation Observation Observation Oxygen Delivery Method Room Air Blood Pressure (90/60-120/80) 111/70 116/78 125/84 H Blood Pressure Mean (mm Hg) 83 90 97 Source Monitor Monitor Monitor Position Sitting Sitting Blood Pressure Location Left Arm Right Arm History Since Last Visit- (Skip if this is Patient's initial visit) Have you changed medications since your No No last visit? Any new allergies or adverse reactions No No Had a fall/change in ADL's that may No No increase risk of falls Signs or symptoms of abuse and/or No No neglect since last visit Have you been in the hospital since your No No last visit? Has dressing in place as prescribed Yes Yes Has compression in place as prescribed Yes Yes Has offloadiing in place as prescribed N/A N/A Experienced any changes in pain level or No No management Left Footwear Regular Shoe Right Footwear Regular Shoe Pain Scale: 0-10 Numeric Is Patient Pain Free? Yes Yes Yes - Nurse 1 - General Ulcer Measurement Start: 08/20/24 14:24 Freq: Status: Active Protocol: Activity Type Activity Date Activity User E-sign Co-sign Detail Recorded Client Recorded Date Recorded By Document 08/20/24 14:24 KW [id number] 08/20/24 14:37 KW Document 08/25/24 13:16 KW [id number] 08/25/24 13:19 KW Document 08/27/24 14:03 DL [id number] 08/27/24 14:10 DL 08/20/24 08/25/24 08/27/24 14:24 13:16 14:03 Wound Center Nurse 1 #3 RT MED ANKLE -Current Size (cm) - Length 0 -Current Size (cm) - Width 0 -Current Size (cm) - Depth 0 -Total Square Cm 0 -Date of Last Picture (Recall this 08/20/24 field) Lower Limb Edema Present Yes Right Calf (cm) 48 47.5 46 Right Ankle (cm) 29 31 28.2 Left Calf (cm) 47.5 48 46.3 Left Ankle (cm) 29.5 31 28.4 SANDRA - Nurse 2 - General Ulcer CM Notes Start: 08/20/24 14:24 Freq: Status: Active Protocol: Activity Type Activity Date Activity User E-sign Co-sign Detail Recorded Client Recorded Date Recorded By Document 08/20/24 14:51 GM [id number] 08/20/24 14:52 Document 08/27/24 14:17 GM [id number] 08/27/24 14:18 08/20/24 08/27/24 14:51 14:17 Pain Scale: 0-10 Numeric Is Patient Pain Free? Yes Yes WC - Nurse 3 - General Ulcer D/C NN Start: 08/20/24 14:24 Freq: Status: Active Protocol: Activity Type Activity Date Activity User E-sign Co-sign Detail Recorded Client Recorded Date Recorded By Document 08/20/24 14:59 DL [id number] 08/20/24 15:00 DL Document 08/25/24 13:16 KW [id number] 08/25/24 13:19 KW Document 08/27/24 14:32 GM [id number] 08/27/24 14:40 08/20/24 08/25/24 08/27/24 14:59 13:16 14:32 Wound Care Center Nurse 3 CLINT -Multi-Layered Wrap Application Multi-Layer Multi-Layer Multi-Layer Comp - Bilat ($ Comp - Bilat ($ Comp - Bilat ($ ) ) ) Vital Signs Temperature (97.8 F-99.1 F) 96 F L Temperature Source Temporal Pulse Rate (60-100) 81 Pulse Location Monitor Respiratory Rate (12-18) 18 Respiratory rate source Observation Blood Pressure (90/60-120/80) 116/78 Blood Pressure Mean (mm Hg) 90 Source Monitor Position Sitting Blood Pressure Location Right Arm Pain Scale: 0-10 Numeric Is Patient Pain Free? Yes Yes Yes WC - Visit Discharge Discharge Condition Stable Stable Ambulatory Status Ambulatory Ambulatory Transportation Private Auto Private Auto Medication Reconcilliation completed & No provided to patient/care provider Clinical Summary of Care Provided Yes Notes: Dressing applied per GGordon Jaimess today. Assessment/Plan Assessment/Plan (1) Chronic venous insufficiency: CODE(S): I87.2 - Venous insufficiency (chronic) (peripheral) (2) Leg edema: CODE(S): R60.0 - Localized edema PLAN: Plan He had significant approximately 2 cm reduction in his bilateral leg circumference measurements this week with use of 3M compression wraps. With this reduction, he should fit better into the CircAid's that we ordered. These are still pending delivery. Will apply 3M wraps again this week. We discussed the importance of keeping these clean and dry at all times. He will return custodial through the week to have the wraps changed. We discussed that it is okay for him to remove the wraps at home shower and then present for rewrapping if he prefers. He is also advised to elevate his legs at all times of rest and participate in regular walking regimen to further optimize conservative management of his swelling. When he receives CircAid's, he is advised to bring them in for his appointment. He will return on Saturday or Saturday for wrap change and 1 week on to see me.
[2024-08-31 15:57] VITALS: BP 106/70; PULSE 92; RESP 20; TEMP 36.1; BMI 49.2
== END 2024-08-31 23:59 | disposition home or self-care (01) ==
LOC: WC 15:30
PROVIDERS: PCP Family Medicine; Referring Provider Dermatology Pediatric Dermatology; Visit Provider Physician Assistant
DX: R60.0 Localized edema (principal); E11.9 Type 2 diabetes mellitus without complications; I87.2 Venous insufficiency (chronic) (peripheral)
CPT/HCPCS: 29581; 99213; G0463

== ENCOUNTER 2024-09-02 20:23 | Observation (INO) | payer MEDICARE, SELFPAY ==
[2024-09-02] VITALS (8 sets, daily range): BP systolic 114–161; BP diastolic 74–142; PULSE 72–102; RESP 14–18; TEMP 36.7; O2SAT 88–99; BMI 48.7; BMI 48.8
--- NOTE | 2024-09-02 20:27 | EKG12_ITS ---
Test Reason : CP Blood Pressure : / mmHG Vent. Rate : 093 BPM Atrial Rate : 000 BPM P-R Int : 000 ms QRS Dur : 160 ms QT Int : 414 ms P-R-T Axes : 000 -89 036 degrees QTc Int : 514 ms Atrial fibrillation with premature ventricular or aberrantly conducted complexes Left axis deviation Right bundle branch block Inferior infarct (cited on or before 03-OCT-2012) Abnormal ECG Confirmed by RINA MCRAE, SILVIA ([id number]), non linear editor MARILYN HENRIQUEZ ([id number]) on 09/04/2024 6:26:07 AM Referred By: Confirmed By:SILVIA FLYNN MD
[2024-09-02] MEDS: Nitroglycerin SL (ED/IMG/CATH) 0.4 MG TABLET SL (20:38)
[2024-09-02] MEDS: Ondansetron 4 MG/2 ML Vial IV (20:38)
--- NOTE | 2024-09-02 20:40 | RAD_ITS ---
STUDY: X-RAY CHEST REASON FOR EXAM: Male, 64 years old. chest pain TECHNIQUE: AP portable COMPARISON: May 28, 2020 FINDINGS: Mild interstitial scarring in left upper lobe.. There are also very mildly increased markings in both lower lobes which are new finding since prior exam possibly representing atelectasis or mild inflammatory changes There is no demonstrated pleural abnormality. Normal size heart. Normal mediastinum and elizabeth. Normal visualized pulmonary arteries. Normal visualized aortic arch and descending thoracic aorta. Normal visualized thoracic spine. Normal visualized ribs, clavicles, and shoulders. There is no demonstrated abnormality of the visualized soft tissue structures of the upper abdomen. RAD/Chest 1 View (Portable) IMPRESSION: Chronic interstitial changes in left upper lobe Mild increased markings in the right and left lower lobe since previous study possibly representing atelectasis or mild inflammatory changes. Clinical correlation recommended. Electronically Signed: Vel Arthur MD at 21:28 EDT ,
[2024-09-02 20:41] LABS: Absolute Lymphocyte Count 2.69 X10^3/uL (0.83-4.51); Absolute Neutrophil Count 6.9 X10^3/uL (2.0-7.7); Basophil# 0.06 X10^3/uL; Basophil% 0.6 % (0-1); Eosinophil# 0.12 X10^3/uL; Eosinophils% 1.1 % (0-5); Hematocrit 43.8 % (40-54); Hemoglobin 13.8 g/dL (13.0-16.5); Lymphocyte # 2.69 X10^3/ul (0.83-4.51); Mean Corp Hgb Conc 31.5 g/dL (32-36); Mean Corpuscular Hgb 27.1 pg (27.0-32.0); Mean Corpuscular Volume 85.9 fL (80-94); Mean Platelet Vol. 10.2 fl (6.2-12.0); Monocyte# 0.95 X10^3/uL; Monocyte% 8.8 % (0-10); NRBC Flagged by Analyzer 0 % (0-5); Neutrophil # 6.87 X10^3/uL (2.7-7.7); Platelet Count 230 K/mm3 (150-450); RBC Distribution Width CV 15.2 % (11.6-14.6); RBC Distribution Width SD 47.6 fl (35.1-43.9); White Blood Count 10.7 K/mm3 (4.4-11.0)
[2024-09-02 20:56] LABS: D-Dimer Quantitative (DVT/PE) 0.47 FEU/ug/m (0.27-0.49)
[2024-09-02 21:01] LABS: BNP,B-Type NATRIURETIC PEPTIDE 114.5 pg/mL (0-100)
[2024-09-02 21:04] LABS: Anion Gap 5 (5-15); BUN 19 mg/dL (7-18); BUN/Creat Ratio 14.7 RATIO (10-20); Calcium,Total 9.4 mg/dL (8.5-10.1); Chloride 107 mmol/L (98-107); Creatinine, Serum 1.29 mg/dL (0.70-1.30); EST Glomerular Filtration Rate 59 mL/min (>60); Est Glom Filt Rate - Afr Amer 72 mL/min (>60); Estimated Creatinine Clearance 86.54 ml/min; Glucose 57 mg/dL (74-106); Potassium 3.7 mmol/L (3.5-5.1); Sodium Level 143 mmol/L (136-145); Troponin-I HS (w/2H Reflex) 10 pg/mL (3.0-78.0)
--- NOTE | 2024-09-02 21:15 | ED.VIS.CHEST ---
HPI History of Present Illness Chief Complaint: Chest Pain [facility] Medical History Anxiety Depression Biatrial enlargement BPH (benign prostatic hyperplasia) Essential hypertension Morbid obesity Spondylosis Asthma New onset a-fib [place] on CPAP Arthritis DVT (deep venous thrombosis) High cholesterol GERD (gastroesophageal reflux disease) History of nephrolithotomy with removal of calculi Right rotator cuff tear Right shoulder injury Venous hypertension, chronic, with ulcer and inflammation Varicose veins with ulcer and inflammation Lipodermatosclerosis Chronic ulcer of right leg Diabetes mellitus 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 veins Lopez phlebectatica Post-phlebitic syndrome History of DVT (deep vein thrombosis) Chronic venous insufficiency Leg edema Cervical disc disease Lumbar disc disease with radiculopathy COPD (chronic obstructive pulmonary disease) Asthma Psoriasis Home Medications ?Medication ?Instructions ?Recorded ?Last Taken ?Type montelukast 10 mg tablet 10 mg PO QHS allergy 03/21/15 05/27/24 History tamsulosin 0.4 mg capsule 0.8 mg PO DAILY kidneys 06/26/16 05/27/24 History albuterol sulfate 90 mcg/actuation 1 - 2 puff inhalation Q4H PRN PRN 01/25/17 Unknown History aerosol inhaler Asthma cod liver oil 1 ea PO DAILY supplement 01/25/17 05/27/24 History ergocalciferol (vitamin D2) 1,250 50,000 unit PO MO vitamin 01/25/17 05/25/24 History mcg (50,000 unit) capsule oxycodone 10 mg tablet 10 mg PO TID PRN PRN 08/04/19 05/25/24 History Pain/Inflammation #90 tabs potassium citrate 10 mEq (1,080 10 meq PO DAILY supplement 09/09/23 05/27/24 History mg) tablet,extended release rosuvastatin 10 mg tablet 10 mg PO QHS cholesterol 09/09/23 Unknown History ascorbate calcium (vitamin C) 500 500 mg PO DAILY supplement 01/01/24 05/27/24 History mg tablet budesonide-formoterol HFA 160 2 inh inhalation BID 01/01/24 Unknown History mcg-4.5 mcg/actuation aerosol inhaler (Symbicort) duloxetine 30 mg capsule,delayed 30 mg PO DAILY mood 01/01/24 Unknown History release esomeprazole magnesium 40 mg 40 mg PO DAILY gerd 01/01/24 05/27/24 History capsule,delayed release (Nexium) fexofenadine 180 mg tablet 180 mg PO DAILY allergy 01/01/24 05/27/24 History (Allergy Relief (fexofenadine)) furosemide 40 mg tablet 20 mg PO DAILY water pill 01/01/24 05/27/24 History hydroxyzine HCl 50 mg tablet See Rx Instructions PO Q8H PRN 01/01/24 Unknown History itching insulin aspart 10 unit subcut USEASDIRECTD dm 01/01/24 Unknown History (niacinamide)(U-100) 100 unit/mL(3 mL) subcutaneous pen (Fiasp FlexTouch U-100 Insulin) levocetirizine 5 mg tablet 5 mg PO DAILY allergy 01/01/24 05/27/24 History metformin 500 mg tablet 1,000 mg PO BID dm 01/01/24 05/27/24 History nortriptyline 25 mg capsule 25 mg PO QHS sleep 01/01/24 Unknown History tirzepatide 2.5 mg/0.5 mL 2.5 mg subcut FR dm 05/27/24 Unknown History subcutaneous pen injector (Mounjaro) insulin glargine U-300 conc 300 32 unit subcut DAILY dm 06/26/24 Unknown History unit/mL (1.5 mL) subcutaneous pen (Toujeo SoloStar U-300 Insulin) metoprolol tartrate 25 mg tablet 25 mg PO QDAY #90 tabs 08/05/24 Unknown Rx aspirin 81 mg tablet,delayed 81 mg PO QDAY 08/20/24 Unknown History release Allergy/AdvReac Type Severity Reaction Status Date / Time levocetirizine (From Xyzal) Allergy extreme Verified 09/02/24 20:30 fatigue Penicillins Allergy Shortness Verified 09/02/24 20:30 of breath sulfamethoxazole (From Allergy Rash Verified 09/02/24 20:30 Bactrim) trimethoprim (From Bactrim) Allergy Rash Verified 09/02/24 20:30 Family History Father Cancer bladder Diabetes Mother Hypertension Kidney disease Surgical History S/P knee surgery S/P laparoscopic cholecystectomy Social History household members: spouse Smoking Status: Former smoker alcohol intake: current alcohol intake frequency: a few times a month Alcohol type: beer substance use type: does not use EXAM Physical Exam Const Vital Signs: 09/02/24 20:24 09/02/24 20:27 09/02/24 20:32 Temperature 98.1 F Temperature Source Oral Pulse Rate 100 Respiratory Rate 16 Respiratory Effort Normal Non-Labored Blood Pressure 161/142 H Blood Pressure Mean 148 Pulse Ox 95 95 Oxygen Delivery Method Room Air Room Air 09/02/24 20:38 Temperature Temperature Source Pulse Rate 95 Respiratory Rate Respiratory Effort Blood Pressure 114/77 Blood Pressure Mean Pulse Ox Oxygen Delivery Method MDM MDM MDM Narrative Medical decision making narrative: HISTORY OF PRESENT ILLNESS: 64-year-old male presents with acute onset midsternal chest pain rating to left arm. It is sharp. No exertional. States his stomach feels little funny denies nausea. Notes history of A-fib and is on anticoagulation because he not want to start Eliquis. Endorse history of DVT with denies any other PE risk factors (the patient denies recent surgery in the last 4 weeks or immobilization in the last 3 days, hemoptysis, unilateral leg swelling or malignancy with treatment the last 6 months or palliative. No estrogen use noted). Notes chronic wounds of bilateral lower extremities denies any new lower extremity edema, orthopnea or paroxysmal nocturnal dyspnea. No bleeding diathesis. No cough fever chills. Patient denies sudden onset of pain, no tearing sensation, no migratory symptoms, no new numbness, weakness or loss of sensation. Patient denies family history or personal history of Connective tissue disorders (Marfan's Syndrome, Madhavi Danlos etc) REVIEW OF SYSTEMS: Pertinent positives: Chest pain Pertinent negatives: Shortness of breath, focal weakness, leg swelling PHYSICAL EXAM: Nursing triage notes reviewed, Vital signs reviewed Constitutional: please see mdm HENT: MMM Eyes: Pupils equal round and reactive to light, Extraocular muscles intact Neck: No stridor, no JVD, full neck ROM Lungs: Clear to auscultation, No wheezing or rales. No increased work of breathing, no conversational dyspnea, no accessory muscle use, no nasal flaring. No respiratory distress noted Heart: Regular rate and rhythm, No murmurs, No rubs and No gallops, 2+ distal pulses (radial, femoral, posterior tibial) in all extremities Abdomen: Soft, there is no tenderness, rigidity, rebound or guarding, no obvious peritoneal signs, no palpable pulsatile abdominal masses, no auscultated abdominal bruit : No CVAT Extremities: No edema Neuro: No focal neurological deficits, cranial nerves II through XII intact, 5/5 strength in all extremities. Intact sensation to light touch in all extremities, 2+ reflexes bilateral patella tendons. Normal gait. No ataxia. Skin: No rash or lesions noted MEDICAL DECISION MAKING: Chief Complaint: Chest pain External records reviewed: Reviewed prior admission Factors affecting care: DVT, GERD, A-fib not anticoagulated, hypertension, BPH, varicose veins, chronic venous insufficiency, COPD, asthma Social determinants of health: none History obtained from others: none Consults: Cardiology ( Dr. Spencer), Dr. Alfaro (hospitalist) MDM Narrative: The patient was initially hypertensive with a blood pressure of 161/142, otherwise afebrile and nontoxic-appearing. He is having active chest pain. He had symmetric pulses. No stigmata of VTE or aortic dissection. I considered the following differential diagnosis: ACS, rhythm, anemia, electrolyte disturbance, PE, aortic dissection I obtained a broad lab and imaging workup to further elucidate etiology of the patient's complaint. ALL IMAGES (IF OBTAINED) HAVE BEEN PERSONALLY REVIEWED AND INTERPRETED BY MYSELF. Initial EKG with rate controlled atrial fibrillation rate of 93, left ax deviation, occasional PVCs, right bundle branch block, no STEMI Repeat EKG approximately 4 5 minutes after initial EKG continues to show a rate controlled A-fib at a rate of 91 with left activation, right bundle branch block no STEMI no dynamic ischemic changes High-sensitivity troponin is negative, no evidence of myocardial ischemia I have personally reviewed the patient's chest x-ray. Chest x-ray is unremarkable for pulmonary edema, pneumothorax, pneumonia or focal cardiopulmonary abnormality. There is no wide mediastinum to suggest aortic dissection Magnesium within normal limits BNP slightly elevated but not consistent with significant volume overload or increased ventricular stretch D-dimer negative making VTE and dissection less likely CBC without leukocytosis, severe anemia, no thrombocytopenia. I did consult cardiology during the patient's stay spoke with the otologist who reviewed the patient's EKG and agreed he was not having acute STEMI. Agreed with admission of the patient continued to have chest pain despite having negative high-sensitivity troponin values. Patient's blood pressure reevaluation improved to 124/111, he continued to have chest pain. Continue to have paroxysmal midsternal sharp chest pain with severe chest pain 10/10 that improves within minutes to 3/10 chest pain. I placed the patient on Nitropaste. Discussed with hospitalist who agreed to admit the patient for further evaluation. I considered obtaining a CT of the chest without this was not indicated given negative D-dimer and low risk Wells score. The patient and/or family, caregivers express understanding. The patient and/or family, caregivers agrees with the plan. Shared decision making: I will have a discussion with the patient and or visitors regarding risk/benefits of further testing or admission. They will be made aware of of the risk/benefits inherent in this decision they will be given the opportunity to voice understanding. Total critical care time today provided was at least 0 minutes. This excludes separately billable procedures. Critical care time (if documented) is secondary to the patient having high probability of clinically significant/life threatening deterioration in the patient's condition which required my urgent intervention. Impression: 1. Chest pain 2. History of hyperlipidemia 5. History of type 2 diabetes Dispo: Admit to PCU This note was generated with [employer] dictation software. It may contain incorrect words, spelling, and punctuation that were not noted in review of the chart prior to signing. Lab Data Labs: Laboratory Results - last 24 hr 09/02/24 09/02/24 20:20 20:28 WBC 10.7 RBC 5.10 Hgb 13.8 Hct 43.8 MCV 85.9 MCH 27.1 MCHC 31.5 L RDW Std Deviation 47.6 H RDW Coeff of Eloise 15.2 H Plt Count 230 MPV 10.2 Immature Gran % (Auto) 0.500 Neut % (Auto) 64.0 Lymph % (Auto) 25.0 [place] % (Auto) 8.8 Eos % (Auto) 1.1 Baso % (Auto) 0.6 Absolute Neuts (auto) 6.9 Absolute Lymphs (auto) 2.69 Nucleated RBC % 0 D-Dimer Quant (PE/DVT) 0.47 Sodium 143 Potassium 3.7 Chloride 107 Carbon Dioxide 30.0 Anion Gap 5 BUN 19 H Creatinine 1.29 Estim Creat Clear Calc 86.54 Est GFR (MDRD) Af Amer 72 Est GFR (MDRD) Non-Af 59 L BUN/Creatinine Ratio 14.7 Glucose 57 L Calcium 9.4 Troponin I High Sens 10 B-Natriuretic Peptide 114.5 H Discharge Plan Triage Chief Complaint: Chest Pain ED Provider: Neville Covarrubias Dx/Rx/DC Orders Primary Care Provider: Mat Barrera
--- NOTE | 2024-09-02 21:20 | EKG12_ITS ---
Test Reason : REPEAT Blood Pressure : / mmHG Vent. Rate : 091 BPM Atrial Rate : 000 BPM P-R Int : 000 ms QRS Dur : 156 ms QT Int : 420 ms P-R-T Axes : 000 -81 007 degrees QTc Int : 516 ms Atrial fibrillation Left axis deviation Right bundle branch block Inferior infarct , age undetermined Abnormal ECG Confirmed by RINA MCRAE, SILVIA ([id number]), marketing editor WILLIE BLACKMON ([id number]) on 09/04/2024 11:49:08 AM Referred By: Confirmed By:SILVIA FLYNN MD
--- NOTE | 2024-09-02 21:40 | PCM.HP.STD ---
HPI - General General Date of Admission: 09/02/24 Date of Service: 09/02/24 Chief Complaint: Chest pain HPI Narrative The patient is a 64 y/o M w/ PMHx: PAF, CKD stage I-II staging based on prior GFR trending, GERD, Morbid obesity, SALBADOR, Anxiety and Depression, COPD/Asthma with allergic rhinitis, GERD, Hx VTE, BPH, PVD w/ Chronic BL LE stasis ulcers following with Wound Care center, Diabetes mellitus type II, Former tobacco use who presents to the [facility] ED on 09/02/24 with sudden onset midsternal chest discomfort while he was driving prompting immediate EMS call who reported that the patient was pale, ashen and diaphoretic upon their arrival with discomfort radiating down his left upper extremity and up into the neck prompting immediate transition to the ED for evaluation. He describes the discomfort as sharp/stabbing and does report associated nausea without emesis as well as diaphoresis. He during presentation in the ED was noted to have paroxysms of pain. During hospitalist evaluation patient initially chest pain-free but had paroxysmal episodes during evaluation with pain skyrocketing up to 10 out of 10 and improving over seconds eventually decreasing down to 3 out of 10. Discussed with ED physician and plan nitroglycerin paste to be placed. Workup in the ED included T98.1, heart rate 100, BP 161/142, respiratory rate 16, 95% room air, CBC with WBC 10.7, hemoglobin 13.8, platelet 230 without marked shift, D-dimer 0.47, BMP with BUN/Cr 19/1.29, GFR 59, glucose 57, troponin 10, BNP 114.5, chest x-ray with chronic interstitial changes left upper lobe, mild increased markings of the right and left lower lobe since previous study possibly atelectasis versus mild inflammatory changes, EKG with AF rate controlled with no acute evidence. In the ED patient ministered Zofran 4 mg IV x 1 as well as nitroglycerin sublingual-->eventually started on NG transdermal following ED discussion with Dr. Spencer. [facility] Medical History Anxiety Depression Biatrial enlargement BPH (benign prostatic hyperplasia) Essential hypertension Morbid obesity Spondylosis Asthma New onset a-fib SALBADOR on CPAP Arthritis DVT (deep venous thrombosis) High cholesterol GERD (gastroesophageal reflux disease) History of nephrolithotomy with removal of calculi Right rotator cuff tear Right shoulder injury Venous hypertension, chronic, with ulcer and inflammation Varicose veins with ulcer and inflammation Lipodermatosclerosis Chronic ulcer of right leg Diabetes mellitus 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 veins Lopez phlebectatica Post-phlebitic syndrome History of DVT (deep vein thrombosis) Chronic venous insufficiency Leg edema Cervical disc disease Lumbar disc disease with radiculopathy COPD (chronic obstructive pulmonary disease) Asthma Psoriasis Home Medications ?Medication ?Instructions ?Recorded ?Last Taken ?Type montelukast 10 mg tablet 10 mg PO QHS allergy 03/21/15 05/27/24 History tamsulosin 0.4 mg capsule 0.8 mg PO DAILY kidneys 06/26/16 05/27/24 History albuterol sulfate 90 mcg/actuation 1 - 2 puff inhalation Q4H PRN PRN 01/25/17 Unknown History aerosol inhaler Asthma cod liver oil 1 ea PO DAILY supplement 01/25/17 05/27/24 History ergocalciferol (vitamin D2) 1,250 50,000 unit PO MO vitamin 01/25/17 05/25/24 History mcg (50,000 unit) capsule oxycodone 10 mg tablet 10 mg PO TID PRN PRN 08/04/19 05/25/24 History Pain/Inflammation #90 tabs potassium citrate 10 mEq (1,080 10 meq PO DAILY supplement 09/09/23 05/27/24 History mg) tablet,extended release rosuvastatin 10 mg tablet 10 mg PO QHS cholesterol 09/09/23 Unknown History ascorbate calcium (vitamin C) 500 500 mg PO DAILY supplement 01/01/24 05/27/24 History mg tablet budesonide-formoterol HFA 160 2 inh inhalation BID 01/01/24 Unknown History mcg-4.5 mcg/actuation aerosol inhaler (Symbicort) duloxetine 30 mg capsule,delayed 30 mg PO DAILY mood 01/01/24 Unknown History release esomeprazole magnesium 40 mg 40 mg PO DAILY gerd 01/01/24 05/27/24 History capsule,delayed release (Nexium) fexofenadine 180 mg tablet 180 mg PO DAILY allergy 01/01/24 05/27/24 History (Allergy Relief (fexofenadine)) furosemide 40 mg tablet 20 mg PO DAILY water pill 01/01/24 05/27/24 History hydroxyzine HCl 50 mg tablet See Rx Instructions PO Q8H PRN 01/01/24 Unknown History itching insulin aspart 10 unit subcut USEASDIRECTD dm 01/01/24 Unknown History (niacinamide)(U-100) 100 unit/mL(3 mL) subcutaneous pen (Fiasp FlexTouch U-100 Insulin) levocetirizine 5 mg tablet 5 mg PO DAILY allergy 01/01/24 05/27/24 History metformin 500 mg tablet 1,000 mg PO BID dm 01/01/24 05/27/24 History nortriptyline 25 mg capsule 25 mg PO QHS sleep 01/01/24 Unknown History tirzepatide 2.5 mg/0.5 mL 2.5 mg subcut FR dm 05/27/24 Unknown History subcutaneous pen injector (Mounjaro) insulin glargine U-300 conc 300 32 unit subcut DAILY dm 06/26/24 Unknown History unit/mL (1.5 mL) subcutaneous pen (Toujeo SoloStar U-300 Insulin) metoprolol tartrate 25 mg tablet 25 mg PO QDAY #90 tabs 08/05/24 Unknown Rx aspirin 81 mg tablet,delayed 81 mg PO QDAY 08/20/24 Unknown History release Allergy/AdvReac Type Severity Reaction Status Date / Time levocetirizine (From Xyzal) Allergy extreme Verified 09/02/24 20:30 fatigue Penicillins Allergy Shortness Verified 09/02/24 20:30 of breath sulfamethoxazole (From Allergy Rash Verified 09/02/24 20:30 Bactrim) trimethoprim (From Bactrim) Allergy Rash Verified 09/02/24 20:30 Family History Father Cancer bladder Diabetes Mother Hypertension Kidney disease Surgical History S/P knee surgery S/P laparoscopic cholecystectomy Social History household members: spouse Smoking Status: Former smoker alcohol intake: current alcohol intake frequency: a few times a month Alcohol type: beer substance use type: does not use ROS ROS Narrative Admission Review of Systems: CONSTITUTIONAL: No weight loss, fever, chills, + weakness or fatigue. HEENT: Eyes: No visual loss, blurred vision, double vision or yellow sclerae. Ears, Nose, Throat: No hearing loss, sneezing, congestion, runny nose or sore throat. SKIN: No rash or itching, lesions, wounds. CARDIOVASCULAR: + Chest pain, chronic lower extremity swelling. No palpitations, orthopnea, syncopal events. RESPIRATORY: No shortness of breath, cough or sputum, wheezing, hemoptysis. GASTROINTESTINAL: + anorexia, nausea. No vomiting or diarrhea, abdominal pain, melena, BRBPR. GENITOURINARY: No dysuria, frequency, urgency or retention. NEUROLOGICAL: No headache, dizziness, syncope, paralysis, ataxia, numbness or tingling in the extremities, focal weakness, change in bowel or bladder control, seizure. MUSCULOSKELETAL: + muscle, back pain, joint pain or stiffness. HEMATOLOGIC: + History of anemia. No current history of bleeding or bruising. LYMPHATICS: No enlarged nodes. No history of splenectomy. PSYCHIATRIC: + History of anxiety and depression. ENDOCRINOLOGIC: + History of diaphoresis. No current cold or heat intolerance. No polyuria or polydipsia. ALLERGIES: + History of asthma, allergic rhinitis. Vital Signs Vital Signs Vital Signs: 09/02/24 20:24 09/02/24 20:27 09/02/24 20:32 Temperature 98.1 F Temperature Source Oral Pulse Rate 100 Respiratory Rate 16 Respiratory Effort Normal Non-Labored Blood Pressure 161/142 H Blood Pressure Mean 148 Pulse Ox 95 95 Oxygen Delivery Method Room Air Room Air 09/02/24 20:38 09/02/24 21:24 Temperature Temperature Source Pulse Rate 95 102 H Respiratory Rate 18 Respiratory Effort Blood Pressure 114/77 122/77 H Blood Pressure Mean 92 Pulse Ox 88 Oxygen Delivery Method Room Air Weight Weight: 349 lb 10.45 oz Body Mass Index (BMI) 48.7 Physical Exam Narrative Physical Examination: General: Awake, alert, oriented x 3 and cooperative, seated upright in the ED bed, initially no chest pain but while evaluating did have paroxysms of chest discomfort again midsternal, sharp lasting seconds in the severe stage then slowly improving. Skin: Flushed color, normal turgor, no icterus, no cyanosis, wound care center compressions on with known chronic venous stasis skin changes. HEENT: AT/NC, EOMI, PERRLA, MMM, no carotid bruits or JVD noted; however thickened neck makes evaluation difficult. Lungs: Diminished, greater bases, appropriate effort, no rales, ronchi or wheezing. Heart: Irregular, rate controlled; no gallop, rub audible. Abdomen: Soft, morbidly obese, NTTP, hyperactive BS, difficult to discern distention and HSM given habitus. Extremities: No cyanosis, no clubbing, chronic peripheral edema, wound care center compressions on Neurological: Patient awake, alert, oriented as noted, cognitive function intact; pupils equally reactive to light and accommodation, cranial nerves gross normal, moving all 4 extremities, no focal deficits, strength moderately to severely globally decreased secondary to acute complaints Psychiatric: Affect appears fatigued, was intermittently uncomfortable during evaluation with paroxysmal discomfort, no acute evidence of depressive or anxiety feelings. Results Lab / Micro Data 09/02/24 20:28 09/02/24 20:28 Labs: Laboratory Results - last 24 hr 09/02/24 20:20: D-Dimer Quant (PE/DVT) 0.47 09/02/24 20:28: WBC 10.7, RBC 5.10, Hgb 13.8, Hct 43.8, MCV 85.9, MCH 27.1, MCHC 31.5 L, RDW Std Deviation 47.6 H, RDW Coeff of Eloise 15.2 H, Plt Count 230, MPV 10.2, Immature Gran % (Auto) 0.500, Neut % (Auto) 64.0, Lymph % (Auto) 25.0, Bracken % (Auto) 8.8, Eos % (Auto) 1.1, Baso % (Auto) 0.6, Absolute Neuts (auto) 6.9, Absolute Lymphs (auto) 2.69, Nucleated RBC % 0, Sodium 143, Potassium 3.7, Chloride 107, Carbon Dioxide 30.0, Anion Gap 5, BUN 19 H, Creatinine 1.29, Estim Creat Clear Calc 86.54, Est GFR (MDRD) Af Amer 72, Est GFR (MDRD) Non-Af 59 L, BUN/Creatinine Ratio 14.7, Glucose 57 L, Calcium 9.4, Troponin I High Sens 10, B-Natriuretic Peptide 114.5 H Imaging Radiology Impression Chest X-Ray 09/02/24 20:40 IMPRESSION: Chronic interstitial changes in left upper lobe Mild increased markings in the right and left lower lobe since previous study possibly representing atelectasis or mild inflammatory changes. Clinical correlation recommended. Electronically Signed: Vel Arthur MD at 21:28 EDT , Assessment & Plan Assessment/Plan (1) Chest pain: PLAN: Plan The patient is a 64 y/o M w/ PMHx: PAF, CKD stage I-II staging based on prior GFR trending, GERD, Morbid obesity, SALBADOR, Anxiety and Depression, COPD/Asthma with allergic rhinitis, GERD, Hx VTE, BPH, PVD w/ Chronic BL LE stasis ulcers following with Wound Care center, Diabetes mellitus type II, Former tobacco use who presents to the [facility] ED on 09/02/24 with sudden onset midsternal chest discomfort while he was driving prompting immediate EMS call who reported that the patient was pale, ashen and diaphoretic upon their arrival with discomfort radiating down his left upper extremity and up into the neck prompting immediate transition to the ED for evaluation. He describes the discomfort as sharp/stabbing and does report associated nausea without emesis as well as diaphoresis. He during presentation in the ED was noted to have paroxysms of pain. #1. Chest Pain, concern for ACS: EKG with AF rate controlled with no acute evidence., CXR w/ chronic findings and possibly atelectasis, initial trop normal with noted 10. Will admit to PCU, NG paste being started in the ED upon admission, will place on a monitored bed to assure no acute myocardial infarction with serial cardiac enzymes and EKGs. Given significant underlying medical history and presentation history notably concerning with no previous documented CAD history, will continue to maintain on telemetry monitoring, will continue to cycle cardiac enzymes, magnesium level requested, FLP in AM, continue medical therapy with aspirin, statin, metoprolol, not on FAUSTO number/ARB, n.p.o. status at midnight, judicious hydration with cardiology consultation requested given concerns and preference to consider cardiac catheterization but will defer to decision of cardiology in case preference for initial stress testing. ASA. #2. Elevated Cr/Renal Insufficiency with reduced GFR 59 on Chronic Kidney Disease Stage I-II based on GFR trending: Admission BUN/Cr 19/1.29, baseline renal function 0.8-0.9, repeat BMP in AM. #3. Chronic COPD/asthma with allergic rhinitis: Will maintain on ATC budesonide therapy, PRN albuterol, HOB, IS parameters, continue home montelukast, fexofenadine home regimen. #4. Anxiety and depression: We will continue patient home duloxetine and nortriptyline home regimen. #5. Diabetes mellitus type II with Hypoglycemia: Hold oral home regimen, given hypoglycemia noted upon ED presentation will hold home insulin temporarily, ADA until NPO transition, accu checks w/ only low dose ISS in case BS rise notably. Last hemoglobin A1c noted 05/28/24 hemoglobin A1c 6.9% and given low BS will request repeat. Add back insulin once appropriate with altered dosing if needed. #6. PVD with history of bilateral lower extremity stasis ulcer history: Will place neck Fausto wraps, elevation, encourage continued outpatient follow-up with wound center as previously arranged. Last visit noted 08/27/24 with healing most recent right lower extremity wound, improvement of leg circumference with usage of 3M compression wraps while awaiting CircAid compression ordered per wound care center and given presentation will remove as he notes supposed to come off 09/03/24 and transition to his other compression devices. Continue elevation bilateral lower extremity. #7. Hypertension: Continue home regimen including metoprolol, Lasix, PRN hydralazine. #8. Hyperlipidemia: Continue home statin regimen. AM FLP. #9. History of VTE: Patient with history of DVT with postphlebitic syndrome, not currently chronically anticoagulated. #10. Former tobacco use: Encourage continued tobacco cessation. #11. Morbid Obesity: Weight loss and lifestyle changes encouraged. #12. PAF: Noted previous history, will continue metoprolol regimen, not currently chronically anticoagulated secondary to patient preference to not start eliquis which had been recommended. #13. BPH: We will continue patient on Flomax regimen. #14. SALBADOR: Will maintain on CPAP nightly. #15. GERD: We will continue patient on PPI. #16. DVT prophylaxis: Lovenox. #17. CODE status: Patient HCPOA and LW are not in place but patient son and daughter who are present he notes would be his medical decision makers if necessary. Discussed CODE status at length including difference between FULL code, DNR-CCA and DNR-CC status. Following discussions about the differences in these status, requested Full Code statu. Advanced Care Planning Face to Face Time: 16 minutes. Charges/Coding Visit Charges Inpatient E&M: 67006 Init Hosp L2 Procedures Hospitalists Procedures: 00651 Advncd Care Plan 30 Min
--- NOTE | 2024-09-02 21:53 | EKG12_ITS ---
Test Reason : PREOP Blood Pressure : / mmHG Vent. Rate : 068 BPM Atrial Rate : 000 BPM P-R Int : 000 ms QRS Dur : 164 ms QT Int : 462 ms P-R-T Axes : 000 -46 -01 degrees QTc Int : 491 ms Atrial fibrillation Right bundle branch block Left anterior fascicular block Bifascicular block Abnormal ECG When compared with ECG of 02-SEP-2024 23:56, MANUAL COMPARISON REQUIRED, DATA IS UNCONFIRMED Confirmed by RINA MCRAE, SILVIA ([id number]), society editor WILLIE BLACKMON ([id number]) on 09/04/2024 11:51:31 AM Referred By: Confirmed By:SILVIA FLYNN MD
[2024-09-02 22:09] LABS: Magnesium 1.9 mg/dL (1.6-2.6)
[2024-09-02] MEDS: Nitroglycerin Oint 1 INCH PACKET TD (22:32)
[2024-09-02 22:38] LABS: Reflex Troponin-HS? (from REC) Y
[2024-09-02 23:35] LABS: Bedside Glucose 74 mg/dL (74-106)
[2024-09-02] MEDS: 0.9% Normal Saline (1000mL) 1,000 ML 100 ML IV (23:45)
[2024-09-02] MEDS: Enoxaparin 40 MG/0.4 ML Syringe SC (23:46)
[2024-09-02] MEDS: Montelukast 10 MG Tablet PO (23:46)
[2024-09-02] MEDS: Atorvastatin Calcium 20 MG Tablet PO (23:46)
[2024-09-02] MEDS: Nortriptyline 25 MG Capsule PO (23:46)
[2024-09-02 23:56] LABS: Troponin-I HS 14 pg/mL (3.0-78.0)
[2024-09-03] VITALS (12 sets, daily range): BP systolic 107–117; BP diastolic 60–75; PULSE 62–85; RESP 16–18; TEMP 36.3–36.7; O2SAT 89–99; BMI 54.9
[2024-09-03] MEDS: Magnesium Sulfate 1 GM in Dextrose 5%-Water (100mL Bag) 100 ML IV (00:35)
[2024-09-03 02:50] LABS: Troponin-I HS 16 pg/mL (3.0-78.0)
--- NOTE | 2024-09-03 04:01 | CPS ---
Patient refused PAP therapy for night time use.
[2024-09-03 06:29] LABS: Absolute Lymphocyte Count 2.77 X10^3/uL (0.83-4.51); Absolute Neutrophil Count 5.1 X10^3/uL (2.0-7.7); Basophil# 0.05 X10^3/uL; Basophil% 0.6 % (0-1); Eosinophil# 0.23 X10^3/uL; Eosinophils% 2.6 % (0-5); Hematocrit 41.6 % (40-54); Hemoglobin 12.7 g/dL (13.0-16.5); Lymphocyte # 2.77 X10^3/ul (0.83-4.51); Mean Corp Hgb Conc 30.5 g/dL (32-36); Mean Corpuscular Hgb 27.3 pg (27.0-32.0); Mean Corpuscular Volume 89.3 fL (80-94); Mean Platelet Vol. 10.4 fl (6.2-12.0); Monocyte# 0.74 X10^3/uL; Monocyte% 8.3 % (0-10); NRBC Flagged by Analyzer 0 % (0-5); Neutrophil # 5.11 X10^3/uL (2.7-7.7); Neutrophil % 57.2 % (47-70); Platelet Count 173 K/mm3 (150-450); RBC Distribution Width CV 15.5 % (11.6-14.6); RBC Distribution Width SD 50.7 fl (35.1-43.9); Red Blood Count 4.66 M/mm3 (4.6-6.2); White Blood Count 8.9 K/mm3 (4.4-11.0)
[2024-09-03] MEDS: Metoprolol Tartrate 25 MG Tablet PO (06:35)
[2024-09-03] MEDS: Aspirin E.C. 81 MG Tablet PO (06:35)
[2024-09-03 07:03] LABS: Bedside Glucose 68 mg/dL (74-106)
[2024-09-03 07:22] LABS: ALB/GLOB Ratio 0.9 RATIO (0.9-2.4); AST(SGOT) 32 U/L (15-37); Alanine Aminotransfer ALT/SGPT 26 U/L (16-61); Alkaline Phosphatase 74 U/L (45-117); Anion Gap 8 (5-15); BUN 19 mg/dL (7-18); BUN/Creat Ratio 20.2 RATIO (10-20); Calcium,Total 8.9 mg/dL (8.5-10.1); Chloride 112 mmol/L (98-107); Cholesterol 65 mg/dL (200); Creatinine, Serum 0.94 mg/dL (0.70-1.30); EST Glomerular Filtration Rate 85 mL/min (>60); Est Glom Filt Rate - Afr Amer 103 mL/min (>60); Globulin 3.5 g/dL (2.2-4.2); Glucose 62 mg/dL (74-106); High Density Lipoprotein 38 mg/dL; Potassium 3.6 mmol/L (3.5-5.1); Protein, Total 6.5 g/dL (6.4-8.2); Sodium Level 141 mmol/L (136-145); Triglycerides 54 mg/dL; Very Low Density Lipoprotein 11 mg/dL (5-40)
[2024-09-03] MEDS: Budesonide Respules 0.5 MG/2 ML AMPUL.NEB. INHALATION ×2 (07:25→19:10)
[2024-09-03 08:59] LABS: Bedside Glucose 61 mg/dL (74-106)
[2024-09-03 09:22] LABS: Bedside Glucose 92 mg/dL (74-106)
--- NOTE | 2024-09-03 10:49 | EKG12_ITS ---
Test Reason : CP Blood Pressure : / mmHG Vent. Rate : 087 BPM Atrial Rate : 000 BPM P-R Int : 000 ms QRS Dur : 158 ms QT Int : 426 ms P-R-T Axes : 000 -70 -23 degrees QTc Int : 512 ms Atrial fibrillation Left axis deviation Right bundle branch block Inferior infarct , age undetermined Abnormal ECG Confirmed by RINA MCRAE, SILVIA ([id number]), purchase request editor WILLIE BLACKMON ([id number]) on 09/04/2024 11:53:49 AM Referred By: Confirmed By:SILVIA FLYNN MD
[2024-09-03 11:51] LABS: Bedside Glucose 92 mg/dL (74-106)
--- NOTE | 2024-09-03 12:06 | CON.PCM.CA_ITS ---
Assessment & Plan Assessment/Plan (1) Chest pain: QUALIFIERS: Chest pain type: unspecified Qualified Code(s): R07.9 - Chest pain, unspecified PLAN: Troponin is negative. Atypical chest pain by history. Patient does have risk factors for CAD. Recommend Lexiscan stress test. (2) Atrial fibrillation: QUALIFIERS: Atrial fibrillation type: unspecified Qualified Code(s): I48.91 - Unspecified atrial fibrillation PLAN: In case patient is not getting a heart cath tomorrow, at the time of discharge restart Eliquis. Did not tolerate beta-kenia in the past. Continue telemonitoring HPI Consult Data Date of Consult: 09/03/24 HPI Narrative Reason for Consultation: Chest pain HPI Narrative: BRY HERRERA, is a 64 M who presents with sharp, retrosternal chest pain that started when the patient was driving. Patient had been getting that pain on and off yesterday. No specific aggravating or relieving factors. Currently patient is pain-free. His troponin has been negative. Patient has history of A-fib. He was supposed to be on Eliquis but stopped it about 1 week back as he says he bumps his head on and off and was worried about bleeding. Review of systems: All systems reviewed. 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 Lipodermatosclerosis Chronic ulcer of right leg Diabetes mellitus 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 veins Lopez phlebectatica Post-phlebitic syndrome History of DVT (deep vein thrombosis) Chronic venous insufficiency Leg edema Cervical disc disease Lumbar disc disease with radiculopathy COPD (chronic obstructive pulmonary disease) Asthma Psoriasis Home Medications ?Medication ?Instructions ?Recorded ?Last Taken ?Type montelukast 10 mg tablet 10 mg PO QHS allergy 03/21/15 05/27/24 History tamsulosin 0.4 mg capsule 0.8 mg PO DAILY kidneys 06/26/16 05/27/24 History albuterol sulfate 90 mcg/actuation 1 - 2 puff inhalation Q4H PRN PRN 01/25/17 Unknown History aerosol inhaler Asthma cod liver oil 1 ea PO DAILY supplement 01/25/17 05/27/24 History ergocalciferol (vitamin D2) 1,250 50,000 unit PO MO vitamin 01/25/17 05/25/24 History mcg (50,000 unit) capsule oxycodone 10 mg tablet 10 mg PO TID PRN PRN 08/04/19 05/25/24 History Pain/Inflammation #90 tabs potassium citrate 10 mEq (1,080 10 meq PO DAILY supplement 09/09/23 05/27/24 History mg) tablet,extended release rosuvastatin 10 mg tablet 10 mg PO QHS cholesterol 09/09/23 Unknown History ascorbate calcium (vitamin C) 500 500 mg PO DAILY supplement 01/01/24 05/27/24 History mg tablet budesonide-formoterol HFA 160 2 inh inhalation BID 01/01/24 Unknown History mcg-4.5 mcg/actuation aerosol inhaler (Symbicort) duloxetine 30 mg capsule,delayed 30 mg PO DAILY PRN mood 01/01/24 Unknown History release esomeprazole magnesium 40 mg 40 mg PO DAILY gerd 01/01/24 05/27/24 History capsule,delayed release (Nexium) fexofenadine 180 mg tablet 180 mg PO DAILY allergy 01/01/24 05/27/24 History (Allergy Relief (fexofenadine)) furosemide 40 mg tablet 20 mg PO DAILY water pill 01/01/24 05/27/24 History hydroxyzine HCl 50 mg tablet See Rx Instructions PO Q8H PRN 01/01/24 Unknown History itching insulin aspart 8 unit subcut USEASDIRECTD dm 01/01/24 Unknown History (niacinamide)(U-100) 100 unit/mL(3 mL) subcutaneous pen (Fiasp FlexTouch U-100 Insulin) levocetirizine 5 mg tablet 5 mg PO DAILY allergy 01/01/24 05/27/24 History metformin 500 mg tablet 1,000 mg PO BID dm 01/01/24 05/27/24 History nortriptyline 25 mg capsule 25 mg PO QHS PRN sleep 01/01/24 Unknown History tirzepatide 2.5 mg/0.5 mL 2.5 mg subcut FR dm 05/27/24 Unknown History subcutaneous pen injector (Mounjaro) insulin glargine U-300 conc 300 26 unit subcut DAILY dm 06/26/24 Unknown History unit/mL (1.5 mL) subcutaneous pen (Toujeo SoloStar U-300 Insulin) metoprolol tartrate 25 mg tablet 25 mg PO QDAY #90 tabs 08/05/24 Unknown Rx aspirin 81 mg tablet,delayed 81 mg PO QDAY 08/20/24 Unknown History release Allergy/AdvReac Type Severity Reaction Status Date / Time levocetirizine (From Xyzal) Allergy extreme Verified 09/02/24 20:30 fatigue Penicillins Allergy Shortness Verified 09/02/24 20:30 of breath sulfamethoxazole (From Allergy Rash Verified 09/02/24 20:30 Bactrim) trimethoprim (From Bactrim) Allergy Rash Verified 09/02/24 20:30 Family History Father Cancer bladder Diabetes Mother Hypertension Kidney disease Surgical History S/P knee surgery S/P laparoscopic cholecystectomy Social History household members: spouse Smoking Status: Former smoker alcohol intake: current alcohol intake frequency: a few times a month Alcohol type: beer substance use type: does not use Physical Exam Const alert and oriented x3 HEENT normocephalic Eyes no scleral icterus Resp normal respiratory effort and clear to auscultation bilaterally Cardio Cardio Narrative: Irregular rhythm Extremity no pedal edema Skin no rashes or lesions noted Risk Stratification Risk Stratification Applicable: No Charges/Coding Visit Charges Inpatient E&M: 30831 Init Hosp L2 Objective Data Vital Signs: Vital Signs Temp Pulse Resp BP Pulse Ox O2 Del Method O2 Flow Rate 97.4 F L 85 16 112/75 99 Nasal Cannula 1.5 09/03/24 08:11 09/03/24 08:11 09/03/24 08:11 09/03/24 08:11 09/03/24 08:11 09/03/24 08:11 09/03/24 08:11 Oxygen Flow Rate (L/min) 1.5 Oxygen Delivery Method Nasal Cannula Weight: 394 lb 2.984 oz Body Mass Index (BMI) 54.9 Intake & Output: Intake and Output for Last 24 Hours 09/01/24 09/02/24 09/03/24 23:59 23:59 23:59 Intake Total 0 / 0 1102 / 1102 Balance 0 / 0 1102 / 1102 Lab / Micro Data 09/03/24 06:02 09/03/24 06:02 Labs: Laboratory Results - last 24 hr 09/02/24 20:20: D-Dimer Quant (PE/DVT) 0.47 09/02/24 20:28: WBC 10.7, RBC 5.10, Hgb 13.8, Hct 43.8, MCV 85.9, MCH 27.1, MCHC 31.5 L, RDW Std Deviation 47.6 H, RDW Coeff of Eloise 15.2 H, Plt Count 230, MPV 10.2, Immature Gran % (Auto) 0.500, Neut % (Auto) 64.0, Lymph % (Auto) 25.0, [place] % (Auto) 8.8, Eos % (Auto) 1.1, Baso % (Auto) 0.6, Absolute Neuts (auto) 6.9, Absolute Lymphs (auto) 2.69, Nucleated RBC % 0, Sodium 143, Potassium 3.7, Chloride 107, Carbon Dioxide 30.0, Anion Gap 5, BUN 19 H, Creatinine 1.29, Estim Creat Clear Calc 86.54, Est GFR (MDRD) Af Amer 72, Est GFR (MDRD) Non-Af 59 L, BUN/Creatinine Ratio 14.7, Glucose 57 L, Calcium 9.4, Troponin I High Sens 10, B -Natriuretic Peptide 114.5 H 09/02/24 20:38: Magnesium 1.9 09/02/24 23:09: Troponin I High Sens 14 09/02/24 23:17: POC Glucose 74 09/03/24 02:20: Troponin I High Sens 16 09/03/24 06:02: WBC 8.9, RBC 4.66, Hgb 12.7 L, Hct 41.6, MCV 89.3, MCH 27.3, M CHC 30.5 L, RDW Std Deviation 50.7 H, RDW Coeff of Eloise 15.5 H, Plt Count 173, MPV 10.4, Immature Gran % (Auto) 0.300, Neut % (Auto) 57.2, Lymph % (Auto) 31.0, [place] % (Auto) 8.3, Eos % (Auto) 2.6, Baso % (Auto) 0.6, Absolute Neuts (auto) 5.1, Absolute Lymphs (auto) 2.77, Nucleated RBC % 0, Sodium 141, Potassium 3.6, Chloride 112 H, Carbon Dioxide 22.0, Anion Gap 8, BUN 19 H, Creatinine 0.94, Estim Creat Clear Calc 127.60, Est GFR (MDRD) Af Amer 103, Est GFR (MDRD) Non-Af 85, BUN/Creatinine Ratio 20.2 H, Glucose 62 L, Calcium 8.9, Total Bilirubin 1.20 H, AST 32, ALT 26, Alkaline Phosphatase 74, Total Protein 6.5, Albumin 3.0 L, Globulin 3.5, Albumin/Globulin Ratio 0.9, Triglycerides 54, Cholesterol 65, LDL Cholesterol 16, VLDL Cholesterol 11, HDL Cholesterol 38 L 09/03/24 06:35: POC Glucose 68 L 09/03/24 08:32: POC Glucose 61 L 09/03/24 09:05: POC Glucose 92 09/03/24 11:33: POC Glucose 92 Cardiology Labs/Tests 09/02/24 20:20: D-Dimer Quant (PE/DVT) 0.47 09/02/24 20:28: WBC 10.7, RBC 5.10, Hgb 13.8, Hct 43.8, MCV 85.9, MCH 27.1, MCHC 31.5 L, Plt Count 230, MPV 10.2, Immature Gran % (Auto) 0.500, Neut % (Auto) 64.0, Lymph % (Auto) 25.0, [place] % (Auto) 8.8, Eos % (Auto) 1.1, Baso % (Auto) 0.6, Absolute Neuts (auto) 6.9, Nucleated RBC % 0, Sodium 143, Potassium 3.7, Chloride 107, Carbon Dioxide 30.0, Anion Gap 5, BUN 19 H, Creatinine 1.29, Est GFR (MDRD) Af Amer 72, Est GFR (MDRD) Non-Af 59 L, BUN/Creatinine Ratio 14.7, G lucose 57 L, Calcium 9.4, B-Natriuretic Peptide 114.5 H 09/02/24 20:38: Magnesium 1.9 09/03/24 06:02: WBC 8.9, RBC 4.66, Hgb 12.7 L, Hct 41.6, MCV 89.3, MCH 27.3, M CHC 30.5 L, Plt Count 173, MPV 10.4, Immature Gran % (Auto) 0.300, Neut % (Auto) 57.2, Lymph % (Auto) 31.0, [place] % (Auto) 8.3, Eos % (Auto) 2.6, Baso % (Auto) 0.6, Absolute Neuts (auto) 5.1, Nucleated RBC % 0, Sodium 141, Potassium 3.6, C hloride 112 H, Carbon Dioxide 22.0, Anion Gap 8, BUN 19 H, Creatinine 0.94, Est GFR (MDRD) Af Amer 103, Est GFR (MDRD) Non-Af 85, BUN/Creatinine Ratio 20.2 H, G lucose 62 L, Calcium 8.9, Total Bilirubin 1.20 H, Triglycerides 54, Cholesterol 65, LDL Cholesterol 16, VLDL Cholesterol 11, HDL Cholesterol 38 L Rhythm: EKG: ECHO: Stress Test: Cardiac Cath: PCI: CT Surgery: Holter monitor: EPS: PPM: CXR: Chest CT Scan: Radiography Diagnostic Testing: Radiology Impression Chest X-Ray 09/02/24 20:40 IMPRESSION: Chronic interstitial changes in left upper lobe Mild increased markings in the right and left lower lobe since previous study possibly representing atelectasis or mild inflammatory changes. Clinical correlation recommended. Electronically Signed: Vel Arthur MD at 21:28 EDT ,
--- NOTE | 2024-09-03 12:52 | PCM.PROGNOTE ---
Subjective Subjective Patient seen and examined. He had no complaints today. He was admitted with a complaint of chest pain. Chest pain has not recurred since admission. He denies any shortness of breath. He denies having any previous history of heart issues. Review of systems otherwise negative. He is on 1.5 L of oxygen by nasal cannula. Objective Data Objective Data Vital Signs: Vital Signs Temp Pulse Resp BP Pulse Ox O2 Del Method O2 Flow Rate 97.4 F L 85 16 112/75 99 Nasal Cannula 1.5 09/03/24 08:11 09/03/24 08:11 09/03/24 08:11 09/03/24 08:11 09/03/24 08:11 09/03/24 08:11 09/03/24 08:11 Oxygen Flow Rate (L/min) 1.5 Oxygen Delivery Method Nasal Cannula Weight: 394 lb 2.984 oz Body Mass Index (BMI) 54.9 Intake & Output: Intake and Output for Last 24 Hours 09/01/24 09/02/24 09/03/24 23:59 23:59 23:59 Intake Total 0 / 0 1102 / 1102 Balance 0 / 0 1102 / 1102 Lab / Micro Data 09/03/24 06:02 09/03/24 06:02 Labs: Laboratory Results - last 24 hr 09/02/24 20:20: D-Dimer Quant (PE/DVT) 0.47 09/02/24 20:28: WBC 10.7, RBC 5.10, Hgb 13.8, Hct 43.8, MCV 85.9, MCH 27.1, MCHC 31.5 L, RDW Std Deviation 47.6 H, RDW Coeff of Eloise 15.2 H, Plt Count 230, MPV 10.2, Immature Gran % (Auto) 0.500, Neut % (Auto) 64.0, Lymph % (Auto) 25.0, [place] % (Auto) 8.8, Eos % (Auto) 1.1, Baso % (Auto) 0.6, Absolute Neuts (auto) 6.9, Absolute Lymphs (auto) 2.69, Nucleated RBC % 0, Sodium 143, Potassium 3.7, Chloride 107, Carbon Dioxide 30.0, Anion Gap 5, BUN 19 H, Creatinine 1.29, Estim Creat Clear Calc 86.54, Est GFR (MDRD) Af Amer 72, Est GFR (MDRD) Non-Af 59 L, BUN/Creatinine Ratio 14.7, Glucose 57 L, Calcium 9.4, Troponin I High Sens 10, B-Natriuretic Peptide 114.5 H 09/02/24 20:38: Magnesium 1.9 09/02/24 23:09: Troponin I High Sens 14 09/02/24 23:17: POC Glucose 74 09/03/24 02:20: Troponin I High Sens 16 09/03/24 06:02: WBC 8.9, RBC 4.66, Hgb 12.7 L, Hct 41.6, MCV 89.3, MCH 27.3, MCHC 30.5 L, RDW Std Deviation 50.7 H, RDW Coeff of Eloise 15.5 H, Plt Count 173, MPV 10.4, Immature Gran % (Auto) 0.300, Neut % (Auto) 57.2, Lymph % (Auto) 31.0, [place] % (Auto) 8.3, Eos % (Auto) 2.6, Baso % (Auto) 0.6, Absolute Neuts (auto) 5.1, Absolute Lymphs (auto) 2.77, Nucleated RBC % 0, Sodium 141, Potassium 3.6, Chloride 112 H, Carbon Dioxide 22.0, Anion Gap 8, BUN 19 H, Creatinine 0.94, Estim Creat Clear Calc 127.60, Est GFR (MDRD) Af Amer 103, Est GFR (MDRD) Non-Af 85, BUN/Creatinine Ratio 20.2 H, Glucose 62 L, Calcium 8.9, Total Bilirubin 1.20 H, AST 32, ALT 26, Alkaline Phosphatase 74, Total Protein 6.5, Albumin 3.0 L, Globulin 3.5, Albumin/Globulin Ratio 0.9, Triglycerides 54, Cholesterol 65, LDL Cholesterol 16, VLDL Cholesterol 11, HDL Cholesterol 38 L 09/03/24 06:35: POC Glucose 68 L 09/03/24 08:32: POC Glucose 61 L 09/03/24 09:05: POC Glucose 92 09/03/24 11:33: POC Glucose 92 Radiography Diagnostic Testing: Radiology Impression Chest X-Ray 09/02/24 20:40 IMPRESSION: Chronic interstitial changes in left upper lobe Mild increased markings in the right and left lower lobe since previous study possibly representing atelectasis or mild inflammatory changes. Clinical correlation recommended. Electronically Signed: Vel Arthur MD at 21:28 EDT Reading Location ID and State: [facility] / [place] Tel , Service support , Physical Exam Const alert, oriented x3, no apparent distress and well nourished Constitutional Narrative: super morbid obesity General Appearance: cooperative and well developed HEENT normocephalic, head/scalp atraumatic, moist oral mucous membranes and oropharynx normal Eyes PERRL and EOMs intact bilaterally Neck no lymphadenopathy and supple Lymph Lymphatic: no lymphadenopathy noted and no lymphedema noted Resp Resp Narrative: mildly diminished breath sounds bibasally, no wheezes or crackles. On 1.5L of oxygen. Cardio regular rate, regular rhythm, S1 normal heart sound, S2 normal heart sound and no murmurs GI normal to inspection, nondistended, normoactive bowel sounds, soft to palpation, non-tender and non-distended Extremity General Extremity: no tenderness to palpation of joints or extremities Skin General Skin Exam: no breakdown Neuro CN's II-XII intact bilaterally, no focal motor deficits, no sensory deficits noted and deep tendon reflexes 2+ bilaterally Motor Exam: strength 5/5 throughout and general weakness Psych thought process normal, cooperative and affect normal Appearance: appropriate Assessment & Plan Assessment/Plan (1) Chest pain: QUALIFIERS: Chest pain type: unspecified Qualified Code(s): R07.9 - Chest pain, unspecified PLAN: Plan #Chest pain to rule out ACS chest pain has not recurred since admission. Troponins x 3 were negative. EKG showed no acute ST changes cardiology reviewed him today and recommends Lexiscan stress test tomorrow. Will keep patient NPO past midnight for stress test tomorrow. onb aspirin, statin and metoprolol. SL nitroglycerin prn #COPD and asthma: not in exacerbation. ON breathing treatment with bronchodilators. #Anxiety and depression; on duloxetine and nortryptiline #Mildly elevated bilirubin: Total bilirubin was 1.1 on admission and is now up to 1.2. Etiology is unclear. Was previously normal. Will monitor closely and if it trends up to any further we will consider further workup. #Hypoglycemia in the setting of diabetes mellitus Lantus was held yesterday due to hypoglycemia. Insulin sliding scale. Accu-Cheks ACHS. #Hypertension: On metoprolol and Lasix. IV hydralazine as needed #Hyperlipidemia: on statin. #Peripheral vascular disease Chronic discoloration of lower extremities due to stasis and history of stasis ulcers. Fausto wraps ordered. #Super morbid obesity: BMI is 55. Complicates acute care, expected recovery and prognosis. #BPH: On Flomax DVT prophylaxis: Lovenox Charges/Coding Visit Charges Inpatient E&M: 94911 Subs Hosp L2
[2024-09-03 13:44] LABS: Hemoglobin A1c 5.8 % (3.8-5.6)
[2024-09-03] MEDS: Pantoprazole Sodium 40 MG Tablet PO (14:05)
[2024-09-03] MEDS: Furosemide 20 MG Tablet PO (14:05)
[2024-09-03] MEDS: Tamsulosin HCl 0.4 MG Capsule 0.8 MG PO (14:06)
[2024-09-03] MEDS: Loratadine 10 MG Tablet PO (14:06)
[2024-09-03] MEDS: DULoxetine Hcl 30 MG Capsule PO (14:06)
[2024-09-03] MEDS: Enoxaparin 40 MG/0.4 ML Syringe SC ×2 (14:06→21:36)
--- NOTE | 2024-09-03 14:27 | CASEMGMT ---
Insurance review for hospitals In-network with?[employer] insurance if transfer is recommended is as follows: [facility], [facility], [place], [facility], [facility], [facility], [facility], [place], [facility] ([facility]), and . Sarita Young, Discharge Planning Asst
[2024-09-03] MEDS: FLU VACCINE **HIGH DOSE** TV 24-25 180 MCG/0.5 ML SYRINGE IM (14:28)
[2024-09-03] MEDS: POTASSIUM CITRATE 10 MEQ TABLET.ER PO (14:28)
[2024-09-03] MEDS: Nitroglycerin Oint 1 INCH PACKET 0.5 INCH TD (14:30)
--- NOTE | 2024-09-03 15:17 | CASEMGMT ---
Met with patient to complete ABBOTT form. ABBOTT form explained to patient who voiced understanding and signed form. Original form placed in pt?s chart and copy provided to patient. Sarita Young, Discharge Planning Asst
[2024-09-03 17:14] LABS: Bedside Glucose 85 mg/dL (74-106)
[2024-09-03] MEDS: Albuterol 2.5 MG/3 ML VIAL.NEB. INHALATION (19:10)
[2024-09-03] MEDS: Montelukast 10 MG Tablet PO (21:36)
[2024-09-03] MEDS: Atorvastatin Calcium 20 MG Tablet PO (21:36)
[2024-09-03] MEDS: Nortriptyline 25 MG Capsule PO (21:36)
[2024-09-03] MEDS: 0.9% Saline Lock 10 ML Syringe IV (21:36)
[2024-09-03 22:01] LABS: Bedside Glucose 110 mg/dL (74-106)
[2024-09-04 04:24] VITALS: BMI 54.8
[2024-09-04 04:25] VITALS: BP 121/78; PULSE 73; RESP 18; TEMP 36.6; O2SAT 98
--- NOTE | 2024-09-04 05:55 | EKG12_ITS ---
Test Reason : AM Blood Pressure : / mmHG Vent. Rate : 083 BPM Atrial Rate : 000 BPM P-R Int : 000 ms QRS Dur : 176 ms QT Int : 444 ms P-R-T Axes : 000 -65 020 degrees QTc Int : 521 ms Atrial fibrillation with premature ventricular or aberrantly conducted complexes Left axis deviation Right bundle branch block Inferior infarct , age undetermined Abnormal ECG When compared with ECG of 03-SEP-2024 10:53, MANUAL COMPARISON REQUIRED, DATA IS UNCONFIRMED Confirmed by RINA MCRAE, SILVIA ([id number]), content editor WILLIE BLACKMON ([id number]) on 09/08/2024 11:26:24 AM Referred By: Confirmed By:SILVIA FLYNN MD
[2024-09-04 06:01] LABS: Absolute Lymphocyte Count 1.63 X10^3/uL (0.83-4.51); Absolute Neutrophil Count 5.1 X10^3/uL (2.0-7.7); Basophil# 0.02 X10^3/uL; Basophil% 0.3 % (0-1); Eosinophil# 0.22 X10^3/uL; Eosinophils% 2.9 % (0-5); Hematocrit 39.5 % (40-54); Hemoglobin 12.4 g/dL (13.0-16.5); Lymphocyte # 1.63 X10^3/ul (0.83-4.51); Lymphocyte % 21.5 % (19-41); Mean Corp Hgb Conc 31.4 g/dL (32-36); Mean Corpuscular Hgb 27.2 pg (27.0-32.0); Mean Corpuscular Volume 86.6 fL (80-94); Mean Platelet Vol. 10.1 fl (6.2-12.0); Monocyte# 0.62 X10^3/uL; Monocyte% 8.2 % (0-10); NRBC Flagged by Analyzer 0 % (0-5); Neutrophil # 5.07 X10^3/uL (2.7-7.7); Neutrophil % 66.8 % (47-70); Platelet Count 171 K/mm3 (150-450); Red Blood Count 4.56 M/mm3 (4.6-6.2); White Blood Count 7.6 K/mm3 (4.4-11.0)
[2024-09-04] MEDS: Aspirin E.C. 81 MG Tablet PO (06:08)
[2024-09-04 06:27] LABS: Anion Gap 4 (5-15); BUN 14 mg/dL (7-18); BUN/Creat Ratio 18.2 RATIO (10-20); Calcium,Total 8.5 mg/dL (8.5-10.1); Chloride 108 mmol/L (98-107); Creatinine, Serum 0.77 mg/dL (0.70-1.30); EST Glomerular Filtration Rate 108 mL/min (>60); Est Glom Filt Rate - Afr Amer 130 mL/min (>60); Estimated Creatinine Clearance 149.67 ml/min; Glucose 93 mg/dL (74-106); Potassium 3.7 mmol/L (3.5-5.1); Sodium Level 139 mmol/L (136-145)
[2024-09-04 06:29] LABS: Bedside Glucose 83 mg/dL (74-106)
[2024-09-04 10:06] VITALS: BP 135/88; PULSE 74; RESP 16; TEMP 36.4; O2SAT 95
[2024-09-04 10:37] VITALS: BP 135/88; PULSE 74
[2024-09-04] MEDS: Metoprolol Tartrate 25 MG Tablet PO (10:37)
[2024-09-04] MEDS: Loratadine 10 MG Tablet PO (10:37)
[2024-09-04] MEDS: DULoxetine Hcl 30 MG Capsule PO (10:37)
[2024-09-04] MEDS: Tamsulosin HCl 0.4 MG Capsule 0.8 MG PO (10:37)
[2024-09-04] MEDS: POTASSIUM CITRATE 10 MEQ TABLET.ER PO (10:38)
[2024-09-04] MEDS: Pantoprazole Sodium 40 MG Tablet PO (10:38)
--- NOTE | 2024-09-04 11:06 | STRESSREP_ITS ---
Stress Test Report Date: 09/04/2024 Procedure: Pharmacologic stress nuclear imaging study Indications: Chest pain Consent: Per the patient Procedure: The patient underwent pharmacologic (Regadenoson) evaluation with a peak heart rate of 142 beats per minute (92%predicted maximal heart rate) and a peak blood pressure of 122/78 mmHg. The baseline ECG demonstrated atrial fibrillation, right bundle branch block. EKG during lexiscan infusion revealed no significant ischemic changes. EKG post infusion revealed no significant ischemic changes [There were no cardiac dysrhythmias pretest, during pharmacologic infusion, or recovery]. [There was no complaint of chest discomfort during pharmacologic infusion or recovery]. The examination was discontinued secondary to completion of protocol. Impression: 1. Lexiscan stress test test is negative for Lexiscan infusion induced EKG changes of ischemia. 2. Lexiscan stress test test is negative for Lexiscan infusion induced chest pain. 3. Results of the nuclear portion of the test is as below Myocardial perfusion imaging study: Technique: The patient was injected with 15 millicuries of technetium 99m Cardiolite and subsequently rest SPECT Cardiolite nuclear imaging was obtained in the horizontal long, vertical long, and short axis views. The patient underwent pharmacologic [Regadenoson 0.4mg] evaluation. Please see above for details. The patient was injected with 44.7 millicuries of technetium 99m Cardiolite and subsequently stress SPECT Cardiolite nuclear imaging was obtained in the horizontal long, vertical long, and short axis views. A gated Cardiolite study at peak stress was obtained. Interpretation: Rest and stress SPECT Cardiolite nuclear imaging status post realignment, normalization, and attenuation correction demonstrate no evidence of significant reversibility suggestive of significant ischemia. There is decreased uptake on the inferior wall on both the rest and stress images that improves with attenuation correction suggestive of diaphragmatic attenuation artifact. There is also fixed decrease in the uptake in the apex there appears to be an a rtifact. Gated images reveal no significant regional wall motion abnormalities. The reported LVEF is 52%. Impression: 1. There is no evidence of significant ischemia. 2. Estimated ejection fraction is 52%. This note was generated with [employer] software. It may contain incorrect words, spelling, and punctuation that were not noted in checking the note before signing.
[2024-09-04] MEDS: Furosemide 20 MG Tablet PO (11:48)
[2024-09-04] MEDS: Enoxaparin 40 MG/0.4 ML Syringe SC (11:51)
[2024-09-04 12:15] LABS: Bedside Glucose 78 mg/dL (74-106)
--- NOTE | 2024-09-04 13:43 | DS.PCM_ITS ---
Providers Date of Admission: 09/02/24 Date of Discharge: 09/04/24 Primary Care Physician: Dr. Mat Barrera MD Consultations 09/02/24 22:59 Consult: Cardiology Routine Consulting Provider: Jane Spencer Reason for Consult: Chest Pain EMERGENT Consult: No MD Notified: Yes Date Notified: 09/02/24 Time Notified: 21:49 Method of Notification: ED Physician Initiated Reason For Visit: chest pain Diagnosis Discharge Diagnosis (1) Chest pain: Status: Acute Code(s): R07.9 - Chest pain, unspecified Qualifiers: Chest pain type: unspecified Qualified Code(s): R07.9 - Chest pain, unspecified Plan #Chest pain to rule out ACS * chest pain has not recurred since admission. Troponins x 3 were negative. * EKG showed no acute ST changes * cardiology reviewed him today and recommends Lexiscan stress test tomorrow. * Will keep patient NPO past midnight for stress test tomorrow. * onb aspirin, statin and metoprolol. SL nitroglycerin prn * #COPD and asthma: not in exacerbation. ON breathing treatment with bronchodilators. #Anxiety and depression; on duloxetine and nortryptiline #Mildly elevated bilirubin: * Total bilirubin was 1.1 on admission and is now up to 1.2. * Etiology is unclear. * Was previously normal. * Will monitor closely and if it trends up to any further we will consider further workup. #Hypoglycemia in the setting of diabetes mellitus * Lantus was held yesterday due to hypoglycemia. Insulin sliding scale. Accu- Cheks ACHS. * #Hypertension: On metoprolol and Lasix. IV hydralazine as needed #Hyperlipidemia: on statin. #Peripheral vascular disease * Chronic discoloration of lower extremities due to stasis and history of stasis ulcers. * Fausto wraps ordered. #Super morbid obesity: BMI is 55. Complicates acute care, expected recovery and prognosis. #BPH: On Flomax DVT prophylaxis: Lovenox Medications at Discharge Home Medications montelukast 10 mg tablet 10 mg PO QHS allergy 03/21/15 tamsulosin 0.4 mg capsule 0.8 mg PO DAILY kidneys 06/26/16 albuterol sulfate 90 mcg/actuation aerosol inhaler 1 - 2 puff inhalation Q4H PRN PRN Asthma 01/25/17 cod liver oil 1 ea PO DAILY supplement 01/25/17 ergocalciferol (vitamin D2) 1,250 mcg (50,000 unit) capsule 50,000 unit PO MO vitamin 01/25/17 oxycodone 10 mg tablet 10 mg PO TID PRN PRN Pain/Inflammation #90 tabs 08/04/19 potassium citrate 10 mEq (1,080 mg) tablet,extended release 10 meq PO DAILY supplement 09/09/23 rosuvastatin 10 mg tablet 10 mg PO QHS cholesterol 09/09/23 ascorbate calcium (vitamin C) 500 mg tablet 500 mg PO DAILY supplement 01/01/24 budesonide-formoterol HFA 160 mcg-4.5 mcg/actuation aerosol inhaler (Symbicort) 2 inh inhalation BID 01/01/24 duloxetine 30 mg capsule,delayed release 30 mg PO DAILY PRN mood 01/01/24 esomeprazole magnesium 40 mg capsule,delayed release (Nexium) 40 mg PO DAILY gerd 01/01/24 fexofenadine 180 mg tablet (Allergy Relief (fexofenadine)) 180 mg PO DAILY allergy 01/01/24 furosemide 40 mg tablet 20 mg PO DAILY water pill 01/01/24 hydroxyzine HCl 50 mg tablet See Rx Instructions PO Q8H PRN itching 01/01/24 insulin aspart (niacinamide)(U-100) 100 unit/mL(3 mL) subcutaneous pen (Fiasp FlexTouch U-100 Insulin) 8 unit subcut USEASDIRECTD dm 01/01/24 levocetirizine 5 mg tablet 5 mg PO DAILY allergy 01/01/24 metformin 500 mg tablet 1,000 mg PO BID dm 01/01/24 nortriptyline 25 mg capsule 25 mg PO QHS PRN sleep 01/01/24 tirzepatide 2.5 mg/0.5 mL subcutaneous pen injector (Mounjaro) 2.5 mg subcut FR dm 05/27/24 insulin glargine U-300 conc 300 unit/mL (1.5 mL) subcutaneous pen (Touskylero SoloStar U-300 Insulin) 26 unit subcut DAILY dm 06/26/24 metoprolol tartrate 25 mg tablet 25 mg PO QDAY #90 tabs 08/05/24 aspirin 81 mg tablet,delayed release 81 mg PO QDAY 08/20/24 nitroglycerin 0.4 mg sublingual tablet 0.4 mg sublingual Q5M PRN chest pain #30 tabs 09/04/24 Hospital Course Operations None Procedures Stress test Summary of Care Provided Minutes Spent on Discharge: 45 Hospital Course: Patient is a 64-year-old male with past medical history as outlined admitted through the ED on 09/02/2024 with a sudden onset of chest pain which occurred while he was driving. He called the EMS who found the patient to be pale and ashen and diaphoretic upon the arrival. His chest pain radiated down his left arm he described it as sharp and stabbing. D-dimer was not elevated initial troponin was negative. Chest x-ray showed chronic interstitial changes of the left upper lobe. EKG showed A-fib which was rate controlled with no acute ST changes. He was admitted and managed for chest pain to rule out ACS. Cardiology was consulted. Cardiology determined the patient should have a stress test. He did have the stress test done on 09/04/2024 which was negative for any evidence of ischemia. Chest pain did not recur during this admission. He felt well and was discharged home Ortho for 2023. He is follow-up with his primary care doctor within 1 to 2 weeks. #Patient seen and examined prior to discharge. He had no complaints. Review of systems otherwise negative. Labs and vitals reviewed. Home medication reviewed and reconciled. He was given a prescription for sublingual nitroglycerin on discharge. Physical Exam Const alert, oriented x3, no apparent distress and well nourished Constitutional Narrative: super morbid obesity General Appearance: cooperative, comfortable, well kempt and well developed Orientation / Consciousness: awake Exam Limitations: no limitations HEENT normocephalic, head/scalp atraumatic, hearing grossly normal bilaterally, moist oral mucous membranes and oropharynx normal Mouth: oral and palatal mucosa normal Eyes PERRL and EOMs intact bilaterally Neck no lymphadenopathy, supple and no JVD Lymph Lymphatic: no lymphadenopathy noted and no lymphedema noted Resp Resp Narrative: mildly diminished breath sounds bibasally, no wheezes or crackles. On room air. Cardio regular rate, regular rhythm, S1 normal heart sound, S2 normal heart sound and no murmurs GI normal to inspection, nondistended, normoactive bowel sounds, soft to palpation, non-tender and non-distended Extremity normal to inspection, full ROM and no clubbing, cyanosis or edema General Extremity: no tenderness to palpation of joints or extremities Skin no rashes or lesions noted General Skin Exam: no breakdown Neuro oriented x3, CN's II-XII intact bilaterally, moves all extremities, no focal motor deficits, no sensory deficits noted and deep tendon reflexes 2+ bilaterally Sensorium / Orientation: awake and alert Motor Exam: strength 5/5 throughout and general weakness Psych thought process normal, cooperative and affect normal Appearance: appropriate Weight / BMI Weight Weight: 393 lb 1.347 oz Body Mass Index (BMI) 54.8 ABG / Lab / Microbiology Data 09/04/24 05:43 09/04/24 05:43 Laboratory: Laboratory Results - last 24 hr 09/03/24 06:02: Hemoglobin A1c 5.8 H 09/03/24 16:55: POC Glucose 85 09/03/24 21:35: POC Glucose 110 H 09/04/24 05:43: WBC 7.6, RBC 4.56 L, Hgb 12.4 L, Hct 39.5 L, MCV 86.6, MCH 27.2, MCHC 31.4 L, RDW Std Deviation 48.0 H, RDW Coeff of Eloise 15.0 H, Plt Count 171, MPV 10.1, Immature Gran % (Auto) 0.300, Neut % (Auto) 66.8, Lymph % (Auto) 21.5, [place] % (Auto) 8.2, Eos % (Auto) 2.9, Baso % (Auto) 0.3, Absolute Neuts (auto) 5.1, Absolute Lymphs (auto) 1.63, Nucleated RBC % 0, Sodium 139, Potassium 3.7, Chloride 108 H, Carbon Dioxide 27.0, Anion Gap 4 L, BUN 14, Creatinine 0.77, Estim Creat Clear Calc 149.67, Est GFR (MDRD) Af Amer 130, Est GFR (MDRD) Non-Af 108, BUN/Creatinine Ratio 18.2, Glucose 93, Calcium 8.5 09/04/24 06:06: POC Glucose 83 09/04/24 11:44: POC Glucose 78 D/C Instructions Discharge Diet: Low fat / Low cholesterol Discharge Activity: Return to Normal Activity Weight Bearing Status: Weight bearing as tolerated Call your doctor if you observe: Fever of 101 or Higher, Shortness of breath, Dizziness, Swelling in the ankles and Chest pain Meaningful Use Info Meaningful Use Meaningful Use Diagnoses (Choose all that apply): None applicable Ischemic Stroke Statin Dosing Therapy Reference: STATIN DOSE THERAPY REFERENCE: * Patients > 75 years receive moderate or high dose statin therapy. * Patients 75 years or YOUNGER should receive HIGH intensity statin dose unless contraindicated. You will be required to document reason for non-treatment if statin daily dose does not meet guidelines. HIGH DOSE STATIN THERAPY DAILY Atorvastatin > than or = to 40 mg Rosuvastatin > than or = to 20 mg Amlodipine + Atorvastatin > than or = to 2.5/40 mg Ezetimibe + Simvastatin 10/80 mg Simvastatin 80mg Discharge Plan Admission Admit Date/Time: 09/02/24 21:45 Primary Reason for Your Visit: chest pain Attending Provider: Tessa Watters Primary Care Provider: Mat Barrera Consulting Providers: Jane Spencer; Padmini Alfaro Instructions Patient Instructions: Chest Pain [facility] Discharge Orders/Prescriptions Prescriptions: New nitroglycerin 0.4 mg tablet, sublingual 0.4 mg sublingual Q5M PRN (Reason: chest pain) Qty: 30 1RF Rx Instructions: do not exceed 3 doses per episode Continued oxycodone 10 mg tablet 10 mg PO TID PRN PRN (Reason: Pain/Inflammation) Qty: 90 Patient Comments: TAKE 1 TABLET EVERY 8 HOURS NEEDED FOR PAIN potassium citrate 10 mEq (1,080 mg) tablet extended release 10 meq PO DAILY Patient Comments: TAKE 1 TABLET BY MOUTH DAILY to prevent kidney stones and two TABLETS DAILY if taking extra water pill rosuvastatin 10 mg tablet 10 mg PO QHS Patient Comments: TAKE 1 TABLET BY MOUTH DAILY Fiasp FlexTouch U-100 Insulin 100 unit/mL (3 mL) insulin pen 8 unit subcut USEASDIRECTD Patient Comments: inject 10 units SUBCUTANEOUSLY with each meal and 2 (TWO) units with snack; max daily dose (20 units) insulin glargine U-300 conc [Toujeo SoloStar U-300 Insulin] 300 unit/mL (1.5 mL) insulin pen 26 unit subcut DAILY Patient Comments: INJECT 24 units under the skin daily budesonide-formoterol [Symbicort] 160-4.5 mcg/actuation HFA aerosol inhaler 2 inh inhalation BID furosemide 40 mg tablet 20 mg PO DAILY Patient Comments: TAKE 1/2 (ONE-HALF) OF A TABLET BY MOUTH with lunch DAILY hydroxyzine HCl 50 mg tablet See Rx Instructions PO Q8H PRN (Reason: itching) Rx Instructions: 1/2 - 2 tab orally every 8 hours PRN; fexofenadine [Allergy Relief (fexofenadine)] 180 mg tablet 180 mg PO DAILY nortriptyline 25 mg capsule 25 mg PO QHS PRN (Reason: sleep) Rx Instructions: 1-2 caps QHS esomeprazole magnesium [Nexium] 40 mg capsule,delayed release(DR/EC) 40 mg PO DAILY ascorbate calcium (vitamin C) 500 mg tablet 500 mg PO DAILY duloxetine 30 mg capsule,delayed release(DR/EC) 30 mg PO DAILY PRN (Reason: mood) levocetirizine 5 mg tablet 5 mg PO DAILY Patient Comments: TAKE 1 TABLET BY MOUTH EVERY DAY for allergies or FOR ASTHMA from allergies metoprolol tartrate 25 mg tablet 25 mg PO QDAY Qty: 90 3RF aspirin 81 mg tablet,delayed release (DR/EC) 81 mg PO QDAY montelukast 10 MG tablet 10 mg PO QHS metformin 500 mg tablet 1,000 mg PO BID tamsulosin 0.4 MG capsule 0.8 mg PO DAILY Mounjaro 2.5 mg/0.5 mL pen injector 2.5 mg subcut FR albuterol sulfate 1 INHALER inhaler 1 - 2 puff inhalation Q4H PRN PRN (Reason: Asthma) cod liver oil 1 EACH capsule 1 ea PO DAILY ergocalciferol (vitamin D2) 50,000 UNIT capsule 50,000 unit PO MO Referrals / Follow Up: Mat Barrera MD [Primary Care Provider] - 09/11/24 2:40 pm Disposition Disposition (needs filled in before D/C Order can be placed): Home, Self Care Charges/Coding Visit Charges Inpatient E&M: 40544 Disch Hosp >30min
--- NOTE | 2024-09-04 14:05 | PHA.DC.MR.R ---
Pharmacy [place] Med Reconciliation Pharmacy Service has performed discharge medication reconciliation for this patient. The patient's discharge medication list was reviewed for discrepancies and discrepancies were resolved. Medications at Discharge Home Medications montelukast 10 mg tablet 10 mg PO QHS allergy 03/21/15 tamsulosin 0.4 mg capsule 0.8 mg PO DAILY kidneys 06/26/16 albuterol sulfate 90 mcg/actuation aerosol inhaler 1 - 2 puff inhalation Q4H PRN PRN Asthma 01/25/17 cod liver oil 1 ea PO DAILY supplement 01/25/17 ergocalciferol (vitamin D2) 1,250 mcg (50,000 unit) capsule 50,000 unit PO MO vitamin 01/25/17 oxycodone 10 mg tablet 10 mg PO TID PRN PRN Pain/Inflammation #90 tabs 08/04/19 potassium citrate 10 mEq (1,080 mg) tablet,extended release 10 meq PO DAILY supplement 09/09/23 rosuvastatin 10 mg tablet 10 mg PO QHS cholesterol 09/09/23 ascorbate calcium (vitamin C) 500 mg tablet 500 mg PO DAILY supplement 01/01/24 budesonide-formoterol HFA 160 mcg-4.5 mcg/actuation aerosol inhaler (Symbicort) 2 inh inhalation BID 01/01/24 duloxetine 30 mg capsule,delayed release 30 mg PO DAILY PRN mood 01/01/24 esomeprazole magnesium 40 mg capsule,delayed release (Nexium) 40 mg PO DAILY gerd 01/01/24 fexofenadine 180 mg tablet (Allergy Relief (fexofenadine)) 180 mg PO DAILY allergy 01/01/24 furosemide 40 mg tablet 20 mg PO DAILY water pill 01/01/24 hydroxyzine HCl 50 mg tablet See Rx Instructions PO Q8H PRN itching 01/01/24 insulin aspart (niacinamide)(U-100) 100 unit/mL(3 mL) subcutaneous pen (Fiasp FlexTouch U-100 Insulin) 8 unit subcut USEASDIRECTD dm 01/01/24 levocetirizine 5 mg tablet 5 mg PO DAILY allergy 01/01/24 metformin 500 mg tablet 1,000 mg PO BID dm 01/01/24 nortriptyline 25 mg capsule 25 mg PO QHS PRN sleep 01/01/24 tirzepatide 2.5 mg/0.5 mL subcutaneous pen injector (Mounjaro) 2.5 mg subcut FR dm 05/27/24 insulin glargine U-300 conc 300 unit/mL (1.5 mL) subcutaneous pen (Maisha McginnisoStar U-300 Insulin) 26 unit subcut DAILY dm 06/26/24 metoprolol tartrate 25 mg tablet 25 mg PO QDAY #90 tabs 08/05/24 aspirin 81 mg tablet,delayed release 81 mg PO QDAY 08/20/24
== END 2024-09-04 13:43 | disposition home or self-care (01) ==
LOC: ED 21:40 → PCU 22:12
PROVIDERS: Admitting Provider Family Medicine; Emergency Provider Emergency Medicine; PCP Family Medicine; Visit Provider Student in an Organized Health Care Education/Training Program
DX: R07.89 Other chest pain (principal); E11.622 Type 2 diabetes mellitus with other skin ulcer; L97.919 Non-pressure chronic ulcer of unspecified part of right lower leg with unspecified severity; L97.929 Non-pressure chronic ulcer of unspecified part of left lower leg with unspecified severity; J44.89 Other specified chronic obstructive pulmonary disease; I48.0 Paroxysmal atrial fibrillation; E66.01 Morbid (severe) obesity due to excess calories; Z68.43 Body mass index [BMI] 50.0-59.9, adult; E11.649 Type 2 diabetes mellitus with hypoglycemia without coma; E11.51 Type 2 diabetes mellitus with diabetic peripheral angiopathy without gangrene; E11.22 Type 2 diabetes mellitus with diabetic chronic kidney disease; E78.00 Pure hypercholesterolemia, unspecified; I45.10 Unspecified right bundle-branch block; K21.9 Gastro-esophageal reflux disease without esophagitis; Z79.84 Long term (current) use of oral hypoglycemic drugs; F41.9 Anxiety disorder, unspecified; Z87.891 Personal history of nicotine dependence; Z79.51 Long term (current) use of inhaled steroids; I12.9 Hypertensive chronic kidney disease with stage 1 through stage 4 chronic kidney disease, or unspecified chronic kidney disease; Z79.85 Long-term (current) use of injectable non-insulin antidiabetic drugs; F32.A Depression, unspecified; N40.0 Benign prostatic hyperplasia without lower urinary tract symptoms; Z79.899 Other long term (current) drug therapy; N18.2 Chronic kidney disease, stage 2 (mild); Z23 Encounter for immunization
CPT/HCPCS: 36415; 71045; 78452; 80048; 80053; 80061; 82962; 83036; 83735; 83880; 84484; 85025; 85379; 90662; 93005; 93017; 94640; 94668; 94762; 96361; 96372; 96374; 99221; 99285; A9500; J7030; A4216; G0378; J2405; J2785

== ENCOUNTER → 2025-03-15 | Outpatient (CLI) | payer MEDICARE, SELFPAY ==
[2025-03-15 15:14] LABS: Absolute Lymphocyte Count 1.94 X10^3/uL (0.83-4.51); Absolute Neutrophil Count 5.3 X10^3/uL (2.0-7.7); Basophil# 0.03 X10^3/uL; Basophil% 0.4 % (0-1); Eosinophil# 0.14 X10^3/uL; Eosinophils% 1.7 % (0-5); Hematocrit 41.9 % (40-54); Hemoglobin 13.5 g/dL (13.0-16.5); Lymphocyte # 1.94 X10^3/ul (0.83-4.51); Lymphocyte % 23.9 % (19-41); Mean Corp Hgb Conc 32.2 g/dL (32-36); Mean Corpuscular Hgb 28.2 pg (27.0-32.0); Mean Corpuscular Volume 87.5 fL (80-94); Monocyte# 0.66 X10^3/uL; Monocyte% 8.1 % (0-10); NRBC Flagged by Analyzer 0 % (0-5); Neutrophil # 5.31 X10^3/uL (2.7-7.7); Neutrophil % 65.4 % (47-70); Platelet Count 212 K/mm3 (150-450); RBC Distribution Width CV 13.9 % (11.6-14.6); Red Blood Count 4.79 M/mm3 (4.6-6.2); White Blood Count 8.1 K/mm3 (4.4-11.0)
[2025-03-15 16:19] LABS: Microalbumin,Random Urine 23.8 mg/L (NO RANGE EST.); Microalbumin:Creatinine Ratio 172.5 mg/g CRE
[2025-03-15 19:12] LABS: ALB/GLOB Ratio 1.4 RATIO (0.9-2.4); AST(SGOT) 24 U/L (<=37); Alanine Aminotransfer ALT/SGPT 22 U/L (<=46); Albumin, Serum 4.1 g/dL (3.4-4.8); Alkaline Phosphatase 86 U/L (40-129); Anion Gap 10 (5-15); BUN 13 mg/dL (4-19); BUN/Creat Ratio 14.4 RATIO (10-20); Calcium,Total 9.2 mg/dL (7.6-11.0); Carbon Dioxide 25.1 mmol/L (21.0-32.0); Chloride 105 mmol/L (98-108); EST Glomerular Filtration Rate 94 (>60); Globulin 2.9 g/dL (2.2-4.2); Glucose 226 mg/dL (70-99); Potassium 4.2 mmol/L (3.3-5.1); Sodium Level 139 mmol/L (133-145); Total Bilirubin 0.75 mg/dL (0.00-1.30)
== END | disposition home or self-care (01) ==
LOC: MFPLAB 12:30
PROVIDERS: PCP Family Medicine; Referring Provider Family Medicine; Visit Provider Family Medicine
DX: E11.49 Type 2 diabetes mellitus with other diabetic neurological complication (principal); J45.30 Mild persistent asthma, uncomplicated
CPT/HCPCS: 36415; 80053; 82043; 82570; 85025

== ENCOUNTER → 2025-06-28 | Outpatient (CLI) | payer MEDICARE, SELFPAY ==
[2025-06-28 16:19] LABS: PSA,Total - Annual Screen 0.99 ng/mL (0.02-4.00)
== END | disposition home or self-care (01) ==
LOC: MFPLAB 11:41
PROVIDERS: PCP Family Medicine
DX: Z12.5 Encounter for screening for malignant neoplasm of prostate (principal)
CPT/HCPCS: 36415; 84153; G0103

== ENCOUNTER → 2025-07-08 | Outpatient (CLI) | payer MEDICARE, SELFPAY ==
--- NOTE | 2025-07-08 15:08 | VDLE_ITS ---
Reason For Study Reason For Study: RLE SWELLING RIGHT GSV is normal. CFV is compressible, spontaneous, phasic, competent and demonstrates normal augmentation. FV is compressible, spontaneous, phasic, competent and demonstrates normal augmentation. POP V is compressible, spontaneous, phasic, competent and demonstrates normal augmentation. T/P Trunk is compressible. PTV is compressible. RT PerV is compressible. Procedure Exam performed in department. The study was technically difficult. D/T body habitus. VL/Venous Duplex US, Unilateral Interpretation Summary Deep veins of the right lower extremity are patent and compressible segmentally . There is no evidence of right lower extremity deep vein thrombosis. The right great saphenous vein appears patent a nd compressible segmentally. Ordering Physician: Mat Barrera Referring Physician: Mat Barrera Performed By: Leila Sotelo, ERIN, RVT
--- NOTE | 2025-07-08 15:08 | VDLE_ITS ---
Reason For Study Reason For Study: RLE SWELLING RIGHT GSV is normal. CFV is compressible, spontaneous, phasic, competent and demonstrates normal augmentation. FV is compressible, spontaneous, phasic, competent and demonstrates normal augmentation. POP V is compressible, spontaneous, phasic, competent and demonstrates normal augmentation. T/P Trunk is compressible. PTV is compressible. RT PerV is compressible. Procedure Exam performed in department. The study was technically difficult. D/T body habitus. VL/Venous Duplex US, Unilateral Interpretation Summary Deep veins of the right lower extremity are patent and compressible segmentally . There is no evidence of right lower extremity deep vein thrombosis. The right great saphenous vein appears patent a nd compressible segmentally. Ordering Physician: Mat Barrera Referring Physician: Mat Barrera Performed By: Leila Sotelo, ERIN, RVT
== END | disposition home or self-care (01) ==
LOC: CVS 15:06
PROVIDERS: PCP Family Medicine; Referring Provider Family Medicine; Visit Provider Family Medicine
DX: M79.89 Other specified soft tissue disorders (principal)
CPT/HCPCS: 93971

== ENCOUNTER → 2025-07-21 | Outpatient (CLI) | payer MEDICARE, SELFPAY ==
--- NOTE | 2025-07-21 17:28 | CT_ITS ---
PROCEDURE: LOW DOSE CT LUNG SCREENING 07/21/2025 REASON FOR EXAM: TOBACCO ABUSE Former smoker. Patient has smoked 2-3 packs per day for 15 years. TECHNIQUE: LOW DOSE CT LUNG SCREENING Coronal and Sagittal reconstruction series were provided. One or more dose reduction techniques were used (e.g., Automated exposure control, adjustment of the mA and/or kV according to patient size, use of iterative reconstruction technique). REFERENCE LINK: [facility] Lung-RADS RADIATION DOSE SUMMARY: CTDlvol: 4.02 mGy DLP: 146.47 mGycm COMPARISON: None FINDINGS: PULMONARY NODULES: (Only nodules >3mm are reported) Nodules described below are on series 1 unless otherwise specified. Pulmonary Nodules: No suspicious pulmonary nodule is seen. Hardware:None Lymph Nodes:No suspicious lymph nodes are seen. Heart and Vasculature:The heart is nonenlarged. Coronary Artery Calcifications: Present Lungs and Airways: Linear scarring in the lingular segment of the left upper lobe. Pleura:No pleural effusion. Upper Abdomen:Unremarkable Bones:Degenerative changes of the thoracic spine. CT/Low Dose CT Lung Screening IMPRESSION: Linear scarring in the lingular segment of the left upper lobe. No pulmonary n odule is seen. Coronary artery calcification (CAC) is is present Lung-RADS Category: 2 BENIGN (BASED ON IMAGING FEATURES OR INDOLENT BEHAVIOR). RECOMMEND 12-MONTH SCREENING LDCT. Other Significant Findings: Reading Location: [id number]
== END | disposition home or self-care (01) ==
LOC: CT 17:27
PROVIDERS: PCP Family Medicine
DX: Z87.891 Personal history of nicotine dependence (principal)
CPT/HCPCS: 71271

== ENCOUNTER → 2025-09-28 | Outpatient (CLI) | payer MEDICARE, SELFPAY ==
[2025-09-28 12:31] LABS: Hematocrit 42.1 % (40-54); Hemoglobin 13.2 g/dL (13.0-16.5); Immature Granulocytes Count 0.030 X10^3/uL (0.0-0.0); Mean Corp Hgb Conc 31.4 g/dL (32-36); Mean Corpuscular Volume 89.0 fL (80-94); Mean Platelet Vol. 10.9 fl (6.2-12.0); NRBC Flagged by Analyzer 0 % (0-5); Platelet Count 235 K/mm3 (150-450); RBC Distribution Width CV 14.1 % (11.6-14.6); RBC Distribution Width SD 45.3 fl (35.1-43.9); Red Blood Count 4.73 M/mm3 (4.6-6.2); White Blood Count 7.2 K/mm3 (4.4-11.0)
[2025-09-28 13:00] LABS: Creatinine, Urine (random) 146.00 mg/dL (39.00-259.00); Microalbumin,Random Urine < 12.0 mg/L (<20 mg/L)
[2025-09-28 13:14] LABS: AST(SGOT) 25 U/L (<=37); Alanine Aminotransfer ALT/SGPT 20 U/L (<=46); Albumin, Serum 3.9 g/dL (3.4-4.8); Alkaline Phosphatase 85 U/L (40-129); Anion Gap 9 (5-15); BUN 14 mg/dL (4-19); BUN/Creat Ratio 16.8 RATIO (10-20); CRP 4.27 mg/L (0.0-3.0); Calcium,Total 9.4 mg/dL (7.6-11.0); Carbon Dioxide 29.8 mmol/L (21.0-32.0); Chloride 103 mmol/L (98-108); Globulin 3.1 g/dL (2.2-4.2); Glucose 118 mg/dL (70-99); Potassium 4.3 mmol/L (3.3-5.1); Vitamin D,25 Hydroxy 49.3 ng/mL (30-100)
== END | disposition home or self-care (01) ==
LOC: MFPLAB 10:02
PROVIDERS: PCP Family Medicine; Visit Provider Family Medicine
DX: E11.49 Type 2 diabetes mellitus with other diabetic neurological complication (principal); L03.116 Cellulitis of left lower limb; E55.9 Vitamin D deficiency, unspecified
CPT/HCPCS: 36415; 80053; 82043; 82306; 82570; 85025; 86140

== ENCOUNTER 2025-10-27 12:00 | Outpatient (RCR) | payer MEDICARE, SELFPAY ==
[2025-10-14 09:17] VITALS: BP 154/106; PULSE 106; RESP 18; TEMP 36.5; BMI 52.3
--- NOTE | 2025-10-14 12:12 | PCM.WC.HP ---
History of Present Illness Date of Service: 10/14/25 Chief Complaint: Left Leg Ulcer History of Wound: Mr. Zaragoza is a 65-year-old who had previously been seen at the wound center. Presents today due to nonhealing Left lower extremity ulceration. Current ordeal said to have started 6 weeks ago with increased redness and pain. Has been treated for cellulitis. Had some old wound dressings at home which he had been using without significant improvement so subsequently presented here. Due to pain, has not been wearing compression stockings but had previously tolerated it at his last visit here. History of diabetes mellitus type 2, most recent A1c at 7. He states that he follows closely with his primary care. He feels well otherwise, denies chills, fever or any other significant concerns. [facility] Medical History (Updated 10/14/25 @ 12:[address] 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 Lipodermatosclerosis Chronic ulcer of right leg Diabetes mellitus 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 veins Lopez phlebectatica Post-phlebitic syndrome History of DVT (deep vein thrombosis) Chronic venous insufficiency Leg edema Cervical disc disease Lumbar disc disease with radiculopathy COPD (chronic obstructive pulmonary disease) Asthma Psoriasis Home Medications ?Medication ?Instructions ?Recorded ?Last Taken ?Type montelukast 10 mg tablet 10 mg PO QHS allergy 03/21/15 05/27/24 History tamsulosin 0.4 mg capsule 0.8 mg PO DAILY kidneys 06/26/16 05/27/24 History albuterol sulfate 90 mcg/actuation 1 - 2 puff inhalation Q4H PRN PRN 01/25/17 Unknown History aerosol inhaler Asthma cod liver oil 1 ea PO DAILY supplement 01/25/17 05/27/24 History ergocalciferol (vitamin D2) 1,250 50,000 unit PO MO vitamin 01/25/17 05/25/24 History mcg (50,000 unit) capsule oxycodone 10 mg tablet 10 mg PO TID PRN PRN 08/04/19 05/25/24 History Pain/Inflammation #90 tabs potassium citrate 10 mEq (1,080 10 meq PO DAILY supplement 09/09/23 05/27/24 History mg) tablet,extended release rosuvastatin 10 mg tablet 10 mg PO QHS cholesterol 09/09/23 Unknown History ascorbate calcium (vitamin C) 500 500 mg PO DAILY supplement 01/01/24 05/27/24 History mg tablet budesonide-formoterol HFA 160 2 inh inhalation BID 01/01/24 Unknown History mcg-4.5 mcg/actuation aerosol inhaler (Symbicort) duloxetine 30 mg capsule,delayed 30 mg PO DAILY PRN mood 01/01/24 Unknown History release esomeprazole magnesium 40 mg 40 mg PO DAILY gerd 01/01/24 05/27/24 History capsule,delayed release (Nexium) fexofenadine 180 mg tablet 180 mg PO DAILY allergy 01/01/24 05/27/24 History (Allergy Relief (fexofenadine)) furosemide 40 mg tablet 20 mg PO DAILY water pill 01/01/24 05/27/24 History hydroxyzine HCl 50 mg tablet See Rx Instructions PO Q8H PRN 01/01/24 Unknown History itching insulin aspart 8 unit subcut USEASDIRECTD dm 01/01/24 Unknown History (niacinamide)(U-100) 100 unit/mL(3 mL) subcutaneous pen (Fiasp FlexTouch U-100 Insulin) levocetirizine 5 mg tablet 5 mg PO DAILY allergy 01/01/24 05/27/24 History metformin 500 mg tablet 1,000 mg PO BID dm 01/01/24 05/27/24 History nortriptyline 25 mg capsule 25 mg PO QHS PRN sleep 01/01/24 Unknown History tirzepatide 2.5 mg/0.5 mL 2.5 mg subcut FR dm 05/27/24 Unknown History subcutaneous pen injector (Mounjaro) insulin glargine U-300 conc 300 26 unit subcut DAILY dm 06/26/24 Unknown History unit/mL (1.5 mL) subcutaneous pen (Maisha SolBaldevar U-300 Insulin) aspirin 81 mg tablet,delayed 81 mg PO QDAY 08/20/24 Unknown History release nitroglycerin 0.4 mg sublingual 0.4 mg sublingual Q5M PRN chest 09/04/24 Unknown Rx tablet pain #30 tabs apixaban 5 mg tablet (Eliquis) 5 mg PO BID #180 tabs 02/04/25 Unknown Rx metoprolol tartrate 25 mg tablet 25 mg PO BID #180 tabs 02/04/25 Unknown Rx Allergy/AdvReac Type Severity Reaction Status Date / Time levocetirizine (From Xyzal) Allergy extreme Verified 02/04/25 11:33 fatigue Penicillins Allergy Shortness Verified 02/04/25 11:33 of breath sulfamethoxazole (From Allergy Rash Verified 02/04/25 11:33 Bactrim) trimethoprim (From Bactrim) Allergy Rash Verified 02/04/25 11:33 Family History Father Cancer bladder Diabetes Mother Hypertension Kidney disease Surgical History S/P knee surgery S/P laparoscopic cholecystectomy Social History household members: spouse Smoking Status: Former smoker alcohol intake: current alcohol intake frequency: a few times a month Alcohol type: beer substance use type: does not use ROS Constitutional Constitutional: Denies fatigue, fever(s), headache(s), lethargy or malaise Eyes Eyes: Denies change in eye color, diplopia, double vision, erythema or excessive blinking ENT HEENT: Denies dysphagia, epistaxis, foreign body in nose, halitosis, headache(s), hearing loss or hoarseness Cardiovascular Cardiovascular: Denies chest pain, claudication, clubbing, cold extremities, cyanosis or dyspnea at rest Respiratory/Chest Respiratory/Chest: Denies difficulty clearing secretions, dry cough, hemoptysis, hoarseness or inability to speak Gastrointestinal Gastrointestinal: Denies abdominal pain, anorexia, chewing difficulty, coffee ground emesis, cramping, dry heaves or hematemesis Genitourinary Genitourinary: Denies abdominal discomfort, anuria, contractions, difficulty urinating or flank pain Musculoskeletal Musculoskeletal: Denies deformity, muscle cramps, muscle weakness, tingling or tremors Integumentary Integumentary: Reports skin ulcer and skin swelling; Denies furuncle, hirsutism, jaundice or pruritus Neurologic Neurologic: Reports burning sensations; Denies abnormal hearing, abnormal movements, abnormal speech, behavior changes, disequilibrium or focal weakness Psychiatric Psychiatric: Denies auditory hallucinations, behavioral changes, cognitive impairment, difficulty concentrating, homicidal ideation or memory loss Endocrine Endocrinology: Denies cold intolerance, deepening of the voice, excessive sweating, fatigue or increase in ring/shoe/hat size Hematologic/Lymphatic Hematologic/Lymphatic: Denies easy bleeding Allergic/Immunologic Allergic/Immunologic: Denies lip swelling, throat swelling, tongue swelling, urticaria or wheezing Vital Signs Vital Signs Vital Signs: 10/14/25 09:17 Temperature 97.7 F L Temperature Source Temporal Pulse Rate 106 H Respiratory Rate 18 Blood Pressure 154/106 H Blood Pressure Mean 122 Blood Pressure Source Monitor Blood Pressure Position Semi-Fowlers Blood Pressure Location Right Arm Weight Weight: 386 lb Body Mass Index (BMI) 52.3 Physical Exam Const alert, oriented x3 and no apparent distress General Appearance: cooperative, comfortable and well kempt HEENT normocephalic and head/scalp atraumatic Eyes EOMs intact bilaterally Neck full ROM General: normal visual inspection Resp normal respiratory effort and normal air movement Effort and Inspection: able to speak in complete sentences Cardio regular rate, S1 normal heart sound and S2 normal heart sound Rhythm: abnormal rhythm GI soft to palpation and non-tender Extremity General Extremity: edema Skin Wounds: wounds noted size Size: See clinical note and bed yellow, with slough and other Purulent drainage Neuro oriented x3, CN's II-XII intact bilaterally, moves all extremities and no focal motor deficits Psych mental status grossly normal, thought process normal, cooperative and affect normal Debridement Note Debridement Note Wound debrided: Left lower extremity cluster Type of Debridement: Excisional debridement Anesthesia Used: 5% Lidocaine Gel and Cetacaine Depth: Down to and including healthy tissue and in the subcutaneous layer Percentage of wound debrided: 100 Instrument Used: 5mm curette Tissue Removed: Slough and devitalized tissue Severity: Fat Layer Exposed Amount of bleeding with debridement: Mild Bleeding Controlled with: Pressure Patient tolerated procedure: Patient tolerated procedure well Post-Debridement Measurements and Additional Note: Post-Debridement Measurements/Treatment WC - Nurse 1 - General Ulcer Assessment Start: 10/14/25 09:17 Freq: Status: Active Protocol: WC.LOWEXT Activity Type Activity Date Activity User E-sign Co-sign Detail Recorded Client Recorded Date Recorded By Document 10/14/25 09:17 ANUP [id number] 10/14/25 09:38 ANUP 10/14/25 09:17 - Today's Visit Information Type of service Initial Visit Arrival Mode Ambulatory Patient Identification Verified (Name & Yes ) Patient Requires Transmission-Based No Precautions Finger Stick Blood Sugar(mg/dl) (if 130 indicated): Blood Sugar Stated by Patient Height and Weight Height 6 ft Weight 386 lb Weight in Pounds 386.0 lbs Body Mass Index (BMI) 52.3 BMI Classification Obese Vital Signs Temperature (97.8 F-99.1 F) 97.7 F L Temperature Source Temporal Pulse Rate (60-100) 106 H Pulse Location Monitor Respiratory Rate (12-18) 18 Respiratory rate source Observation Blood Pressure (90/60-120/80) 154/106 H Blood Pressure Mean 122 Source Monitor Position Semi-Fowlers Blood Pressure Location Right Arm History Since Last Visit- (Skip if this is Patient's initial visit) Left Footwear Regular Shoe Right Footwear Regular Shoe Pain Scale: 0-10 Numeric Is Patient Pain Free? Yes Lower Extremity Assessment/ Foot Assessment/ Toe Nail Assessment Right -Posterior Tibial Palpable Yes -Posterior Tibial Doppler Multiphasic -Dorsalis Pedis Palpable Yes -Dorsalis Pedis Doppler Multiphasic -Extremity Color Hyperpigmented -Hair Growth on Legs Yes -Hair Growth on Toes No -Temperature of Extremity Warm -Capillary Refill Less than 3 Seconds -Dependent Rubor Yes -Blanched when Elevated No -Other Deformity No -Prior Foot Ulcer No -Prior Amputation No -Thick Yes -Discolored Yes -Deformed No -Improper Length & Hygeine Yes Left -Posterior Tibial Palpable Yes -Posterior Tibial Doppler Multiphasic -Dorsalis Pedis Palpable Yes -Dorsalis Pedis Doppler Multiphasic -Extremity Color Hyperpigmented -Hair Growth on Legs Yes -Hair Growth on Toes No -Temperature of Extremity Warm -Capillary Refill Less than 3 Seconds -Dependent Rubor Yes -Blanched when Elevated No -Prior Foot Ulcer No -Charcot Joint No -Thick Yes -Discolored Yes -Deformed No -Improper Length & Hygeine No Neuropathy Assessment Feet - Top Side and Bottom <Entered> (a) Communication Assessment Primary Language Hebrew Preferred language Hebrew Human Factors Specialist Required No Able to Read Yes Able to Write Yes Communication Tools None Right Hearing Abillity Normal Left Hearing Abillity Normal Visual Assistive Devices Glasses Teaching Assessment Preferences Verbal,Written, Audio/Visual, Demonstration Barriers to Learning None Readiness To Learn Excellent Willingness to Engage in Self Management Med Activies Readiness to Engage in Self Management Med Activities Anxiety Level Calm Cooperation Cooperative Perception Coherent Interest in Health Problem Asks Questions Education Importance Denies Need Does Patient Smoke tobacco or other No substances Smoking Status Former smoker Is Patient Diabetic Yes Functional Assessment Recent Decline in Ability to Perform Denies Any Declines Assistive Device With Patient N/A Culture/Mu-Ism/Properties Supervisor Cultural/Mu-Ism Needs that may affect No Treatment Plan Would you allow our hospital model and mold maker plaster to No meet you for the purpose of spiritual/ emotional support? Properties Supervisor to contact place of latter day No Teaching: Wound Center [facility] Orientation/ Contacting Physician -Person Taught Patient -Teaching Method Discussion, Demonstration -Response to teaching Return Demonstration, Verbalize Understanding (a) 1 - positive 2 - positive 3 - positive 4 - positive - Nurse 1 - General Ulcer Measurement Start: 10/14/25 09:17 Freq: Status: Active Protocol: Activity Type Activity Date Activity User E-sign Co-sign Detail Recorded Client Recorded Date Recorded By Document 10/14/25 09:17 ANUP [id number] 10/14/25 09:38 ANUP 10/14/25 09:17 Wound Center Nurse 1 4-left leg cluster -Combined with other wound No -Current Size (cm) - Length 0.1 -Current Size (cm) - Width 0.1 -Current Size (cm) - Depth 0.1 -Total Square Cm 0.01 -Photo Taken Yes -Epithelialization None Present -Tunneling No -Undermining/Tunneling No -Circular Undermining No -Exudate Amt Small -Exudate Type Serosanguineous -Wound Margin Flat & Intact -Granulation Amt None Present (0 %) -Slough/Fibrin Yes -Necrosis Amt Large (67-100%) -Necrotic Tissue Type Adherent Slough -Texture (Kami-wound Skin Appearance) Assessed, Localized Edema -Moisture (Kami-wound Skin Appearance) Assessed,Dry/ Scaly -Color (Kami-wound Skin Appearance) Assessed, Hemosiderin Staining -Temperature (Kami-wound Skin No Abnormality Appearance) (Pt Warm) -Tenderness on Palpation (Kami-wound No Skin Appearance) -Ulcer Cleansing Not Cleansed -Foul Odor after Cleansing No -Anesthetic Used 4% Lidocaine Solution Lower Limb Edema Present Yes Right Calf (cm) 54 Right Ankle (cm) 30.2 Left Calf (cm) 52.5 Left Ankle (cm) 31.8 - Nurse 2 - General Ulcer CM Notes Start: 10/14/25 09:17 Freq: Status: Active Protocol: Activity Type Activity Date Activity User E-sign Co-sign Detail Recorded Client Recorded Date Recorded By Document 10/14/25 09:56 [id number] 10/14/25 10:06 10/14/25 09:56 Wound Center Nurse 2 4-left leg cluster -Time 09:57 -Correct Patient Yes -Correct Side, Site, Position Yes -Correct Procedure Yes -Procedure Performed Yes -Type of Procedure Debridement -Clinical Debridement Subcutaneous -Tissue Removed Subcutaneous -Post Debridement (cm) - Length 8.0 -Post Debridement (cm) - Width 10.0 -Post Debridement (cm) - Depth 0.1 -Total Square (Post) (cm) 80.00 -Area of Debridement (cm) - Length 8.0 -Area of Debridement (cm) - Width 10.0 -Total Square (Area) (cm) 80.00 -Tunneling No -Undermining/Tunneling No -Circular Undermining No -Wound/Ulcer Outcome Not Healed -Ulcer Cleansing Rinsed/ Irrigated with Saline -Foul Odor after Cleansing No -Bioengineered Tissue No -Bleeding Controlled with Pressure -Treatment Response Procedure Not Tolerated Well -Offloading No -Debridement - Subq, 1st 20sq cm Yes -Debridement, SubQ, ea addt'l 20sq cm 3 or part thereof Pain Scale: 0-10 Numeric Is Patient Pain Free? Yes - Nurse 3 - General Ulcer D/C NN Start: 10/14/25 09:17 Freq: Status: Active Protocol: Activity Type Activity Date Activity User E-sign Co-sign Detail Recorded Client Recorded Date Recorded By Document 10/14/25 10:45 RB [id number] 10/14/25 10:46 RB 10/14/25 10:45 Wound Care Center Nurse 3 4-left leg cluster -Ulcer Cleansing Wound Cleanser -Primary Dressing Applied Aquacel Extra, NonAdherent Contact Layer, Silicone Border Foam 6x6 -Aquacel Extra 1 -Silicone Border Foam 6x6 1 Treatment Response Procedure Tolerated Well Pain Scale: 0-10 Numeric Is Patient Pain Free? Yes WC - Visit Discharge Discharge Condition Stable Ambulatory Status Ambulatory Transportation Private Auto Medication Reconcilliation completed & No provided to patient/care provider Clinical Summary of Care Provided Yes Charges/Coding Visit Charges Office Visits / Consults: 31848 OV L4 Est 30min Procedures Integumentary [id number]: [id number] Elma subq tissue 20 sq cm/< Add On Codes: 58669 Elma subq tissue add-on (x3 additional square centimeter debrided, please refer to clinical note.) Assessment/Plan Assessment/Plan (1) Ulcer of left lower extremity with fat layer exposed: CODE(S): L97.922 - Non-pressure chronic ulcer of unspecified part of left lower leg with fat layer exposed (2) Venous hypertension, chronic, with ulcer and inflammation: CODE(S): I87.339 - Chronic venous hypertension (idiopathic) with ulcer and inflammation of unspecified lower extremity; L97.909 - Non-pressure chronic ulcer of unspecified part of unspecified lower leg with unspecified severity QUALIFIERS: Laterality: right Qualified Code(s): L97.919 - Non-pressure chronic ulcer of unspecified part of right lower leg with unspecified severity (3) Bilateral lower extremity edema: CODE(S): R60.0 - Localized edema (4) Morbid obesity: CODE(S): E66.01 - Morbid (severe) obesity due to excess calories (5) Atrial fibrillation: CODE(S): I48.91 - Unspecified atrial fibrillation QUALIFIERS: Atrial fibrillation type: unspecified Qualified Code(s): I48.91 - Unspecified atrial fibrillation (6) Type 2 diabetes mellitus: CODE(S): E11.9 - Type 2 diabetes mellitus without complications (7) History of cellulitis: CODE(S): Z87.2 - Personal history of diseases of the skin and subcutaneous tissue PLAN: Plan Debridement done as documented above, procedure was well-tolerated for the most part. Significant hyperesthesia, he states that he is on oxycodone. May benefit from gabapentin, was advised to speak with his primary care physician. Due to purulence, following debridement, cultures taken. Will review. He states that he most recently had been on antibiotics for a few weeks. Aquacel extra covered with Adaptic and foam dressing. Lightly applied 3M wrap for edema management. He was advised to come in on Saturday for nurse visit/change, he voiced understanding. Optimal diabetes control, increased protein intake and leg elevation is recommended. His questions were answered and he was advised to let us know if he had any further questions or concerns. As above, follow-up on Saturday for nurse visit and in a week with me. This note was generated with [employer] dictation software. It may contain incorrect words, spelling, and punctuation that were not noted in checking the note before signing.
[2025-10-18 12:05] VITALS: BP 130/85; PULSE 77; RESP 16; TEMP 36.1; BMI 52.3
[2025-10-21 10:31] VITALS: BP 162/99; PULSE 69; RESP 18; TEMP 36.3; BMI 52.3
--- NOTE | 2025-10-21 12:01 | PCM.WC.PN ---
History of Present Illness Date of Service: 10/21/25 Chief Complaint: Left Leg Ulcer History of Wound: Mr. Zaragoza is a 65-year-old who had previously been seen at the wound center. Presents today due to nonhealing Left lower extremity ulceration. Current ordeal said to have started 6 weeks ago with increased redness and pain. Has been treated for cellulitis. Had some old wound dressings at home which he had been using without significant improvement so subsequently presented here. Due to pain, has not been wearing compression stockings but had previously tolerated it at his last visit here. History of diabetes mellitus type 2, most recent A1c at 7. He states that he follows closely with his primary care. He feels well otherwise, denies chills, fever or any other significant concerns. Progress of Wound: No acute concerns reported at this time. Tolerated 3M wrap without any issues. Some improvement noted. Less painful than it was last week. Objective Data Objective Data Vital Signs: Vital Signs Temp Pulse Resp BP O2 Del Method 97.4 F L 69 18 162/99 H Room Air 10/21/25 10:31 10/21/25 10:31 10/21/25 10:31 10/21/25 10:31 10/21/25 10:31 Oxygen Delivery Method Room Air Weight: 386 lb Body Mass Index (BMI) 52.3 Lab / Micro Data Micro: Microbiology 10/14/25 10:05 Wound - Leg, Left Gram Stain - Final 10/14/25 10:05 Wound - Leg, Left Wound Culture - Final Staphylococcus epidermidis Staphylococcus aureus 10/14/25 10:05 Wound - Leg, Left Anaerobic Culture - Final Anaerobic cocci Charges/Coding Procedures Integumentary 111xxx-113xx: [id number] Elma subq tissue 20 sq cm/< Add On Codes: 90577 Elma subq tissue add-on (x3. Additional square centimeter debrided, please refer to clinical note) Physical Exam Const alert, oriented x3 and no apparent distress General Appearance: cooperative, comfortable and well kempt HEENT normocephalic and head/scalp atraumatic Eyes EOMs intact bilaterally Neck full ROM General: normal visual inspection Resp normal respiratory effort Effort and Inspection: able to speak in complete sentences Extremity General Extremity: edema Skin Wounds: wounds noted size Size: See clinical note, bed granulating well and surrounding erythema Neuro oriented x3, CN's II-XII intact bilaterally, moves all extremities and no focal motor deficits Psych mental status grossly normal, thought process normal, cooperative and affect normal Debridement Note Debridement Note Wound debrided: Left lower extremity (cluster) Type of Debridement: Excisional debridement Anesthesia Used: Cetacaine Depth: Down to and including healthy tissue and in the subcutaneous layer Percentage of wound debrided: 100 Instrument Used: 5mm curette Tissue Removed: Slough and devitalized tissue Severity: Fat Layer Exposed Amount of bleeding with debridement: Mild Bleeding Controlled with: Pressure Patient tolerated procedure: Patient tolerated procedure well Post-Debridement Measurements and Additional Note: Post-Debridement Measurements/Treatment - Nurse 1 - General Ulcer Assessment Start: 10/14/25 09:17 Freq: Status: Active Protocol: PRASAD Activity Type Activity Date Activity User E-sign Co-sign Detail Recorded Client Recorded Date Recorded By Document 10/14/25 09:17 [id number] 10/14/25 09:38 Document 10/18/25 12:05 [id number] 10/18/25 12:09 Document 10/21/25 10:31 [id number] 10/21/25 10:37 10/14/25 10/18/25 10/21/25 09:17 12:05 10:31 - Today's Visit Information Type of service Initial Visit Nurse-only Follow-up Visit Visit (Physician/FIXED INCOME ANALYST ) Arrival Mode Ambulatory Ambulatory Ambulatory Patient Identification Verified (Name & Yes Yes Yes ) Patient Requires Transmission-Based No Precautions Finger Stick Blood Sugar(mg/dl) (if 130 indicated): Blood Sugar Stated by Patient Height and Weight Height 6 ft Weight 386 lb Weight in Pounds 386.0 lbs Body Mass Index (BMI) 52.3 52.3 52.3 BMI Classification Obese Obese Obese Vital Signs Temperature (97.8 F-99.1 F) 97.7 F L 97.0 F L 97.4 F L Temperature Source Temporal Temporal Temporal Pulse Rate (60-100) 106 H 77 69 Pulse Location Monitor Monitor Monitor Respiratory Rate (12-18) 18 16 18 Respiratory rate source Observation Observation Observation Oxygen Delivery Method Room Air Room Air Blood Pressure (90/60-120/80) 154/106 H 130/85 H 162/99 H Blood Pressure Mean (mm Hg) 122 100 120 Source Monitor Monitor Monitor Position Semi-Fowlers Sitting Sitting Blood Pressure Location Right Arm Left Arm Left Arm History Since Last Visit- (Skip if this is Patient's initial visit) Have you changed medications since your No last visit? Any new allergies or adverse reactions No Had a fall/change in ADL's that may No increase risk of falls Signs or symptoms of abuse and/or No neglect since last visit Have you been in the hospital since your No last visit? Has dressing in place as prescribed Yes Has compression in place as prescribed Yes Has offloadiing in place as prescribed N/A Left Footwear Regular Shoe Regular Shoe Regular Shoe Right Footwear Regular Shoe Regular Shoe Regular Shoe Pain Scale: 0-10 Numeric Is Patient Pain Free? Yes Yes No LLE -Description Sharp,Aching -Intensity 5 -Duration (hours) Chronic -Pain Behavior Moaning, Guarding -Pain Aggravating Factors Debridement -Alleviating Factors/Interventions Will continue to monitor -Effectiveness of Alleviating Factor/ Moderately Intervention effective Lower Extremity Assessment/ Foot Assessment/ Toe Nail Assessment Right -Posterior Tibial Palpable Yes -Posterior Tibial Doppler Multiphasic -Dorsalis Pedis Palpable Yes -Dorsalis Pedis Doppler Multiphasic -Extremity Color Hyperpigmented -Hair Growth on Legs Yes -Hair Growth on Toes No -Temperature of Extremity Warm -Capillary Refill Less than 3 Seconds -Dependent Rubor Yes -Blanched when Elevated No -Other Deformity No -Prior Foot Ulcer No -Prior Amputation No -Thick Yes -Discolored Yes -Deformed No -Improper Length & Hygeine Yes Left -Posterior Tibial Palpable Yes -Posterior Tibial Doppler Multiphasic -Dorsalis Pedis Palpable Yes -Dorsalis Pedis Doppler Multiphasic -Extremity Color Hyperpigmented -Hair Growth on Legs Yes -Hair Growth on Toes No -Temperature of Extremity Warm -Capillary Refill Less than 3 Seconds -Dependent Rubor Yes -Blanched when Elevated No -Prior Foot Ulcer No -Charcot Joint No -Thick Yes -Discolored Yes -Deformed No -Improper Length & Hygeine No Neuropathy Assessment Feet - Top Side and Bottom <Entered> (a) Communication Assessment Primary Language Macanese Preferred language Macanese Health Unit Clerk Required No Able to Read Yes Able to Write Yes Communication Tools None Right Hearing Abillity Normal Left Hearing Abillity Normal Visual Assistive Devices Glasses Teaching Assessment Preferences Verbal,Written, Audio/Visual, Demonstration Barriers to Learning None Readiness To Learn Excellent Willingness to Engage in Self Management Med Activies Readiness to Engage in Self Management Med Activities Anxiety Level Calm Cooperation Cooperative Perception Coherent Interest in Health Problem Asks Questions Education Importance Denies Need Does Patient Smoke tobacco or other No substances Smoking Status Former smoker Is Patient Diabetic Yes Functional Assessment Recent Decline in Ability to Perform Denies Any Declines Assistive Device With Patient N/A Culture/Protestant/Youth Nutritional Monitor Cultural/Protestant Needs that may affect No Treatment Plan Would you allow our hospital motion picture camera operator to No meet you for the purpose of spiritual/ emotional support? Youth Nutritional Monitor to contact place of scientologist No Teaching: Wound Center [facility] Orientation/ Contacting Physician -Person Taught Patient -Teaching Method Discussion, Demonstration -Response to teaching Return Demonstration, Verbalize Understanding (a) 1 - positive 2 - positive 3 - positive 4 - positive - Nurse 1 - General Ulcer Measurement Start: 10/14/25 09:17 Freq: Status: Active Protocol: Activity Type Activity Date Activity User E-sign Co-sign Detail Recorded Client Recorded Date Recorded By Document 10/14/25 09:17 [id number] 10/14/25 09:38 Document 10/18/25 12:05 [id number] 10/18/25 12:09 Document 10/21/25 10:31 [id number] 10/21/25 10:37 10/14/25 10/18/25 10/21/25 09:17 12:05 10:31 Wound Center Nurse 1 4-left leg cluster -Combined with other wound No No No -Current Size (cm) - Length 0.1 4.5 -Current Size (cm) - Width 0.1 8.0 -Current Size (cm) - Depth 0.1 0.2 -Total Square Cm 0.01 36.00 -Date of Last Picture (Recall this 10/21/25 field) -Photo Taken Yes Yes -Epithelialization None Present Medium 34-66% -Tunneling No No -Undermining/Tunneling No No -Circular Undermining No No -Exudate Amt Small Large -Exudate Type Serosanguineous Serosanguineous -Wound Margin Flat & Intact Indistinct, Non -Visible -Granulation Amt None Present (0 Large (67-100%) %) -Granulation Quality [place],Red -Slough/Fibrin Yes Yes -Necrosis Amt Large (67-100%) Medium (34-66%) -Necrotic Tissue Type Adherent Slough Adherent Slough -Structure Exposed N/A -Texture (Kami-wound Skin Appearance) Assessed, Assessed Localized Edema -Moisture (Kami-wound Skin Appearance) Assessed,Dry/ Assessed Scaly -Color (Kami-wound Skin Appearance) Assessed, Assessed, Hemosiderin Hemosiderin Staining Staining -Temperature (Kami-wound Skin No Abnormality No Abnormality Appearance) (Pt Warm) (Pt Warm) -Tenderness on Palpation (Kami-wound No Yes Skin Appearance) -Ulcer Cleansing Not Cleansed Soap and Water -Foul Odor after Cleansing No No -Anesthetic Used 4% Lidocaine 5% Lidocaine Solution Gel Lower Limb Edema Present Yes Yes Yes Right Calf (cm) 54 Right Ankle (cm) 30.2 Left Calf (cm) 52.5 51.7 49.6 Left Ankle (cm) 31.8 31.7 30.2 WC - Nurse 2 - General Ulcer CM Notes Start: 10/14/25 09:17 Freq: Status: Active Protocol: Activity Type Activity Date Activity User E-sign Co-sign Detail Recorded Client Recorded Date Recorded By Document 10/14/25 09:56 GM(2) [id number] 10/14/25 10:06 GM(2) Document 10/21/25 11:01 GM(2) [id number] 10/21/25 11:03 GM(2) Edit Result 10/21/25 11:01 GM(2) (1) [id number] 10/21/25 11:05 GM(2) (1) 4-left leg cluster - Post Debridement (cm) - Length => 7.5 - Post Debridement (cm) - Width => 9.5 - Post Debridement (cm) - Depth => 0.1 - Total Square (Post) (cm) => 71.25 - Area of Debridement (cm) - Length => 7.5 - Area of Debridement (cm) - Width => 9.5 - Total Square (Area) (cm) => 71.25 - Debridement, SubQ, ea addt'l 20sq cm => 3 or part thereof 10/14/25 10/21/25 09:56 11:01 Wound Center Nurse 2 4-left leg cluster -Time 09:57 11:01 -Correct Patient Yes Yes -Correct Side, Site, Position Yes Yes -Correct Procedure Yes Yes -Procedure Performed Yes Yes -Type of Procedure Debridement Debridement -Clinical Debridement Subcutaneous Subcutaneous -Tissue Removed Subcutaneous Subcutaneous -Post Debridement (cm) - Length 8.0 7.5 -Post Debridement (cm) - Width 10.0 9.5 -Post Debridement (cm) - Depth 0.1 0.1 -Total Square (Post) (cm) 80.00 71.25 -Area of Debridement (cm) - Length 8.0 7.5 -Area of Debridement (cm) - Width 10.0 9.5 -Total Square (Area) (cm) 80.00 71.25 -Tunneling No No -Undermining/Tunneling No No -Circular Undermining No No -Wound/Ulcer Outcome Not Healed Not Healed -Ulcer Cleansing Rinsed/ Rinsed/ Irrigated with Irrigated with Saline Saline -Foul Odor after Cleansing No No -Bioengineered Tissue No No -Bleeding Controlled with Pressure Pressure -Treatment Response Procedure Not Procedure Tolerated Well Tolerated Well -Offloading No No -Debridement - Subq, 1st 20sq cm Yes Yes -Debridement, SubQ, ea addt'l 20sq cm 3 3 or part thereof Pain Scale: 0-10 Numeric Is Patient Pain Free? Yes Yes - Nurse 3 - General Ulcer D/C NN Start: 10/14/25 09:17 Freq: Status: Active Protocol: Activity Type Activity Date Activity User E-sign Co-sign Detail Recorded Client Recorded Date Recorded By Document 10/14/25 10:45 [id number] 10/14/25 10:46 Document 10/18/25 12:05 [id number] 10/18/25 12:09 10/14/25 10/18/25 10:45 12:05 Wound Care Center Nurse 3 4-left leg cluster -Ulcer Cleansing Wound Cleanser Soap and Water -Primary Dressing Applied Aquacel Extra, Aquacel Extra, NonAdherent Silicone Border Contact Layer, Foam 6x6 Silicone Border Foam 6x6 -Aquacel Extra 1 1 -Silicone Border Foam 6x6 1 1 LLE -Lotion applied to leg before Yes compression wrap -Multi-Layered Wrap Application Multi-Layer Comp - Left ($) -Multi-Layer Compression Left (Qty 1 applied) Treatment Response Procedure Tolerated Well Pain Scale: 0-10 Numeric Is Patient Pain Free? Yes Yes - Visit Discharge Discharge Condition Stable Stable Ambulatory Status Ambulatory Ambulatory Transportation Private Auto Private Auto Medication Reconcilliation completed & No No provided to patient/care provider Clinical Summary of Care Provided Yes No Assessment/Plan Assessment/Plan (1) Ulcer of left lower extremity with fat layer exposed: CODE(S): L97.922 - Non-pressure chronic ulcer of unspecified part of left lower leg with fat layer exposed (2) Venous hypertension, chronic, with ulcer and inflammation: CODE(S): I87.339 - Chronic venous hypertension (idiopathic) with ulcer and inflammation of unspecified lower extremity; L97.909 - Non-pressure chronic ulcer of unspecified part of unspecified lower leg with unspecified severity QUALIFIERS: Laterality: right Qualified Code(s): L97.919 - Non-pressure chronic ulcer of unspecified part of right lower leg with unspecified severity (3) Bilateral lower extremity edema: CODE(S): R60.0 - Localized edema (4) Morbid obesity: CODE(S): E66.01 - Morbid (severe) obesity due to excess calories (5) Atrial fibrillation: CODE(S): I48.91 - Unspecified atrial fibrillation QUALIFIERS: Atrial fibrillation type: unspecified Qualified Code(s): I48.91 - Unspecified atrial fibrillation (6) Type 2 diabetes mellitus: CODE(S): E11.9 - Type 2 diabetes mellitus without complications (7) History of cellulitis: CODE(S): Z87.2 - Personal history of diseases of the skin and subcutaneous tissue PLAN: Plan Debridement done as documented above, better tolerated this week. Cultures reviewed, rare growth possibly contaminant and some anaerobic growth. However, since there has been some improvement and he was recently on antibiotics, we will hold off antibiotics at this time and monitor closely. Continue Aquacel extra covered with Adaptic and foam dressing. Lightly applied 3M wrap for edema management. He was advised to come in on Saturday for nurse visit/change, he voiced understanding. Optimal diabetes control, increased protein intake and leg elevation is recommended. His questions were answered and he was advised to let us know if he had any further questions or concerns. Follow-up on Saturday for nurse visit and in 2 weeks with me. This note was generated with [employer] software. It may contain incorrect words, spelling, and punctuation that were not noted in checking the note before signing.
--- NOTE | 2025-10-22 08:51 | WC ---
PHOTO-LLE 10/21/25
[2025-10-27 12:05] VITALS: BP 152/100; PULSE 74; RESP 17; TEMP 35.9; BMI 52.3
== END 2025-10-31 23:59 | disposition home or self-care (01) ==
LOC: WC 12:00
PROVIDERS: PCP Family Medicine; Referring Provider Family Medicine; Visit Provider Internal Medicine
DX: I87.332 Chronic venous hypertension (idiopathic) with ulcer and inflammation of left lower extremity (principal); E11.622 Type 2 diabetes mellitus with other skin ulcer; L97.922 Non-pressure chronic ulcer of unspecified part of left lower leg with fat layer exposed; I48.91 Unspecified atrial fibrillation; E66.01 Morbid (severe) obesity due to excess calories; E11.40 Type 2 diabetes mellitus with diabetic neuropathy, unspecified; Z87.891 Personal history of nicotine dependence; R60.0 Localized edema; I87.2 Venous insufficiency (chronic) (peripheral); Z83.3 Family history of diabetes mellitus; Z82.49 Family history of ischemic heart disease and other diseases of the circulatory system; Z87.2 Personal history of diseases of the skin and subcutaneous tissue
CPT/HCPCS: 11042; 11045; 29581; 87070; 87075; 87077; 87186; 87205; 99213; G0463